=== PATIENT | male | born 1955 | race Caucasian/White ===

== ENCOUNTER 2016-09-20 23:51 | Observation (INO) | payer MEDICARE ==
[~2016-09-20] VITALS: Ht 172.7 cm; Wt 74.4 kg
[~2016-09-20 23:51] MED LIST: AMIODARONE HYD200 MG PO; CARVEDILOL3.125 M1 PO; CLOPIDOGREL75 M2 PO; DOXYCYCLINE HY100 MG PO; K-DUR 2020 MEQ PO; VALIUM 10MG TAB10 MG PO; VICODIN 5/500 T1 TAB PO
[2016-09-21 00:01] VITALS: BP 116/71
--- NOTE | 2016-09-21 00:10 | Emergency Room Report ---
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 N Clinical Suspician of Infection? N Mental Status: 2 - Mildly Altered Sepsis Risk:Low Sepsis Risk Have you (or family members/close friends) recently traveled outside the [place]? N If Yes, where/when: Have you had exposure to infectious disease within the past month? N TB? Other? Specify: Comment The patient is brought in by ambulance with complaints of chest pain and alcohol intoxication. He is intoxicated as advertised and therefore a poor historian. He indicates mid sternal chest pain beginning about 4 PM with shortness of breath, nausea, diaphoresis. He did not take anything for it. He says he is on aspirin and took one Thursday morning. When asked about his alcohol intake, he says he drank "too much". He will not specify an amount. He admits to smoking marijuana "whenever I can", but denies other street drug use. He indicates his chest pain is not present currently. It is unclear when it resolved. It is noted that the patient was seen here on September 09 for alcohol detox. He was discharged with a prescription for 6 Valium tablets to last 2 days and was advised to follow-up with his primary care provider, Aster Lopez, the next day. He says he did not follow-up, "she was unavailable". ALLERGIES Coded Allergies: codeine (Mild, 09/09/16) Uncoded Allergies: PCN (Mild, 10/18/15) Home Medications Active Scripts Acetaminophen/Hydrocodone Bi (Vicodin) 1 TAB PO TIDP PRN pain #10 TAB Prov: 03/30/16 Diazepam (Valium 10MG) 10 MG PO TID #6 TAB Prov: 09/09/16 Reported Medications AMIODARONE HCL (Amiodarone Hydrochloride) 200 MG PO DAILY #30 CLOPIDOGREL BISULFATE (Clopidogrel) 75 MG PO DAILY #30 Potassium Chloride (K-Dur) 20 MEQ PO DAILY #30 Carvedilol 3.125 MG PO BID #60 History Medical History General CAD? Yes Angina: Yes [place]: Yes Hypertension? Yes Hyperlipidemia? Yes CHF? Yes DVT? No PE? No COPD? Yes Asthma? Yes Anemia? No GERD? No Gastric ulcers? No GI Bleed? No Hernia? No Thyroid Problems? No Hypothyroidism? No CVA? No Seizures? No Diabetes? No Renal Insuffiency? No End Stage Renal Disease? No UTI? No Stones? No BPH? No GB Disease: No Nephritic Syndrome? No Asplenia? No Hepatitis? No Sickle Cell Disease? No Arthritis? Yes Migraines? No Cataracts? No Glaucoma? No MRSA? No HIV? No TB? No Anxiety? No Depression? Yes Cancer? No More? No Immunization Hx DT/Tetanus 1-4 Years Ago Flu Refused Pneumonia Never Had Surgical Hx Previous Surgery?Y 3 VESSEL CABG TONSILS BILATERAL SHOULDER BILATERAL WRIST CYST REMOVED FROM BACK Family History Family Hx Diabetes Yes CAD Yes Hypertension Yes Hyperlipidemia Yes Cancer Yes TB No Social History Smoking Hx Smoker: Current Every Day Smoker Tobacco: Yes Type Cigarettes Packs/day < 1 Pack Alcohol Alcohol: Yes Review of Systems All Other Systems Reviewed and Negative Constitutional diaphoresis Respiratory shortness of breath Cardiovascular chest pain Gastrointestinal denies abdominal pain, nausea, denies vomiting Physical Exam Vital Signs Vital Signs Date Time Temp Pulse Resp B/P Pulse O2 O2 Flow FiO2 Ox Delivery Rate 09/21 0238 78 09/21 0238 92 ROOM AIR 09/21 0221 96.9 78 18 107/67 09/21 0214 96.9 78 18 107/67 92 ROOM AIR 09/21 0200 97.3 82 20 108/74 96 09/21 0136 97.3 82 20 108/74 96 09/21 0103 82 20 131/83 96 09/21 0001 97.3 78 20 116/71 93 General Appearance intoxicated, smells strongly of alcohol, speech slurred Eye Exam - bilateral eye normal exam, bilateral eye PERRL, bilateral eye EOMI Ear, Nose, Throat hearing grossly normal, normal ENT inspection Neck normal inspection, non-tender, supple, full range of motion Respiratory Status Yes: trachea midline, chest symmetrical, non tender chest. No: respiratory distress. Lung Sounds bilateral: normal breath sounds, lungs clear. Cardiovascular normal exam, regular rate/rhythm, no peripheral edema, no gallop, no JVD, no murmur, no rub, normal peripheral pulses Peripheral Pulses Pulses normal Yes Gastrointestinal normal bowel sounds, normal exam, non tender, soft, no organomegaly Back normal inspection, no CVA tenderness, no vertebral tenderness Extremities non-tender, normal range of motion, normal inspection Neurologic hide cleaner II-XII nml as tested, normal exam, no motor/sensory deficits, oriented to person only Mental status normal mood/affect Skin intact, normal color, warm/dry Medical Decision Making LABS/Meds/Orders Pt receiving controlled substance in ED? No Results/Orders Laboratory Tests 09/21/16 0050: Opiates Screen NEGATIVE, Urine Methadone Screen NEGATIVE, Barbiturates NEGATIVE, Phencyclidine Screen NEGATIVE, Amphetamines Screen NEGATIVE, Benzodiazepines Screen NEGATIVE, Cocaine Screen NEGATIVE, Marijuana (THC) Screen NEGATIVE 09/21/16 0010: Phosphorus 3.1, Magnesium 2.1 09/21/16 0010: Folate Pending 09/21/16 0010: Sodium 143, Potassium 3.5, Chloride 104, Carbon Dioxide 24, BUN 7, Creatinine 1.1, Estimated Creat Clear 81, Estimated GFR (MDRD) 69, Glucose 98, Calcium 8.4 L, Total Bilirubin 0.3, AST 50 H, ALT 61, Alkaline Phosphatase 124 H, Creatine Kinase 179, CK-MB (CK-2) Rel Index 0.9, CK and CKMB Interp 1.6, Troponin I < 0.02, Total Protein 8.7 H, Albumin 4.1, Globulin 4.6 H, Albumin/Globulin Ratio 0.9 L, PT Pending, INR Pending, APTT Pending, WBC 7.9, RBC 4.94, Hgb 16.6, Hct 48.8, MCV 98.8 H, RDW 13.3, Plt Count 327, MPV 5.5 L, Gran % 41.5, Gran # 3.3, Total Counted 100, Lymphocytes % 50.1 H, Monocytes % 6.8, Eosinophils % 0.8, Basophils % 0.9, Neutrophils 46, Band Neutrophils 3, Lymphocytes (Manual) 47, Lymphocytes # 4.0, Monocytes (Manual) 2, Monocytes # 0.5, Eosinophils # 0.1, Eosinophils # (Manual) 2, Basophils # 0.1, Platelet Estimate NORMAL, Macrocytosis 1+, PUBS MCHC 34.0, MCH 33.5 H, Alcohols 395 *H Current Medication Orders Sig/Trisha Start time Last Medication Dose Route Stop Time Status Admin Amiodarone HCl 200 MG DAILY 09/21 899 UNV PO Carvedilol 3.125 MG BID 09/21 899 UNV PO Clopidogrel Bisulfate 75 MG DAILY 09/21 899 UNV PO Folic Acid 1 MG DAILY 09/21 899 UNV PO 09/23 900 Multivitamins 1 EACH DAILY 09/21 899 UNV PO Potassium Chloride 20 MEQ DAILY 09/21 899 UNV PO Thiamine HCl 100 MG DAILY 09/21 899 UNV PO 09/23 09 Oxazepam 30 MG Q6 09/21 0500 UNV PO 09/22 230 Nicotine 21 MG DAILYP PRN 09/21 0200 UNV TD Sodium Chloride 10 ML PRN PRN 09/21 0200 UNV IV Nicotine 21 MG ONCE ONE 09/21 0130 DC 09/21 TD 09/21 0131 0133 Nicotine 0 .STK-MED ONE 09/21 0128 DC 09/21 TD 0148 Aspirin 0 .STK-MED ONE 09/21 0124 DC .ROUTE Aspirin 324 MG ONCE ONE 09/21 0115 DC 09/21 PO 09/21 0116 0133 Sodium Chloride 10 ML PRN PRN 09/21 0015 AC IV 09/22 0008 Orders Procedure Date/time Status [id number]-[id number] FAT/LO CHO/JAGUAR 09/21 B Active ELECTROCARDIOGRAM REQUEST 09/21 0600 Active CARDIAC ENZYMES 09/21 0600 Active ADM ASSESS SMOKER RESPONSE 09/21 0255 Active ADMITTED PT IS ACTUALLY IN BED 09/21 0240 Active Decision to admit 09/21 0120 Active DRUG ABUSE SCREEN (TRIAGE) 09/21 0013 Complete ALCOHOL 09/21 0013 Complete ELECTROCARDIOGRAM REQUEST 09/21 0010 Active CHEST-PORTABLE 09/21 0010 Active IV SALINE LOCK 09/21 0010 Active DIFFERENTIAL-WBC 09/21 0010 Complete COMPLETE METABOLIC PANEL 09/21 0010 Complete CBC WITH AUTO DIFF 09/21 0010 Complete CARDIAC ENZYMES 09/21 0010 Complete ADMIT PATIENT 09/21 UNK Active 12 LEAD EKG-BESSON (INITIAL) 09/21 UNK Active PULSE OXIMETRY REQUEST 09/21 UNK Active OXYGEN REQUEST 09/21 UNK Active VITAL SIGNS 09/21 UNK Active [employer] CONSULTANT 09/21 UNK Active POM NURSE ELIZABETH HOSE ORDER 09/21 UNK Active IV SALINE LOCK 09/21 UNK Active CODE STATUS 09/21 UNK Active PATIENT ACTIVITY ORDER 09/21 UNK Active PROTIME/PARTIAL PROTIME 09/21 UNK Active PHOSPHORUS 09/21 UNK Complete MAGNESIUM 09/21 UNK Complete FOLIC ACID (FOLATE, SERUM) 09/21 UNK Active CM/EKG CM/EKG Comments EKG interpreted by Parish Suggs MD: Rhythm: sinus Rate: 81 Kirkman: normal Ectopy: none Conduction: RIGHT bundle branch block, chronic ST Segment Changes: none T Wave Changes: none Q Waves: none No evidence of acute ischemia or injury XRAY/CT/US XRAY/CT/US XRAY chest Comment X-ray interpreted by Parish Suggs M.D.: poor inspiration. Prior sternotomy. Old RIGHT rib fractures. Progress - 1:15 AM: I have discussed the case with Dr. Amaya for Dr. Méndez who agrees to admit the patient to the hospital. We discussed the patient's clinical information, including history, exam, laboratory and radiology results and ED course. Per hospital procedure, I will write temporary bridge inpatient orders on the patient. Specific orders requested by the admitting physician: Cardiac enzymes in the morning, Serax withdrawal protocol Departure Departure Disposition Still a Patient Clinical Impression Primary Impression: Chest pain, precordial Secondary Impressions: Alcohol intoxication Qualifiers: Complication of substance-induced condition: uncomplicated Qualified Code: F10.120 - Alcohol abuse with intoxication, uncomplicated Condition STABLE Referrals Honey AGUILAR,Marcus Robertson (Family) ED Critical Care Critical Care No at [id number]
[2016-09-21 00:14] LABS: HEMOGLOBIN 16.6 g/dL (14.1-18.0); LYMPH % 50.1 % (10-50)
[2016-09-21 00:32] LABS: NEUTROPHILS 46 % (42-76)
[2016-09-21 00:39] LABS: BUN 7 mg/dL (7-18)
[2016-09-21 00:40] LABS: GFR (ESTIMATED) 69 ML/MIN (>60)
[2016-09-21 01:07] LABS: AMPHETAMINES/METAMPHETAMINES NEGATIVE ng/mL (<1000)
[2016-09-21 02:14] VITALS: BP 107/67
[2016-09-21 02:21] VITALS: BP 107/67
[2016-09-21 03:29] VITALS: BP 123/51
[2016-09-21 07:50] VITALS: BP 108/68
[2016-09-21 08:00] VITALS: BP 108/68
--- NOTE | 2016-09-21 08:57 | PHARMACY CLINIC NOTE ---
Patient Demographics Patient Demographics Admission date: 09/21/16 Date: 09/21/16 Time: 0857 Allergies Coded Allergies: codeine (Mild, 09/09/16) Uncoded Allergies: PCN (Mild, 10/18/15) HEIGHT- FT: 5 IN: 8.00 K.418 VTE General Information Labs: Laboratory Tests 09/21 0010 Coagulation PT (9.4 - 11.8 SECONDS) 10.0 INR (0.9 - 1.1) 0.93 APTT (23.6 - 34.0 SECONDS) 26.1 Hematology Hgb (14.1 - 18.0 g/dL) 16.6 Hct (42.0 - 52.0 %) 48.8 Plt Count (142 - 424 K/mm3) 327 Disclaimer The following section includes nursing documentation that has been pulled in for pharmacy review. Patient's VTE score: 5 Patient's VTE Risk: LOW RISK Clinical trial participant? No VTE prophylaxis [id number] VTE prophylaxis ordered? Yes Type of prophylaxis/treatment: ELIZABETH at 0857
--- NOTE | 2016-09-21 09:46 | Discharge Summary Standard ---
Demographics: Admit date: 09/20/16 Chief complaint: intoxicated PRIMARY DIAGNOSIS: chest pain Allergies: Coded Allergies: codeine (Mild, 09/09/16) Uncoded Allergies: PCN (Mild, 10/18/15) History of present illness: History of present illness: this wm presented to ed with etoh intox ication and chest pain - he was admitted for serial enz and to monitor hr and rhythm - pt has known ht disease but has not been compliant with meds Past medical history: Family HX Family Hx Insignificant Yes Immunization HX DT/Tetanus Unknown Flu Refused Pneumonia Unknown TB Test in last year No General CAD? Yes Angina: Yes [place]: Yes Hypertension? Yes Hyperlipidemia? Yes CHF? Yes DVT? No PE? No COPD? Yes Asthma? Yes Anemia? No GERD? No Gastric ulcers? No GI Bleed? No Hernia? No Thyroid Problems? No Hypothyroidism? No CVA? No Seizures? No Diabetes? No Renal Insuffiency? No UTI? No Stones? No BPH? No GB Disease: No Nephritic Syndrome? No Asplenia? No Hepatitis? No Sickle Cell Disease? No Arthritis? Yes Migraines? No Cataracts? No Glaucoma? No MRSA? No HIV? No TB? No Anxiety? No Depression? Yes Cancer? No More? No Past Surgical HX Previous Surgery?Y 3 VESSEL CABG TONSILS BILATERAL SHOULDER BILATERAL WRIST CYST REMOVED FROM BACK Current home meds: Active Scripts Acetaminophen/Hydrocodone Bi (Vicodin) 1 TAB PO TIDP PRN pain #10 TAB Prov: 03/30/16 Diazepam (Valium 10MG) 10 MG PO TID #6 TAB Prov: 09/09/16 Reported Medications AMIODARONE HCL (Amiodarone Hydrochloride) 200 MG PO DAILY #30 CLOPIDOGREL BISULFATE (Clopidogrel) 75 MG PO DAILY #30 Potassium Chloride (K-Dur) 20 MEQ PO DAILY #30 Carvedilol 3.125 MG PO BID #60 Social Hx: Smoking HX Tobacco Yes Type Cigarettes Packs/day < 1 PACK Are you/the child exposed to second-hand smoke: Yes Alcohol Alcohol: Yes How much do you drink 6-10 Drinks Per Day For how long Longer Than 5 Years When was your last drink Less Than 12 Hours Ago Hx of Drug Use Drug Use? No Patien't marital status is single Patient's support system is fair Review of systems: Constitutional No: fever. Eyes No: drainage. Ears, Nose, Mouth, Throat No ear pain, No epistaxis, No throat pain Respiratory No: cough, shortness of breath, wheezing. Cardiovascular chest pain, No palpitations, No syncope Gastrointestinal/Abdominal see HPI, No diarrhea, nausea, poor appetite, poor fluid intake, No vomiting Genitourinary No: dysuria, frequency, hesitancy, hematuria. Musculoskeletal No: back pain, joint pain, joint swelling, neck pain. Skin No: rash. Neurological No: headache, seizure disorder. Psychiatric Yes: other. Exam: Lab data for last 24 hours: Laboratory Tests 09/21/16 0555: Creatine Kinase 191, CK-MB (CK-2) Rel Index 0.9, CK and CKMB Interp 1.8, Troponin I 0.02 09/21/16 0050: Opiates Screen NEGATIVE, Urine Methadone Screen NEGATIVE, Barbiturates NEGATIVE, Phencyclidine Screen NEGATIVE, Amphetamines Screen NEGATIVE, Benzodiazepines Screen NEGATIVE, Cocaine Screen NEGATIVE, Marijuana (THC) Screen NEGATIVE 09/21/16 0010: Phosphorus 3.1, Magnesium 2.1 09/21/16 0010: Sodium 143, Potassium 3.5, Chloride 104, Carbon Dioxide 24, BUN 7, Creatinine 1.1, Estimated Creat Clear 81, Estimated GFR (MDRD) 69, Glucose 98, Calcium 8.4 L, Total Bilirubin 0.3, AST 50 H, ALT 61, Alkaline Phosphatase 124 H, Creatine Kinase 179, CK-MB (CK-2) Rel Index 0.9, CK and CKMB Interp 1.6, Troponin I < 0.02, Total Protein 8.7 H, Albumin 4.1, Globulin 4.6 H, Albumin/Globulin Ratio 0.9 L, PT 10.0, INR 0.93, APTT 26.1, WBC 7.9, RBC 4.94, Hgb 16.6, Hct 48.8, MCV 98.8 H, RDW 13.3, Plt Count 327, MPV 5.5 L, Gran % 41.5, Gran # 3.3, Total Counted 100, Lymphocytes % 50.1 H, Monocytes % 6.8, Eosinophils % 0.8, Basophils % 0.9, Neutrophils 46, Band Neutrophils 3, Lymphocytes (Manual) 47, Lymphocytes # 4.0, Monocytes (Manual) 2, Monocytes # 0.5, Eosinophils # 0.1, Eosinophils # (Manual) 2, Basophils # 0.1, Platelet Estimate NORMAL, Macrocytosis 1+, PUBS MCHC 34.0, MCH 33.5 H, Alcohols 395 *H Admission vital signs: 1ST Vital Signs Result Date Time Pulse Ox 93 09/21 0001 B/P 116/71 09/21 0001 Temp 97.3 09/21 0001 Pulse 78 09/21 0001 Resp 20 09/21 0001 O2 Delivery ROOM AIR 09/21 0214 Exam General appearance: awake Eyes: PERRLA ENT: dry mucous membranes Neck: no JVD Cardiovascular: regular rate & rhythm Respiratory: no respiratory distress ABD: soft Genitourinary: no dysuria Extremities: moves all Musculoskeletal: equal muscle strength Skin: dry Neuro: alert, 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 Comment: will arrange card follow up as op and discuss etoh use and follow up Follow up Follow up in office in: 1 DAY with: Aster Lopez at 0945
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
--- OUTSIDE RECORDS SUMMARY | 2016-09-22 02:51 | External Medical Summary Rpt ---
Author Author , Organization [employer] Address Unknown Phone Unavailable Care Team Providers Care Project Associate Name Role Phone AHMAD MUH, AHMAD MUH Unavailable Unavailable ALAM MARIA M, ALAM MARIA M Unavailable Unavailable ATTUM ABD, ATTUM ABD Unavailable Unavailable REEVES CHELSEY, REEVES CHELSEY Unavailable Unavailable BATDORF, BATDORF Unavailable Unavailable BEINEKE HUONG, BEINEKE Unavailable Unavailable HUONG BESSON TAM, BESSON Unavailable Unavailable TAM TIMUR JEIMY, TIMUR Unavailable Unavailable JEIMY ROACH ALL, ROACH ALL Unavailable Unavailable SHERWIN MALHAB NIS, SHERWIN Unavailable Unavailable MALHAB NIS [facility], Unavailable Unavailable [facility] Unavailable Unavailable SERVICE, [facility] Unavailable Unavailable SERVICE, [facility] KAY JR PHILIP, KAY JR Unavailable Unavailable PHILIP [facility] Unavailable Unavailable [facility] Unavailable Unavailable COOK SUNIL, COOK SUNIL Unavailable Unavailable GHARAD CORRINA, GHARAD Unavailable Unavailable CORRINA MERCY DEN, MERCY Unavailable Unavailable DEN NICHOLAS APR, NICHOLAS APR Unavailable Unavailable [facility] Unavailable Unavailable INC, [facility] Unavailable Unavailable HOSPITAL P, [facility] P [facility], Unavailable Unavailable [facility] ISAI REEVES APRN FAMILY Unavailable Unavailable CLINIC, [facility] REEV[facility] GUNNER VINNIE, GUNNER Unavailable Unavailable VINNIE [facility] Un[facility] Unavailable [facility], [facility] Un[facility], [facility] BARBARA JR DWI, BARBARA Unavailable Unavailable JR DWI THOMAS AHM, THOMAS AHM Unavailable Unavailable THOMAS AHM, THOMAS AHM Unavailable Unavailable MATHAROO CORINNA, Unavailable Unavailable MATHAROO CORINNA [facility], Unavailable Unavailable [facility], Unavailable Unavailable [facility] Unavailable Unavailable CORPORATION, [facility] Unavailable Unavailable CORPORATION, [facility] Unavailable Unavailable [facility], [facility] Un[facility] Unavailable [facility], [facility] TEODORO ALEX, Unavailable Unavailable TEODORO ALEX [facility] Unavailable Unavailable DEPT\EMS, [facility]\EMS [facility], Unavailable Unavailable [facility], [facility] PETTEY JAM, PETTEY Unavailable Unavailable JAM [facility] Unavailable Unavailable CENTER, [facility] Unavailable Unavailable EQUIP, [facility] Unavailable Unavailable [facility], [facility] YATES GAR, YATES Unavailable Unavailable GAR AYESHA MAT, Unavailable Unavailable AYESHA MAT SINCELL MAR, SINCELL Unavailable Unavailable MAR SOTINGEANU HUONG, Unavailable Unavailable SOTINGEANU HUONG KATHY PHI, KATHY PHI Unavailable Unavailable WALKER FOR, WALKER Unavailable Unavailable FOR WELLS BRA, WELLS BRA Unavailable Unavailable [facility] MARTIN ERU, MARTIN ERU Unavailable Unavailable Purpose Continuity of Care Document - 09-18-2012 through 2016 Problems Code Diagnosis DOS Provider Status 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 04-10-2016 [facility] REGION [id number] OTHER 04-10-2016 [facility] DISC [facility] DEGENERATIO N AT C5-C6 LEVEL Z720 TOBACCO USE 04-10-2016 [facility] [id number] OTHER 04-09-2016 [facility] EXTRAARTICU PHYSICIANS LAR FX LOW GROUP RT RADIUS INIT CLOS [id number] DSPL FX 04-09-2016 [facility] RT WRST IMAGING ASS SUB ENC FX ROUTINE I10 ESSENTIAL 03-30-[address] [address] 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 UNS M53120 PRIMARY 03-30-2016 [facility] TIS RIGHT IMAGING ASS HAND [id number] PAIN IN 03-30-2016 [facility] RIGHT MEDICAL SHOULDER IMAGING ASS L74284 PAIN IN 03-30-2016 [facility] RIGHT WRIST MEDICAL IMAGING ASS G22169 PAIN IN 03-30-2016 [facility] UNSPECIFIED MEDICAL HIP IMAGING ASS H37661 PAIN IN 03-30-2016 [place] RIGHT MEDICAL FOREARM IMAGING ASS L10845 PAIN IN 03-30-2016 [facility] RIGHT HAND MEDICAL IM[facility] A3576GL UNS INJURY 03-30-2016 [facility] RT SHOULDER MEDICAL UPPER ARM IMAGING ASS INITIAL ENCNTR [id number] FX UNS 03-30-2016 [facility] CARPAL BONE PHYSICIANS, RT WRIST PLLC INITIAL ENC CLOS FX [id number] DSPL FX 03-30-2016 [facility] RT WRIST IMAGING ASS INIT ENC CLOS FX M542 CERVICALGIA 03-19-2016 [facility] M545 LOW BACK 02-18-2016 [facility] PAIN [facility] M5022 OT CERV 02-08-2016 [place] DISC MEDICAL DISPLACEMEN IMAGING ASS T MID-CERVICA L REGION M5032 OT CERV 02-08-2016 [facility] DISC MEDICAL DEGENERATIO IMAGING ASS N MID-CERVICA L REGION M5124 OT 02-08-2016 [place] INTERVERTEB MEDICAL RAL DISC IMAGING ASS DISPLACEMEN T THOR REGION M5134 OTH 02-08-2016 [place] INTER[facility]TE[facility] MEDICAL RAL DISC IMAGING ASS DEGEN THORACIC REGION M546 PAIN IN 02-08-2016 [facility] THORACIC [facility] SPINE IMAGING ASS M549 DORSALGIA 02-08-2016 [facility] UNSPECIFIED [facility] INC I209 ANGINA 01-15-2016 [facility]IS PHYSICIANS UNSPECIFIED GROUP W00688 ASHD TANGIRNAQ 01-15-2016 [facility] W/UNS INC ANGINA PECTORIS R9439 ABNORMAL 01-15-2016 [facility] RESULT [facility] PHYSICIANS CARDIOVASCU GROUP LR FUNCTION STUDY 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 ASHD TANGIRNAQ 01-04-2016 [place] [facility] CORONARY [facility] ARTERY W/O HOSPITAL P ANGINA PECTORIS E039 HYPOTHYROID 12-28-2015 [place] [facility] IS [facility] UNSPECIFIED INC R079 CHEST PAIN 12-28-2015 [facility] UNSPECIFIED [facility]ICAL IMAGING ASS R0602 SHORTNESS 10-29-2015 [facility] R5383 OTHER 10-29-2015 [facility] R32542 PAIN IN 10-22-2015 [facility] LEFT PHYSICIANS, SHOULDER PLLC R0789 OTHER CHEST 10-22-2015 [facility] PAIN MEDICAL IMAGING ASS [id number] PAIN D/T 10-22-2015 [facility] P IMPL & GRAFTS INITIAL G8918 OTHER ACUTE 10-18-2015 [facility] POSTPROCEDU [facility] P RAL PAIN G8928 OTHER 10-18-2015 [facility] CHRONIC PHYSICIANS, POSTPROCEDU PLLC RAL PAIN J80 ACUTE 10-18-2015 [facility] RESPIRATORY AMBULANCE DISTRESS SERVICE SYNDROME J90 PLEURAL 10-18-2015 [place] [facility] NOT IMAGING ASS ELSEWHERE CLASSIFIED J9811 ATELECTASIS 10-18-2015 [facility] J9690 RESP FAIL 10-15-2015 [facility] UNS UNS [facility] WHETHER HOSP W/HYPOXIA/H YPERCAPNIA R410 DISORIENTAT 10-15-2015 [facility] ION [facility] UNSPECIFIED HOSP R5381 OTHER 10-15-2015 [facility] MALAISE [facility] G86008 ELEVATED 10-13-2015 [facility] WHITE BLOOD [facility] CELL COUNT HOSP UNSPECIFIED I509 HEART 10-13-2015 [facility] FAILURE [facility] UNSPECIFIED HOSP J9600 ACUTE 10-13-2015 [facility] RESPIRATORY [facility] FAIL UNS HOSP HYPOXIA/HYP ERCAPNIA I214 NON-ST 10-12-2015 [facility] ELEVATION [facility] MYOCARDIAL HOSP INFARCTION R4182 ALTERED 10-12-2015 [facility] MENTAL [facility] STATUS HOS[facility] UNSPECIFIED D649 ANEMIA 10-11-2015 [facility] UNSPECIFIED [facility] HOSP E876 HYPOKALEMIA 10-11-2015 [facility] 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 J9601 ACUTE 10-10-2015 [facility] RESPIRATORY [facility] FAILURE HOSP WITH HYPOXIA R9431 ABNORMAL 10-10-2015 [facility] ELECTROCARD [facility] IOGRAM HOSP E870 HYPEROSMOLA 10-09-2015 [facility] LITY AND [place] HYPERNATREM [place]OSP [place] H74102 ACUTE 10-09-2015 [facility] POSTPROCEDU [facility] RAL HOSP RESPIRATORY FAILURE I999 UNSPECIFIED 10-08-2015 [facility] DISORDER [facility] OF HOSP CIRCULATORY SYSTEM E785 HYPERLIPIDE 10-03-2015 [facility] KAREN [facility] UNSPECIFIED HOSP I213 ST 10-02-2015 [facility] E[facility]ATION [facility] MYOCARDIAL HOSP INFARCTION UNS SITE F61307 ENCOUNTER 10-02-2015 [facility] FOR [facility] PREPROCEDUR HOSP AL CARIOVASCUL AR EXAM I222 SUBSEQUENT 10-01-2015 [facility] NON-ST CORPORATION ELEVATION MYOCARDIAL INFARCT J309 ALLERGIC 09-25-2015 ISAI REEVES RHINITIS [facility] UNSPECIFIED [facility]INIC N401 BENIGN 09-25-2015 ISAI REEVES PROSTATIC [facility] HYPERPLASIA CLINIC LW URINARY TRACT SX 2724 OTHER AND 06-19-2014 [facility] UNSPECIFIED HYPERLIPIDE KAREN 4019 UNSPECIFIED 06-19-2014 [facility] ESSENTIAL HYPERTENSIO N 6079 UNSPECIFIED 06-19-2014 [facility] DISORDER OF PENIS 7242 LUMBAGO 06-19-2014 [facility] 93309 PAIN IN 06-06-2014 [facility] HOME JOINT, MEDICAL MULTIPLE SITES 7231 CERVICALGIA 05-30-2014 [facility] A R H 4619 ACUTE 02-23-2014 [facility] SINUSITIS, UNSPECIFIED 481 PNEUMOCOCCA 09-26-2013 [place] L PNEUMONIA A R H 2875 UNSPECIFIED 09-20-2013 [place] [employer] HEALTH THROMBOCYTO [facility] PENIA 54417 OTHER 09-20-2013 [place] CHRONIC COMP HEALTH PAIN [facility] 78485 OBSTRUCTIVE 09-16-2013 [place] CHRONIC COMP BRONCHITIS SPECIALTY WITH SERV [place]ACERBATIO N 39834 DIARRHEA 09-14-2013 [facility] F10.10 ALCOHOL ABUSE, UNCOMPLICAT ED Allergies, Adverse Reactions, Alerts Clinical Alert Notifications Alert Member has >/= 3 hosp admit & >/= 1 ED visit in 365 days Results Labs Lab Lab Date Result Refere Interp Status Commen Order Detail nces retati t Range on ALCOHOL,SERUM (02-25-2014 04:45) Alcohol 101 0-10 complet 014 mg/dL ed 04:45 COMPREHENSIVE METABOLIC PANEL (02-24-2014 23:53) GLOMERU >60.0 complet LAR 014 mL/min/ ed FILTRAT 23:53 1.73 m2 ION RATE Comment: eGFR Interpretation: Disease State Reference Ranges for eGFR Comment: (calculated) Comment: Stage eGFR Description Comment: I/II >60 Normal/Mildly reduced kidney function Comment: III 30-59 Moderately reduced kidney function Comment: IV 15-29 Severely reduced kidney function Comment: V <15 End-stage kidney failure Comment: Calculated using MDRD formula based on gender,race (* GFR AA is for the Comment: population), and age. GFR estimates are unreliable in Comment: patients with rapidly changing kidney function,recent dialysis, extremes Comment: in body size, severe malnutrition or obesity, loss of limbs, abnormal Comment: muscle mass, or during . In these patients, alternative Comment: determinations of GFR should be obtained. GLOMERU >60.0 complet LAR 014 mL/min/ ed FILTRAT 23:53 1.73 m2 ION RATE Anne Marie n Creatin 0.9 0.6-1.3 complet ine 014 mg/dL ed 23:53 Sodium 02-24- 140 136-145 complet 014 mEq/L ed 23:53 Potassi 02-24-2 3.7 3.5-5.1 complet um 014 mEq/L ed 23:53 Chlorid 02-24- 109 98-107 complet e 014 mEq/L ed 23:53 CO2 02-24- 26 22-29 complet 014 mmol/L ed 23:53 Calcium 02-24- 8.3 8.5-10. complet 014 mg/dL 1 ed 23:53 Total 2 7.2 6.4-8.2 complet Protein 014 gm/dL ed 23:53 Glucose 93 70-99 complet 014 mg/dL ed 23:53 BUN 02-24- 10 7-18 complet 014 mg/dL ed 23:53 Albumin 3.6 3.4-5.0 complet 014 gm/dL ed 23:53 ALT 19 U/L 3-50 complet 014 ed 23:53 AST 12 U/L 15-37 complet 014 ed 23:53 Bilirub 0.18 0.0-1.0 complet in, 014 mg/dL ed Total 23:53 Alk 62 U/L 50-136 complet Phos 014 ed 23:53 CBC W/DIFF (02-24-2014 23:53) Neutrop 4.3 X 1.5-7.1 complet hil 014 10\S\3 ed Count 23:53 Monocyt 02-24-2 0.2 X 0.2-1.2 complet e Count 014 10\S\3 ed 23:53 Eosinop 02-24- 0.2 X 0.0-0.8 complet hil 014 10\S\3 ed Count 23:53 Lymphoc 02-24-2 4.2 X 0.7-4.3 complet yte 014 10\S\3 ed Count 23:53 Atypica 02-24-2 7 complet l 014 ed Lymphoc 23:53 yte Neutrop 02-24- 44.0 % 42.0-75 complet hils % 014 .0 ed 23:53 Eosinop 02-24-2 2.0 % 0.0-6.0 complet hils % 014 ed 23:53 WBC 10-03-2 9.6 X 3.5-9.6 complet 014 10\S\3 ed 23:53 Bands 10-03-2 1 complet 014 ed 23:53 Lymphoc 10-03-2 44.0 % 20.0-51 complet ytes % 014 .0 ed 23:53 Monocyt 10-03-2 2.0 % 0.0-13. complet es % 014 0 ed 23:53 RBC 10-03-2 4.51 X 4.70-6. complet 014 10\S\6 10 ed 23:53 Hemoglo 03-2 14.3 14.0-18 complet bin 014 gm/dL .0 ed 23:53 MCHC 03-2 33.6 32.0-37 complet 014 gm/dL .0 ed 23:53 MCV -03-2 94.2 fl 80.0-94 complet 014 .0 ed 23:53 RDW 02-24-2 13.4 % 12.0-15 complet 014 .0 ed 23:53 MPV 03-2 6.4 fl 6.2-10. complet 014 6 ed 23:53 Manual 03-2 YES complet Diff? 014 ed 23:53 Hematoc 03-2 42.5 % 42.0-52 complet rit 014 .0 ed 23:53 Platele 02-24-2 246 X 130-400 complet t 014 10\S\3 ed 23:53 MCH -03-2 31.7 pg 27.0-32 complet 014 .0 ed 23:53 ALCOHOL,SERUM (02-24-2014 23:53) Alcohol 202 0-10 complet 014 mg/dL ed 23:53 BASIC METABOLIC PANEL (09-26-2013 16:20) Glucose 05- 99 70-99 Normal complet 014 mg/dL ed 16:20 BUN -05-2 12 7-18 Normal complet 014 mg/dL ed 16:20 Creatin 05-05-2 0.9 0.6-1.3 Normal complet ine 014 mg/dL ed 16:20 Sodium 05-2 135 136-145 Below complet 014 mEq/L low ed 16:20 normal Potassi 05-2 4.2 3.5-5.1 Normal complet um 014 mEq/L ed 16:20 Chlorid 102 98-107 Normal complet e 014 mEq/L ed 16:20 CO2 09-26- 28 22-29 Normal complet 014 mmol/L ed 16:20 Calcium 2 9.1 8.5-10. Normal complet 014 mg/dL 1 ed 16:20 BUN/Cre 13 complet at 014 ed Ratio 16:20 GLOMERU >60.0 complet LAR 014 mL/min/ ed FILTRAT 16:20 1.73 m2 ION RATE Comment: eGFR Interpretation: Disease State Reference Ranges for eGFR Comment: (calculated) Comment: Stage eGFR Description Comment: I/II >60 Normal/Mildly reduced kidney function Comment: III 30-59 Moderately reduced kidney function Comment: IV 15-29 Severely reduced kidney function Comment: V <15 End-stage kidney failure Comment: Calculated using MDRD formula based on gender,race (* GFR AA is for the Comment: population), and age. GFR estimates are unreliable in Comment: patients with rapidly changing kidney function,recent dialysis, extremes Comment: in body size, severe malnutrition or obesity, loss of limbs, abnormal Comment: muscle mass, or during . In these patients, alternative Comment: determinations of GFR should be obtained. GLOMERU >60.0 complet LAR 014 mL/min/ ed FILTRAT 16:20 1.73 m2 ION RATE Anne Marie n BASIC METABOLIC PANEL (09-20-2013 05:45) Glucose 09-20- 104 70-99 Above complet 014 mg/dL high ed 05:45 normal BUN 2 19 7-18 Above complet 014 mg/dL high ed 05:45 normal Creatin 2 1.2 0.6-1.3 Normal complet ine 014 mg/dL ed 05:45 Sodium 137 136-145 Normal complet 014 mEq/L ed 05:45 Potassi 2 4.6 3.5-5.1 Normal complet um 014 mEq/L ed 05:45 Chlorid 09-20-2 99 98-107 Normal complet e 014 mEq/L ed 05:45 CO2 09-20-2 29 22-29 Normal complet 014 mmol/L ed 05:45 Calcium 2 9.1 8.5-10. Normal complet 014 mg/dL 1 ed 05:45 BUN/Cre 16 complet at 014 ed Ratio 05:45 GLOMERU 2 >60.0 complet LAR 014 mL/min/ ed FILTRAT 05:45 1.73 m2 ION RATE Comment: eGFR Interpretation: Disease State Reference Ranges for eGFR Comment: (calculated) Comment: Stage eGFR Description Comment: I/II >60 Normal/Mildly reduced kidney function Comment: III 30-59 Moderately reduced kidney function Comment: IV 15-29 Severely reduced kidney function Comment: V <15 End-stage kidney failure Comment: Calculated using MDRD formula based on gender,race (* GFR AA is for the Comment: population), and age. GFR estimates are unreliable in Comment: patients with rapidly changing kidney function,recent dialysis, extremes Comment: in body size, severe malnutrition or obesity, loss of limbs, abnormal Comment: muscle mass, or during . In these patients, alternative Comment: determinations of GFR should be obtained. GLOMERU >60.0 complet LAR 014 mL/min/ ed FILTRAT 05:45 1.73 m2 ION RATE Anne Marie n CBC W/DIFF (09-20-2013 05:45) WBC 9.5 X 3.5-9.6 Normal complet 014 10\S\3 ed 05:45 RBC 4.76 X 4.70-6. Normal complet 014 10\S\6 10 ed 05:45 Hemoglo 15.1 14.0-18 Normal complet bin 014 gm/dL .0 ed 05:45 Hematoc 43.9 % 42.0-52 Normal complet rit 014 .0 ed 05:45 Platele 426 X 130-400 Above complet t 014 10\S\3 high ed 05:45 normal MCH 31.7 pg 27.0-32 Normal complet 014 .0 ed 05:45 MCHC 34.4 32.0-37 Normal complet 014 gm/dL .0 ed 05:45 MCV 92.3 fl 80.0-94 Normal complet 014 .0 ed 05:45 RDW 13.8 % 12.0-15 Normal complet 014 .0 ed 05:45 MPV 04-29-2 6.6 fl 6.2-10. Normal complet 014 6 ed 05:45 Neutrop -29-2 56.1 % 42.0-75 Normal complet hils % 014 .0 ed 05:45 Lymphoc -29-2 30.7 % 20.0-51 Normal complet ytes % 014 .0 ed 05:45 Monocyt -29-2 10.2 % 0.0-13. Normal complet es % 014 0 ed 05:45 Eosinop --2 2.1 % 0.0-6.0 Normal complet hils % 014 ed 05:45 Basophi 09-20-2 0.9 % 0.0-2.0 Normal complet ls % 014 ed 05:45 Neutrop 09-20-2 5.4 X 1.5-7.1 Normal complet hil 014 10\S\3 ed Count 05:45 Monocyt 09-20-2 1.0 X 0.2-1.2 Normal complet e Count 014 10\S\3 ed 05:45 Eosinop 09-20-2 0.2 X 0.0-0.8 Normal complet hil 014 10\S\3 ed Count 05:45 Basophi 09-20-2 0.1 X 0.0-0.1 Normal complet l Count 014 10\S\3 ed 05:45 Lymphoc 09-20-2 2.9 X 0.7-4.3 Normal complet yte 014 10\S\3 ed Count 05:45 Comment: SLIDE REVIEWED, SC WBC STOOL (09-19-2013 19:00) Fecal NONE NONE Normal complet Leukocy 014 SEEN SEEN ed andressa 19:00 CULTURE, STOOL (09-19-2013 19:00) Clinica Specime complet l 014 n: ed Report 19:00 STOOL Clinica Collect complet l 014 ed: ed Report 19:00 014 19:00 Clinica Status: complet l 014 Final ed Report 19:00 Last Updated : 014 23:13 Clinica CUL RES complet l 014 ed Report 19:00 (Final) Clinica Heavy complet l 014 Normal ed Report 19:00 Fecal Cassi Noted Clinica Negativ complet l 014 e for ed Report 19:00 presenc e of Shiga toxin 1 Clinica Negativ complet l 014 e for ed Report 19:00 the presenc e of Shiga toxin 2 Clinica Negativ complet l 014 e For ed Report 19:00 Salmone lla, Shigell a, Campylo bacter \E\T\E\ Yersini a CLOSTRIDIUM DIFFICILE TOXIN A AND B (09-19-2013 19:00) C. NEGATIV NEGATIV Normal complet Diffici 014 E E ed le 19:00 Toxin BASIC METABOLIC PANEL (09-19-2013 05:56) Glucose 107 70-99 Above complet 014 mg/dL high ed 05:56 normal BUN 15 7-18 Normal complet 014 mg/dL ed 05:56 Creatin 1.0 0.6-1.3 Normal complet ine 014 mg/dL ed 05:56 Sodium 136 136-145 Normal complet 014 mEq/L ed 05:56 Potassi 4.5 3.5-5.1 Normal complet um 014 mEq/L ed 05:56 Chlorid 99 98-107 Normal complet e 014 mEq/L ed 05:56 CO2 28 22-29 Normal complet 014 mmol/L ed 05:56 Calcium 9.3 8.5-10. Normal complet 014 mg/dL 1 ed 05:56 BUN/Cre 15 complet at 014 ed Ratio 05:56 GLOMERU >60.0 complet LAR 014 mL/min/ ed FILTRAT 05:56 1.73 m2 ION RATE Comment: eGFR Interpretation: Disease State Reference Ranges for eGFR Comment: (calculated) Comment: Stage eGFR Description Comment: I/II >60 Normal/Mildly reduced kidney function Comment: III 30-59 Moderately reduced kidney function Comment: IV 15-29 Severely reduced kidney function Comment: V <15 End-stage kidney failure Comment: Calculated using MDRD formula based on gender,race (* GFR AA is for the Comment: population), and age. GFR estimates are unreliable in Comment: patients with rapidly changing kidney function,recent dialysis, extremes Comment: in body size, severe malnutrition or obesity, loss of limbs, abnormal Comment: muscle mass, or during . In these patients, alternative Comment: determinations of GFR should be obtained. GLOMERU >60.0 complet LAR 014 mL/min/ ed FILTRAT 05:56 1.73 m2 ION RATE Anne Marie n CBC W/DIFF (09-19-2013 05:56) WBC 10.5 X 3.5-9.6 Above complet 014 10\S\3 high ed 05:56 normal RBC 4.70 X 4.70-6. Normal complet 014 10\S\6 10 ed 05:56 Hemoglo 14.8 14.0-18 Normal complet bin 014 gm/dL .0 ed 05:56 Hematoc 44.3 % 42.0-52 Normal complet rit 014 .0 ed 05:56 Platele 384 X 130-400 Normal complet t 014 10\S\3 ed 05:56 MCH 31.5 pg 27.0-32 Normal complet 014 .0 ed 05:56 MCHC 33.4 32.0-37 Normal complet 014 gm/dL .0 ed 05:56 RDW 14.0 % 12.0-15 Normal complet 014 .0 ed 05:56 MPV 6.9 fl 6.2-10. Normal complet 014 6 ed 05:56 Neutrop 54.5 % 42.0-75 Normal complet hils % 014 .0 ed 05:56 Lymphoc 34.3 % 20.0-51 Normal complet ytes % 014 .0 ed 05:56 Monocyt 8.8 % 0.0-13. Normal complet es % 014 0 ed 05:56 Eosinop 1.7 % 0.0-6.0 Normal complet hils % 014 ed 05:56 Basophi 0.7 % 0.0-2.0 Normal complet ls % 014 ed 05:56 Neutrop 5.7 X 1.5-7.1 Normal complet hil 014 10\S\3 ed Count 05:56 Monocyt 0.9 X 0.2-1.2 Normal complet e Count 014 10\S\3 ed 05:56 Eosinop 2 0.2 X 0.0-0.8 Normal complet hil 014 10\S\3 ed Count 05:56 Basophi 2 0.1 X 0.0-0.1 Normal complet l Count 014 10\S\3 ed 05:56 Lymphoc 3.6 X 0.7-4.3 Normal complet yte 014 10\S\3 ed Count 05:56 Comment: SLIDE REVIEWED, MC MCV 94.3 fl 80.0-94 Above complet 014 .0 high ed 05:56 normal BASIC METABOLIC PANEL (09-18-2013 05:45) Glucose 96 70-99 Normal complet 014 mg/dL ed 05:45 BUN 13 7-18 Normal complet 014 mg/dL ed 05:45 Creatin 1.0 0.6-1.3 Normal complet ine 014 mg/dL ed 05:45 Sodium 136 136-145 Normal complet 014 mEq/L ed 05:45 Potassi 4.2 3.5-5.1 Normal complet um 014 mEq/L ed 05:45 Chlorid 102 98-107 Normal complet e 014 mEq/L ed 05:45 CO2 27 22-29 Normal complet 014 mmol/L ed 05:45 Calcium 8.7 8.5-10. Normal complet 014 mg/dL 1 ed 05:45 GLOMERU >60.0 complet LAR 014 mL/min/ ed FILTRAT 05:45 1.73 m2 ION RATE Comment: eGFR Interpretation: Disease State Reference Ranges for eGFR Comment: (calculated) Comment: Stage eGFR Description Comment: I/II >60 Normal/Mildly reduced kidney function Comment: III 30-59 Moderately reduced kidney function Comment: IV 15-29 Severely reduced kidney function Comment: V <15 End-stage kidney failure Comment: Calculated using MDRD formula based on gender,race (* GFR AA is for the Comment: population), and age. GFR estimates are unreliable in Comment: patients with rapidly changing kidney function,recent dialysis, extremes Comment: in body size, severe malnutrition or obesity, loss of limbs, abnormal Comment: muscle mass, or during . In these patients, alternative Comment: determinations of GFR should be obtained. GLOMERU >60.0 complet LAR 014 mL/min/ ed FILTRAT 05:45 1.73 m2 ION RATE Anne Marie n BASIC METABOLIC PANEL (09-17-2013 05:40) Chlorid 103 98-107 Normal complet e 014 mEq/L ed 05:40 CO2 28 22-29 Normal complet 014 mmol/L ed 05:40 Calcium 8.6 8.5-10. Normal complet 014 mg/dL 1 ed 05:40 BUN/Cre 14 complet at 014 ed Ratio 05:40 GLOMERU >60.0 complet LAR 014 mL/min/ ed FILTRAT 05:40 1.73 m2 ION RATE Comment: eGFR Interpretation: Disease State Reference Ranges for eGFR Comment: (calculated) Comment: Stage eGFR Description Comment: I/II >60 Normal/Mildly reduced kidney function Comment: III 30-59 Moderately reduced kidney function Comment: IV 15-29 Severely reduced kidney function Comment: V <15 End-stage kidney failure Comment: Calculated using MDRD formula based on gender,race (* GFR AA is for the Comment: population), and age. GFR estimates are unreliable in Comment: patients with rapidly changing kidney function,recent dialysis, extremes Comment: in body size, severe malnutrition or obesity, loss of limbs, abnormal Comment: muscle mass, or during . In these patients, alternative Comment: determinations of GFR should be obtained. GLOMERU >60.0 complet LAR 014 mL/min/ ed FILTRAT 05:40 1.73 m2 ION RATE Anne Marie n Glucose 105 70-99 Above complet 014 mg/dL high ed 05:40 normal BUN 13 7-18 Normal complet 014 mg/dL ed 05:40 Creatin 0.9 0.6-1.3 Normal complet ine 014 mg/dL ed 05:40 Sodium 136 136-145 Normal complet 014 mEq/L ed 05:40 Potassi 4.1 3.5-5.1 Normal complet um 014 mEq/L ed 05:40 CBC W/DIFF (09-17-2013 05:40) Lymphoc 04-26-2 27.5 % 20.0-51 Normal complet ytes % 014 .0 ed 05:40 Monocyt 04-26-2 11.7 % 0.0-13. Normal complet es % 014 0 ed 05:40 Eosinop 04-26-2 1.4 % 0.0-6.0 Normal complet hils % 014 ed 05:40 Basophi 04-26-2 0.7 % 0.0-2.0 Normal complet ls % 014 ed 05:40 Neutrop 04-26-2 5.0 X 1.5-7.1 Normal complet hil 014 10\S\3 ed Count 05:40 Monocyt 04-26-2 1.0 X 0.2-1.2 Normal complet e Count 014 10\S\3 ed 05:40 Eosinop 04-26-2 0.1 X 0.0-0.8 Normal complet hil 014 10\S\3 ed Count 05:40 Basophi 04-26-2 0.1 X 0.0-0.1 Normal complet l Count 014 10\S\3 ed 05:40 Lymphoc 04-26-2 2.3 X 0.7-4.3 Normal complet yte 014 10\S\3 ed Count 05:40 WBC 04-26-2 8.5 X 3.5-9.6 Normal complet 014 10\S\3 ed 05:40 RBC 04-26-2 4.31 X 4.70-6. Below complet 014 10\S\6 10 low ed 05:40 normal Hemoglo 04-26-2 13.5 14.0-18 Below complet bin 014 gm/dL .0 low ed 05:40 normal Hematoc 04-26-2 40.4 % 42.0-52 Below complet rit 014 .0 low ed 05:40 normal Platele 04-26-2 307 X 130-400 Normal complet t 014 10\S\3 ed 05:40 MCH 04-26-2 31.3 pg 27.0-32 Normal complet 014 .0 ed 05:40 MCHC 04-26-2 33.4 32.0-37 Normal complet 014 gm/dL .0 ed 05:40 MCV 04-26-2 93.6 fl 80.0-94 Normal complet 014 .0 ed 05:40 RDW 04-26-2 13.8 % 12.0-15 Normal complet 014 .0 ed 05:40 MPV 7.3 fl 6.2-10. Normal complet 014 6 ed 05:40 Neutrop 58.7 % 42.0-75 Normal complet hils % 014 .0 ed 05:40 ROTAVIRUS (09-16-2013 16:00) Rotavir NEGATIV complet us 014 E ed 16:00 OCCULT BLOOD, SINGLE SPECIMEN (09-16-2013 16:00) Occult NEGATIV NEGATIV Normal complet Blood 014 E E ed 16:00 NORWALK-LIKE VIRUS,EIA (09-16-2013 16:00) Gardner SEE complet -like 014 COMMENT ed Ag 16:00 S 014 09:45 AM Comment: Test Result Flag Unit RefValue Comment: ------- Comment: Norovirus Comment: Norovirus Antigen NOT DETECTED Comment: A negative result does not exclude norovirus Comment: infection. Comment: Comment: Test Performed by: Comment: [employer] Comment: [id number] Comment: ANASTASIYA Vang [id number] VANCOMYCIN TROUGH (09-16-2013 11:50) Vancomy 5.5 10.0-20 Below complet priscilla 014 mcg/mL .0 low ed Trough 11:50 normal CBC W/DIFF (09-16-2013 05:30) Lymphoc 1.9 X 0.7-4.3 Normal complet yte 014 10\S\3 ed Count 05:30 Basophi 0.0 X 0.0-0.1 Normal complet l Count 014 10\S\3 ed 05:30 Eosinop 0.1 X 0.0-0.8 Normal complet hil 014 10\S\3 ed Count 05:30 Monocyt 0.9 X 0.2-1.2 Normal complet e Count 014 10\S\3 ed 05:30 Neutrop 09-16-2 4.2 X 1.5-7.1 Normal complet hil 014 10\S\3 ed Count 05:30 Basophi 09-16-2 0.5 % 0.0-2.0 Normal complet ls % 014 ed 05:30 Eosinop -25-2 0.8 % 0.0-6.0 Normal complet hils % 014 ed 05:30 Monocyt 25-2 12.2 % 0.0-13. Normal complet es % 014 0 ed 05:30 Lymphoc 09-16-2 27.0 % 20.0-51 Normal complet ytes % 014 .0 ed 05:30 Neutrop 09-16-2 59.5 % 42.0-75 Normal complet hils % 014 .0 ed 05:30 MPV 09-16-2 7.2 fl 6.2-10. Normal complet 014 6 ed 05:30 RDW 09-16-2 13.9 % 12.0-15 Normal complet 014 .0 ed 05:30 MCV 09-16-2 93.6 fl 80.0-94 Normal complet 014 .0 ed 05:30 MCHC 09-16-2 33.2 32.0-37 Normal complet 014 gm/dL .0 ed 05:30 MCH 09-16-2 31.1 pg 27.0-32 Normal complet 014 .0 ed 05:30 Platele 09-16-2 263 X 130-400 Normal complet t 014 10\S\3 ed 05:30 Hematoc 09-16-2 41.2 % 42.0-52 Below complet rit 014 .0 low ed 05:30 normal Hemoglo 09-16-2 13.7 14.0-18 Below complet bin 014 gm/dL .0 low ed 05:30 normal RBC 09-16-2 4.40 X 4.70-6. Below complet 014 10\S\6 10 low ed 05:30 normal WBC 25-2 7.0 X 3.5-9.6 Normal complet 014 10\S\3 ed 05:30 BASIC METABOLIC PANEL (09-16-2013 05:30) GLOMERU 09-16-2 >60.0 complet LAR 014 mL/min/ ed FILTRAT 05:30 1.73 m2 ION RATE Comment: eGFR Interpretation: Disease State Reference Ranges for eGFR Comment: (calculated) Comment: Stage eGFR Description Comment: I/II >60 Normal/Mildly reduced kidney function Comment: III 30-59 Moderately reduced kidney function Comment: IV 15-29 Severely reduced kidney function Comment: V <15 End-stage kidney failure Comment: Calculated using MDRD formula based on gender,race (* GFR AA is for the Comment: population), and age. GFR estimates are unreliable in Comment: patients with rapidly changing kidney function,recent dialysis, extremes Comment: in body size, severe malnutrition or obesity, loss of limbs, abnormal Comment: muscle mass, or during . In these patients, alternative Comment: determinations of GFR should be obtained. BUN/Cre 10 complet at 014 ed Ratio 05:30 Calcium 8.3 8.5-10. Below complet 014 mg/dL 1 low ed 05:30 normal CO2 27 22-29 Normal complet 014 mmol/L ed 05:30 Chlorid 102 98-107 Normal complet e 014 mEq/L ed 05:30 Potassi 3.7 3.5-5.1 Normal complet um 014 mEq/L ed 05:30 Sodium 137 136-145 Normal complet 014 mEq/L ed 05:30 Creatin 1.0 0.6-1.3 Normal complet ine 014 mg/dL ed 05:30 BUN 10 7-18 Normal complet 014 mg/dL ed 05:30 Glucose 116 70-99 Above complet 014 mg/dL high ed 05:30 normal GLOMERU >60.0 complet LAR 014 mL/min/ ed FILTRAT 05:30 1.73 m2 ION RATE Anne Marie n HEPARIN-PF4 AB (HIT) (09-15-2013 12:41) Heparin SEE complet -PF4 Ab 014 COMMENT ed (HIT) 12:41 S 014 08:26 PM Comment: Test Result Flag Unit RefValue Comment: ------- Comment: Heparin-PF4 Ab (HIT), S Comment: Reactivity 5 % <20 Comment: Interpretation Negative Negative Comment: Comment Comment: Negative test results have about 90% predictive power for Comment: excluding immune-mediated heparin induced thrombocytopenia Comment: (HIT type II), but do not completely exclude clinical HIT Comment: diagnosis, especially when clinical probability is high. Comment: Comment: Test Performed by: Comment: [facility] Comment: [address] , [place] [address] Comment: Cafeteria Clerk: Alberto Cook III, M.D. CBC W/DIFF (09-15-2013 05:30) Lymphoc 09-15-2 1.8 X 0.7-4.3 Normal complet yte 014 10\S\3 ed Count 05:30 Monocyt 09-15-2 0.6 X 0.2-1.2 Normal complet e Count 014 10\S\3 ed 05:30 MCHC 09-15-2 32.7 32.0-37 Normal complet 014 gm/dL .0 ed 05:30 MCH 09-15-2 31.8 pg 27.0-32 Normal complet 014 .0 ed 05:30 Platele 09-15-2 63 X 130-400 Below complet t 014 10\S\3 low ed 05:30 normal Hematoc 09-15-2 44.8 % 42.0-52 Normal complet rit 014 .0 ed 05:30 Hemoglo 09-15-2 14.6 14.0-18 Normal complet bin 014 gm/dL .0 ed 05:30 RBC 09-15-2 4.61 X 4.70-6. Below complet 014 10\S\6 10 low ed 05:30 normal WBC -24-2 11.4 X 3.5-9.6 Above complet 014 10\S\3 high ed 05:30 normal Neutrop 24-2 9.0 X 1.5-7.1 Above complet hil 014 10\S\3 high ed Count 05:30 normal Monocyt -24-2 5.0 % 0.0-13. Normal complet es % 014 0 ed 05:30 Lymphoc -24-2 16.0 % 20.0-51 Below complet ytes % 014 .0 low ed 05:30 normal Bands 24-2 10 complet 014 ed 05:30 Neutrop 24-2 69.0 % 42.0-75 Normal complet hils % 014 .0 ed 05:30 Manual 24-2 YES complet Diff? 014 ed 05:30 RDW 24-2 17.9 % 12.0-15 Above complet 014 .0 high ed 05:30 normal MCV 24-2 97.2 fl 80.0-94 Above complet 014 .0 high ed 05:30 normal MPV 24-2 7.7 fl 6.2-10. Normal complet 014 6 ed 05:30 BASIC METABOLIC PANEL (09-15-2013 05:30) Calcium -24-2 8.3 8.5-10. Below complet 014 mg/dL 1 low ed 05:30 normal CO2 24-2 20 22-29 Below complet 014 mmol/L low ed 05:30 normal Chlorid 24-2 100 98-107 Normal complet e 014 mEq/L ed 05:30 Potassi 24-2 4.8 3.5-5.1 Normal complet um 014 mEq/L ed 05:30 Sodium 24-2 133 136-145 Below complet 014 mEq/L low ed 05:30 normal Creatin -24-2 0.6 0.6-1.3 Normal complet ine 014 mg/dL ed 05:30 BUN 24-2 10 7-18 Normal complet 014 mg/dL ed 05:30 Glucose 24-2 118 70-99 Above complet 014 mg/dL high ed 05:30 normal GLOMERU -24-2 >60.0 complet LAR 014 mL/min/ ed FILTRAT 05:30 1.73 m2 ION RATE Anne Marie n GLOMERU 24-2 >60.0 complet LAR 014 mL/min/ ed FILTRAT 05:30 1.73 m2 ION RATE Comment: eGFR Interpretation: Disease State Reference Ranges for eGFR Comment: (calculated) Comment: Stage eGFR Description Comment: I/II >60 Normal/Mildly reduced kidney function Comment: III 30-59 Moderately reduced kidney function Comment: IV 15-29 Severely reduced kidney function Comment: V <15 End-stage kidney failure Comment: Calculated using MDRD formula based on gender,race (* GFR AA is for the Comment: population), and age. GFR estimates are unreliable in Comment: patients with rapidly changing kidney function,recent dialysis, extremes Comment: in body size, severe malnutrition or obesity, loss of limbs, abnormal Comment: muscle mass, or during . In these patients, alternative Comment: determinations of GFR should be obtained. BUN/Cre 17 complet at 014 ed Ratio 05:30 STAIN, GRAM (09-14-2013 21:04) [facility] Collect complet l 014 ed: ed Report 21:04 014 21:04 [facility] Specime complet l 014 n/Sourc ed Report 21:04 e: OTHER-S PECIFY/ sputum [facility] Bacilli complet l 014 Seen ed Report 21:04 [facility] >10 complet l 014 WBC/LPF ed Report 21:04 <25 EPI/LPF Gram Positiv e Cocci Seen Few Gram Positiv e [facility] GRAM complet l 014 (Final) ed Report 21:04 Clin[facility] Status: complet l 014 Final ed Report 21:04 Last Updated : 014 00:07 CULTURE, SPUTUM (09-14-2013 21:04) [facility] CUL RES complet l 014 ed Report 21:04 (Final) [facility] Rare complet l 014 Normal ed Report 21:04 Upper Respira tory Cassi Noted [facility] Specime complet l 014 n: ed Report 21:04 SPUTUM [facility] Collect complet l 014 ed: ed Report 21:04 014 21:04 [facility] Status: complet l 014 Final ed Report 21:04 Last Updated : 014 02:33 [facility] (09-14-2013 12:39) Legione --2 Negativ Negativ Normal complet lla 014 e e ed Urinary 12:39 Antigen STREPTOCOCCUS PNEUMONIAE AG,URINE (09-14-2013 12:39) Strepto -23-2 Positiv Negativ Abnorma complet coccus 014 e e l ed Pneumon 12:39 iae Urinary Antigen ALPHA 1 ANTITRYPSIN TOT (09-14-2013 10:30) Alpha-1 09-14- SEE complet -Antitr 014 COMMENT ed ypsin 10:30 S 014 12:52 PM Comment: Test Result Flag Unit RefValue Comment: ------- Comment: [id number], S 297 h mg/dL 100 - 190 Comment: Comment: Test Performed by: Comment: [facility] Comment: [address] [place] [address] Comment: Cafeteria Clerk: Alberto Cook III, M.D. CULTURE, ROUTINE (09-14-2013 06:00) [facility] Specime complet l 014 n/Sourc ed Report 06:00 e: OTHER-S PECIFY/ nasal [facility] Collect complet l 014 ed: ed Report 06:00 014 06:00 [facility] Status: complet l 014 Final ed Report 06:00 Last Updated : 014 07:25 [facility] CUL RES complet l 014 ed Report 06:00 (Final) [facility] No complet l 014 Growth ed Report 06:00 After 24 Hours [facility] Rare complet l 014 Normal ed Report 06:00 Skin cassi noted CBC W/DIFF (09-14-2013 05:30) MCHC 33.0 32.0-37 Normal complet 014 gm/dL .0 ed 05:30 MCH 31.0 pg 27.0-32 Normal complet 014 .0 ed 05:30 Platele 198 X 130-400 Normal complet t 014 10\S\3 ed 05:30 Hematoc 44.5 % 42.0-52 Normal complet rit 014 .0 ed 05:30 Hemoglo 14.7 14.0-18 Normal complet bin 014 gm/dL .0 ed 05:30 RBC 4.74 X 4.70-6. Normal complet 014 10\S\6 10 ed 05:30 WBC 16.7 X 3.5-9.6 Above complet 014 10\S\3 high ed 05:30 normal Monocyt -23-2 8.4 % 0.0-13. Normal complet es % 014 0 ed 05:30 Lymphoc 23-2 11.9 % 20.0-51 Below complet ytes % 014 .0 low ed 05:30 normal Neutrop 09-14-2 79.2 % 42.0-75 Above complet hils % 014 .0 high ed 05:30 normal MPV 09-14-2 7.5 fl 6.2-10. Normal complet 014 6 ed 05:30 RDW 09-14-2 14.0 % 12.0-15 Normal complet 014 .0 ed 05:30 MCV 09-14-2 93.9 fl 80.0-94 Normal complet 014 .0 ed 05:30 Neutrop 09-14-2 13.2 X 1.5-7.1 Above complet hil 014 10\S\3 high ed Count 05:30 normal Basophi 09-14-2 0.4 % 0.0-2.0 Normal complet ls % 014 ed 05:30 Eosinop 23-2 0.1 % 0.0-6.0 Normal complet hils % 014 ed 05:30 Lymphoc 09-14-2 2.0 X 0.7-4.3 Normal complet yte 014 10\S\3 ed Count 05:30 Basophi 09-14-2 0.1 X 0.0-0.1 Normal complet l Count 014 10\S\3 ed 05:30 Eosinop 23-2 0.0 X 0.0-0.8 Normal complet hil 014 10\S\3 ed Count 05:30 Monocyt 23-2 1.4 X 0.2-1.2 Above complet e Count 014 10\S\3 high ed 05:30 normal CULTURE, BLOOD (09-13-2013 18:23) [facility] No complet l 014 Growth ed Report 18:23 After 4 Days [facility] Collect complet l 014 ed: ed Report 18:23 014 18:23 Clin[facility] Status: complet l 014 Final ed Report 18:23 Last Updated : 014 20:24 [facility] CUL RES complet l 014 ed Report 18:23 (Final) Clin[facility] Culture complet l 014 In ed Report 18:23 Progres s [facility] No complet l 014 Growth ed Report 18:23 After 24 Hours Clin[facility] No complet l 014 Growth ed Report 18:23 After 48 Hours Clinica No complet l 014 Growth ed Report 18:23 After 3 Days Clin[facility] Specime complet l 014 n: ed Report 18:23 BLOOD [facility] No complet l 014 Growth ed Report 18:23 After 5 Days CULTURE, BLOOD (09-13-2013 18:03) [facility] No complet l 014 Growth ed Report 18:03 After 5 Days [facility] Specime complet l 014 n: ed Report 18:03 BLOOD [facility] Collect complet l 014 ed: ed Report 18:03 014 18:03 [facility] Status: complet l 014 Final ed Report 18:03 Last Updated : 014 20:24 [facility] CUL RES complet l 014 ed Report 18:03 (Final) [facility] Culture complet l 014 In ed Report 18:03 Progres s [facility] No complet l 014 Growth ed Report 18:03 After 24 Hours [facility] No complet l 014 Growth ed Report 18:03 After 48 Hours Clin[facility] No complet l 014 Growth ed Report 18:03 After 3 Days Clin[facility] No complet l 014 Growth ed Report 18:03 After 4 Days CBC W/DIFF (09-13-2013 16:17) Bands 34 complet 014 ed 16:17 Neutrop 53.0 % 42.0-75 Normal complet hils % 014 .0 ed 16:17 Manual YES complet Diff? 014 ed 16:17 MPV 7.0 fl 6.2-10. Normal complet 014 6 ed 16:17 RDW 13.7 % 12.0-15 Normal complet 014 .0 ed 16:17 MCV 93.7 fl 80.0-94 Normal complet 014 .0 ed 16:17 MCHC 32.6 32.0-37 Normal complet 014 gm/dL .0 ed 16:17 MCH 30.6 pg 27.0-32 Normal complet 014 .0 ed 16:17 Platele 214 X 130-400 Normal complet t 014 10\S\3 ed 16:17 Hematoc 47.0 % 42.0-52 Normal complet rit 014 .0 ed 16:17 Hemoglo 15.3 14.0-18 Normal complet bin 014 gm/dL .0 ed 16:17 RBC 5.02 X 4.70-6. Normal complet 014 10\S\6 10 ed 16:17 WBC 16.6 X 3.5-9.6 Above complet 014 10\S\3 high ed 16:17 normal Lymphoc 1.5 X 0.7-4.3 Normal complet yte 014 10\S\3 ed Count 16:17 Monocyt 0.7 X 0.2-1.2 Normal complet e Count 014 10\S\3 ed 16:17 Neutrop 14.4 X 1.5-7.1 Above complet hil 014 10\S\3 high ed Count 16:17 normal Monocyt 4.0 % 0.0-13. Normal complet es % 014 0 ed 16:17 Lymphoc 9.0 % 20.0-51 Below complet ytes % 014 .0 low ed 16:17 normal ALCOHOL,SERUM (12-02-2012 13:25) Alcohol 47 0-10 Above complet 013 mg/dL high ed 13:25 normal ALCOHOL,SERUM (12-02-2012 05:04) Comment: CALLED ALCOHOL TO MUNIR IN ER @ 0559, RBV Comment: DS Alcohol 239 0-10 Above complet 013 mg/dL high ed 05:04 normal CBC W/DIFF (12-02-2012 05:04) Lymphoc 3.3 X 0.7-4.3 Normal complet yte 013 10 ed Count 05:04 Basophi 0.1 X 0.0-0.1 Normal complet l Count 013 10 ed 05:04 Eosinop 07-11-2 0.3 X 0.0-0.8 Normal complet hil 013 10 ed Count 05:04 Monocyt 07-11-2 0.8 X 0.2-1.2 Normal complet e Count 013 10 ed 05:04 Neutrop -11-2 5.8 X 1.5-7.1 Normal complet hil 013 10 ed Count 05:04 Basophi -11-2 0.6 % 0.0-2.0 Normal complet ls % 013 ed 05:04 Eosinop -11-2 2.5 % 0.0-6.0 Normal complet hils % 013 ed 05:04 Monocyt 07-11-2 7.3 % 0.0-13. Normal complet es % 013 0 ed 05:04 Lymphoc -11-2 32.5 % 20.0-51 Normal complet ytes % 013 .0 ed 05:04 Neutrop 11-2 57.1 % 42.0-75 Normal complet hils % 013 .0 ed 05:04 MPV 11-2 6.9 fl 6.2-10. Normal complet 013 6 ed 05:04 RDW 11-2 14.4 % 12.0-15 Normal complet 013 .0 ed 05:04 MCV 11-2 95.6 fl 80.0-94 Above complet 013 .0 high ed 05:04 normal MCHC 11-2 35.1 32.0-37 Normal complet 013 gm/dL .0 ed 05:04 MCH 11-2 33.5 pg 27.0-32 Above complet 013 .0 high ed 05:04 normal Platele 11-2 177 X 130-400 Normal complet t 013 10 ed 05:04 Hematoc -11-2 50.1 % 42.0-52 Normal complet rit 013 .0 ed 05:04 RBC -11-2 5.24 X 4.70-6. Normal complet 013 10 10 ed 05:04 Hemoglo -11-2 17.6 14.0-18 Normal complet bin 013 gm/dL .0 ed 05:04 WBC 11-2 10.2 X 3.5-9.6 Above complet 013 10 high ed 05:04 normal BASIC METABOLIC PANEL (09-20-2012 05:14) GLOMERU 04-29-2 >60.0 complet LAR 013 mL/min/ ed FILTRAT 05:14 1.73 m2 ION RATE Anne Marie n GLOMERU 2 >60.0 complet LAR 013 mL/min/ ed FILTRAT 05:14 1.73 m2 ION RATE Comment: eGFR Interpretation: Disease State Reference Ranges for eGFR Comment: (calculated) Comment: Stage eGFR Description Comment: I/II >60 Normal/Mildly reduced kidney function Comment: III 30-59 Moderately reduced kidney function Comment: IV 15-29 Severely reduced kidney function Comment: V <15 End-stage kidney failure Comment: Calculated using MDRD formula based on gender,race (* GFR AA is for the Comment: population), and age. GFR estimates are unreliable in Comment: patients with rapidly changing kidney function,recent dialysis, extremes Comment: in body size, severe malnutrition or obesity, loss of limbs, abnormal Comment: muscle mass, or during . In these patients, alternative Comment: determinations of GFR should be obtained. BUN/Cre 11 complet at 013 ed Ratio 05:14 Calcium 7.9 8.5-10. Below complet 013 mg/dL 1 low ed 05:14 normal CO2 30 22-29 Above complet 013 mmol/L high ed 05:14 normal Chlorid 105 98-107 Normal complet e 013 mEq/L ed 05:14 Potassi 4.1 3.5-5.1 Normal complet um 013 mEq/L ed 05:14 Sodium 138 136-145 Normal complet 013 mEq/L ed 05:14 Creatin 1.0 0.6-1.3 Normal complet ine 013 mg/dL ed 05:14 BUN 2 11 7-18 Normal complet 013 mg/dL ed 05:14 Glucose 140 70-99 Above complet 013 mg/dL high ed 05:14 normal CBC W/DIFF (09-20-2012 05:14) Eosinop 6.5 % 0.0-6.0 Above complet hils % 013 high ed 05:14 normal Lymphoc 1.6 X 0.7-4.3 Normal complet yte 013 10 ed Count 05:14 Basophi 0.1 X 0.0-0.1 Normal complet l Count 013 10 ed 05:14 Eosinop --2 0.5 X 0.0-0.8 Normal complet hil 013 10 ed Count 05:14 Monocyt 09-20-2 1.0 X 0.2-1.2 Normal complet e Count 013 10 ed 05:14 Neutrop 09-20-2 4.0 X 1.5-7.1 Normal complet hil 013 10 ed Count 05:14 Basophi 09-20-2 0.8 % 0.0-2.0 Normal complet ls % 013 ed 05:14 Monocyt 09-20-2 14.5 % 0.0-13. Above complet es % 013 0 high ed 05:14 normal Lymphoc 09-20-2 22.2 % 20.0-51 Normal complet ytes % 013 .0 ed 05:14 Neutrop 09-20-2 56.0 % 42.0-75 Normal complet hils % 013 .0 ed 05:14 MPV 09-20-2 7.1 fl 6.2-10. Normal complet 013 6 ed 05:14 RDW 09-20-2 13.5 % 12.0-15 Normal complet 013 .0 ed 05:14 MCV 09-20-2 97.7 fl 80.0-94 Above complet 013 .0 high ed 05:14 normal MCHC 09-20-2 32.9 32.0-37 Normal complet 013 gm/dL .0 ed 05:14 MCH 09-20-2 32.1 pg 27.0-32 Above complet 013 .0 high ed 05:14 normal Platele 09-20-2 252 X 130-400 Normal complet t 013 10 ed 05:14 Hematoc 09-20-2 37.8 % 42.0-52 Below complet rit 013 .0 low ed 05:14 normal Hemoglo 09-20-2 12.4 14.0-18 Below complet bin 013 gm/dL .0 low ed 05:14 normal RBC 09-20-2 3.87 X 4.70-6. Below complet 013 10 10 low ed 05:14 normal WBC 09-20-2 7.1 X 3.5-9.6 Normal complet 013 10 ed 05:14 VANCOMYCIN TROUGH (09-20-2012 05:14) Vancomy -29-2 7.3 10.0-20 Below complet priscilla 013 mcg/mL .0 low ed Trough 05:14 normal BASIC METABOLIC PANEL (09-19-2012 05:41) Glucose 132 70-99 Above complet 013 mg/dL high ed 05:41 normal GLOMERU >60.0 complet LAR 013 mL/min/ ed FILTRAT 05:41 1.73 m2 ION RATE Anne Marie n GLOMERU >60.0 complet LAR 013 mL/min/ ed FILTRAT 05:41 1.73 m2 ION RATE Comment: eGFR Interpretation: Disease State Reference Ranges for eGFR Comment: (calculated) Comment: Stage eGFR Description Comment: I/II >60 Normal/Mildly reduced kidney function Comment: III 30-59 Moderately reduced kidney function Comment: IV 15-29 Severely reduced kidney function Comment: V <15 End-stage kidney failure Comment: Calculated using MDRD formula based on gender,race (* GFR AA is for the Comment: population), and age. GFR estimates are unreliable in Comment: patients with rapidly changing kidney function,recent dialysis, extremes Comment: in body size, severe malnutrition or obesity, loss of limbs, abnormal Comment: muscle mass, or during . In these patients, alternative Comment: determinations of GFR should be obtained. BUN/Cre 14 complet at 013 ed Ratio 05:41 Calcium 7.8 8.5-10. Below complet 013 mg/dL 1 low ed 05:41 normal CO2 24 22-29 Normal complet 013 mmol/L ed 05:41 Chlorid 96 98-107 Below complet e 013 mEq/L low ed 05:41 normal Potassi 3.6 3.5-5.1 Normal complet um 013 mEq/L ed 05:41 Sodium 129 136-145 Below complet 013 mEq/L low ed 05:41 normal Creatin 2 1.0 0.6-1.3 Normal complet ine 013 mg/dL ed 05:41 BUN 14 7-18 Normal complet 013 mg/dL ed 05:41 CBC W/DIFF (09-19-2012 05:41) Lymphoc 1.8 X 0.7-4.3 Normal complet yte 013 10 ed Count 05:41 Basophi 04-28-2 0.1 X 0.0-0.1 Normal complet l Count 013 10 ed 05:41 Eosinop -28-2 0.1 X 0.0-0.8 Normal complet hil 013 10 ed Count 05:41 Monocyt -28-2 1.3 X 0.2-1.2 Above complet e Count 013 10 high ed 05:41 normal Neutrop 28-2 11.0 X 1.5-7.1 Above complet hil 013 10 high ed Count 05:41 normal Basophi 09-19-2 0.5 % 0.0-2.0 Normal complet ls % 013 ed 05:41 Eosinop -28-2 0.9 % 0.0-6.0 Normal complet hils % 013 ed 05:41 Monocyt 28-2 9.2 % 0.0-13. Normal complet es % 013 0 ed 05:41 Lymphoc 28-2 12.8 % 20.0-51 Below complet ytes % 013 .0 low ed 05:41 normal Neutrop 09-19-2 76.6 % 42.0-75 Above complet hils % 013 .0 high ed 05:41 normal MPV 09-19-2 7.5 fl 6.2-10. Normal complet 013 6 ed 05:41 RDW 09-19-2 13.3 % 12.0-15 Normal complet 013 .0 ed 05:41 MCV 09-19-2 97.0 fl 80.0-94 Above complet 013 .0 high ed 05:41 normal MCHC 09-19-2 33.1 32.0-37 Normal complet 013 gm/dL .0 ed 05:41 MCH 28-2 32.1 pg 27.0-32 Above complet 013 .0 high ed 05:41 normal Platele 09-19-2 268 X 130-400 Normal complet t 013 10 ed 05:41 Hematoc -28-2 40.2 % 42.0-52 Below complet rit 013 .0 low ed 05:41 normal Hemoglo 28-2 13.3 14.0-18 Below complet bin 013 gm/dL .0 low ed 05:41 normal RBC 28-2 4.14 X 4.70-6. Below complet 013 10 10 low ed 05:41 normal WBC 28-2 14.4 X 3.5-9.6 Above complet 013 10 high ed 05:41 normal CULTURE, ANAEROBIC (09-18-2012 20:58) [facility] Specime complet l 013 n/Sourc ed Report 20:58 e: OTHER-S PECIFY/ back [facility] No complet l 013 Anaerob ed Report 20:58 ic Bacteri a Isolate d in 4 days Clin[facility] No complet l 013 Anaerob ed Report 20:58 ic Bacteri a Isolate d in 3 Days Clin[facility] No complet l 013 Anaerob ed Report 20:58 ic Bacteri a Isolate d in 48 hrs Clin[facility] No complet l 013 Anaerob ed Report 20:58 ic Bacteri a Isolate d in 24 hrs [facility] CUL RES complet l 013 ed Report 20:58 (Final) [facility] Status: complet l 013 Final ed Report 20:58 Last Updated : 013 15:51 [facility] Collect complet l 013 ed: ed Report 20:58 013 20:58 STAIN, GRAM (09-18-2012 20:58) [facility] TRACE. complet l 013 ed Report 20:58 [facility] ,WBC- complet l 013 ed Report 20:58 [facility] Gram complet l 013 Positiv ed Report 20:58 e Cocci Seen Moderat e Gram Positiv e Diploco cci Seen Few [facility] GRAM complet l 013 (Final) ed Report 20:58 [facility] Status: complet l 013 Final ed Report 20:58 Last Updated : 013 19:35 [facility] Collect complet l 013 ed: ed Report 20:58 013 20:58 [facility] Specime complet l 013 n/Sourc ed Report 20:58 e: OTHER-S PECIFY/ back CULTURE, BLOOD (09-18-2012 16:50) [facility] No complet l 013 Growth ed Report 16:50 After 3 Days [facility] No complet l 013 Growth ed Report 16:50 After 48 Hours [facility] No complet l 013 Growth ed Report 16:50 After 24 Hours [facility] Culture complet l 013 In ed Report 16:50 Progres s [facility] CUL RES complet l 013 ed Report 16:50 (Final) [facility] Status: complet l 013 Final ed Report 16:50 Last Updated : 013 15:18 [facility] Collect complet l 013 ed: ed Report 16:50 013 16:50 [facility] Specime complet l 013 n: ed Report 16:50 BLOOD [facility] No complet l 013 Growth ed Report 16:50 After 5 Days [facility] No complet l 013 Growth ed Report 16:50 After 4 Days CULTURE, BLOOD (09-18-2012 16:50) [facility] Specime complet l 013 n: ed Report 16:50 BLOOD CBC W/DIFF (09-18-2012 16:50) Eosinop 0.0 % 0.0-6.0 Normal complet hils % 013 ed 16:50 Monocyt 13.0 % 0.0-13. Normal complet es % 013 0 ed 16:50 Lymphoc 9.0 % 20.0-51 Below complet ytes % 013 .0 low ed 16:50 normal Bands 7 complet 013 ed 16:50 Neutrop 71.0 % 42.0-75 Normal complet hils % 013 .0 ed 16:50 Manual YES complet Diff? 013 ed 16:50 MPV 6.9 fl 6.2-10. Normal complet 013 6 ed 16:50 RDW 13.5 % 12.0-15 Normal complet 013 .0 ed 16:50 MCV 96.0 fl 80.0-94 Above complet 013 .0 high ed 16:50 normal MCHC 33.6 32.0-37 Normal complet 013 gm/dL .0 ed 16:50 MCH 32.2 pg 27.0-32 Above complet 013 .0 high ed 16:50 normal Platele 303 X 130-400 Normal complet t 013 10 ed 16:50 Hematoc 48.3 % 42.0-52 Normal complet rit 013 .0 ed 16:50 Hemoglo -27-2 16.2 14.0-18 Normal complet bin 013 gm/dL .0 ed 16:50 RBC -27-2 5.03 X 4.70-6. Normal complet 013 10 10 ed 16:50 WBC -27-2 18.2 X 3.5-9.6 Above complet 013 10 high ed 16:50 normal Monocyt -27-2 2.4 X 0.2-1.2 Above complet e Count 013 10 high ed 16:50 normal Neutrop -27-2 14.2 X 1.5-7.1 Above complet hil 013 10 high ed Count 16:50 normal Basophi -27-2 0.0 % 0.0-2.0 Normal complet ls % 013 ed 16:50 Lymphoc --2 1.6 X 0.7-4.3 Normal complet yte 013 10 ed Count 16:50 Basophi -27-2 0.0 X 0.0-0.1 Normal complet l Count 013 10 ed 16:50 Eosinop 09-18-2 0.0 X 0.0-0.8 Normal complet hil 013 10 ed Count 16:50 COMPREHENSIVE METABOLIC PANEL (09-18-2012 16:50) GLOMERU -27-2 >60.0 complet LAR 013 mL/min/ ed FILTRAT 16:50 1.73 m2 ION RATE Anne Marie n GLOMERU 27-2 >60.0 complet LAR 013 mL/min/ ed FILTRAT 16:50 1.73 m2 ION RATE Comment: eGFR Interpretation: Disease State Reference Ranges for eGFR Comment: (calculated) Comment: Stage eGFR Description Comment: I/II >60 Normal/Mildly reduced kidney function Comment: III 30-59 Moderately reduced kidney function Comment: IV 15-29 Severely reduced kidney function Comment: V <15 End-stage kidney failure Comment: Calculated using MDRD formula based on gender,race (* GFR AA is for the Comment: population), and age. GFR estimates are unreliable in Comment: patients with rapidly changing kidney function,recent dialysis, extremes Comment: in body size, severe malnutrition or obesity, loss of limbs, abnormal Comment: muscle mass, or during . In these patients, alternative Comment: determinations of GFR should be obtained. A/G 09-18-2 0.5 complet Ratio 013 ed 16:50 BUN/Cre 09-18-2 10 complet at 013 ed Ratio 16:50 Bilirub 09-18-2 1.31 0.0-1.0 Above complet in, 013 mg/dL high ed Total 16:50 normal AST 09-18-2 11 U/L 15-37 Below complet 013 low ed 16:50 normal ALT 09-18-2 26 U/L 30-65 Below complet 013 low ed 16:50 normal Alk 09-18-2 87 U/L 50-136 Normal complet Phos 013 ed 16:50 Albumin 09-18-2 2.8 3.4-5.0 Below complet 013 gm/dL low ed 16:50 normal Total 09-18-2 8.2 6.4-8.2 Normal complet Protein 013 gm/dL ed 16:50 Calcium 09-18-2 9.1 8.5-10. Normal complet 013 mg/dL 1 ed 16:50 CO2 09-18-2 24 22-29 Normal complet 013 mmol/L ed 16:50 Chlorid 09-18-2 92 98-107 Below complet e 013 mEq/L low ed 16:50 normal Potassi 09-18-2 4.1 3.5-5.1 Normal complet um 013 mEq/L ed 16:50 Sodium 09-18-2 125 136-145 Below complet 013 mEq/L low ed 16:50 normal Glucose 09-18-2 123 70-99 Above complet 013 mg/dL high ed 16:50 normal Creatin 09-18-2 1.3 0.6-1.3 Normal complet ine 013 mg/dL ed 16:50 BUN 09-18-2 13 7-18 Normal complet 013 mg/dL ed 16:50 Procedures Procedure DOS Code Location Performer Comment RADEX 77500 NUSRAT SILVERIO WRIST [address] [facility] [facility] COMPLETE INC INC MINIMUM 3 VIEWS CAST Q4010 [facility] SUPPLIES 6 PHYSICIAN SARMAD SHORT ARM S GROUP CAST ADULT FIBERGLAS S APPLICATI 52171 [facility] ON CAST 6 PHYSICIAN JAM ELBOW S GROUP FINGER SHORT ARM APPLICATI 42582 NUSRAT SILVERIO ON SHORT 6 [facility] ARM INC INC SPLINT FOREARM-H AND STATIC RADEX 51548 [place] ROACH ALL WRIST 6 MEDICAL COMPLETE IMAGING MINIMUM 3 ASS VIEWS RADEX 29708 EDDIE ROACH ALL FOREARM 2 6 MEDICAL VIEWS IMAGING ASS RADEX 95681 [facility] HAND 6 MEDICAL MINIMUM 3 IMAGING VIEWS ASS RADEX 98385 EDDIE ROACH ALL SHOULDER 6 MEDICAL COMPLETE IMAGING MINIMUM 2 ASS VIEWS RADEX HIP 17588 EDDIE ROACH ALL 6 MEDICAL UNILATERA IMAGING L WITH ASS PELVIS 2-3 VIEWS DRUG TST G0477 NUSRAT SILVERIO PRESUMP;C 6 [facility] PBL BEING INC INC READ DC OPT OBV ONLY PHYSICAL 61614 NUSRAT SILVERIO THERAPY 6 [facility] EVALUATIO INC INC N APPLICATI 54738 NUSRAT SILVERIO ON 6 [facility] MODALITY INC INC 1/> AREAS HOT/COLD PACKS APPL 26588 NUSRAT SILVERIO MODALITY 6 [facility] 1/> AREAS INC INC ULTRASOUN D EA 15 MIN E-STIM G0283 NUSRAT SILVERIO 1/> AREAS 6 [facility] OTH THAN INC INC WND CARE PART TX PLAN MRI 64479 NUSRAT SILVERIO SPINAL 6 [facility] CANAL INC INC THORACIC W/O CONTRAST MATRL 3D 18311 NUSRAT SILVERIO RENDERING 6 [facility] W/INTERP INC INC & POSTPROCE SS SUPERVISI ON MRI 68329 NUSRAT SILVERIO SPINAL 6 [facility] CANAL INC INC CERVICAL W/O CONTRAST MATRL DRUG TST G0477 NUSRAT SILVERIO PRESUMP;C 6 [facility] PBL BEING INC INC READ DC OPT OBV ONLY CATH PLKY 97568 NUSRAT SILVERIO L 6 [facility] HRT/ARTS/ INC INC GRFTS WNJX & ANGIO IMG S&I INJECTION J1644 NUSRAT SILVERIO HEPARIN 6 [facility] SODIUM INC INC PER 1000 UNITS LOC Q9967 NUSRAT SILVERIO 300-399 6 [facility] MG/ML INC INC IODINE CONCENTRA TION PER ML CATH PLKY 26053 [facility] AYESHA L HRT & 6 PHYSICIAN MAT ARTS S GROUP W/NJX & ANGIO IMG S&I CATHETER C1725 NUSRAT SILVERIO TRANSLUMI [address] [facility] NAL INC INC ANGIOPLAS TY NON-LASER GUIDE C1769 NUSRAT SILVERIO WIRE [address] [facility] INC INC GAS 62351 NUSRAT JIMENEZ JR DILUT/WAS 6 [facility] VOL W/[place] P DISTRIB VENT&[place] [address] NUSRAT JIMENEZ JR DIFFUSING 6 [facility] P BRNCDILAT 41035 NUSRAT JIMENEZ JR RSPSE 6 [facility] PRE&POST- P BRNCDILAT ADMN PRESSURIZ 43213 NUSRAT SILVERIO ED/NONPRE 6 [facility] SSURIZED INC INC INHALATIO N TREATMENT MYOCARDIA 06032 NUSRAT SILVERIO L SPECT [address] [facility] MULTIPLE INC INC STUDIES ECHO 97510 NUSRAT SILVERIO TTHRC R-T 6 [facility] 2D INC INC W/WOM-MOD E COMPL SPEC&COLR D HEPATIC 64039 NUSRAT SILVERIO FUNCTION [address] [facility] PANEL INC INC RADIOLOGI 75749 NUSRAT SILVERIO C EXAM 6 [facility] CHEST 2 INC INC VIEWS FRONTAL&L ATERAL INJECTION J2785 NUSRAT SILVERIO [address] [facility] REGADENOS INC INC ON 0.1 MG CV STRS 48022 [facility] SOPHIE BARBER TST 6 PHYSICIAN XERS&/OR S GROUP RX CONT ECG W/O I&R CV STRS 43301 NUSRAT SILVERIO TST [address] [facility] XERS&/OR INC INC RX CONT ECG TRCG ONLY TECHNETIU A9500 NUSRAT Nowak TC-99M 6 [facility] SESTAMIBI INC [place] [address] NUSRAT SILVERIO FREE [address] [facility] [place] [address] NUSRAT SILVERIO THYROID 6 [facility] STIMULATI INC INC NG HORMONE TSH BLOOD 70751 NUSRAT SILVERIO COUNT 6 [facility] COMPLETE INC INC AUTO&AUTO DIFRNTL WBC BASIC 57484 NUSRAT SILVERIO METABOLIC 6 [facility] PANEL INC INC CALCIUM TOTAL ECG 49828 NUSRAT SILVERIO ROUTINE [address] [facility] [facility] ECG INC INC W/LEAST 12 LDS TRCG ONLY W/O I&R COMPREHEN 62536 SANDI JUNIOR SIVE 6 [facility] METABOLIC [facility] PANEL COLLECTIO 69636 SANDI JUNIOR N VENOUS 6 [facility] BLOOD [facility] VENIPUNCT URE RADIOLOGI 96679 SANDI SOODMARY C EXAM 6 [facility] CHEST 2 RADIOLOGY VIEWS PLLC FRONTAL&L ATERAL BLOOD 82167 SANDI JUNIOR COUNT 6 [facility] COMPLETE [facility] G0463 SANDI JUNIOR OUTPATIEN 6 [facility] VISIT ASSESS [place] [address] NUSRAT SILVERIO TROPONIN [address] [facility] QUANTITAT INC INC DEBBIE BLOOD 18748 NUSRAT SILVERIO COUNT 6 [facility] COMPLETE INC INC AUTO&AUTO DIFRNTL WBC RADIOLOGI 47733 [facility] EXAM 6 MEDICAL HUONG CHEST 2 IMAGING VIEWS ASS FRONTAL&L ATERAL COLLECTIO 31267 NUSRAT SILVERIO N VENOUS [address] [facility] [facility] BLOOD INC INC VENIPUNCT URE ECG 64809 NUSRAT JIMENEZ JR ROUTINE 6 [facility] W/LEAST P 12 LDS I&R ONLY THERAPEUT 20969 NUSRAT SILVERIO IC [address] [facility] INJECTION INC INC IV PUSH EACH NEW DRUG COMPREHEN 10065 NUSRAT SILVERIO SIVE 6 [facility] METABOLIC INC INC PANEL CREATINE 61277 NUSRAT SILVERIO KINASE MB 6 [facility] FRACTION INC INC ONLY INJECTION J2405 NUSRAT SILVERIO [address] [facility] ONDANSETR INC INC ON HCL PER 1 MG ECG 41374 NUSRAT SILVERIO ROUTINE [address] [facility] [facility] ECG INC INC W/LEAST 12 LDS TRCG ONLY W/O I&R CREATINE 97510 NUSRAT SILVERIO KINASE 6 [facility] TOTAL INC INC THER 55084 NUSRAT SILVERIO PROPH/DX 6 [facility] NJX IV INC INC PUSH SINGLE/1S T SBST/DRUG ECG 32815 NUSRAT SILVERIO ROUTINE 6 [facility] ECG INC INC W/LEAST 12 LDS TRCG ONLY W/O I&R COLLECTIO 72429 NUSRAT SILVERIO N VENOUS 6 [facility] BLOOD INC INC VENIPUNCT URE COMPREHEN 33807 NUSRAT NUSRAT SIVE 6 [facility] METABOLIC INC INC PANEL LOCM Q9967 NUSRAT NUSRAT 300-399 6 [facility] MG/ML INC INC IODINE CONCENTRA TION PER ML ECG 79447 NUSRAT OCHOA ROUTINE 6 [facility] W/LEAST P 12 LDS I&[place] [address] NUSRAT SILVERIO TROPONIN 6 [facility] QUANTITAT INC INC DEBBIE BLOOD 91563 NUSRAT SILVERIO COUNT 6 [facility] COMPLETE INC INC AUTO&AUTO DIFRNTL WBC CT THORAX 60636 NUSRAT SILVERIO 6 [facility] W/CONTRAS INC INC T MATERIAL GROUND A0425 [facility] MILEAGE 6 AMBULANCE AMBULANCE PER SERVICE SERVICE STATUTE MILE [facility] A0427 [facility] SERVICE 6 AMBULANCE AMBULANCE ALS SERVICE SERVICE EMERGENCY TRANSPORT LEVEL 1 [facility] [address]6623 [facility] 6 CARE/DAY M[facility]IAN 25 HOSP MINUTES WALKER E0135 SANDI JUNIOR FOLDING 6 MEDICAL MEDICAL ADJUSTABL EQUIP EQUIP E OR FIXED HEIGHT COMMODE E0163 SANDI JUNIOR CHAIR 6 MEDICAL MEDICAL MOBILE OR EQUIP EQUIP STATIONAR Y W/FIXED [facility] 00223 SANDI ATTUM ABD DISCHARGE 6 DAY [facility] T 30 MIN/< [facility] [address] [place] [address] CARE/DAY 25 MINUTES RADIOLOGI 52345 SANDI Young 6 GAR EXAMINATI RADIOLOGY ON CHEST PLLC [place] FRONTAL SBSQ 02275 [facility] 6 CARE/DAY 25 MINUTES SBSQ 84867 [facility] 6 MALHAB CARE/DAY MORAVIAN NIS 35 HOSP MINUTES SBSQ 88995 [facility] 6 CARE/DAY MORAVIAN 25 HOSP MINUTES CRITICAL 80962 [facility] 6 MALHAB ILL/INJUR [facility]IAN NIS ED HOSP PATIENT INIT 30-74 MIN CRITICAL 27842 [facility] 6 MALHAB ILL/INJUR [facility] NIS ED HOSP PATIENT INIT 30-74 MIN SBSQ 41191 [facility] 6 CARE/DAY MORAVIAN 25 HOSP MINUTES SBSQ 13645 [place] [address] MEDICAL ISAI CARE/DAY CENTER 25 INC MINUTES CRITICAL 21661 [facility] 6 MALHAB ILL/INJUR [facility]IAN NIS ED HOSP PATIENT INIT 30-74 MIN ECG 51743 SANDI DING ROUTINE 6 JEIMY ECG M[facility]IAN W/LEAST HOSP 12 LDS I&R ONLY RADIOLOGI 62653 SANDI Young 6 GAR EXAMINATI RADIOLOGY ON CHEST PLLC [place] RADIOLOGI 90305 SANDI Young 6 GAR EXAMINATI RADIOLOGY ON CHEST PLLC [place] CRITICAL 56842 [facility] CARE 6 MALHAB ILL/INJUR [facility]IAN NIS ED HOSP PATIENT INIT 30-74 MIN SBSQ 78607 [facility] 6 CARE/DAY MORAVIAN 25 HOSP MINUTES SBSQ 22766 [place] [address] MEDICAL ISAI CARE/DAY CENTER 25 INC MINUTES CRITICAL 00706 [facility] 6 MALHAB ILL/INJUR [facility]IAN NIS ED HOSP PATIENT INIT 30-74 MIN RADIOLOGI 85295 SANDI YATES C 6 GAR EXAMINATI RADIOLOGY ON CHEST PLLC [place] CRITICAL 77538 YUNGJAYLENE SALAZAR ERU CARE 6 ILL/INJUR [facility]IAN ED HOSP PATIENT INIT 30-74 MIN SBSQ 05-15-201 50468 [facility] 6 CARE/DAY 25 MINUTES RADIOLOGI 34126 SANDI oYung 6 DEN EXAMINATI RADIOLOGY ON CHEST PLLC [place]ONTAL RADIOLOGI 14920 SANDI STACY C 6 EXAMINATI RADIOLOGY ON CHEST PLLC [place]ONTAL SBSQ 35026 [facility] 6 CARE/DAY 35 MINUTES CRITICAL 86747 LAISHASHEMAR MARTIN [facility] CARE 6 ILL/INJUR [facility]IAN ED HOSP PATIENT INIT 30-74 MIN SBSQ [address] [facility] 6 MEDICAL MAR CARE/DAY CENTER 25 INC MINUTES SBSQ 21708 [facility] 6 CARE/DAY MORAVIAN 25 HOSP MINUTES RADIOLOGI 24548 SANDI Young 6 VINNIE EXAMINATI RADIOLOGY ON CHEST PLLC [place] RADIOLOGI 27150 SANDI Young 6 VINNIE EXAMINATI RADIOLOGY ON CHEST PLLC [place]AL SBSQ 86470 [facility] 6 CARE/DAY MORAVIAN 25 HOSP MINUTES SBSQ 65595 [facility] 6 CARE/DAY MORAVIAN 25 HOSP MINUTES RADIOLOGI 35633 SANDI Young 6 VINNIE EXAMINATI RADIOLOGY ON CHEST PLLC [place]ONTAL ECG 00941 SANDI TIMUR ROUTINE 6 JEIMY ECG MOR[facility]IAN W/LEAST HOSP 12 LDS I&R ONLY ECG 49785 SANDI TIMUR ROUTINE 6 JEIMY ECG [facility]IAN W/LEAST HOSP 12 LDS I&R ONLY ECHO 88075 [facility] TTHRC R-T 6 2D M[facility]IAN W/WOM-MOD HOSP E COMPL SPEC&COLR D CORONARY 73750 SANDI ATTUM ABD ARTERY 6 BYP [facility]IAN W/VEIN & HOSP ARTERY GRAFT 1 VEIN CABG 02482 SANDI ATTUM ABD W/ARTERIA 6 L GRAFT [facility]IAN SINGLE HOSP ARTERIAL GRAFT ANES 52398 SANDI SAMUEL DIRECT 6 CABG [facility]IAN W/PUMP HOSP OXYGENATO R RADIOLOGI 21133 SANDI GUNNER C 6 VINNIE EXAMINATI RADIOLOGY ON CHEST PLLC [place] INSJ 42934 SANDI ATTUM ABD INTRA-AOR 6 T BALO [facility] ASSIST HOSP DEV VIA FEM ART OPEN SBSQ 40619 [facility] 6 CARE/DAY [facility] 25 HOSP MINUTES AMB A0427 NEON NEON SERVICE 6 VOLUNTEER VOLUNTEER ALS FIRE FIRE EMERGENCY DEPT\EMS DEPT\EMS TRANSPORT LEVEL 1 CATH PLMT 88187 [facility] L HRT & 6 ARTS M[facility]IAN W/NJX & HOSP ANGIO IMG S&I RADIOLOGI 87265 RAHUL AKY JR C 6 PHILIP PHILIP EXAMINATI ON CHEST [place] FRONTAL GROUND A0425 NEON NEON MILEAGE 6 VOLUNTEER VOLUNTEER PER FIRE FIRE STATUTE DEPT\EMS DEPT\EMS MILE ROTARY A0436 MED-TRANS MED-TRANS WING AIR 6 MILEAGE CORPORATI CORPORATI PER ON ON STATUTE MILE INSERTION 34158 [facility] 6 INTRA-AOR M[facility] TIC HOSP [place] ASSIST DEV PERQ ECG 48756 [facility] INC GHARAD ROUTINE 6 MEDICAL CORRINA ECG ASSOCIATE W/LEAST S 12 LDS I&R ONLY AMB A0431 MED-TRANS MED-TRANS SERVICE 6 CONVNTION CORPORATI CORPORATI AIR SRVC ON ON TRANSPORT [address] KNEE L1810 [facility]OS[facility] 5 MEDICAL MEDICAL ELASTIC JOINTS PREFAB CUSTOM FIT RADEX 45647 [place] SPINE 5 G A R H G A R H CERVICAL 4 OR 5 VIEWS INJECTION J0696 [facility] ALLEN 4 CEFTRIAXO NE SODIUM PER 250 MG THERAPEUT 25528 [facility] ALLEN IC 4 PROPHYLAC TIC/DX INJECTION SUBQ/IM RADIOLOGI 40081 [place] [facility] C EXAM 4 G A R H G A R H CHEST 2 VIEWS FRONTAL&L ATERAL BASIC 22463 [place] METABOLIC 4 G A R H G A R H PANEL CALCIUM TOTAL BLOOD 91410 [place] COUNT 4 G A R H G A R H COMPLETE AUTO&AUTO DIFRNTL [facility] 53754 [facility] DISCHARGE 4 COMP DAY HEALTH MANAGEMEN SANDY T 30 MIN/< SBSQ 51101 [facility] 4 COMP CARE/DAY HEALTH 25 SANDY MINUTES SBSQ [address]2752 [place] [address] COMP MAT CARE/DAY HEALTH 25 SANDY MINUTES SBSQ 42291 [place] [address] COMP MAT CARE/DAY HEALTH 25 SANDY MINUTES SBSQ 69758 [place] [address] COMP CARE/DAY SPECIALTY 25 SERV MINUTES SBSQ [address]2370 [place] [address] COMP CARE/DAY HEALTH [address] SAND[address] IN[address] 19206 [facility] 4 COMP CARE/DAY HEALTH 70 SANDY MINUTES INITIAL 20859 [place] [address] COMP CARE/DAY SPECIALTY 50 SERV MINUTES Encounters Encounter Start End Date Code Location Performer Type Date OFFICE 69884 [place] KATHY PHI OUTPATIEN 6 6 MEDICAL T NEW 30 SERV [facility] [address] [facility] 39389 [facility] OUTPATIEN 6 6 PHYSICIAN JAM T NEW 20 S GROUP MINUTES HOSPITAL NUSRAT - 6 6 MEM H[facility] OUTPATIEN [facility] EMERGENCY 08032 NUSRAT 6 6 [facility] VISIT HIGH/URGE NT SEVERITY HOSPITAL NUSRAT - OTHER [address] [facility] NUSR[facility] - [address] [facility] OUTPATIEN [facility] NUSRAT - [address] [facility] OUTPATIEN [facility] NUSRAT [facility] OTHER [address] [facility] NUS[facility] - [address] [facility] OUTPATIEN [facility] NUSRAT - [address] [facility]PATIEN [facility] T HOSPITAL NUSRAT - 6 6 [facility] OUTPATIEN [facility] T HOSPITAL NUSRAT [facility] 6 6 [facility] OUTPATIEN INC T [facility] [place] - 6 6 [facility] T OFFICE 55185 ISAI BARBOSA OUTPATIEN 6 6 [facility] T VISIT FAMILY 15 CLINIC MINUTES EMERGENCY 80274 RUBY WOOTEN DEPT 6 6 PHYSICIAN U HUONG VISIT S, [facility] HIGH SEVERITY& THREAT [facility] HOSPITAL NUSRAT - [address] [facility] OUTPATIEN [facility] T EMERGENCY 32260 [facility]AT 6 [facility] T VISIT HIGH/URGE NT SEVERITY HOSPITAL NUSRAT - 6 6 [facility] OUTPATIEN [facility] T EMERGENCY 87441 NUSRAT 6 6 [facility] T VISIT MODERATE SEVERITY EMERGENCY 43113 RUBY LUNDBERG DEPT 6 6 PHYSICIAN FOR VISIT S, PLLC HIGH SEVERITY& THREAT [facility] 17400 ISAI [facility] OUTPATIEN 6 6 [facility] T VISIT FAMILY 15 CLINIC MINUTES OFFICE 27212 [facility] 5 5 T VISIT 15 MINUTES [facility] - 5 5 G A R H OUTPATIEN T OFFICE 89206 [facility] 4 4 T VISIT 15 MINUTES OFFICE 77828 [facility] 4 4 T VISIT 15 MINUTES OFFICE 59286 [facility] 4 4 T VISIT 15 MINUTES [facility] - 4 4 G A R H OUTPATIEN T
--- OUTSIDE RECORDS SUMMARY | 2016-09-22 02:51 | External Medical Summary Rpt ---
Author Author , Organization [employer] Address Unknown Phone Unavailable Care Team Providers Care Cloth Printing Inspector Name Role Phone AHMAD MUH, AHMAD MUH [...] [facility] Unavailable Unavailable SERVICE, [facility] Unavailable Unavailable SERVICE, [facility] KAY JR PHILIP, KAY JR Unavailable Unavailable PH[facility]IP [facility] Unavailable Unavailable [facility] Unavailable Unavailable COOK SUNIL, COOK SUNIL Unavailable Unavailable GHARAD CORRINA, GHARAD Unavailable Unavailable CORRINA MERCY DEN, MERCY Unavailable Unavailable DEN NICHOLAS APR, NICHOLAS APR Unavailable Unavailable [facility] Unavailable Unavailable INC, [facility] Unavailable [facility]available [facility]OSPITAL P, [facility], Unavailable Unavailable [facility] ISAI REEVES APRN FAMILY Unavailable Unavailable CLINIC, 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 [facility] GUNNER VINNIE, GUNNER Unavailable Unavailable VINNIE [facility] Un[facility], [facility] BARBARA JR DWI, BARBARA Unavailable Unavailable JR DWI THOMAS AHM, THOMAS AHM Unavailable Unavailable THOMAS AHM, THOMAS AHM Unavailable Unavailable MATHAROO CORINNA, Unavailable Unavailable MATHAROO CORINNA [facility], Unavailable Unavailable [facility], Unavailable Unavailable [facility] Unavailable Unavailable CORPORATION, [facility] [...] PLLC PETTEY JAM, PETTEY Unavailable Unavailable JAM [facility] Unavailable Unavailable CENTER, [facility] Unavailable Unavailable EQUIP, [facility] Unavailable Unavailable H[facility]P, [facility] YATES GAR, YATES Unavailable Unavailable GAR [...] Diagnosis DOS Provider Status 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 04-10-2016 [facility] REGION [id number] OTHER 04-10-2016 [facility] DEGENERATIO N AT C5-C6 LEVEL Z720 TOBACCO USE 04-10-2016 [facility] [id number] OTHER 04-09-2016 [place] [facility] FX LOW GROUP RT RADIUS INIT CLOS [id number] DSPL FX 04-09-2016 [facility] RT WRST IMAGING ASS SUB ENC FX ROUTINE I10 ESSENTIAL 03-30-2016 [facility] HYPERTENSIO INC N J449 CHRONIC 03-30-2016 [facility] PULMONARY INC DISEASE UNS 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 PRIMARY 03-30-2016 [facility] OSTEOAR[facility]RI [facility] TIS RIGHT IMAGING ASS HAND J38692 PAIN IN 03-30-2016 [facility] RIGHT MEDICAL SHOULDER IMAGING ASS S05248 PAIN IN 03-30-2016 [facility] RIGHT WRIST MEDICAL IMAGING ASS A42081 PAIN IN 03-30-2016 [facility] UNSPECIFIED MEDICAL HIP IMAGING ASS Y92584 PAIN IN 03-30-2016 [facility] RIGHT MEDICAL FOREARM IMAGING ASS F25434 PAIN IN 03-30-2016 [facility] HAND [facility] W0862MZ UNS INJURY 03-30-2016 [facility] RT SHOULDER MEDICAL UPPER ARM IMAGING ASS INITIAL ENCNTR N44013C FX UNS 03-30-2016 [facility], RT WRIST PLLC INITIAL ENC CLOS FX M58405T DSPL FX 03-30-2016 [facility] RT WRIST IMAGING ASS INIT ENC CLOS FX M542 CERVICALGIA 03-19-2016 [facility] INC M545 LOW BACK 02-18-2016 [facility] PAIN [facility] INC M5022 OT CERV 02-08-2016 [facility] DISC [facility]ICAL DISPLACEMEN IMAGING ASS T MID-CERVICA L REGION M5032 OT CERV 02-08-2016 [facility] DISC MEDICAL DEGENERATIO IMAGING ASS N MID-CERVICA L REGION M5124 OT 02-08-2016 [facility] INTER[facility] RAL DISC IMAGING ASS DISPLACEMEN T THOR REGION M5134 OTH 02-08-2016 [facility] INTER[facility]TE[facility]ICAL RAL DISC IMAGING ASS DEGEN THORACIC REGION M546 PAIN IN 02-08-2016 [facility] THORACIC [facility] SPINE IMAGING ASS M549 DORSALGIA 02-08-2016 [facility] UNSPECIFIED [facility] INC I209 ANGINA 01-15-2016 [place] [facility] UNSPECIFIED GROUP D82416 [facility] [place] 01-15-2016 [facility] COR [facility] W/UNS INC ANGINA PECTORIS R9439 ABNORMAL 01-15-2016 [place] RESULT [facility] CARDIOVASCU GROUP LR FUNCTION STUDY 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 [facility] [place] 01-04-2016 [facility]ON[facility] ARTERY W/O HOSPITAL P ANGINA PECTORIS E039 HYPOTHYROID 12-28-2015 [facility] IS [facility] UNSPECIFIED INC R079 CHEST PAIN 12-28-2015 [facility] UNSPECIFIED [facility] IMAGING ASS R0602 SHORTNESS 10-29-2015 [facility] R5383 OTHER 10-29-2015 [facility] P91961 PAIN IN 10-22-2015 [facility] LEFT PHYSICIANS, SHOULDER PLLC R0789 OTHER CHEST 10-22-2015 [facility] PAIN [facility]ICAL [facility] ASS S55622W PAIN D/T 10-22-2015 [facility] P IMPL & GRAFTS INITIAL G8918 OTHER ACUTE 10-18-2015 [facility] POSTPROCEDU [facility] P RAL PAIN G8928 OTHER 10-18-2015 [facility] CHRONIC PHYSICIANS, POSTPROCEDU PLLC RAL PAIN J80 ACUTE 10-18-2015 [facility] RESPIRATORY AMBULANCE DISTRESS SERVICE SYNDROME J90 PLEURAL 10-18-2015 [place] [facility] NOT IMAGING ASS ELSEWHERE CLASSIFIED J9811 ATELECTASIS 10-18-2015 [facility] J9690 RESP FAIL 10-15-2015 [facility] UNS UNS [facility] WHETHER [facility]OSP W/HYPOXIA/H YPERCAPNIA R410 DISORIENTAT 10-15-2015 [facility] ION [facility] UNSPECIFIED HOSP R5381 OTHER 10-15-2015 [facility] MALAISE [facility] G90479 ELEVATED 10-13-2015 [facility] WHITE BLOOD [facility] CELL COUNT HOSP UNSPECIFIED I509 HEART 10-13-2015 [facility] FAILURE [facility] UNSPECIFIED HOSP J9600 ACUTE 10-13-2015 [facility] RESPIRATORY [facility] FAIL UNS HOSP HYPOXIA/HYP ERCAPNIA I214 NON-ST 10-12-2015 [facility] ELEVATION [facility] MYOCARDIAL HOSP INFARCTION R4182 ALTERED 10-12-2015 [facility] MENTAL [facility] STATUS [facility]OS[facility] UNSPECIFIED D649 ANEMIA 10-11-2015 [facility] UNSPECIFIED [facility] E876 HYPOKALEMIA 10-11-2015 [facility] U61572 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 THOMAS 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 J9601 ACUTE 10-10-2015 [facility] RESPIRATORY [facility] FAILURE HOSP WITH HYPOXIA R9431 ABNORMAL 10-10-2015 [facility] ELECTROCARD [facility] IOGRAM HOSP E870 HYPEROSMOLA 10-09-2015 [facility] LITY AND [facility] HYPERNATREM HOSP [place] R50471 ACUTE 10-09-2015 [facility] POSTPROCEDU [facility] RAL HOSP RESPIRATORY FAILURE I999 UNSPECIFIED 10-08-2015 [facility] DISORDER [facility] OF HOSP CIRCULATORY SYSTEM E785 HYPERLIPIDE 10-03-2015 [facility] KAREN [facility] UNSPECIFIED HOSP I213 ST 10-02-2015 [facility] ELEVATION [facility] MYOCARDIAL HOSP INFARCTION UNS SITE B99919 ENCOUNTER 10-02-2015 [facility] FOR [facility] PREPROCEDUR HOSP AL CARIOVASCUL AR EXAM I222 SUBSEQUENT 10-01-2015 [facility] NON-ST CORPORATION ELEVATION MYOCARDIAL INFARCT J309 ALLERGIC 09-25-2015 ISAI REEVES RHINITIS SENIOR SALES ENGINEER FAMILY UNSPECIFIED CLINIC N401 BENIGN 09-25-2015 ISAI REEVES PROSTATIC SENIOR SALES ENGINEER FAMILY HYPERPLASIA CLINIC LW URINARY TRACT SX 2724 OTHER AND 06-19-2014 [facility] UNSPECIFIED HYPERLIPIDE KAREN 4019 UNSPECIFIED 06-19-2014 [facility] ESSENTIAL HYPERTENSIO N 6079 UNSPECIFIED 06-19-2014 [facility] ALLEN DISORDER OF PENIS 7242 LUMBAGO 06-19-2014 [facility] ALLEN 23875 PAIN IN 06-06-2014 [facility] JOINT, MEDICAL MULTIPLE SITES 7231 CERVICALGIA 05-30-2014 [facility]IS[facility] A R H 4619 ACUTE 02-23-2014 [facility] ALLEN SINUSITIS, UNSPECIFIED 481 PNEUMOCOCCA 09-26-2013 [facility] L PNEUMONIA A R H 2875 UNSPECIFIED 09-20-2013 [place] [employer] HEALTH THROMBOCYTO SANDY PENIA 82640 OTHER 09-20-2013 [place] CHRONIC COMP HEALTH PAIN SANDY 49752 OBSTRUCTIVE 09-16-2013 [place] CHRONIC COMP BRONCHITIS SPECIALTY WITH SERV EXACERBATIO N 53192 DIARRHEA 09-14-2013 [employer] [employer] HEALTH SANDY F10.10 ALCOHOL ABUSE, UNCOMPLICAT ED [...] E ed 16:00 NORWALK-LIKE VIRUS,EIA (09-16-2013 16:00) [place] SEE complet -like 014 COMMENT ed Ag 16:00 S 014 09:45 AM Comment: Test Result Flag Unit RefValue Comment: ------- Comment: Norovirus Comment: Norovirus Antigen NOT DETECTED Comment: A negative result does not exclude norovirus Comment: infection. Comment: Comment: Test Performed by: Comment: [employer] Comment: [address] Comment: ANASTASIYA Vang [id number] VANCOMYCIN TROUGH (09-16-2013 11:50) Vancomy 5.5 10.0-20 [...] high. Comment: Comment: Test Performed by: Comment: [facility] Comment: [address] , [place] [address] Comment: Frame Cleaner: Alberto Cook III, M.D. CBC W/DIFF (09-15-2013 [...] Result Flag Unit RefValue Comment: ------- Comment: Vbmiw-2-Ydzlpowmmtm, S 297 h mg/dL 100 - 190 Comment: Comment: Test Performed by: Comment: [facility] Comment: [address] [place] [address] Comment: Frame Cleaner: Alberto Cook III, M.D. CULTURE, ROUTINE (09-14-2013 [...] l 014 n: ed Report 18:03 BLOOD [facility] Collect complet l 014 ed: ed Report 18:03 014 18:03 [facility] Status: complet l 014 Final ed Report 18:03 Last Updated : 014 20:24 [facility] CUL RES complet l 014 ed Report 18:03 (Final) [facility] Culture complet l 014 In ed Report 18:03 Progres s [facility] No complet l 014 Growth ed [...] ed 05:41 normal CULTURE, ANAEROBIC (09-18-2012 20:58) [facility] Specime complet l 013 n/Sourc ed [...] complet l 013 ed Report 20:58 (Final) [facility] Status: complet l 013 Final ed Report 20:58 Last Updated : 013 15:51 [facility] Collect complet l 013 ed: ed Report 20:58 013 20:58 STAIN, GRAM (09-18-2012 20:58) [facility] TRACE. complet l 013 ed Report 20:58 [facility] ,WBC- complet l 013 ed Report 20:58 [facility] Gram complet l 013 Positiv ed Report 20:58 e Cocci Seen Moderat e Gram Positiv e Diploco cci Seen Few [facility] GRAM complet l 013 (Final) ed Report 20:58 [facility] Status: complet l 013 Final ed Report 20:58 Last Updated : 013 19:35 [facility] Collect complet l 013 ed: ed Report 20:58 013 20:58 [facility] Specime complet l 013 n/Sourc ed Report 20:58 e: OTHER-S PECIFY/ back CULTURE, BLOOD (09-18-2012 16:50) [facility] No complet l 013 Growth ed Report 16:50 After 3 Days Clinica No complet l 013 Growth ed Report 16:50 After 48 Hours [facility]ica No complet l 013 Growth ed Report 16:50 After 24 Hours [facility] Culture complet l 013 In ed [...] Procedure DOS Code Location Performer Comment RADEX 26702 [facility] SILVERIO WRIST 6 [facility] COMPLETE INC INC MINIMUM 3 VIEWS CAST Q4010 [place] [facility] SUPPLIES 6 PHYSICIAN SARMAD SHORT ARM S GROUP CAST ADULT FIBERGLAS S APPLICATI 81937 [place] [facility] ON CAST 6 PHYSICIAN JAM ELBOW S GROUP FINGER SHORT ARM APPLICATI 00998 NUSRAT SILVERIO ON SHORT 6 [facility] ARM INC INC SPLINT FOREARM-H AND STATIC RADEX 88694 [place] ROACH ALL WRIST 6 MEDICAL COMPLETE IMAGING MINIMUM 3 ASS VIEWS RADEX 02832 EDDIE ROACH ALL FOREARM 2 6 MEDICAL VIEWS IMAGING ASS RADEX 80251 [facility] RO[facility] ALL HAND 6 MEDICAL MINIMUM 3 IMAGING VIEWS ASS RADEX 88838 EDDIE ROACH ALL SHOULDER 6 MEDICAL COMPLETE IMAGING MINIMUM 2 ASS VIEWS RADEX HIP 38807 EDDIE ROACH ALL 6 MEDICAL [place]A IMAGING L WITH ASS PELVIS 2-3 VIEWS DRUG TST G0477 N[facility]AT SILVERIO PRESUMP;C 6 [facility] PBL BEING INC INC READ DC OPT OBV ONLY PHYSICAL 36545 N[facility]AT SILVERIO THERAPY 6 [facility] EVALUATIO INC INC N APPLICATI 59847 N[facility]RAT SILVERIO ON 6 [facility] MODALITY INC INC 1/> AREAS HOT/COLD PACKS APPL 41553 N[facility]RAT SILVERIO MODALITY 6 [facility] 1/> AREAS INC INC ULTRASOUN D EA 15 MIN E-STIM G0283 NUSRAT SILVERIO 1/> AREAS 6 [facility] OTH THAN INC INC WND CARE PART TX PLAN MRI 56365 N[facility]RAT SILVERIO SPINAL 6 [facility] CANAL INC INC THORACIC W/O CONTRAST MATRL 3D 60220 NUSRAT SILVERIO RENDERING 6 [facility] W/INTERP INC INC & POSTPROCE SS SUPERVISI ON MRI 25480 NUSRAT SILVERIO SPINAL 6 [facility] CANAL INC INC CERVICAL W/O CONTRAST MATRL DRUG TST G0477 NUSRAT SILVERIO PRESUMP;C 6 [facility] PBL BEING INC INC READ DC OPT OBV ONLY CATH PLWA 84320 N[facility]AT SILVERIO L 6 [facility] HRT/ARTS/ INC INC GRFTS WNJX & ANGIO IMG S&I INJECTION J1644 N[facility]AT SILVERIO HEPARIN 6 [facility] SODIUM INC INC PER 1000 UNITS LOC Q9967 NUSRAT SILVERIO 300-399 6 [facility] MG/ML INC INC IODINE CONCENTRA TION PER ML CATH PLWA 64709 [place] AYESHA L HRT & 6 PHYSICIAN MAT ARTS S GROUP W/NJX & ANGIO IMG S&I CATHETER C1725 NUSRAT SILVERIO TRANSLUMI 6 [facility] NAL INC INC ANGIOPLAS TY NON-LASER GUIDE C1769 NUSRAT SILVERIO WIRE 6 [facility] INC INC GAS 54044 NUSRAT JIMENEZ JR DILUT/WAS 6 [facility] ER VOL W/WO P DISTRIB VENT&[place] [address] NUSRAT JIMENEZ JR DIFFUSING 6 [facility] P BRNCDILAT 85396 NUSRAT JIMENEZ JR RSPSE 6 [facility] PRE&POST- P BRNCDILAT ADMN PRESSURIZ 70134 NUSRAT SILVERIO ED/NONPRE 6 [facility] SSURIZED INC INC INHALATIO N TREATMENT MYOCARDIA 77985 NUSRAT SILVERIO L SPECT 6 [facility] MULTIPLE INC INC STUDIES ECHO 14058 NUSRAT SILVERIO TTHRC R-T 6 [facility] 2D INC INC W/WOM-MOD E COMPL SPEC&COLR D HEPATIC 92518 NUSRAT SILVERIO FUNCTION 6 [facility] PANEL INC INC RADIOLOGI 65149 NUSRAT SILVERIO C EXAM 6 [facility] CHEST 2 INC INC VIEWS FRONTAL&L ATERAL INJECTION J2785 NUSRAT SILVERIO 6 [facility] REGADENOS INC INC ON 0.1 MG CV STRS 24251 [place] SOPH[facility] BARBER TST 6 PHYSICIAN XERS&/OR S GROUP RX CONT ECG W/O I&R CV STRS 09508 NUSRAT SILVERIO TST 6 [facility] XERS&/OR INC INC RX CONT ECG TRCG ONLY TECHNETIU A9500 UNSRAT Nowak TC-99M 6 [facility] SESTAMIBI INC [place] [address] NUSRAT SILVERIO FREE 6 [facility] [place] [address] NUSRAT SILVERIO THYROID 6 [facility] STIMULATI INC INC NG HORMONE TSH BLOOD 26987 NUSRAT SILVERIO COUNT 6 [facility] COMPLETE INC INC AUTO&AUTO DIFRNTL WBC BASIC 99817 NUSRAT SILVERIO METABOLIC 6 [facility] PANEL INC INC CALCIUM TOTAL ECG 06731 NUSRAT SILVERIO ROUTINE 6 [facility] ECG INC INC W/LEAST 12 LDS TRCG ONLY W/O I&R COMPREHEN 56933 S[facility]I JUNIOR SIVE 6 [facility] PANEL [facility]LECTIO 12753 S[facility] JUNIOR N VENOUS 6 [facility] B[facility] VENIPUNCT URE RADIOLOGI 38641 SANDI SOODMARY C EXAM 6 [facility] CHEST 2 RADIOLOGY VIEWS PLLC FRONTAL&L ATERAL BLOOD 76852 S[facility] JUNIOR COUNT 6 [facility] G0463 S[facility]I JUNIOR OUTPATIEN [address] [facility] VISIT ASSESS & [place] [address] NUSRAT SILVERIO TROPONIN 6 [facility] QUANTITAT INC INC DEBBIE BLOOD 12858 NUSRAT SILVERIO COUNT 6 [facility] COMPLETE INC INC AUTO&AUTO DIFRNTL WBC RADIOLOGI 97871 [facility] C EXAM 6 MEDICAL HUONG CHEST 2 IMAGING VIEWS ASS FRONTAL&L ATERAL COLLECTIO 93433 NUSRAT SILVERIO N VENOUS 6 [facility] BLOOD INC INC VENIPUNCT URE ECG 35968 NUSRAT JIMENEZ JR ROUTINE 6 [facility] W/LEAST P 12 LDS I&R ONLY THERAPEUT 83524 NUSRAT SILVERIO IC 6 [facility] INJECTION INC INC IV PUSH EACH NEW DRUG COMPREHEN 66266 NUSRAT SILVERIO SIVE 6 [facility] METABOLIC INC INC PANEL CREATINE 74858 NUSRAT SILVERIO KINASE MB 6 [facility] FRACTION INC INC ONLY INJECTION J2405 NUSRAT SILVERIO 6 [facility] ONDANSETR INC INC ON HCL PER 1 MG ECG 00976 NUSRAT SILVERIO ROUTINE 6 [facility] ECG INC INC W/LEAST 12 LDS TRCG ONLY W/O I&R CREATINE 03237 NUSRAT SILVERIO KINASE 6 [facility] TOTAL INC INC THER 88090 NUSRAT SILVERIO PROPH/DX 6 [facility] NJX IV INC INC PUSH SINGLE/1S T SBST/DRUG ECG 72663 NUSRAT SILVERIO ROUTINE 6 [facility] ECG INC INC W/LEAST 12 LDS TRCG ONLY W/O I&R COLLECTIO 32955 NUSRAT SILVERIO N VENOUS 6 [facility] BLOOD INC INC VENIPUNCT URE COMPREHEN 04739 NUSRAT NUSRAT SIVE 6 [facility] METABOLIC INC INC PANEL LOCM Q9967 NUSRAT NUSRAT 300-399 6 [facility] MG/ML INC INC IODINE CONCENTRA TION PER ML ECG 18365 NUSRAT OCHOA ROUTINE 6 [facility] W/LEAST P 12 LDS I&[place] [address] NUSRAT SILVERIO TROPONIN 6 [facility] QUANTITAT INC INC DEBBIE BLOOD 55046 NUSRAT SILVERIO COUNT 6 [facility] COMPLETE INC INC AUTO&AUTO DIFRNTL WBC CT THORAX 32700 NUSRAT SILVERIO 6 [facility] W/CONTRAS INC INC T MATERIAL GROUND A0425 [facility] MILEAGE 6 AMBULANCE AMBULANCE PER SERVICE SERVICE STATUTE MILE [facility] A0427 [facility] SERVICE 6 AMBULANCE AMBULANCE ALS SERVICE SERVICE EMERGENCY TRANSPORT LEVEL 1 [facility] 07275 [facility] 6 CARE/DAY [facility] 25 HOSP MINUTES WALKER E0135 SANDI JUNIOR FOLDING 6 MEDICAL MEDICAL ADJUSTABL EQUIP EQUIP E OR FIXED HEIGHT COMMODE E0163 SANDI JUNIOR CHAIR 6 MEDICAL MEDICAL MOBILE OR EQUIP EQUIP STATIONAR Y W/FIXED [facility] 13643 SANDI ATTUM ABD DISCHARGE 6 DAY [facility] T 30 MIN/< [facility] [address] [place] [address] CARE/DAY 25 MINUTES RADIOLOGI 43469 SANDI Young 6 GAR EXAMINATI RADIOLOGY ON CHEST PLLC [place] FRONTAL SBSQ 86075 [facility] 6 CARE/DAY 25 MINUTES SBSQ 58455 [facility] 6 MALHAB CARE/DAY [facility] NIS 35 HOSP MINUTES SBSQ 87623 [facility] 6 CARE/DAY [facility] 25 HOSP MINUTES CRITICAL 28404 [facility] 6 [facility]AB ILL/INJUR [facility] NIS ED HOSP PATIENT INIT 30-74 MIN CRITICAL 19990 [facility] 6 MALHAB ILL/INJUR [facility] NIS ED HOSP PATIENT INIT 30-74 MIN SBSQ 96699 [facility] 6 CARE/DAY [facility] 25 HOSP MINUTES SBSQ 24349 [place] [address] MEDICAL ISAI CARE/DAY CENTER 25 INC MINUTES CRITICAL 63096 [facility] 6 MALHAB ILL/INJUR [facility] NIS ED HOSP PATIENT INIT 30-74 MIN ECG 93569 SANDI DING ROUTINE 6 JEIMY ECG [facility] W/LEAST HOSP 12 LDS I&R ONLY RADIOLOGI 36096 SANDI Young 6 GAR EXAMINATI RADIOLOGY ON CHEST PLLC SING[place]IEW FRONTAL RADIOLOGI 41710 SANDI Young 6 GAR EXAMINATI RADIOLOGY ON CHEST PLLC [place] FRONTAL CRITICAL 58700 [facility] 6 MALHAB ILL/INJUR [facility] NIS ED HOSP PATIENT INIT 30-74 MIN SBSQ 14191 [facility] 6 CARE/DAY [facility] 25 HOSP MINUTES SBSQ 38590 [place] [address] MEDICAL ISAI CARE/DAY CENTER 25 INC MINUTES CRITICAL 74319 [facility] C[facility] 6 MALHAB ILL/INJUR [facility] NIS ED HOSP PATIENT INIT 30-74 MIN RADIOLOGI 39311 SANDI YATES C 6 GAR EXAMINATI RADIOLOGY ON CHEST PLLC [place] FRONTAL CRITICAL 06738 YUNGJAYLENE SALAZAR ERU CARE 6 ILL/INJUR [facility] ED HOSP PATIENT INIT 30-74 MIN SBSQ 05-15-201 17183 [facility] 6 CARE/DAY 25 MINUTES RADIOLOGI 11535 SANDI Young 6 DEN EXAMINATI RADIOLOGY ON CHEST PLLC SING[place] FRONTAL RADIOLOGI 48612 SANDI STACY C 6 EXAMINATI RADIOLOGY ON CHEST PLLC SING[place] FRONTAL SBSQ 58142 [facility] 6 CARE/DAY 35 MINUTES CRITICAL 91312 LAISHASHEMAR MARTIN [facility] CARE 6 ILL/INJUR [facility] ED HOSP PATIENT INIT 30-74 MIN SBSQ 96851 [facility] 6 MEDICAL MAR CARE/DAY CENTER 25 INC MINUTES SBSQ 48508 [facility] 6 CARE/DAY [facility] 25 HOSP MINUTES RADIOLOGI 02557 SANDI Young 6 VINNIE EXAMINATI RADIOLOGY ON CHEST PLLC [place] FRONTAL RADIOLOGI 98169 SANDI Young 6 VINNIE EXAMINATI RADIOLOGY ON CHEST PLLC [place] FRONTAL SBSQ 76608 [facility] 6 CARE/DAY [facility] 25 HOSP MINUTES SBSQ 48192 [facility] 6 CARE/DAY [facility] 25 HOSP MINUTES RADIOLOGI 82668 SANDI Young 6 VINNIE EXAMINATI RADIOLOGY ON CHEST PLLC [place] FRONTAL ECG 16097 SANDI TIMUR ROUTINE 6 JEIMY ECG [facility] W/LEAST HOSP 12 LDS I&R ONLY ECG 34948 SANDI TIMUR ROUTINE 6 JEIMY ECG [facility] W/LEAST HOSP 12 LDS I&R ONLY ECHO 28498 [facility] TTHRC R-T 6 2D [facility] W/WOM-MOD HOSP E COMPL SPEC&COLR D CORONARY 55193 SANDI ATTUM ABD ARTERY 6 BYP [facility] W/VEIN & HOSP ARTERY GRAFT 1 VEIN CABG 03967 SANDI ATTUM ABD W/ARTERIA 6 L GRAFT [facility] SINGLE HOSP ARTERIAL GRAFT ANES 01612 SANDI SAMUEL DIRECT 6 CABG [facility] W/PUMP HOSP OXYGENATO R RADIOLOGI 80925 SANDI GUNNER C 6 VINNIE EXAMINATI RADIOLOGY ON CHEST PLLC SINGLE VIEW FRONTAL INSJ 09922 SANDI ATTUM ABD INTRA-AOR 6 T BALO [facility] DEV VIA FEM ART OPEN SBSQ 44527 YUNGSHEMAR [facility] 6 CARE/DAY [facility] 25 HOSP MINUTES AMB A0427 NEON NEON SERVICE 6 VOLUNTEER VOLUNTEER ALS FIRE FIRE EMERGENCY DEPT\EMS DEPT\EMS TRANSPORT LEVEL 1 CATH PLMT 84544 SANDI [facility] L HRT & 6 ARTS [facility] W/NJX & HOSP ANGIO IMG S&I RADIOLOGI 92331 RAHUL KAY JR C 6 PHILIP PHILIP EXAMINATI ON CHEST SINGLE VIEW FRONTAL GROUND A0425 NEON NEON MILEAGE 6 VOLUNTEER VOLUNTEER PER FIRE FIRE STATUTE DEPT\EMS DEPT\EMS MILE ROTARY A0436 MED-TRANS MED-TRANS WING AIR 6 MILEAGE CORPORATI CORPORATI PER ON ON STATUTE MILE INSERTION 40093 [facility] 6 INTRA-AOR [facility] ASSIST DEV PERQ ECG 22990 [facility] GHARAD ROUTINE 6 MEDICAL CORRINA ECG ASSOCIATE W/LEAST S 12 LDS I&R ONLY AMB A0431 MED-TRANS MED-TRANS SERVICE 6 CONVNTION CORPORATI CORPORATI AIR SRVC ON ON TRANSPORT [address] KNEE L1810 [facility]OSIS 5 MEDICAL MEDICAL ELASTIC JOINTS PREFAB CUSTOM FIT RADEX 54850 [facility] SPINE 5 G A R H G A R H CERVICAL 4 OR 5 VIEWS INJECTION J0696 [facility] 4 CEFTRIAXO NE SODIUM PER 250 MG THERAPEUT 49787 [facility] IC 4 PROPHYLAC TIC/DX INJECTION SUBQ/IM RADIOLOGI 59374 [facility] C EXAM 4 G A R H G A R H CHEST 2 VIEWS FRONTAL&L ATERAL BASIC 01758 [facility] METABOLIC 4 G A R H G A R H PANEL CALCIUM TOTAL BLOOD 27394 [facility] COUNT 4 G A R H G A R H COMPLETE AUTO&AUTO [facility]L [facility] 66975 [facility] DISCHARGE 4 COMP DAY HEALTH MANAGEMEN SANDY T 30 MIN/< SBSQ 98049 [facility] 4 COMP CARE/DAY HEALTH 25 SANDY MINUTES SBSQ 17386 [place] [address] COMP MAT CARE/DAY HEALTH 25 SANDY MINUTES SBSQ 31974 [place] [address] COMP MAT CARE/DAY HEALTH 25 SANDY MINUTES SBSQ 47269 [place] [address] COMP CARE/DAY SPECIALTY 25 SERV MINUTES SBSQ [address]9086 [place] [address] COMP CARE/DAY HEALTH 25 SANDY MINUTES INITIAL 90110 [facility] 4 COMP CARE/DAY HEALTH 70 SANDY MINUTES INITIAL 46300 [place] [address] COMP CARE/DAY SPECIALTY 50 SERV MINUTES Encounters Encounter Start End Date Code Location Performer Type Date OFFICE [address]158 [place] [facility] OUTPATIEN 6 6 MEDICAL T [facility] [address]60 [place] [facility] 6 6 PHYSICIAN JAM T NEW 20 S GROUP MINUTES [facility]OSP[facility] 6 6 [facility] 60522 N[facility] 6 6 [facility] HIGH/URGE NT [facility]VERITY [facility] NUSRAT - OTHER 6 6 [facility] [facility] NUSRAT - 6 6 [facility] NSURAT - OTHER 6 6 [facility] NUS[facility] 6 6 [facility] NUS[facility] 6 6 [facility]OSP[facility] NUSRAT - 6 6 [facility] OUTPATIEN [facility] T HOSPITAL NUSRAT [facility] 6 6 [facility] OUTPATIEN INC [facility] [place] - 6 6 [facility] T OFFICE [id number] ISAI BARBOSA OUTPATIEN 6 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 FAMILY 15 CLINIC MINUTES EMERGENCY [id number] RUBY WOOTEN DEPT 6 6 PHYSICIAN U HUONG VISIT S, [facility] HIGH [facility]VERITY& THREAT [facility], [facility] NUSRAT - 6 6 [facility] T EMERGENCY [id number] N[facility]AT 6 [facility] T [facility]IT [facility]IGH/URGE NT SEVERITY [facility]OSPITAL NUSRAT - 6 6 [facility] OUTPATIEN [facility] T EMERGENCY [id number] [facility]AT 6 [facility] T VISIT MODERATE SEVERITY EMERGENCY 44535 RUBY LUNDBERG DEPT 6 6 PHYSICIAN FOR VISIT S, [facility] HIGH SEVERITY& [facility] [id number] ISAI BARBOSA OUTPATIEN 6 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
--- OUTSIDE RECORDS SUMMARY | 2016-09-22 02:54 | External Medical Summary Rpt ---
Author Author , Organization [employer] Address Unknown Phone Unavailable Care Team Providers Care Dairy Products Maker Name Role Phone AHMAD MUH, AHMAD MUH Unavailable Unavailable ALAM MARIA M, ALAM MARIA M Unavailable Unavailable NANI MYRNA, Unavailable Unavailable NANI MYRNA ATTUM ABD, ATTUM ABD Unavailable Unavailable REEVES CHELSEY, REEVES CHELSEY Unavailable Unavailable BATDORF, BATDORF Unavailable Unavailable BEINEKE HUONG, BEINEKE Unavailable Unavailable HUONG BESSON TAM, BESSON Unavailable Unavailable TAM TIMUR JEIMY, TIMUR Unavailable Unavailable JEIMY ROACH ALL, ROACH ALL Unavailable Unavailable SHERWIN MALHAB NIS, SHERWIN Unavailable Unavailable MALHAB NIS [facility], Unavailable Unavailable [facility] Unavailable Unavailable SERVICE, [facility] Unavailable [facility]available SERVICE, [facility] KAY JR PHILIP, RAHUL JR Unavailable Unavailable PH[facility]IP [facility] Unavailable Unavailable [facility] Unavailable Unavailable COOK SUNIL, COOK SUNIL Unavailable Unavailable KIMBERLEE VLADIMIR, KIMBERLEE Unavailable Unavailable VLADIMIR GHARAD CORRINA, GHARAD Unavailable Unavailable CORRINA MERCY DEN, MERCY Unavailable Unavailable DEN NICHOLAS APR, NICHOLAS APR Unavailable Unavailable SMITH DEN, SMITH Unavailable Unavailable DEN [facility], [facility] Unavailable Unavailable HOSPITAL P, [facility], [facility]available Unavailable [facility] ISAI REEVES APRN FAMILY Unavailable Unavailable CLINIC, ISAI REEVES APRN [facility] GUNNER VINNIE, GUNNER Unavailable Unavailable VINNIE [facility] Unavailable Unavailable [facility], [facility] KHATER FAR, KHATER Unavailable Unavailable [facility] Un[facility] BARBARA JR DWI, BARBARA Unavailable Unavailable JR DWI THOMAS AHM, THOMAS AHM Unavailable Unavailable THOMAS AHM, THOMAS AHM Unavailable Unavailable [facility], Unavailable Unavailable [facility], Unavailable Unavailable [facility] Unavailable Unavailable CORPORATION, [facility] Unavailable Unavailable CORPORATION, [facility] Unavailable Unavailable [facility], [facility], [facility] Unavailable Unavailable DEPT\EMS, [facility]\EMS [facility], Unavailable Unavailable [facility], [facility] PETTEY JAM, PETTEY Unavailable Unavailable JAM [facility] Unavailable Unavailable CENTER, [facility] Unavailable Unavailable EQUIP, [facility], [facility] YATES GAR, YATES Unavailable Unavailable GAR [...] Unavailable Purpose Continuity of Care Document - 09-14-2013 through 2016 Problems Code Diagnosis DOS Provider Status 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 04-10-2016 [facility] C[facility] REGION [id number] OTHER 04-10-2016 [facility] DISC [facility] DEGENERATIO N AT C5-C6 LEVEL Z720 TOBACCO USE 04-10-2016 [facility] [id number] OTHER 04-09-2016 [facility] EXTRA[facility] PHYSICIANS LAR FX LOW GROUP RT RADIUS INIT CLOS [id number] DSPL FX 04-09-2016 [facility] RT WRST IMAGING ASS SUB ENC FX ROUTINE I10 ESSENTIAL 03-30-2016 [facility] PRIMARY [facility] HYPERTENSIO INC N J449 CHRONIC 03-30-2016 [facility] OBSTRUCTIVE [facility] PULMONARY INC DISEASE UNS [id number] PRIMARY 03-30-2016 [facility] OSTEOAR[facility] TIS RIGHT IMAGING ASS HAND C43721 PAIN IN 03-30-2016 [facility] RIGHT MEDICAL SHOULDER IMAGING ASS X48363 PAIN IN 03-30-2016 [facility] RIGHT WRIST MEDICAL IMAGING ASS B70185 PAIN IN 03-30-2016 [facility] UNSPECIFIED MEDICAL HIP IMAGING ASS U31709 PAIN IN 03-30-2016 [facility] RIGHT MEDICAL FOREARM IMAGING ASS G70433 PAIN IN 03-30-2016 [facility] RIGHT HAND [facility]ICAL [facility] L0167IA UNS INJURY 03-30-2016 [facility] RT SHOULDER MEDICAL UPPER ARM IMAGING ASS INITIAL ENCNTR H65104V FX UNS 03-30-2016 [facility], RT WRIST PLLC INITIAL ENC CLOS FX [id number] DSPL FX 03-30-2016 [facility] RT WRIST IMAGING ASS INIT ENC CLOS FX M542 CERVICALGIA 03-19-2016 [facility] M545 LOW BACK 02-18-2016 [facility] PAIN [facility] M5022 OT CERV 02-08-2016 [facility] DISC MEDICAL DISPLACEMEN IMAGING ASS T MID-CERVICA L REGION M5032 OT CERV 02-08-2016 [facility] DISC MEDICAL DEGENERATIO IMAGING ASS N MID-CERVICA L REGION M5124 OT 02-08-2016 [facility] INTERVERTEB MEDICAL RAL DISC IMAGING ASS DISPLACEMEN T THOR REGION M5134 OTH 02-08-2016 [facility] INTERVERTEB MEDICAL RAL DISC IMAGING ASS DEGEN THORACIC REGION M546 PAIN IN 02-08-2016 [facility] THORACIC MEDICAL SPINE IMAGING ASS M549 DORSALGIA 02-08-2016 [facility] UNSPECIFIED [facility] INC I209 ANGINA 01-15-2016 [facility] PECT[facility]IS PHYSICIANS UNSPECIFIED GROUP H12616 [place]SHD [place] 01-15-2016 [facility] COR [facility] W/UNS INC ANGINA PECT[place]IS R9439 ABNORMAL 01-15-2016 [facility] RESULT [facility] CARDIOVASCU GROUP LR FUNCTION STUDY 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 ASHD [place] 01-04-2016 [facility] CORONARY [facility] ARTERY [facility]PITAL P ANGINA PECTORIS E039 HYPOTHYROID 12-28-2015 [facility] IS [facility] UNSPECIFIED INC R079 CHEST PAIN 12-28-2015 [facility] UNSPECIFIED [facility]ICAL IMAGING ASS R0602 SHORTNESS 10-29-2015 [facility] R5383 OTHER 10-29-2015 [facility] E54281 PAIN IN 10-22-2015 [facility] LEFT [facility]YSICI[facility], SHOULDER PLLC R0789 OTHER CHEST 10-22-2015 [facility] PAIN MEDICAL IMAGING ASS R79067T PAIN D/T 10-22-2015 [facility] P IMPL & GRAFTS INITIAL G8918 OTHER ACUTE 10-18-2015 [facility] POSTPROCEDU [facility] P RAL PAIN G8928 OTHER 10-18-2015 [facility] CHRONIC PHYSICIANS, POSTPROCEDU PLLC RAL PAIN J80 ACUTE 10-18-2015 [facility] RESPIRATORY AMBULANCE DISTRESS SERVICE SYNDROME J90 PLEURAL 10-18-2015 [facility] EFFUSION MEDICAL NOT IMAGING ASS ELSEWHERE CLASSIFIED J9811 ATELECTASIS 10-18-2015 [facility] J9690 RESP FAIL 10-15-2015 [facility] UNS UNS [facility] WHETHER HOSP W/HYPOXIA/H YPERCAPNIA R410 DISORIENTAT 10-15-2015 [facility] ION [facility] UNSPECIFIED [facility]P R5381 OTHER 10-15-2015 [facility] MALAISE [facility] N57251 ELEVATED 10-13-2015 [facility] WHITE BLOOD [facility] CELL COUNT HOSP UNSPECIFIED 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 [facility] UNSPECIFIED HOSP J9600 ACUTE 10-13-2015 [facility] RESPIRATORY [facility] FAIL UNS HOSP HYPOXIA/HYP ERCAPNIA I214 NON-ST 10-12-2015 [facility] ELEVATION [facility] MYOCARDIAL HOSP INFARCTION R4182 ALTERED 10-12-2015 [facility] MENTAL [facility] STATUS HOS[facility] UNSPECIFIED D649 ANEMIA 10-11-2015 [facility] UNSPECIFIED [facility] E876 HYPOKALEMIA 10-11-2015 [facility] 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 THOMAS 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 J9601 ACUTE 10-10-2015 [facility] RESPIRATORY [facility] FAILURE HOSP WITH HYPOXIA R9431 ABNORMAL 10-10-2015 [facility] ELECTROCARD [facility] IOGRAM HOSP 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 X43373 ACUTE 10-09-2015 [facility] POSTPROCEDU [facility] RAL HOSP RESPIRATORY FAILURE I999 UNSPECIFIED 10-08-2015 [facility] DISORDER [facility] OF HOSP CIRCULATORY SYSTEM E785 HYPERLIPIDE 10-03-2015 [facility] KAREN [facility] UNSPECIFIED HOSP I213 ST 10-02-2015 YUNGEVSHEMAR ELEVATION [facility] MYOCARDIAL HOSP INFARCTION UNS SITE N42440 ENCOUNTER 10-02-2015 [facility] FOR [facility] PREPROCEDUR HOSP AL CARIOVASCUL AR EXAM I222 SUBSEQUENT 10-01-2015 [facility] NON-ST CORPORATION ELEVATION MYOCARDIAL INFARCT J309 ALLERGIC 09-25-2015 ISAI REEVES RHINITIS TRACK HOE OPERATOR FAMILY UNSPECIFIED CLINIC N401 BENIGN 09-25-2015 ISAI REEVES PROSTATIC TRACK HOE OPERATOR FAMILY HYPERPLASIA CLINIC LW URINARY TRACT SX 2724 OTHER AND 06-19-2014 [facility] UNSPECIFIED HYPERLIPIDE KAREN 4019 UNSPECIFIED 06-19-2014 SOPHIE ALLEN ESSENTIAL HYPERTENSIO N 6079 UNSPECIFIED 06-19-2014 [facility]OP[facility] ALLEN DISORDER OF PENIS 7242 LUMBAGO 06-19-2014 [facility] ALLEN 53254 PAIN IN 06-06-2014 [facility] JOINT, MEDICAL MULTIPLE SITES 7231 CERVICALGIA 05-30-2014 [place] A R H 4619 ACUTE 02-23-2014 SOPHIE ALLEN SINUSITIS, UNSPECIFIED 481 PNEUMOCOCCA 09-26-2013 CRISPIN Stephenson PNEUMONIA A R H 2875 UNSPECIFIED 09-20-2013 W[facility] ([employer]) HEALTH THROMBOCYTO SANDY PENIA 75395 OTHER 09-20-2013 [facility] CHRONIC COMP HEALTH PAIN SANDY 27535 OBSTRUCTIVE 09-16-2013 [facility] CHRONIC COMP BRONCHITIS SPECIALTY WITH SERV EXACERBATIO N 24524 DIARRHEA 09-14-2013 [employer] HEALTH SANDY Procedures Procedure DOS Code Location Performer Comment CAST Q4010 [facility] PETTEY SUPPLIES 6 PHYSICIAN SARMAD SHORT ARM S GROUP CAST ADULT FIBERGLAS S RADEX 07371 [facility] WRIST 6 MEDICAL COMPLETE IMAGING MINIMUM 3 ASS VIEWS APPLICATI 17998 [facility] PETTE ON CAST 6 PHYSICIAN SARMAD ELBOW S GROUP FINGER SHORT ARM RADEX 85387 [facility] FOREARM 2 6 MEDICAL VIEWS IMAGING ASS RADEX 56136 [facility] WRIST 6 MEDICAL COMPLETE IMAGING MINIMUM 3 ASS VIEWS RADEX 67949 [facility] HAND 6 MEDICAL MINIMUM 3 IMAGING VIEWS ASS APPLICATI 08972 N[facility]AT SILVERIO ON SHORT 6 [facility]OS[facility] ARM INC INC SPLINT FOREARM-H AND STATIC RADEX 38948 [facility] SHOULDER 6 MEDICAL COMPLETE IMAGING MINIMUM 2 ASS VIEWS RADEX HIP 64651 [facility] 6 MEDICAL UNILATERA IMAGING L WITH ASS PELVIS 2-3 VIEWS DRUG TST G0477 [facility]AT SILVERIO PRESUMP;C 6 [facility]OS[facility] PBL BEING INC INC READ DC OPT OBV ONLY PHYSICAL 37720 N[facility]AT SILVERIO THERAPY 6 [facility] EVALUATIO INC INC N E-STIM G0283 NUSRAT SILVERIO 1/> AREAS 6 MEM [facility] MEM HOS[facility] OTH THAN INC INC WND CARE PART TX PLAN APPLICATI 61930 NUSRAT SILVERIO ON 6 [facility] MODALITY INC INC 1/> AREAS HOT/COLD PACKS APPL 82474 NUSRAT SILVERIO MODALITY 6 [facility] 1/> AREAS INC INC ULTRASOUN D EA 15 MIN MRI 52133 [facility] RO[facility] ALL SPINAL 6 MEDICAL CANAL IMAGING THORACIC ASS W/O CONTRAST MATRL MRI 60102 [facility] SPINAL 6 MEDICAL CANAL IMAGING CERVICAL ASS W/O CONTRAST MATRL 3D 20040 [facility] RENDERING 6 MEDICAL W/INTERP IMAGING & ASS POSTPROCE SS SUPERVISI ON DRUG TST G0477 N[facility]AT SILVERIO PRESUMP;C 6 [facility] PBL BEING INC INC READ DC OPT OBV ONLY INJECTION J1644 NUSRAT SILVERIO HEPARIN 6 [facility] SODIUM INC INC PER 1000 UNITS CATH PLMA 45562 [facility] AYESHA L HRT & 6 PHYSICIAN MAT ARTS S GROUP W/NJX & ANGIO IMG S&I LOCM Q9967 N[facility]RAT SILVERIO 300-399 6 [facility] MG/ML INC INC IODINE CONCENTRA TION PER ML CATH PLMT 50811 NUSRAT SILVERIO L 6 [facility] HRT/ARTS/ INC INC GRFTS WNJX & ANGIO IMG S&I CATHETER C1725 NUSRAT SILVERIO TRANSLUMI 6 [facility] NAL INC INC ANGIOPLAS TY NON-LASER GUIDE C1769 NUSRAT SILVERIO WIRE 6 [facility] INC INC PRESSURIZ 16118 NUSRAT SILVERIO ED/NONPRE 6 [facility] SSURIZED INC INC INHALATIO N TREATMENT BRNCDILAT 12885 NUSRAT JIMENEZ JR RSPSE 6 [facility] PRE&POST- P BRNCDILAT ADMN GAS 04153 NUSRAT JIMENEZ JR DILUT/WAS 6 [facility] VOL W/WO P DISTRIB VENT&[place] [address] NUSRAT JIMENEZ JR DIFFUSING 6 [facility] P TECHNETIU A9500 NUSRAT Nowak TC-99M 6 [facility] SESTAMIBI INC [place] [address] NUSRAT SILVERIO FREE 6 [facility] [place] [address] NUSRAT SILVERIO THYROID 6 [facility] STIMULATI INC INC NG HORMONE TSH INJECTION J2785 NUSRAT SILVERIO 6 [facility] REGADENOS INC INC ON 0.1 MG ECHO 51063 NUSRAT NUSRAT TTHRC R-T 6 [facility] 2D INC INC W/WOM-MOD E COMPL SPEC&COLR D RADIOLOGI 74807 NUSRAT SILVERIO C EXAM 6 [facility] CHEST 2 INC INC VIEWS FRONTAL&L ATERAL MYOCARDIA 86567 NUSRAT SILVERIO L SPECT 6 [facility] MULTIPLE INC INC STUDIES CV STRS 62774 [facility] TST 6 PHYSICIAN XERS&/OR S GROUP RX CONT ECG W/O I&R CV STRS 97420 NUSRAT SILVERIO TST 6 [facility] XERS&/OR INC INC RX CONT ECG TRCG ONLY BLOOD 27080 NUSRAT SILVERIO COUNT 6 [facility] COMPLETE INC INC AUTO&AUTO DIFRNTL WBC HEPATIC 60739 NUSRAT SILVERIO FUNCTION 6 [facility] PANEL INC INC BASIC 78903 NUSRAT SILVERIO METABOLIC 6 [facility] PANEL INC INC CALCIUM TOTAL ECG 41416 NUSRAT SILVERIO ROUTINE 6 [facility] ECG INC INC W/LEAST 12 LDS TRCG ONLY W/O I&R COLLECTIO 21772 S[facility]I JUNIOR N VENOUS 6 [facility] CENTER VENIPUNCT [facility] G0463 SANDI JUNIOR OUTPATIEN 6 [facility] T CLIN CENTER CENTER VISIT ASSESS & MGMT PT BLOOD 03926 SANDI JUNIOR COUNT 6 [facility] COM[facility] CENTER AUTOMATED RADIOLOGI 92349 SANDI JUNIOR C EXAM 6 MEDICAL MEDICAL CHEST 2 CENTER CENTER VIEWS FRONTAL&L ATERAL COMPREHEN 38564 SANDI JUNIOR SIVE 6 [facility] CENTER PANEL CREATINE 19489 NUSRAT SILVERIO KINASE MB 6 [facility] FRACTION INC INC ONLY INJECTION J2405 NUSRAT SILVERIO 6 [facility] ONDANSETR INC INC ON HCL PER 1 MG THERAPEUT 43520 NUSRAT SILVERIO IC 6 [facility] INJECTION INC INC IV PUSH EACH NEW DRUG BLOOD 18706 NUSRAT SILVERIO COUNT 6 [facility] COMPLETE INC INC AUTO&[place] [address] NUSRAT SILVERIO TROPONIN 6 [facility] QUANTITAT INC INC DEBBIE ECG 28758 NUSRAT SILVERIO ROUTINE 6 [facility] ECG INC INC W/LEAST 12 LDS TRCG ONLY W/O I&R ECG 75447 NUSRAT JIMENEZ JR ROUTINE [address] [facility] W/LEAST P 12 LDS I&R ONLY RADIOLOGI 18227 [facility] C EXAM 6 MEDICAL HUONG CHEST 2 IMAGING VIEWS ASS FRONTAL&L ATERAL COMPREHEN 03134 NUSRAT SILVERIO SIVE 6 [facility] METABOLIC INC INC PANEL COLLECTIO 42924 NUSRAT SILVERIO N VENOUS 6 [facility] BLOOD INC INC VENIPUNCT URE THER 47820 NUSRAT SILVERIO PROPH/DX 6 [facility] NJX IV INC INC PUSH SINGLE/1S T SBST/DRUG CREATINE 56466 NUSRAT SILVERIO KINASE 6 [facility] TOTAL INC INC COLLECTIO 22130 NUSRAT SILVEROI N VENOUS 6 [facility] BLOOD INC INC VENIPUNCT URE LOCM Q9967 NUSRAT SILVERIO 300-399 6 [facility] MG/ML INC INC IODINE CONCENTRA TION PER ML ECG 52312 NUSRAT OCHOA ROUTINE 6 [facility] W/LEAST P 12 LDS I&R ONLY ECG 64296 NUSRAT SILVERIO ROUTINE 6 [facility] ECG INC INC W/LEAST 12 LDS TRCG ONLY W/O I&[place] [address] NUSRAT SILVERIO TROPONIN 6 [facility] QUANTITAT INC INC DEBBIE BLOOD 02690 NUSRAT SILVERIO COUNT 6 [facility] COMPLETE INC INC AUTO&AUTO DIFRNTL WBC COMPREHEN 58767 NUSRAT SILVERIO SIVE 6 [facility] HOS[facility] METABOLIC INC INC PANEL GROUND A0425 [facility] MILEAGE 6 AMBULANCE AMBULANCE PER SERVICE SERVICE STATUTE MILE AMB A0427 [facility] SERVICE 6 AMBULANCE AMBULANCE ALS SERVICE SERVICE EMERGENCY TRANSPORT LEVEL [address] CT THORAX 33433 [facility] 6 MEDICAL W/CONTRAS IMAGING T ASS MATERIAL SBSQ 50557 [facility] 6 CARE/DAY [facility] 25 HOSP MINUTES WALKER E0135 SANDI JUNIOR FOLDING 6 MEDICAL MEDICAL ADJUSTABL EQUIP EQUIP E OR FIXED HEIGHT COMMODE E0163 SANDI JUNIOR CHAIR 6 MEDICAL MEDICAL MOBILE OR EQUIP EQUIP STATIONAR Y W/FIXED [facility] 93431 SANDI ATTUM ABD DISCHARGE 6 DAY [facility] T 30 MIN/< SBSQ 93595 [facility] 6 MYRNA CARE/DAY [facility] 25 HOSP MINUTES SBSQ 67674 [place] [address] CARE/DAY 25 MINUTES RADIOLOGI 67881 SANDI Morelos GAR EXAMINATI RADIOLOGY ON CHEST [facility]ONTAL SBSQ 73434 [facility] 6 MALHAB CARE/DAY [facility] NIS 35 HOSP MINUTES SBSQ 17008 [facility] 6 CARE/DAY [facility] 25 HOSP MINUTES CRITICAL 38230 [facility] 6 MALHAB ILL/INJUR [facility] NIS ED HOSP PATIENT INIT 30-74 MIN CRITICAL 64272 [facility] ILL/INJUR [facility] NIS ED HOSP PATIENT INIT 30-74 MIN SBSQ 77064 [facility] 6 CARE/DAY [facility] 25 HOSP MINUTES CRITICAL 85271 [facility] ILL/INJUR [facility] NIS ED HOSP PATIENT INIT 30-74 MIN SBSQ 63099 [facility] 6 CARE/DAY 25 MINUTES RADIOLOGI 00967 SANDI Young 6 GAR EXAMINATI RADIOLOGY ON CHEST PLLC [facility] [facility] ECG 58245 SANDI DING ROUTINE 6 JEIMY ECG [facility] W/LEAST HOSP 12 LDS I&R ONLY RADIOLOGI 75374 SANDI Young 6 GAR EXAMINATI RADIOLOGY ON CHEST PLLC [place] SBSQ 15393 [facility] 6 CARE/DAY [facility] 25 HOSP MINUTES CRITICAL 60977 [facility] 6 MALHAB ILL/INJUR [facility] NIS ED HOSP PATIENT INIT 30-74 MIN SBSQ 37079 [facility] 6 CARE/DAY [facility]AL 25 HOSP MINUTES RADIOLOGI 76738 SANDI YATES C 6 GAR EXAMINATI RADIOLOGY ON CHEST PLLC [place] CRITICAL 84517 [facility] 6 MALHAB ILL/INJUR [facility] NIS ED HOSP PATIENT INIT 30-74 MIN [facility]ITICAL 18475 [facility] ILL/INJUR [facility] ED HOSP PATIENT INIT 30-74 MIN RADIOLOGI 26961 SANDI Young 6 DEN EXAMINATI RADIOLOGY ON CHEST PLLC [place] SBSQ 60965 [facility] 6 CARE/DAY 25 MINUTES SBSQ 60749 [place] [address] MEDICAL MAR CARE/DAY CENTER 25 INC MINUTES RADIOLOGI 30889 SANDI Young 6 EXAMINATI RADIOLOGY ON CHEST PLLC [place] CRITICAL 43279 SANDI AVALOSHID ERU CARE 6 ILL/INJUR [facility] ED HOSP PATIENT INIT 30-74 MIN SBSQ 33726 [facility] 6 CARE/DAY 35 MINUTES RADIOLOGI 00242 SANDI Young 6 VINNIE EXAMINATI RADIOLOGY ON CHEST PLLC [place] SBSQ 86735 [facility] 6 CARE/DAY [facility] 25 HOSP MINUTES SBSQ 07785 [facility] 6 CARE/DAY [facility] 25 HOSP MINUTES RADIOLOGI 77981 SANDI GUNNER Young 6 VINNIE EXAMINATI RADIOLOGY ON CHEST PLLC [place] RADIOLOGI 32024 SANDI GUNNER Young 6 VINNIE EXAMINATI RADIOLOGY ON CHEST PLLC [place]ONTAL SBSQ 27442 [facility] 6 CARE/DAY [facility] 25 HOSP MINUTES ECG 48867 SANDI SMITH ROUTINE 6 DEN ECG [facility] W/LEAST HOSP 12 LDS I&R ONLY ECHO 98796 [facility] TTHRC R-T 6 2D [facility] W/WOM-MOD HOSP E COMPL SPEC&COLR D ECG 88224 SANDI TIMUR ROUTINE 6 JEIMY ECG [facility] W/LEAST HOSP 12 LDS I&R ONLY CORONARY 47038 SANDI ATTUM ABD ARTERY 6 BYP [facility] W/VEIN & HOSP ARTERY GRAFT 1 VEIN CABG 04949 SANDI ATTUM ABD W/ARTERIA 6 L GRAFT [facility] SINGLE HOSP ARTERIAL GRAFT ANES 94010 SANDI JIMMIE DIRECT 6 CABG PENTECOSTAL W/PUMP HOSP OXYGENATO R SBSQ 70179 [facility] 6 CARE/DAY PENTECOSTAL 25 HOSP MINUTES RADIOLOGI 52317 YUNGJAYLENE Young 6 GAR EXAMINATI RADIOLOGY ON CHEST PLLC SINGLE [place]IEW FRONTAL INSJ 46216 SANDI LANEUM ABD INTRA-AOR 6 T BALO PENTECOSTAL ASSIST HOSP DEV VIA FEM ART OPEN INSERTION 14879 [facility] 6 INTRA-AOR PENTECOSTAL TIC HOSP [place] ASSIST DEV PERQ ROTARY A0436 MED-TRANS MED-TRANS WING AIR 6 MILEAGE CORPORATI CORPORATI PER ON ON STATUTE MILE AMB A0427 NEON NEON SERVICE 6 VOLUNTEER VOLUNTEER ALS FIRE FIRE EMERGENCY DEPT\EMS DEPT\EMS TRANSPORT LEVEL 1 GROUND A0425 NEON NEON MILEAGE 6 VOLUNTEER VOLUNTEER PER FIRE FIRE STATUTE DEPT\EMS DEPT\EMS MILE AMB A0431 MED-TRANS MED-TRANS SERVICE 6 CONVNTION CORPORATI CORPORATI AIR SRVC ON ON TRANSPORT [address] [place] [place]MT 61603 SANDI COELHO MUH L HRT & 6 ARTS PENTECOSTAL W/NJX & HOSP ANGIO IMG S&I RADIOLOGI 60471 RAHUL KAY JR C 6 PHILIP PHILIP EXAMINATI ON CHEST SINGLE VIEW FRONTAL ECG 24055 [facility] INC GHARAD ROUTINE 6 MEDICAL CORRINA ECG ASSOCIATE W/LEAST S 12 LDS I&R ONLY KNEE L1810 [facility] HOME [facility] HOME ORTHOSIS 5 MEDICAL MEDICAL ELASTIC JOINTS PREFAB CUSTOM FIT RADEX 17288 RAHUL KAY JR SPINE 5 PHILIP PHILIP CERVICAL 4 OR 5 VIEWS THERAPEUT 44577 [facility] IC 4 PROPHYLAC TIC/DX INJECTION SUBQ/IM INJECTION J0696 [facility] HEA 4 CEFTRIAXO NE SODIUM PER 250 MG BASIC 12723 [facility] WH[facility] METABOLIC 4 G A R H G A R H PANEL CALCIUM TOTAL RADIOLOGI 54473 DIANA CHENBUR C EXAM 4 G A R H G A R H CHEST 2 VIEWS FRONTAL&L ATERAL BLOOD 10140 WH[facility]AM [facility] COUNT 4 G A R H G A R H COMPLETE AUTO&AUTO DIFRNTL [facility] [address] [place] [facility] DISCHARGE 4 COMP DAY HEALTH MANAGEMEN SANDY T 30 MIN/< SBSQ 39783 [facility] 4 COMP CARE/DAY HEALTH 25 SANDY MINUTES SBSQ 37136 [place] [address] COMP MAT CARE/DAY HEALTH 25 SANDY MINUTES SBSQ 92558 [place] [address] COMP MAT CARE/DAY HEALTH 25 SANDY MINUTES SBSQ 68769 [place] [address] COMP CARE/DAY SPECIALTY 25 SERV MINUTES SBSQ 71168 [place] [address] COMP CARE/DAY HEALTH 25 SANDY MINUTES INITIAL 69018 [place] [address] COMP CARE/DAY SPECIALTY 50 SERV MINUTES INITIAL 26427 [facility] 4 COMP [facility]/DAY HEALTH 70 SANDY MINUTES Encounters Encounter Start End Date Code Location Performer Type Date OFFICE 92868 [place] [facility] OUTPATIEN 6 6 MEDICAL [place] 30 SERV MINUTES FOUNDATIO N OFFICE 54272 [facility] PETTEJelani OUTPATIEN 6 6 PHYSICIAN SARMAD T NEW 20 S GROUP MINUTES HOSPITAL NUSRAT - 6 6 [facility]IEN [facility] - 6 6 [facility] EM[facility] 78033 RUBY MOHAN 6 6 PHYSICIAN YVETTE KIM T VISIT HIGH/URGE NT SEVERITY HOSPITAL NUSRAT - OTHER 6 6 [facility] NUSRAT - 6 6 [facility] OTHER 6 6 [facility] NUS[facility] - 6 6 [facility] [facility] 6 [facility]IEN [place] T OFFICE [id number] ISAI REEVES CHELSEY OUTPATIEN 6 6 TRACK HOE OPERATOR T VISIT FAMILY 15 CLINIC MINUTES EMERGENCY 93917 NUSRAT 6 6 [facility] VISIT HIGH/URGE NT SEVERITY HOSPITAL NUSRAT - 6 6 [facility] EMERGENCY 75925 RUBY WOOTEN DEPT 6 6 PHYSICIAN Jimmie BORJA VISIT S, PLLC HIGH SEVERITY& THREAT FUNCJ EMERGENCY 76013 NUSRAT 6 6 [facility] DEPARTMEN INC T VISIT MODERATE SEVERITY HOSPITAL NUSRAT - 6 6 [facility] OUTPATIEN INC T EMERGENCY 91669 RUBY LUNDBERG DEPT 6 6 PHYSICIAN FOR VISIT S, [facility] HIGH SEVERITY& THREAT FUNCJ OFFICE 43297 ISAI BARBOSA OUTPATIEN 6 6 TRACK HOE OPERATOR T VISIT FAMILY 15 CLINIC MINUTES OFFICE 28498 [facility] 5 5 T [facility]IT [facility]ES [facility] [place] [facility] 5 5 G A R H OUTPATIEN T OFFICE 40281 [facility] OUT[facility] 4 4 T VISIT 15 MINUTES OFFICE 85569 [facility] 4 4 T VISIT 15 MINUTES OFFICE 18488 [facility] 4 4 T VISIT 15 MINUTES [facility] - 4 4 G A R H OUTPATIEN T
--- OUTSIDE RECORDS SUMMARY | 2016-09-22 02:54 | External Medical Summary Rpt ---
Author Author , Organization [employer] Address Unknown Phone Unavailable Care Team Providers Care Street Engineer Name Role Phone AHMAD MUH, AHMAD MUH [...] BREEDING [facility]available Unavailable SERVICE, [facility] Unavailable Unavailable SERVICE, [facility] KAY JR PHILIP, RAHUL JR [...] Unavailable Unavailable INC, [facility] Unavailable Unavailable HOSPITAL P, [facility], Unavailable Unavailable [facility] ISAI REEVES APRN FAMILY Unavailable Unavailable CLINIC, ISAI REEVES APRN [facility] GUNNER VINNIE, GUNNER Unavailable Unavailable [facility] Un[facility], [facility] KHATER FAR, KHATER Unavailable Unavailable [facility] BARBARA JR DWI, BARBARA Unavailable Unavailable JR DWI THOMAS AHM, THOMAS AHM Unavailable Unavailable THOMAS AHM, THOMAS AHM Unavailable Unavailable [facility], Unavailable Unavailable [facility], Unavailable Unavailable [...] PLLC PETTEY JAM, PETTEY Unavailable Unavailable [facility] Unavailable Unavailable CENTER, [facility] Unavailable Unavailable EQUIP, [facility] Unavailable Unavailable [facility], [facility] YATES GAR, YATES Unavailable Unavailable GAR [...] Diagnosis DOS Provider Status 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 04-10-2016 [facility] REGION [id number] OTHER 04-10-2016 [facility] DISC [facility] DEGENERATIO N AT C5-C6 LEVEL Z720 TOBACCO USE 04-10-2016 [facility] [id number] OTHER 04-09-2016 [facility] EXTRAARTICU PHYSICIANS LAR FX LOW GROUP RT RADIUS INIT CLOS [id number] DSPL FX 04-09-2016 [facility] RT WRST IMAGING ASS SUB ENC FX ROUTINE I10 ESSENTIAL 03-30-2016 [facility] PRIMARY [facility] HYPERTENSIO INC N J449 CHRONIC 03-30-2016 [place] OBSTRUCTIVE [facility] PULMONARY INC DISEASE UNS [id number] PRIMARY 03-30-2016 [facility] O[facility] TIS RIGHT IMAGING ASS HAND R60649 PAIN IN 03-30-2016 [place] RIGHT MEDICAL SHOULDER IMAGING ASS V29227 PAIN IN 03-30-2016 [place] RIGHT WRIST MEDICAL IMAGING ASS U51896 PAIN IN 03-30-2016 [place] UNSPECIFIED MEDICAL HIP IMAGING ASS J24302 PAIN IN 03-30-2016 [place] RIGHT MEDICAL FOREARM IMAGING ASS H87895 PAIN IN 03-30-2016 [place] RIGHT HAND MEDICAL IMAGING ASS [id number] UNS INJURY 03-30-2016 [place] RT SHOULDER MEDICAL UPPER ARM IMAGING ASS INITIAL ENCNTR [id number] FX UNS 03-30-2016 [facility] CARPAL BONE PHYSICIANS, RT WRIST PLLC INITIAL ENC CLOS FX [id number] DSPL FX 03-30-2016 [facility] RT WRIST IMAGING ASS INIT ENC CLOS FX M542 CERVICALGIA 03-19-2016 [facility] M545 LOW BACK 02-18-2016 [facility] PAIN [facility] INC M5022 OT CERV 02-08-2016 [place] DISC MEDICAL DISPLACEMEN IMAGING ASS T MID-CERVICA L REGION M5032 OT CERV 02-08-2016 [place] DISC MEDICAL DEGENERATIO IMAGING ASS N MID-CERVICA L REGION M5124 OT 02-08-2016 [place] INTERVERTEB MEDICAL RAL DISC IMAGING ASS DISPLACEMEN T THOR REGION M5134 OTH 02-08-2016 [place] INTERVERTEB MEDICAL RAL DISC IMAGING ASS DEGEN THORACIC REGION M546 PAIN IN 02-08-2016 [place] THORACIC MEDICAL SPINE IMAGING ASS M549 DORSALGIA 02-08-2016 [facility] UNSPECIFIED [facility] INC I209 ANGINA 01-15-2016 [facility] PECTORIS PHYSICIANS UNSPECIFIED GROUP C93324 ASHD NIKOLSKI 01-15-2016 [facility] COR [facility] W/UNS INC ANGINA PECTORIS R9439 ABNORMAL 01-15-2016 [facility] RESULT [facility] PHYSICIANS CARDIOVASCU GROUP LR FUNCTION STUDY 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 ASHD NIKOLSKI 01-04-2016 [place] [facility] ARTERY W/O HOSPITAL P ANGINA PECTORIS E039 HYPOTHYROID 12-28-2015 [place] IS [facility] UNSPECIFIED INC R079 CHEST PAIN 12-28-2015 [place] UNSPECIFIED [facility]ICAL IMAGING ASS R0602 SHORTNESS 10-29-2015 [facility] R5383 OTHER 10-29-2015 [facility] R04244 PAIN IN 10-22-2015 [facility] LEFT PHYSICIANS, SHOULDER PLLC R0789 OTHER CHEST 10-22-2015 [place] PAIN MEDICAL IMAGING ASS S15950Q PAIN D/T 10-22-2015 [facility] P IMPL & GRAFTS INITIAL G8918 OTHER ACUTE 10-18-2015 [facility] POSTPROCEDU [facility] P RAL PAIN G8928 OTHER 10-18-2015 [facility] CHRONIC PHYSICIANS, POSTPROCEDU PLLC RAL PAIN J80 ACUTE 10-18-2015 [facility] RESPIRATORY AMBULANCE DISTRESS SERVICE SYNDROME J90 PLEURAL 10-18-2015 [place] EFFUSION MEDICAL NOT IMAGING ASS ELSEWHERE CLASSIFIED J9811 ATELECTASIS 10-18-2015 [facility] J9690 RESP FAIL 10-15-2015 [facility] UNS UNS [facility] WHETHER HOSP W/HYPOXIA/H YPERCAPNIA R410 DISORIENTAT 10-15-2015 [facility] ION [facility] UNSPECIFIED HOSP R5381 OTHER 10-15-2015 [facility] MALAISE [facility] H[facility] F79582 ELEVATED 10-13-2015 [facility] WHITE BLOOD [facility] CELL COUNT HOSP UNSPECIFIED 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 [facility] UNSPECIFIED HOSP J9600 ACUTE 10-13-2015 [facility] RESPIRATORY [facility] FAIL UNS HOSP HYPOXIA/HYP ERCAPNIA I214 NON-ST 10-12-2015 [facility] ELEVATION [facility] MYOCARDIAL HOSP INFARCTION R4182 ALTERED 10-12-2015 [facility] MENTAL [facility] STATUS HOSP UNSPECIFIED D649 ANEMIA 10-11-2015 [facility] UNSPECIFIED [facility]ISM HOSP E876 HYPOKALEMIA 10-11-2015 [facility] [facility] H[facility] 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 J9601 ACUTE 10-10-2015 [facility] RESPIRATORY [facility] FAILURE HOSP WITH HYPOXIA R9431 ABNORMAL 10-10-2015 [facility] ELECTROCARD [facility] IOGRAM HOSP E870 HYPEROSMOLA 10-09-2015 S[facility]I LITY AND [facility]ISM HYPERNATREM HOSP [place] L88909 ACUTE 10-09-2015 [facility] POSTPROCEDU [facility] RAL HOSP RESPIRATORY FAILURE I999 UNSPECIFIED 10-08-2015 [facility] DISORDER [facility] OF HOSP CIRCULATORY SYSTEM E785 HYPERLIPIDE 10-03-2015 [facility] KAREN [facility] UNSPECIFIED HOSP I213 ST 10-02-2015 YUNGEVSHEMAR ELEVATION [facility] MYOCARDIAL HOSP INFARCTION UNS SITE N47958 ENCOUNTER 10-02-2015 [facility] FOR [facility] PREPROCEDUR HOSP AL CARIOVASCUL AR EXAM I222 SUBSEQUENT 10-01-2015 [facility] NON-ST [facility] ELEVATION MYOCARDIAL INFARCT J309 ALLERGIC 09-25-2015 ISAI REEVES [facility] INTERN FAMILY UNSPECIFIED CLINIC N401 BENIGN 09-25-2015 ISAI REEVES PROSTATIC HEALTHCARE ADMINISTRATION INTERN FAMILY HYPERPLASIA CLINIC LW URINARY TRACT SX 2724 OTHER AND 06-19-2014 [facility] UNSPECIFIED HYPERLIPIDE KAREN 4019 UNSPECIFIED 06-19-2014 SOPHIE ALLEN ESSENTIAL HYPERTENSIO N 6079 UNSPECIFIED 06-19-2014 SOPHIE ALLEN DISORDER OF PENIS 7242 LUMBAGO 06-19-2014 SOP[facility]IE ALLEN 04687 PAIN IN 06-06-2014 [facility] JOINT, MEDICAL MULTIPLE SITES 7231 CERVICALGIA 05-30-2014 [facility]G A R H 4619 ACUTE 02-23-2014 SOPHIE ALLEN SINUSITIS, UNSPECIFIED 481 PNEUMOCOCCA 09-26-2013 CRISPIN Stephenson PNEUMONIA A R H 2875 UNSPECIFIED 09-20-2013 [facility] THROMBOCYTO SANDY PENIA 44481 OTHER 09-20-2013 [facility] CHRONIC COMP HEALTH PAIN SANDY 14758 OBSTRUCTIVE 09-16-2013 D[facility] CHRONIC COMP BRONCHITIS SPECIALTY WITH SERV EXACERBATIO N 38756 DIARRHEA 09-14-2013 [facility] SANDY Procedures Procedure DOS Code Location Performer Comment CAST Q4010 [facility] PETTEY SUPPLIES 6 PHYSICIAN SARMAD SHORT ARM S GROUP CAST ADULT FIBERGLAS S RADEX 63365 [place] [facility] WRIST 6 MEDICAL COMPLETE IMAGING MINIMUM 3 ASS VIEWS APPLICATI 26319 [facility] PETTE ON CAST 6 PHYSICIAN SARMAD ELBOW S GROUP FINGER SHORT ARM RADEX 31982 [place] [facility] FOREARM 2 6 MEDICAL VIEWS IMAGING ASS RADEX 37370 [place] [facility] WRIST 6 MEDICAL COMPLETE IMAGING MINIMUM 3 ASS VIEWS RADEX 76436 [place] [facility] HAND 6 MEDICAL MINIMUM 3 IMAGING VIEWS ASS APPLICATI 94206 N[facility]AT SILVERIO ON SHORT 6 [facility]OS[facility] ARM INC INC SPLINT FOREARM-H AND STATIC RADEX 40038 [place] [facility] SHOULDER 6 MEDICAL COMPLETE IMAGING MINIMUM 2 ASS VIEWS RADEX HIP 36469 [place] [facility] ALL 6 MEDICAL UNILATERA IMAGING L WITH ASS PELVIS 2-3 VIEWS DRUG TST G0477 NUS[facility]AT SILVERIO PRESUMP;C 6 MEM [facility]OS[facility] PBL BEING INC INC READ DC OPT OBV ONLY PHYSICAL 88116 NUSRAT SILVERIO THERAPY 6 [facility]OS[facility] EVALUATIO INC INC N E-STIM G0283 NUSRAT SILVERIO 1/> AREAS 6 [facility] MEM HOS[facility] OTH THAN INC INC WND CARE PART TX PLAN APPLICATI 59561 NUSRAT SILVERIO ON 6 [facility] MODALITY INC INC 1/> AREAS HOT/COLD PACKS APPL 06764 NUSRAT SILVERIO MODALITY 6 [facility] 1/> AREAS INC INC ULTRASOUN D EA 15 MIN MRI 42416 EDDIE ROACH ALL SPINAL 6 MEDICAL CANAL IMAGING THORACIC ASS W/O CONTRAST MATRL MRI 09653 EDDIE ROACH ALL SPINAL 6 MEDICAL CANAL IMAGING CERVICAL ASS W/O CONTRAST MATRL 3D 36420 EDDIE ROACH ALL RENDERING 6 MEDICAL W/INTERP IMAGING & ASS POSTPROCE SS SUPERVISI ON DRUG TST G0477 NUS[facility]AT SILVERIO PRESUMP;C 6 [facility] PBL BEING INC INC READ DC OPT OBV ONLY INJECTION J1644 NUSRAT SILVERIO HEPARIN 6 [facility] SODIUM INC INC PER 1000 UNITS CATH PLNH 93165 [facility] AYESHA L HRT & 6 PHYSICIAN MAT ARTS S GROUP W/NJX & ANGIO IMG S&I LOCM Q9967 NUSRAT SILVERIO 300-399 6 [facility] MG/ML INC INC IODINE CONCENTRA TION PER ML CATH PLMT 88988 NUSRAT SILVERIO L 6 [facility] HRT/ARTS/ INC INC GRFTS WNJX & ANGIO IMG S&I CATHETER C1725 NUSRAT SILVERIO TRANSLUMI 6 [facility] NAL INC INC ANGIOPLAS TY NON-LASER GUIDE C1769 NUSRAT SILVERIO WIRE 6 [facility] INC INC PRESSURIZ 63098 NUSRAT SILVERIO ED/NONPRE 6 [facility] SSURIZED INC INC INHALATIO N TREATMENT BRNCDILAT 14595 NUSRAT JIMENEZ JR RSPSE 6 [facility] PRE&POST- P BRNCDILAT ADMN GAS 28424 NUSRAT JIMENEZ JR DILUT/WAS 6 [facility] VOL W/WO P DISTRI[place] [address] NUSRAT JIMENEZ JR DIFFUSING 6 [facility] P TECHNETIU A9500 NUSRAT [place] TC-99M 6 [facility] SESTAMIBI [place] [address] NUSRAT SILVERIO FREE 6 [facility] [place] [address] NUSRAT SILVERIO THYROID 6 [facility] STIMULATI INC INC NG HORMONE TSH INJECTION J2785 NUSRAT SILVERIO 6 [facility] REGADENOS INC INC ON 0.1 MG ECHO 44874 NUSRAT NUSRAT TTHRC R-T 6 [facility] 2D INC INC W/WOM-MOD E COMPL SPEC&COLR D RADIOLOGI 43263 NUSRAT SILVERIO C EXAM 6 [facility] CHEST 2 INC INC VIEWS FRONTAL&L ATERAL MYOCARDIA 92852 NUSRAT SILVERIO L SPECT 6 [facility] MULTIPLE INC INC STUDIES CV STRS 49051 [facility] TST 6 PHYSICIAN XERS&/OR S GROUP RX CONT ECG W/O I&R CV STRS 70197 NUSRAT SILVERIO TST 6 [facility] XERS&/OR INC INC RX CONT ECG TRCG ONLY BLOOD 17784 NUSRAT SILVERIO COUNT 6 [facility] COMPLETE INC INC AUTO&AUTO DIFRNTL WBC HEPATIC 45780 NUSRAT SILVERIO FUNCTION 6 [facility] PANEL INC INC BASIC 28617 NUSRAT SILVERIO METABOLIC 6 [facility] PANEL INC INC CALCIUM TOTAL ECG 61329 NUSRAT SILVERIO ROUTINE 6 [facility] ECG INC INC W/LEAST 12 LDS TRCG ONLY W/O I&R COLLECTIO 91468 SANDI JUNIOR N VENOUS 6 [facility] BLOOD [facility]ENTER CENTER VENIPUNCT [facility] G0463 SANDI JUNIOR OUTPATIEN 6 MEDICAL MEDICAL T CLIN CENTER CENTER VISIT ASSESS & MGMT PT BLOOD 27484 SANDI JUNIOR COUNT 6 [facility]ICAL [facility] COMPLETE CENTER CENTER AUTOMATED RADIOLOGI 63018 SANDI JUNIOR C EXAM 6 MEDICAL MEDICAL CHEST 2 CENTER CENTER VIEWS FRONTAL&L ATERAL COMPREHEN 01926 SANDI JUNIOR SIVE 6 [facility] METABOLIC CENTER CENTER PANEL CREATINE 52382 NUSRAT SILVERIO KINASE MB 6 [facility] FRACTION INC INC ONLY INJECTION J2405 NUSRAT SILVERIO 6 [facility] ONDANSETR INC INC ON HCL PER 1 MG THERAPEUT 34077 NUSRAT SILVERIO IC 6 [facility] INJECTION INC INC IV PUSH EACH NEW DRUG BLOOD 81836 NUSRAT SILVERIO COUNT 6 [facility] COMPLETE INC INC AUTO&[place] [address] NUSRAT SILVERIO TROPONIN 6 [facility] QUANTITAT INC INC DEBBIE ECG 37846 NUSRAT SILVERIO ROUTINE 6 [facility] ECG INC INC W/LEAST 12 LDS TRCG ONLY W/O I&R ECG 66248 NUSRAT JIMENEZ JR ROUTINE 6 [facility] W/LEAST P 12 LDS I&R ONLY RADIOLOGI 38320 [facility] C EXAM 6 MEDICAL HUONG CHEST 2 IMAGING VIEWS ASS FRONTAL&L ATERAL COMPREHEN 88928 NUSRAT SILVERIO SIVE 6 [facility] METABOLIC INC INC PANEL COLLECTIO 47136 NUSRAT SILVERIO N VENOUS 6 [facility] BLOOD INC INC VENIPUNCT URE THER 70577 NUSRAT SILVERIO PROPH/DX 6 [facility] NJX IV INC INC PUSH SINGLE/1S T SBST/DRUG CREATINE 95838 NUSRAT SILVERIO KINASE 6 [facility] TOTAL INC INC COLLECTIO 11894 NUSRAT SILVERIO N VENOUS 6 [facility] BLOOD INC INC VENIPUNCT URE LOCM Q9967 NUSRAT SILVERIO 300-399 6 [facility] MG/ML INC INC IODINE CONCENTRA TION PER ML ECG 63957 NUSRAT OCHOA ROUTINE 6 [facility] W/LEAST P 12 LDS I&R ONLY ECG 38294 NUSRAT SILVERIO ROUTINE 6 [facility] ECG INC INC W/LEAST 12 LDS TRCG ONLY W/O I&[place] [address] NUSRAT SILVERIO TROPONIN 6 [facility] QUANTITAT INC INC DEBBIE BLOOD 89793 NUSRAT SILVERIO COUNT 6 [facility] COMPLETE INC INC AUTO&AUTO DIFRNTL WBC COMPREHEN 03839 NUSRAT SILVERIO SIVE 6 [facility]OS[facility] METABOLIC INC INC PANEL GROUND A0425 [facility] CHILDRESS MILEAGE 6 AMBULANCE AMBULANCE PER SERVICE SERVICE STATUTE MILE AMB A0427 [facility] SERVICE 6 AMBULANCE AMBULANCE ALS SERVICE SERVICE EMERGENCY TRANSPORT LEVEL 1 CT THORAX 27183 [place] [facility] 6 MEDICAL W/CONTRAS IMAGING T ASS MATERIAL SBSQ 99847 [facility] 6 CARE/DAY MANDAEISM 25 HOSP MINUTES WALKER E0135 SANDI JUNIOR FOLDING 6 MEDICAL MEDICAL ADJUSTABL EQUIP EQUIP E OR FIXED HEIGHT COMMODE E0163 SANDI JUNIOR CHAIR 6 MEDICAL MEDICAL MOBILE OR EQUIP EQUIP STATIONAR Y W/FIXED [facility] 71573 SANDI ATTUM ABD DISCHARGE 6 DAY [facility] MANAGEMEN HOSP T 30 MIN/< SBSQ 28387 [facility] 6 MYRNA CARE/DAY MANDAEISM 25 HOSP MINUTES SBSQ 70145 [place] [address] CARE/DAY 25 MINUTES RADIOLOGI 14491 SANDI Morelos GAR EXAMINATI RADIOLOGY ON CHEST [facility] SINGLE VIEW FRONTAL SBSQ 87674 [facility] 6 MALHAB CARE/DAY MANDAEISM NIS 35 HOSP MINUTES SBSQ 65479 [facility] 6 CARE/DAY MANDAEISM 25 HOSP MINUTES CRITICAL 89217 [facility] CARE 6 MALHAB ILL/INJUR MANDAEISM NIS ED HOSP PATIENT INIT 30-74 MIN CRITICAL 86926 [facility] 6 MALHAB ILL/INJUR MANDAEISM NIS ED HOSP PATIENT INIT 30-74 MIN SBSQ 02473 [facility] 6 CARE/DAY MANDAEISM 25 HOSP MINUTES CRITICAL 96129 [facility] 6 MALHAB ILL/INJUR MANDAEISM NIS ED HOSP PATIENT INIT 30-74 MIN SBSQ 54439 [facility] 6 CARE/DAY 25 MINUTES RADIOLOGI 16693 SANDI Young 6 GAR EXAMINATI RADIOLOGY ON CHEST PLLC [place]ONTAL ECG 50905 SANDI DING ROUTINE 6 JEIMY ECG MANDAEISM W/LEAST HOSP 12 LDS I&R ONLY RADIOLOGI 80415 SANDI Young 6 GAR EXAMINATI RADIOLOGY ON CHEST PLLC [place] FRONTAL SBSQ 09534 [facility] 6 CARE/DAY MANDAEISM 25 HOSP MINUTES CRITICAL 70667 [facility] 6 MALHAB ILL/INJUR MANDAEISM NIS ED HOSP PATIENT INIT 30-74 MIN SBSQ 16348 [facility] 6 CARE/DAY MANDAEISM 25 HOSP MINUTES RADIOLOGI 70405 SANDI YATES C 6 GAR EXAMINATI RADIOLOGY ON CHEST PLLC [place] FRONTAL CRITICAL 17303 [facility]AY[facility] CARE 6 MALHAB ILL/INJUR MANDAEISM NIS ED HOSP PATIENT INIT 30-74 MIN CRITICAL 53190 [facility] 6 ILL/INJUR MANDAEISM ED HOSP PATIENT INIT 30-74 MIN RADIOLOGI 19383 SANDI Young 6 DEN EXAMINATI RADIOLOGY ON CHEST PLLC [place] FRONTAL SBSQ 74047 [facility] 6 CARE/DAY 25 MINUTES SBSQ 25493 [place] [address] MEDICAL MAR CARE/DAY CENTER 25 INC MINUTES RADIOLOGI 05587 SANDI Young 6 EXAMINATI RADIOLOGY ON CHEST PLLC [place] FRONTAL CRITICAL 54790 SANDI AVALOSHID ERU CARE 6 ILL/INJUR MANDAEISM ED HOSP PATIENT INIT 30-74 MIN SBSQ 79346 [facility] 6 CARE/DAY 35 MINUTES RADIOLOGI 65279 SANDI Young 6 VINNIE EXAMINATI RADIOLOGY ON CHEST PLLC [place] FRONTAL SBSQ 16542 [facility] 6 CARE/DAY MANDAEISM 25 HOSP MINUTES SBSQ 35957 [facility] 6 CARE/DAY MANDAEISM 25 HOSP MINUTES RADIOLOGI 08536 SANDI GUNNER Young 6 VINNIE EXAMINATI RADIOLOGY ON CHEST PLLC [place] FRONTAL RADIOLOGI 84200 SANDI GUNNER Young 6 VINNIE EXAMINATI RADIOLOGY ON CHEST PLLC [place] FRONTAL SBSQ 30394 [facility] 6 CARE/DAY MANDAEISM 25 HOSP MINUTES ECG 98205 SANDI SMITH ROUTINE 6 DEN ECG MANDAEISM W/LEAST HOSP 12 LDS I&R ONLY ECHO 77979 [facility] TTHRC R-T 6 2D MANDAEISM W/WOM-MOD HOSP E COMPL SPEC&COLR D ECG 86575 SANDI TIMUR ROUTINE 6 JEIMY ECG MANDAEISM W/LEAST HOSP 12 LDS I&R ONLY CORONARY 55955 SANDI ATTUM ABD ARTERY 6 BYP [facility]ISM W/VEIN & HOSP ARTERY GRAFT 1 VEIN CABG 81338 SANDI ATTUM ABD W/ARTERIA 6 L GRAFT [facility]ISM SINGLE HOSP ARTERIAL GRAFT ANES 69007 SANDI JIMMIE DIRECT 6 CABG MANDAEISM W/PUMP HOSP OXYGENATO R SBSQ 81356 [facility] 6 CARE/DAY MANDAEISM 25 HOSP MINUTES RADIOLOGI 18851 YUNGJAYLENE Young 6 GAR EXAMINATI RADIOLOGY ON CHEST PLLC [place]ONTAL INSJ 74460 SANDI LANEUM ABD INTRA-AOR 6 T BALO [facility] ASSIST HOSP DEV VIA FEM ART OPEN INSERTION 33491 [facility] 6 INTRA-AOR MANDAEISM TIC HOSP BALLOON ASSIST DEV PERQ ROTARY [...] ON ON TRANSPORT [address] CATH PLMT 71341 SANDI COELHO MUH L HRT & 6 ARTS MANDAEISM W/NJX & HOSP ANGIO IMG S&I RADIOLOGI 65120 RAHUL KAY JR C 6 PHILIP PHILIP EXAMINATI ON CHEST SINGLE VIEW FRONTAL ECG 94838 [facility] INC GHARAD ROUTINE 6 MEDICAL CORRINA ECG ASSOCIATE W/LEAST S 12 LDS I&R ONLY KNEE [id number] [facility] HOME [facility] HOME ORTHOSIS 5 MEDICAL MEDICAL ELASTIC JOINTS PREFAB CUSTOM FIT RADEX 87315 RAHUL KAY JR SPINE 5 PHILIP PHILIP CERVICAL 4 OR 5 VIEWS THERAPEUT 60423 [facility] IC 4 PROPHYLAC TIC/DX INJECTION SUBQ/IM INJECTION J0696 [facility] 4 CEFTRIAXO NE SODIUM PER 250 MG BASIC 18018 [facility] METABOLIC 4 G A R H G A R H PANEL CALCIUM TOTAL RADIOLOGI 97791 DIANA [facility] C EXAM 4 G A R H G A R H CHEST 2 VIEWS FRONTAL&L ATERAL BLOOD 94719 [facility] [place] COUNT 4 G A R H G A R H COMPLETE AUTO&AUTO DIFRNTL [facility] 48647 [facility] DISCHARGE 4 COMP DAY HEALTH MANAGEMEN SANDY T 30 MIN/< SBSQ 17368 [facility] 4 COMP CARE/DAY HEALTH 25 SANDY MINUTES SBSQ 03912 [place] [address] COMP MAT CARE/DAY HEALTH 25 SANDY MINUTES SBSQ 06390 [place] [address] COMP MAT CARE/DAY HEALTH 25 SANDY MINUTES SBSQ 74580 [place] [address] COMP CARE/DAY SPECIALTY 25 SERV MINUTES SBSQ 24970 [place] [address] COMP CARE/DAY HEALTH 25 SANDY MINUTES INITIAL [address]1113 [place] [address] COMP CARE/DAY SPECIALTY 50 SERV [address] IN[address] [facility] 4 COMP [facility]/DAY HEALTH 70 SANDY MINUTES Encounters Encounter Start End Date Code Location Performer Type Date OFFICE 19036 [place] KATHY PHI OUTPATIEN 6 6 MEDICAL NEW 30 SERV MINUTES FOUNDATIO N OFFICE 47168 [facility] PETTEJelani OUTPATIEN 6 6 PHYSICIAN SARMAD T NEW 20 S GROUP MINUTES HOSPITAL NUSRAT - 6 6 [facility] OUTPATIEN [facility] NUSRAT - 6 6 [facility] 37947 RUBY MOHAN 6 6 PHYSICIAN YVETTE KIM T VISIT HIGH/URGE NT SEVERITY HOSPITAL NUSRAT - OTHER 6 6 [facility] NUSRAT - 6 6 [facility] - 6 6 [facility] 6 6 [facility] NUSRAT - 6 6 [facility] 6 [facility] - 6 6 [facility] - 6 6 [facility] [place] - 6 6 MEDICAL OUTPATIEN [place] T OFFICE 20412 ISAI REEVES CHELSEY OUTPATIEN 6 6 HEALTHCARE ADMINISTRATION INTERN T VISIT FAMILY 15 CLINIC MINUTES EMERGENCY 03676 NUSRAT [address] [facility] VISIT HIGH/URGE NT SEVERITY HOSPITAL NUSRAT - 6 6 [facility] 96834 RUBY WOOTEN DEPT 6 6 PHYSICIAN Jimmie BORJA VISIT S, PLLC HIGH SEVERITY& THREAT FUNCJ EMERGENCY 85326 NUSRAT 6 6 [facility] DEPART[facility] T VISIT MODERATE SEVERITY HOSPITAL NUSRAT - 6 6 [facility] OUTPATIEN INC T EMERGENCY 15630 RUBY LUNDBERG DEPT 6 6 PHYSICIAN FOR VISIT S, [facility] HIGH SEVERITY& THREAT FUNCJ OFFICE 22410 ISAI BARBOSA OUTPATIEN 6 6 HEALTHCARE ADMINISTRATION INTERN T VISIT FAMILY 15 CLINIC MINUTES OFFICE 65109 [facility] OUT[facility] 5 5 T VISIT 15 MINUTES [facility] [place] - 5 5 G A R H OUTPATIEN T OFFICE 53728 [facility] OUTPATI[facility] 4 4 T VISIT 15 MINUTES OFFICE 21627 [facility] OUTPATIEN 4 4 T VISIT 15 MINUTES OFFICE 18169 [facility] OUTPATIEN 4 4 T VISIT 15 MINUTES [facility] [place] - 4 4 G A R H OUTPATIEN T
--- OUTSIDE RECORDS SUMMARY | 2016-09-22 02:55 | External Medical Summary Rpt ---
Demographics Preferred Language [place] Marital Status Unknown Quaker Affiliation Unknown Race Unknown Ethnic Group Unknown Author Author , Organization [facility] Address Unknown Phone Unavailable Purpose Continuity of Care Document - through 2016 Immunization No patient found.
--- OUTSIDE RECORDS SUMMARY | 2016-09-22 02:55 | External Medical Summary Rpt ---
Demographics Preferred Language [place] Marital Status Unknown Mu-Ism Affiliation Unknown Race Unknown Ethnic Group Unknown Author Author , Organization [facility] Address Unknown Phone Unavailable Purpose Continuity of Care Document - through 2016 Immunization No patient found.
--- OUTSIDE RECORDS SUMMARY | 2016-09-22 03:04 | External Medical Summary Rpt ---
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 FUNCTION PANEL A (LIVER PROFILE) Observa Value Referen Units Interpr Notes Date tion ce etation Range Protein 7.7 6.4 - G/DL No No October 11 8.4 informa informa 2015 [Mass/v tion in tion in 8:43 AM olume] source source in data data Serum or Plasma Albumin 3.7 3.4 - G/DL No No October 11 5.0 informa informa 2015 [Mass/v tion in tion in 8:43 AM olume] source source in data data Serum or Plasma Alkalin 64 45 - U/L No No October 11 e 117 informa informa 2016 phospha tion in tion in 8:43 AM tase source source [Enzyma data data tic activit y/volum e] in Serum or Plasma Asparta 24 15 - 37 U/L No No October 11 te informa informa 2016 aminotr tion in tion in 8:43 AM ansfera source source se data data [Enzyma tic activit y/volum e] in Serum or Plasma Alanine 35 12 - 78 U/L No No October 11 informa informa 2016 aminotr tion in tion in 8:43 AM ansfera source source se data data [Enzyma tic activit y/volum e] in Serum or Plasma Bilirub 1.20 0.00 - MG/DL High No October 11 in.tota 1.00 inform2015 l tion in 8:43 AM [Mass/v source olume] data in Serum or Plasma Bilirub 0.30 0.00 - MG/DL High No October 11 in.dire 0.20 inform2015 ct tion in 8:43 AM [Mass/v source olume] data in Serum or Plasma CBC\\T\\AUTO DIFF Observa Value Referen Units Interpr Notes Date tion ce etation Range Leukocy 17.3 3.5 - K/UL High No October 11 andressa 13.0 informa 2015 [#/volu tion in 8:33 AM me] in source Blood data by Automat ed count Erythro 4.820 3.500 - M/ul No No October 11 cytes 6.100 informa informa 2015 [#/volu tion in tion in 8:33 AM me] in source source Blood data data by Automat ed count Hemoglo 14.8 11.0 - gm/dl No No October 11 bin 17.8 informa informa 2016 [Mass/v tion in tion in 8:33 AM olume] source source in data data Blood Hematoc 44.4 32.0 - % No October 11 rit 51.6 informa informa 2016 [Volume tion in tion in 8:33 AM source source Fractio data data n] of Blood by Automat ed count Erythro 92.1 80.8 - fl No No October 11 cyte 101.2 informa informa 2016 mean tion in tion in 8:33 AM corpusc source source ular data data volume [Entiti c volume] by Automat ed count Erythro 30.7 27.6 - pg No No October 11 cyte 32.7 informa informa 2016 mean tion in tion in 8:33 AM corpusc source source ular data data hemoglo bin [Entiti c mass] by Automat ed count Erythro 33.3 32.6 - g/dl No October 11 cyte 35.4 informa informa 2016 mean tion in tion in 8:33 AM corpusc source source ular data data hemoglo bin concent ration [Mass/v olume] by Automat ed count Erythro 15.6 10.1 - % No No October 11 cyte 16.5 informa informa 2016 distrib tion in tion in 8:33 AM ution source source width data data [Ratio] by Automat ed count Platele 417 134 - K/UL High No October 11 ts 412 informa 2016 [#/volu tion in 8:33 AM me] in source Blood data by Automat ed count Platele 7.0 6.1 - fl No No October 11 t mean 10.1 informa informa 2016 volume tion in tion in 8:33 AM [Entiti source source c data data volume] in Blood by Automat ed count Neutrop 72.9 43.0 - % No No October 11 hils/10 83.0 informa informa 2016 0 tion in tion in 8:33 AM leukocy source source andressa in data data Blood by Automat ed count Lymphoc 18.0 10.0 - % No No October 11 ytes/10 42.0 informa informa 2016 0 tion in tion in 8:33 AM leukocy source source andressa in data data Blood by Automat ed count Monocyt 8.4 1.0 - % No No October 11 es/100 14.0 informa informa 2016 leukocy tion in tion in 8:33 AM andressa in source source Blood data data by Automat ed count Eosinop 0.4 0.0 - % No No October 11 hils/10 9.0 informa informa 2016 0 tion in tion in 8:33 AM leukocy source source andressa in data data Blood by Automat ed count Basophi 0.3 0.0 - % No No October 11 ls/100 2.0 informa informa 2016 leukocy tion in tion in 8:33 AM andressa in source source Blood data data by Automat ed count Neutrop 12.6 2.7 - K/ul High No October 11 hils 6.9 informa 2015 [#/volu tion in 8:33 AM me] in source Blood data by Automat ed count Lymphoc 3.1 0.4 - K/ul No No October 11 ytes 3.9 informa informa 2016 [#/volu tion in tion in 8:33 AM me] in source source Blood data data by Automat ed count Monocyt 1.5 0.2 - K/ul High No October 11 es 0.6 informa 2016 [#/volu tion in 8:33 AM me] in source Blood data by Automat ed count Eosinop 0.1 0.0 - K/ul No No October 11 hils 0.9 informa informa 2016 [#/volu tion in tion in 8:33 AM me] in source source Blood data data by Automat ed count Basophi 0.1 0.0 - K/ul No No October 11 ls 0.2 informa informa 2016 [#/volu tion in tion in 8:33 AM me] in source source Blood data data by Automat ed count GLUCOSE(REAGENT STRIP) Observa Value Referen Units Interpr Notes Date tion ce etation Range Glucose 103 70 - MG/DL No No October 11 110 informa Action 2016 [Mass/v tion in 6:12 AM olume] source in data Blood FOLATES Observa Value Referen Units Interpr Notes Date tion ce etation Range Folate >20.0 3.1 - NG/ML High No October 11 [Mass/v 17.5 informa 2015 olume] tion in 3:30 AM in source Serum data or Plasma VITAMIN B 12 Observa Value Referen Units Interpr Notes Date tion ce etation Range Cobalam 885 254 - PG/ML No No October 11 in 1320 informa informa 2015 (Vitami tion in tion in 3:30 AM n B12) source source [Mass/v data data olume] in Serum GLOMELULAR LIANNE. RATE,CALC. Observa Value Referen Units Interpr Notes Date tion ce etation Range Glomeru 68.6 60.0 - ml/min No THE October 11 lar 200.0 informa eGFR IS 2015 filtrat tion in AN 3:30 AM ion source ESTIMAT rate/1. data ED 73 sq M GLOMELU LAR predict FILTRAT ed ION among RATEBAS non-ivanna ED ON cks by AN Creatin AVERAGE ine-bas BODY ed SURFACE formula AREA (MDRD) OF 1.73M2. THIS CALCULA TION IS NOT ACCURAT E FOR PEDIATR IC PATIENT S,PATIE NTS >70 YEARS OF AGE,OR PATIENT S WITH EXTREME BODY SIZE.>6 0 ML/MIN/ 1.73M2 = NORMAL< 60 ML/MIN/ 1.73M2 = CHRONIC KIDNEY DISEASE <15 ML/MIN/ 1.73M2 = KIDNEY FAILURE AVERAGE EGFR FOLLOWS :AGE(YE ARS) AVERAGE EGFR20- 39 116 ML/MIN3 0-39 107 ML/MIN4 0-49 99 ML/MIN5 0-59 93 ML/MIN6 0-69 85 ML/MIN BASIC METABOLIC PANEL (CHEM 7) Observa Value Referen Units Interpr Notes Date tion ce etation Range Glucose 103 70 - MG/DL No No October 11 110 informa informa 2015 [Mass/v tion in tion in 3:30 AM olume] source source in data data Serum or Plasma Urea 31 7 - 18 MG/DL High No October 11 nitroge informa 2016 n tion in 3:30 AM [Mass/v source olume] data in Serum or Plasma Sodium 140 133 - mmol/L No No October 11 [Moles/ 144 informa informa 2016 volume] tion in tion in 3:30 AM in source source Serum data data or Plasma Potassi 4.0 3.6 - mmol/l No No October 11 um 5.2 informa informa 2015 [Moles/ tion in tion in 3:30 AM volume] source source in data data Serum or Plasma Chlorid 102 98 - mmol/l No No October 11 e 107 informa informa 2016 [Moles/ tion in tion in 3:30 AM volume] source source in data data Blood Carbon 27 21 - 32 mmol/L No No October 11 dioxide informa informa 2016 , total tion in tion in 3:30 AM source source [Moles/ data data volume] in Serum or Plasma Creatin 1.10 0.60 - MG/DL No No October 11 ine 1.30 informa informa 2015 [Mass/v tion in tion in 3:30 AM olume] source source in data data Serum or Plasma Calcium 9.2 8.5 - MG/DL No No October 11 10.1 informa informa 2015 [Mass/v tion in tion in 3:30 AM olume] source source in data data Serum or Plasma MAGNESIUM Observa Value Referen Units Interpr Notes Date ti ce etation Range Magnesi 2.6 1.7 - MG/DL High No October 11 um 2.4 informa 2015 [Mass/v tion in 3:30 AM olume] source in data Serum or Plasma PHOSPHOROUS Observa Value Referen Units Interpr Notes Date ti ce etation Range Phospha 3.8 2.5 - MG/DL No No October 11 te 4.9 informa informa 2015 [Mass/v tion in tion in 3:30 AM olume] source source in data data Serum or Plasma IONIZED CALCIUM Observa Value Referen Units Interpr Notes Date ti ce etation Range Calcium 1.06 No MMOL/L No VENOUS October 11 .ionize informa informa BLOOD 2016 d tion in tion in 1.14 - 3:30 AM [Moles/ source source 1.29 volume] data data MMOL/LC in [facility] Serum Y or 1.18 - Plasma 1.29 MMOL/LS THERESE 1.19 - 1.29 MMOL/L GLUCOSE(REAGENT STRIP) Observa Value Referen Units Interpr Notes Date ti ce etation Range Glucose 111 70 - MG/DL High No October 11 110 Action 2016 [Mass/v 12:10 olume] AM in Blood POTASSIUM Observa Value Referen Units Interpr Notes Date tion ce etation Range Potassi 4.1 3.6 - mmol/l No No October 10 um 5.2 informa informa 2016 [Moles/ tion in tion in 8:55 PM volume] source source in data data Serum or Plasma GLUCOSE(REAGENT STRIP) Observa Value Referen Units Interpr Notes Date tion ce etation Range Glucose 158 70 - MG/DL High RN October 10 110 Notifie 2015 [Mass/v d 6:19 PM olume] in Blood GLUCOSE(REAGENT STRIP) Observa Value Referen Units Interpr Notes Date tion ce etation Range Glucose 169 70 - MG/DL High RN October 10 110 Notif2015 [Mass/v d 12:38 olume] PM in Blood POTASSIUM Observa Value Referen Units Interpr Notes Date tion ce etation Range Potassi 3.5 3.6 - mmol/l Low No October 10 um 5.2 informa 2015 [Moles/ tion in 7:40 AM volume] source in data Serum or Plasma GLUCOSE(REAGENT STRIP) Observa Value Referen Units Interpr Notes Date tion ce etation Range Glucose 83 70 - MG/DL No No October 10 110 informa Action 2015 [Mass/v tion in 6:21 AM olume] source in data Blood IONIZED CALCIUM Observa Value Referen Units Interpr Notes Date tion ce etation Range Calcium 1.10 No MMOL/L No VENOUS October 10 .ionize informa informa BLOOD 2016 d tion in tion in 1.14 - 3:25 AM [Moles/ source source 1.29 volume] data data MMOL/LC in [facility] Serum Y or 1.18 - Plasma 1.29 MMOL/LS THERESE 1.19 - 1.29 MMOL/L MAGNESIUM Observa Value Referen Units Interpr Notes Date tion ce etation Range Magnesi 2.4 1.7 - MG/DL No No October 10 um 2.4 informa informa 2015 [Mass/v tion in tion in 3:25 AM olume] source source in data data Serum or Plasma PHOSPHOROUS Observa Value Referen Units Interpr Notes Date tion ce etation Range Phospha 5.0 2.5 - MG/DL High No October 10 te 4.9 informa 2015 [Mass/v tion in 3:25 AM olume] source in data Serum or Plasma BASIC METABOLIC PANEL (CHEM 7) Observa Value Referen Units Interpr Notes Date tion ce etation Range Glucose 93 70 - MG/DL No No October 10 110 informa informa 2015 [Mass/v tion in tion in 3:25 AM olume] source source in data data Serum or Plasma Urea 27 7 - 18 MG/DL High No October 10 nitroge informa 2016 n tion in 3:25 AM [Mass/v source olume] data in Serum or Plasma Sodium 139 133 - mmol/L No No October 10 [Moles/ 144 informa informa 2016 volume] tion in tion in 3:25 AM in source source Serum data data or Plasma Potassi 3.5 3.6 - mmol/l Low No October 10 um 5.2 informa 2015 [Moles/ tion in 3:25 AM volume] source in data Serum or Plasma Chlorid 99 98 - mmol/l No October 10 e 107 informa informa 2015 [Moles/ tion in tion in 3:25 AM volume] source source in data data Blood Carbon 30 21 - 32 mmol/L No October 10 dioxide informa informa 2016 , total tion in tion in 3:25 AM source source [Moles/ data data volume] in Serum or Plasma Creatin 1.10 0.60 - MG/DL No October 10 ine 1.30 informa informa 2015 [Mass/v tion in tion in 3:25 AM olume] source source in data data Serum or Plasma Calcium 9.2 8.5 - MG/DL No October 10 10.1 informa informa 2015 [Mass/v tion in tion in 3:25 AM olume] source source in data data Serum or Plasma GLOMELULAR LIANNE. RATE,CALC. Observa Value Referen Units Interpr Notes Date tion ce etation Range Glomeru 68.6 60.0 - ml/min No THE October 10 lar 200.0 informa eGFR IS 2016 filtrat tion in AN 3:25 AM ion source ESTIMAT rate/1. data ED 73 sq M GLOMELU LAR predict FILTRAT ed ION among RATEBAS non-ivanna ED ON cks by AN Creatin AVERAGE ine-bas BODY ed SURFACE formula AREA (MDRD) OF 1.73M2. THIS CALCULA TION IS NOT ACCURAT E FOR PEDIATR IC PATIENT S,PATIE NTS >70 YEARS OF AGE,OR PATIENT S WITH EXTREME BODY SIZE.>6 0 ML/MIN/ 1.73M2 = NORMAL< 60 ML/MIN/ 1.73M2 = CHRONIC KIDNEY DISEASE <15 ML/MIN/ 1.73M2 = KIDNEY FAILURE AVERAGE EGFR FOLLOWS :AGE(YE ARS) AVERAGE EGFR20- 39 116 ML/MIN3 0-39 107 ML/MIN4 0-49 99 ML/MIN5 0-59 93 ML/MIN6 0-69 85 ML/MIN CBC/NO DIFF+ PLATELET Observa Value Referen Units Interpr Notes Date tion ce etation Range Leukocy 14.6 3.5 - K/UL High No October 10 andressa 13.0 informa 2015 [#/volu tion in 3:25 AM me] in source Blood data by Automat ed count Erythro 4.740 3.500 - M/ul No October 10 cytes 6.100 informa informa 2016 [#/volu tion in tion in 3:25 AM me] in source source Blood data data by Automat ed count Hemoglo 14.3 11.0 - gm/dl No October 10 bin 17.8 informa informa 2016 [Mass/v tion in tion in 3:25 AM olume] source source in data data Blood Hematoc 44.2 32.0 - % No October 10 rit 51.6 informa informa 2016 [Volume tion in tion in 3:25 AM source source Fractio data data n] of Blood by Automat ed count Erythro 93.3 80.8 - fl No October 10 cyte 101.2 informa informa 2016 mean tion in tion in 3:25 AM corpusc source source ular data data volume [Entiti c volume] by Automat ed count Erythro 30.2 27.6 - pg No October 10 cyte 32.7 informa informa 2016 mean tion in tion in 3:25 AM corpusc source source ular data data hemoglo bin [Entiti c mass] by Automat ed count Erythro 32.4 32.6 - g/dl Low No October 10 cyte 35.4 informa 2015 mean tion in 3:25 AM corpusc source ular data hemoglo bin concent ration [Mass/v olume] by Automat ed count Erythro 16.2 10.1 - % No No October 10 cyte 16.5 informa informa 2016 distrib tion in tion in 3:25 AM ution source source width data data [Ratio] by Automat ed count Platele 400 134 - K/UL No No October 10 ts 412 informa informa 2016 [#/volu tion in tion in 3:25 AM me] in source source Blood data data by Automat ed count Platele 6.9 6.1 - fl No No October 10 t mean 10.1 informa informa 2016 volume tion in tion in 3:25 AM [Entiti source source c data data volume] in Blood by Automat ed count GLUCOSE(REAGENT STRIP) Observa Value Referen Units Interpr Notes Date tion ce etation Range Glucose 109 70 - MG/DL No No October 10 110 informa Action 2016 [Mass/v tion in 12:36 olume] source AM in data Blood GLUCOSE(REAGENT STRIP) Observa Value Referen Units Interpr Notes Date tion ce etation Range Glucose 178 70 - MG/DL High RN October 09 110 Notifie 2016 [Mass/v d 5:52 PM olume] in Blood GLUCOSE(REAGENT STRIP) Observa Value Referen Units Interpr Notes Date tion ce etation Range Glucose 167 70 - MG/DL High RN October 09 110 Notifie 2016 [Mass/v d 2:45 PM olume] in Blood URINALYSIS COMPLETE Observa Value Referen Units Interpr Notes Date tion ce etation Range Color YELLOW No No No No October 09 of informa informa informa informa 2016 Urine tion in tion in tion in tion in 8:22 AM source source source source data data data data Clarity CLEAR No No No No October 09 of informa informa informa informa 2016 Urine tion in tion in tion in tion in 8:22 AM source source source source data data data data Glucose NEGATIV NEGATIV MG/DL No No October 09 E E informa informa 2016 [Presen tion in tion in 8:22 AM ce] in source source Urine data data by Automat ed test strip Bilirub NEGATIV NEGATIV No No No October 09 in E E informa informa informa 2016 [Presen tion in tion in tion in 8:22 AM ce] in source source source Urine data data data by Automat ed test strip Ketones NEGATIV NEGATIV MG/DL No No October 09 E E informa informa 2015 [Presen tion in tion in 8:22 AM ce] in source source Urine data data by Automat ed test strip Specifi 1.019 1.006 - No No No October 09 c 1.035 informa informa informa 2016 gravity tion in tion in tion in 8:22 AM of source source source Urine data data data by Automat ed test strip Erythro MODERAT NEGATIV No Abnorma No October 09 cytes E E informa l informa 2015 [Presen tion in tion in 8:22 AM ce] in source source Urine data data by Automat ed pH of 7.5 5.0 - No No No October 09 Urine 9.0 informa informa informa 2016 by tion in tion in tion in 8:22 AM Automat source source source ed test data data data strip Protein NEGATIV NEGATIV MG/DL No No October 09 E E informa informa 2015 [Presen tion in tion in 8:22 AM ce] in source source Urine data data by Automat ed test strip UROBILI 1.0 0.2 - E.U./DL No No October 09 NOGEN 1.0 informa informa 2016 tion in tion in 8:22 AM source source data data Nitrate NEGATIV NEGATIV No No No October 09 E E informa informa informa 2016 [Presen tion in tion in tion in 8:22 AM ce] in source source source Urine data data data Leukocy SMALL NEGATIV No Abnorma No October 09 andressa E informa l informa 2016 [Presen tion in tion in 8:22 AM ce] in source source Urine data data by Automat ed Erythro 65 0 - 4 /HPF High No October 09 cytes informa 2016 [#/area tion in 8:22 AM ] in source Urine data sedimen t by Microsc opy high power field WBC 6 0 - 5 /HPF High No October 09 COUNT informa 2016 tion in 8:22 AM source data Epithel 1 0 - 6 /HPF No No October 09 ial informa informa 2015 cells tion in tion in 8:22 AM [Presen source source ce] in data data Urine sedimen t by Light microsc opy Bacteri NEGATIV NEGATIV /HPF No BACTERI October 09 a E E informa A 2015 [#/area tion in INTERPR 8:22 AM ] in source ETATION Urine data :NEGATI sedimen VE t by <=599/u Microsc lTRACE opy high >=600, power <=1199/ field ul1+ >=1200, <=2399/ ul2+ >=2400, <=3599/ ul3+ >=3600, <=4799/ ul4+ >=4800/ ul Hyaline 3 0 - 4 /LPF No No October 09 casts informa informa 2015 [#/area tion in tion in 8:22 AM ] in source source Urine data data sedimen t by Microsc opy high power field XR Chest 1 View Observa Value Referen Units Interpr Notes Date tion ce etation Range \\.br\\PO No No No No October 09 RTABLE informa informa informa informa 2015 CHEST, tion in tion in tion in tion in 4:37 AM 10-10-19 source source source source 16\\.br\\ data data data data \\.br\\CO MPARISO N: 10-09-19 16\\.br\\ \\.br\\Th ere has been interva l removal of endotra cheal tube and nasogas tric tube. Median sternot hoa wires and right interna l jugular sheath are unchang ed. There has been interva l removal of mediast inal drainag e cathete r. Lung volumes show mild atelect atic change at the bases. There is no evidenc e of pneumot horax, definit e pleural effusio n or acute air space consoli dation. There is mild central pulmona ry vascula r congest ion. Cardiac size is within normal limits. Bony structu res are overall intact. \\.br\\\\. br\\ IMPRESS ION: Interva l extubat ion with mild central pulmona ry vascula r congest ion and mild bibasil ar atelect asis.\\. br\\\\.br \\ END OF REPORT* *\\.br\\\\ .br\\Akbar Argueta M.D.\\.b r\\\\.br\\ Dictate d: 10/10/19 7:10 AM\\.br\\ \\.br\\Tr anscrib ed: 10/10/19 7:18 AM\\.br\\ \\.br\\ * Final Report \\.br \\\\.br\\D ictated : Nadeem Argueta M.D. 7:10 am\\.br\\ \\.br\\Tr anscrib ed by: RN 7:20 am\\.br\\ \\.br\\Au thentic ated by: Nadeem Argueta M.D. 8:55 am\\.br\\ \\.br\\ GLOMELULAR LIANNE. RATE,CALC. Observa Value Referen Units Interpr Notes Date tion ce etation Range Glomeru 99.0 60.0 - ml/min No Previou October 09 lar 200.0 informa s value 2015 filtrat tion in was 3:49 AM ion source 99.1, rate/1. data verifie 73 sq M d by LMF at predict 05:09 ed on among non-ivanna 6.THE cks by eGFR IS Creatin AN ine-bas ESTIMAT ed ED formula GLOMELU (MDRD) LAR FILTRAT ION RATEBAS ED ON AN AVERAGE BODY SURFACE AREA OF 1.73M2. THIS CALCULA TION IS NOT ACCURAT E FOR PEDIATR IC PATIENT S,PATIE NTS >70 YEARS OF AGE,OR PATIENT S WITH EXTREME BODY SIZE.>6 0 ML/MIN/ 1.73M2 = NORMAL< 60 ML/MIN/ 1.73M2 = CHRONIC KIDNEY DISEASE <15 ML/MIN/ 1.73M2 = KIDNEY FAILURE AVERAGE EGFR FOLLOWS :AGE(YE ARS) AVERAGE EGFR20- 39 116 ML/MIN3 0-39 107 ML/MIN4 0-49 99 ML/MIN5 0-59 93 ML/MIN6 0-69 85 ML/MIN BASIC METABOLIC PANEL (CHEM 7) Observa Value Referen Units Interpr Notes Date tion ce etation Range Glucose 100 70 - MG/DL No No October 09 110 informa informa 2015 [Mass/v tion in tion in 3:49 AM olume] source source in data data Serum or Plasma Urea 22 7 - 18 MG/DL High No October 09 nitroge informa 2016 n tion in 3:49 AM [Mass/v source olume] data in Serum or Plasma Sodium 140 133 - mmol/L No No October 09 [Moles/ 144 informa informa 2016 volume] tion in tion in 3:49 AM in source source Serum data data or Plasma Potassi 3.5 3.6 - mmol/l Low No October 09 um 5.2 informa 2015 [Moles/ tion in 3:49 AM volume] source in data Serum or Plasma Chlorid 103 98 - mmol/l No No October 09 e 107 informa informa 2015 [Moles/ tion in tion in 3:49 AM volume] source source in data data Blood Carbon 30 21 - 32 mmol/L No No October 09 dioxide informa informa 2015 , total tion in tion in 3:49 AM source source [Moles/ data data volume] in Serum or Plasma Creatin 0.80 0.60 - MG/DL No October 09 ine 1.30 informa informa 2015 [Mass/v tion in tion in 3:49 AM olume] source source in data data Serum or Plasma Calcium 8.7 8.5 - MG/DL No October 09 10.1 informa informa 2015 [Mass/v tion in tion in 3:49 AM olume] source source in data data Serum or Plasma CBC\\T\\AUTO DIFF Observa Value Referen Units Interpr Notes Date tion ce etation Range Leukocy 17.2 3.5 - K/UL High No October 09 andressa 13.0 informa 2015 [#/volu tion in 3:49 AM me] in source Blood data by Automat ed count Erythro 3.980 3.500 - M/ul No October 09 cytes 6.100 informa informa 2015 [#/volu tion in tion in 3:49 AM me] in source source Blood data data by Automat ed count Hemoglo 12.1 11.0 - gm/dl No October 09 bin 17.8 informa informa 2015 [Mass/v tion in tion in 3:49 AM olume] source source in data data Blood Hematoc 36.8 32.0 - % No October 09 rit 51.6 informa informa 2016 [Volume tion in tion in 3:49 AM source source Fractio data data n] of Blood by Automat ed count Erythro 92.6 80.8 - fl No October 09 cyte 101.2 informa informa 2016 mean tion in tion in 3:49 AM corpusc source source ular data data volume [Entiti c volume] by Automat ed count Erythro 30.5 27.6 - pg No October 09 cyte 32.7 informa informa 2016 mean tion in tion in 3:49 AM corpusc source source ular data data hemoglo bin [Entiti c mass] by Automat ed count Erythro 32.9 32.6 - g/dl No October 09 cyte 35.4 informa informa 2016 mean tion in tion in 3:49 AM corpusc source source ular data data hemoglo bin concent ration [Mass/v olume] by Automat ed count Erythro 15.9 10.1 - % No October 09 cyte 16.5 informa informa 2016 distrib tion in tion in 3:49 AM ution source source width data data [Ratio] by Automat ed count Platele 316 134 - K/UL No October 09 ts 412 informa informa 2016 [#/volu tion in tion in 3:49 AM me] in source source Blood data data by Automat ed count Platele 7.2 6.1 - fl No October 09 t mean 10.1 informa informa 2016 volume tion in tion in 3:49 AM [Entiti source source c data data volume] in Blood by Automat ed count Neutrop 73.0 43.0 - % No October 09 hils/10 83.0 informa informa 2016 0 tion in tion in 3:49 AM leukocy source source andressa in data data Blood by Automat ed count Lymphoc 17.6 10.0 - % No October 09 ytes/10 42.0 informa informa 2016 0 tion in tion in 3:49 AM leukocy source source andressa in data data Blood by Automat ed count Monocyt 8.8 1.0 - % No October 09 es/100 14.0 informa informa 2016 leukocy tion in tion in 3:49 AM andressa in source source Blood data data by Automat ed count Eosinop 0.1 0.0 - % No No October 09 hils/10 9.0 informa informa 2016 0 tion in tion in 3:49 AM leukocy source source andressa in data data Blood by Automat ed count Basophi 0.5 0.0 - % No October 09 ls/100 2.0 informa informa 2016 leukocy tion in tion in 3:49 AM andressa in source source Blood data data by Automat ed count Neutrop 12.6 2.7 - K/ul High No October 09 hils 6.9 informa 2015 [#/volu tion in 3:49 AM me] in source Blood data by Automat ed count Lymphoc 3.0 0.4 - K/ul No No October 09 ytes 3.9 informa informa 2016 [#/volu tion in tion in 3:49 AM me] in source source Blood data data by Automat ed count Monocyt 1.5 0.2 - K/ul High No October 09 es 0.6 informa 2015 [#/volu tion in 3:49 AM me] in source Blood data by Automat ed count Eosinop 0.0 0.0 - K/ul No No October 09 hils 0.9 informa informa 2016 [#/volu tion in tion in 3:49 AM me] in source source Blood data data by Automat ed count Basophi 0.1 0.0 - K/ul No No October 09 ls 0.2 informa informa 2016 [#/volu tion in tion in 3:49 AM me] in source source Blood data data by Automat ed count ESR Observa Value Referen Units Interpr Notes Date tion ce etation Range Erythro 16 0 - 36 MM/HR No No October 09 cyte informa informa 2016 sedimen tion in tion in 3:49 AM tation source source rate by data data [place] [facility] method IONIZED CALCIUM Observa Value Referen Units Interpr Notes Date tion ce etation Range Calcium 1.16 No MMOL/L No VENOUS October 09 .ionize informa informa BLOOD 2016 d tion in tion in 1.14 - 3:49 AM [Moles/ source source 1.29 volume] data data MMOL/LC in API[facility] Serum Y or 1.18 - Plasma 1.29 MMOL/LS THERESE 1.19 - 1.29 MMOL/L PHOSPHOROUS Observa Value Referen Units Interpr Notes Date tion ce etation Range Phospha 4.1 2.5 - MG/DL No No October 09 te 4.9 informa informa 2015 [Mass/v tion in tion in 3:49 AM olume] source source in data data Serum or Plasma MAGNESIUM Observa Value Referen Units Interpr Notes Date ti ce etation Range Magnesi 2.1 1.7 - MG/DL No No October 09 um 2.4 informa informa 2015 [Mass/v tion in tion in 3:49 AM olume] source source in data data Serum or Plasma CRP QUANTITATIVE Observa Value Referen Units Interpr Notes Date tion ce etation Range C 0.8 0.0 - MG/DL High No October 09 reactiv 0.3 informa 2015 e tion in 3:49 AM protein source data [Mass/v olume] in Serum or Plasma GLUCOSE(REAGENT STRIP) Observa Value Referen Units Interpr Notes Date ti ce etation Range Glucose 111 70 - MG/DL High No October 09 110 Action 2016 [Mass/v 1:13 AM olume] in Blood GLUCOSE(REAGENT STRIP) Observa Value Referen Units Interpr Notes Date tion ce etation Range Glucose 201 70 - MG/DL High Gave October 08 110 Insulin 2016 [Mass/v 6:37 PM olume] in Blood BLOOD GAS Observa Value Referen Units Interpr Notes Date ti ce etation Range pt on vent spont 7/5 fio2 40%. JERMAIN DRAW pH of 7.434 7.350 - No No No October 08 Arteria 7.450 informa informa informa 2015 l blood tion in tion in tion in 4:00 PM source source source data data data Carbon 35.2 35.0 - mmHG No No October 08 dioxide 45.0 informa informa 2015 tion in tion in 4:00 PM [Partia source source l data data pressur e] in Arteria l blood Oxygen 93.7 85.0 - mmHG No No October 08 [Partia 100.0 informa informa 2015 l tion in tion in 4:00 PM pressur source source e] in data data Arteria l blood Oxygen 97.8 93.0 - % High No October 08 saturat 97.0 inform2015 ion in tion in 4:00 PM Arteria source l blood data Bicarbo 23.6 20.0 - mm/L No No October 08 caroline 26.0 informa informa 2015 [Moles/ tion in tion in 4:00 PM volume] source source in data data Arteria l blood Base -0.7 -2.0-2. mm/L No No October 08 excess 0 informa informa 2016 in tion in tion in 4:00 PM Arteria source source l blood data data GLUCOSE(REAGENT STRIP) Observa Value Referen Units Interpr Notes Date ti ce etation Range Glucose 163 70 - MG/DL High RN October 08 110 Notifie 2016 [Mass/v d 2:06 PM olume] in Blood XR Chest 1 View Observa Value Referen Units Interpr Notes Date ce etation Range \\.br\\PO No No No No October 08 RTABLE informa informa informa informa 2015 CHEST, tion in tion in tion in tion in 4:46 AM 10-09-19 source source source source 16\\.br\\ data data data data \\.br\\CO MPARISO N: 10-08-19 16\\.br\\ \\.br\\Th e exam is limited by multipl e overlyi ng devices . Within these limits, life support tubes and lines appear stable in positio n. There are bibasil ar regions of atelect asis and/or infiltr ate. There is no evidenc e of pneumot horax. There are probabl e small bilater al pleural effusio ns. Cardiac size is upper limits of normal. Bony structu res are unchang ed.\\.br \\\\.br\\ IMPRESS ION: Limited examina tion, as above, with stable positio n of life support tubes and lines. Bibasil ar regions of atelect atic change and/or infiltr ate with probabl e small bilater al pleural effusio ns is not signifi cantly changed over the interva l.\\.br\\ \\.br\\ END OF REPORT* *\\.br\\\\ .br\\Akbar Argueta M.D.\\.b r\\\\.br\\ Dictate d: 10/09/19 16 7:25 AM\\.br\\ \\.br\\Tr anscrib ed: 10/09/19 16 7:51 AM\\.br\\ \\.br\\ * Final Report \\.br \\\\.br\\D ictated : Nadeem Argueta M.D. 7:25 am\\.br\\ \\.br\\Tr anscrib ed by: RN 7:53 am\\.br\\ \\.br\\Au thentic ated by: Nadeem Argueta M.D. 10:09 am\\.br\\ \\.br\\ BLOOD GAS Observa Value Referen Units Interpr Notes Date ti ce etation Range AC, 450, 20, peep 5, 40% pH of 7.462 7.350 - No High No October 08 Arteria 7.450 informa informa 2015 l blood tion in tion in 4:10 AM source source data data Carbon 33.3 35.0 - mmHG Low No October 08 dioxide 45.0 informa 2015on in 4:10 AM [Partia source l data pressur e] in Arteria l blood Oxygen 73.5 85.0 - mmHG Low No October 08 [Partia 100.0 informa 2015 l tion in 4:10 AM pressur source e] in data Arteria l blood Oxygen 95.1 93.0 - % No October 08 saturat 97.0 informa informa 2015 ion in tion in tion in 4:10 AM Arteria source source l blood data data Bicarbo 23.5 20.0 - mm/L No No October 08 caroline 26.0 informa informa 2015 [Moles/ tion in tion in 4:10 AM volume] source source in data data Arteria l blood Base 0.1 -2.0-2. mm/L No No October 08 excess 0 informa informa 2015 in tion in tion in 4:10 AM Arteria source source l blood data data GLOMELULAR LIANNE. RATE,CALC. Observa Value Referen Units Interpr Notes Date ti ce etation Range Glomeru 99.0 60.0 - ml/min No Previou October 08 lar 200.0 informa s value 2015 filtrat tion in was 3:45 AM ion source 99.1, rate/1. data verifie 73 sq M d by LMF at [facility] on ed .THE among eGFR IS non-ivanna AN cks by ESTIMAT Creatin ED ine-bas GLOMELU ed LAR formula FILTRAT (MDRD) ION RATEBAS ED ON AN AVERAGE BODY SURFACE AREA OF 1.73M2. THIS CALCULA TION IS NOT ACCURAT E FOR PEDIATR IC PATIENT S,PATIE NTS >70 YEARS OF AGE,OR PATIENT S WITH EXTREME BODY SIZE.>6 0 ML/MIN/ 1.73M2 = NORMAL< 60 ML/MIN/ 1.73M2 = CHRONIC KIDNEY DISEASE <15 ML/MIN/ 1.73M2 = KIDNEY FAILURE AVERAGE EGFR FOLLOWS :AGE(YE ARS) AVERAGE EGFR20- 39 116 ML/MIN3 0-39 107 ML/MIN4 0-49 99 ML/MIN5 0-59 93 ML/MIN6 0-69 85 ML/MIN BASIC METABOLIC PANEL (CHEM 7) Observa Value Referen Units Interpr Notes Date tion ce etation Range Glucose 127 70 - MG/DL High No October 08 110 informa 2015 [Mass/v tion in 3:45 AM olume] source in data Serum or Plasma Urea 20 7 - 18 MG/DL High No October 08 nitroge informa 2016 n tion in 3:45 AM [Mass/v source olume] data in Serum or Plasma Sodium 145 133 - mmol/L High No October 08 [Moles/ 144 informa 2016 volume] tion in 3:45 AM in source Serum data or Plasma Potassi 4.7 3.6 - mmol/l No No October 08 um 5.2 informa informa 2015 [Moles/ tion in tion in 3:45 AM volume] source source in data data Serum or Plasma Chlorid 113 98 - mmol/l High No October 08 e 107 informa 2015 [Moles/ tion in 3:45 AM volume] source in data Blood Carbon 26 21 - 32 mmol/L No No October 08 dioxide informa informa 2016 , total tion in tion in 3:45 AM source source [Moles/ data data volume] in Serum or Plasma Creatin 0.80 0.60 - MG/DL No No October 08 ine 1.30 informa informa 2016 [Mass/v tion in tion in 3:45 AM olume] source source in data data Serum or Plasma Calcium 8.2 8.5 - MG/DL Low No October 08 10.1 informa 2015 [Mass/v tion in 3:45 AM olume] source in data Serum or Plasma MAGNESIUM Observa Value Referen Units Interpr Notes Date tion ce etation Range Magnesi 2.4 1.7 - MG/DL No No October 08 um 2.4 informa informa 2016 [Mass/v tion in tion in 3:45 AM olume] source source in data data Serum or Plasma PHOSPHOROUS Observa Value Referen Units Interpr Notes Date tion ce etation Range Phospha 3.0 2.5 - MG/DL No No October 08 te 4.9 informa informa 2015 [Mass/v tion in tion in 3:45 AM olume] source source in data data Serum or Plasma IONIZED CALCIUM Observa Value Referen Units Interpr Notes Date tion ce etation Range Calcium 1.19 No MMOL/L No VENOUS October 08 .ionize informa informa BLOOD 2016 d tion in tion in 1.14 - 3:45 AM [Moles/ source source 1.29 volume] data data MMOL/LC in APILLAR Serum Y or 1.18 - Plasma 1.29 MMOL/LS THERESE 1.19 - 1.29 MMOL/L CBC/NO DIFF+ PLATELET Observa Value Referen Units Interpr Notes Date tion ce etation Range Leukocy 12.2 3.5 - K/UL No No October 08 andressa 13.0 informa informa 2016 [#/volu tion in tion in 3:45 AM me] in source source Blood data data by Automat ed count Erythro 3.840 3.500 - M/ul No No October 08 cytes 6.100 informa informa 2016 [#/volu tion in tion in 3:45 AM me] in source source Blood data data by Automat ed count Hemoglo 11.8 11.0 - gm/dl No No October 08 bin 17.8 informa informa 2016 [Mass/v tion in tion in 3:45 AM olume] source source in data data Blood Hematoc 35.3 32.0 - % No October 08 rit 51.6 informa informa 2016 [Volume tion in tion in 3:45 AM source source Fractio data data n] of Blood by Automat ed count Erythro 92.1 80.8 - fl No No October 08 cyte 101.2 informa informa 2016 mean tion in tion in 3:45 AM corpusc source source ular data data volume [Entiti c volume] by Automat ed count Erythro 30.7 27.6 - pg No No October 08 cyte 32.7 informa informa 2016 mean tion in tion in 3:45 AM corpusc source source ular data data hemoglo bin [Entiti c mass] by Automat ed count Erythro 33.3 32.6 - g/dl No October 08 cyte 35.4 informa informa 2016 mean tion in tion in 3:45 AM corpusc source source ular data data hemoglo bin concent ration [Mass/v olume] by Automat ed count Erythro 16.2 10.1 - % No October 08 cyte 16.5 informa informa 2016 distrib tion in tion in 3:45 AM ution source source width data data [Ratio] by Automat ed count Platele 270 134 - K/UL No October 08 ts 412 informa informa 2016 [#/volu tion in tion in 3:45 AM me] in source source Blood data data by Automat ed count Platele 7.0 6.1 - fl No October 08 t mean 10.1 informa informa 2016 volume tion in tion in 3:45 AM [Entiti source source c data data volume] in Blood by Automat ed count GLUCOSE(REAGENT STRIP) Observa Value Referen Units Interpr Notes Date tion ce etation Range Glucose 155 70 - MG/DL High No October 07 110 informa 2016 [Mass/v tion in 11:29 olume] source PM in data Blood GLOMELULAR LIANNE. RATE,CALC. Observa Value Referen Units Interpr Notes Date tion ce etation Range nurse said she polo labs and sent them down. Glomeru 99.0 60.0 - ml/min No Previou October 07 lar 200.0 informa s value 2016 filtrat tion in was 9:24 PM ion source 99.1, rate/1. data verifie 73 sq M d by [facility] at predict 21:54 ed on among non-ivanna 6.THE cks by eGFR IS Creatin AN ine-bas ESTIMAT ed ED formula GLOMELU (MDRD) LAR FILTRAT ION RATEBAS ED ON AN AVERAGE BODY SURFACE AREA OF 1.73M2. THIS CALCULA TION IS NOT ACCURAT E FOR PEDIATR IC PATIENT S,PATIE NTS >70 YEARS OF AGE,OR PATIENT S WITH EXTREME BODY SIZE.>6 0 ML/MIN/ 1.73M2 = NORMAL< 60 ML/MIN/ 1.73M2 = CHRONIC KIDNEY DISEASE <15 ML/MIN/ 1.73M2 = KIDNEY FAILURE AVERAGE EGFR FOLLOWS :AGE(YE ARS) AVERAGE EGFR20- 39 116 ML/MIN3 0-39 107 ML/MIN4 0-49 99 ML/MIN5 0-59 93 ML/MIN6 0-69 85 ML/MIN BASIC METABOLIC PANEL (CHEM 7) Observa Value Referen Units Interpr Notes Date tion ce etation Range nurse said she polo labs and sent them down. Glucose 213 70 - MG/DL High No October 07 110 informa 2015 [Mass/v tion in 9:24 PM olume] source in data Serum or Plasma Urea 16 7 - 18 MG/DL No No October 07 nitroge informa informa 2016 n tion in tion in 9:24 PM [Mass/v source source olume] data data in Serum or Plasma Sodium 142 133 - mmol/L No No October 07 [Moles/ 144 informa informa 2016 volume] tion in tion in 9:24 PM in source source Serum data data or Plasma Potassi 4.2 3.6 - mmol/l No No October 07 um 5.2 informa informa 2015 [Moles/ tion in tion in 9:24 PM volume] source source in data data Serum or Plasma Chlorid 111 98 - mmol/l High No October 07 e 107 informa 2015 [Moles/ tion in 9:24 PM volume] source in data Blood Carbon 25 21 - 32 mmol/L No No October 07 dioxide informa informa 2016 , total tion in tion in 9:24 PM source source [Moles/ data data volume] in Serum or Plasma Creatin 0.80 0.60 - MG/DL No No October 07 ine 1.30 informa informa 2016 [Mass/v tion in tion in 9:24 PM olume] source source in data data Serum or Plasma Calcium 8.3 8.5 - MG/DL Low No October 07 10.1 informa 2015 [Mass/v tion in 9:24 PM olume] source in data Serum or Plasma CBC/NO DIFF+ PLATELET Observa Value Referen Units Interpr Notes Date tion ce etation Range nurse said she polo labs and sent them down. Leukocy 9.6 3.5 - K/UL No October 07 andressa 13.0 informa informa 2015 [#/volu tion in tion in 9:24 PM me] in source source Blood data data by Automat ed count Erythro 3.830 3.500 - M/ul No October 07 cytes 6.100 informa informa 2015 [#/volu tion in tion in 9:24 PM me] in source source Blood data data by Automat ed count Hemoglo 11.7 11.0 - gm/dl No October 07 bin 17.8 informa informa 2016 [Mass/v tion in tion in 9:24 PM olume] source source in data data Blood Hematoc 35.1 32.0 - % No October 07 rit 51.6 informa informa 2016 [Volume tion in tion in 9:24 PM source source Fractio data data n] of Blood by Automat ed count Erythro 91.6 80.8 - fl No October 07 cyte 101.2 informa informa 2016 mean tion in tion in 9:24 PM corpusc source source ular data data volume [Entiti c volume] by Automat ed count Erythro 30.6 27.6 - pg No October 07 cyte 32.7 informa informa 2016 mean tion in tion in 9:24 PM corpusc source source ular data data hemoglo bin [Entiti c mass] by Automat ed count Erythro 33.4 32.6 - g/dl No October 07 cyte 35.4 informa informa 2016 mean tion in tion in 9:24 PM corpusc source source ular data data hemoglo bin concent ration [Mass/v olume] by Automat ed count Erythro 15.7 10.1 - % No October 07 cyte 16.5 informa informa 2016 distrib tion in tion in 9:24 PM ution source source width data data [Ratio] by Automat ed count Platele 276 134 - K/UL No October 07 ts 412 informa informa 2015 [#/volu tion in tion in 9:24 PM me] in source source Blood data data by Automat ed count Platele 6.6 6.1 - fl No No October 07 t mean 10.1 informa informa 2016 volume tion in tion in 9:24 PM [Entiti source source c data data volume] in Blood by Automat ed count GLUCOSE(REAGENT STRIP) Observa Value Referen Units Interpr Notes Date tion ce etation Range Glucose 192 70 - MG/DL High RN October 07 110 Notifie 2015 [Mass/v d 6:26 PM olume] in Blood GLUCOSE(REAGENT STRIP) Observa Value Referen Units Interpr Notes Date ti ce etation Range Glucose 138 70 - MG/DL High RN October 07 110 Notifie 2015 [Mass/v d 1:00 PM olume] in Blood LEUKOREDUCE RED BLOOD CELLS Observa Value Referen Units Interpr Notes Date ti ce etation Range LEUKORE TEXT~Na No No No No October 07 DUCE me: informa informa informa informa 2016 RED BEAUPAR tion in tion in tion in tion in 12:20 BLOOD LANT, source source source source PM CELLS ELI~ data data data data Acct: [id number] RBC LEUKORE D [id number] p.Trans fus 6 15:12 TYPE AND SCREEN Observa Value Referen Units Interpr Notes Date ti ce etation Range TYPE TEXT~Na No No No No October 07 AND me: informa informa informa informa 2016 SCREEN BEAUPAR tion in tion in tion in tion in 12:20 LANT, source source source source PM ELI~ data data data data Acct: [id number] A 6 13:21 cmc~RH( D) TYPING POS 6 13:21 cmc~ANT IBODY SCREEN NEG 6 13:31 ksr~AUT OCONTRO L 6 12:30 CMC~NO LONGER PART OF TYPE AND SCREEN XR Chest 1 View Observa Value Referen Units Interpr Notes Date ti ce etation Range \\.br\\PO No No No No October 07 RTABLE informa informa informa informa 2016 CHEST - tion in tion in tion in tion in 5:24 AM source source source source 10/08/19 data data data data 16\\.br\\ \\.br\\CO MPARISO N: 10/07/19 16.\\.br \\\\.br\\L linwood support tubes and lines are stable in positio n. There are small bilater al pleural effusio ns with bibasil ar regions of atelect asis and/or infiltr ate. There is no evidenc e of pneumot horax. There is mild central pulmona ry vascula r congest ion. Cardiac size is mildly enlarge d. Bony structu res are unchang ed.\\.br \\\\.br\\ IMPRESS ION: Stable positio n of life support tubes and lines with small bilater al pleural effusio ns and bibasil ar regions of atelect asis and/or infiltr ate.\\.b r\\\\.br\\ END OF REPORT* *\\.br\\\\ .br\\Gar eder Argueta M.D.\\.b r\\\\.br\\ Dictate d: 10/08/19 16 6:13 AM\\.br\\ \\.br\\Tr anscrib ed: 10/08/19 16 6:34 AM\\.br\\ \\.br\\ * Final Report \\.br \\\\.br\\D ictated : Nadeem Argueta M.D. 6:14 am\\.br\\ \\.br\\Tr anscrib ed by: 6:35 am\\.br\\ \\.br\\Au thentic ated by: Nadeem Argueta M.D. 8:20 am\\.br\\ \\.br\\ BLOOD GAS Observa Value Referen Units Interpr Notes Date tion ce etation Range VENT: A/C, VT 20, PEEP 5, 40% ARTLINE pH of 7.434 7.350 - No No No October 07 Arteria 7.450 informa informa informa 2016 l blood tion in tion in tion in 5:15 AM source source source data data data Carbon 33.9 35.0 - mmHG Low No October 07 dioxide 45.0 informa 2015 tion in 5:15 AM [Partia source l data pressur e] in Arteria l blood Oxygen 92.9 85.0 - mmHG No No October 07 [Partia 100.0 informa informa 2016 l tion in tion in 5:15 AM pressur source source e] in data data Arteria l blood Oxygen 97.6 93.0 - % High No October 07 saturat 97.0 informa 2016 ion in tion in 5:15 AM Arteria source l blood data Bicarbo 22.3 20.0 - mm/L No No October 07 caroline 26.0 informa informa 2015 [Moles/ tion in tion in 5:15 AM volume] source source in data data Arteria l blood Base -1.3 -2.0-2. mm/L No No October 07 excess 0 informa informa 2016 in tion in tion in 5:15 AM Arteria source source l blood data data GLOMELULAR LIANNE. RATE,CALC. Observa Value Referen Units Interpr Notes Date tion ce etation Range Glomeru 115.5 60.0 - ml/min No Previou October 07 lar 200.0 informa s value 2016 filtrat tion in was 5:00 AM ion source 115.6, rate/1. data verifie 73 sq M d by AUTO at predict 05:57 ed on among non-ivanna 6.THE cks by eGFR IS Creatin AN ine-bas ESTIMAT ed ED formula GLOMELU (MDRD) LAR FILTRAT ION RATEBAS ED ON AN AVERAGE BODY SURFACE AREA OF 1.73M2. THIS CALCULA TION IS NOT ACCURAT E FOR PEDIATR IC PATIENT S,PATIE NTS >70 YEARS OF AGE,OR PATIENT S WITH EXTREME BODY SIZE.>6 0 ML/MIN/ 1.73M2 = NORMAL< 60 ML/MIN/ 1.73M2 = CHRONIC KIDNEY DISEASE <15 ML/MIN/ 1.73M2 = KIDNEY FAILURE AVERAGE EGFR FOLLOWS :AGE(YE ARS) AVERAGE EGFR20- 39 116 ML/MIN3 0-39 107 ML/MIN4 0-49 99 ML/MIN5 0-59 93 ML/MIN6 0-69 85 ML/MIN IONIZED CALCIUM Observa Value Referen Units Interpr Notes Date tion ce etation Range Calcium 1.14 No MMOL/L No VENOUS October 07 .ionize informa informa BLOOD 2016 d tion in tion in 1.14 - 5:00 AM [Moles/ source source 1.29 volume] data data MMOL/LC in API[facility] Serum Y or 1.18 - Plasma 1.29 MMOL/LS THERESE 1.19 - 1.29 MMOL/L PHOSPHOROUS Observa Value Referen Units Interpr Notes Date tion ce etation Range Phospha 2.8 2.5 - MG/DL No No October 07 te 4.9 informa informa 2016 [Mass/v tion in tion in 5:00 AM olume] source source in data data Serum or Plasma BASIC METABOLIC PANEL (CHEM 7) Observa Value Referen Units Interpr Notes Date tion ce etation Range Glucose 142 70 - MG/DL High No October 07 110 informa 2015 [Mass/v tion in 5:00 AM olume] source in data Serum or Plasma Urea 18 7 - 18 MG/DL No No October 07 nitroge informa informa 2016 n tion in tion in 5:00 AM [Mass/v source source olume] data data in Serum or Plasma Sodium 145 133 - mmol/L High No October 07 [Moles/ 144 informa 2015 volume] tion in 5:00 AM in source Serum data or Plasma Potassi 3.1 3.6 - mmol/l Low No October 07 um 5.2 informa 2015 [Moles/ tion in 5:00 AM volume] source in data Serum or Plasma Chlorid 115 98 - mmol/l High No October 07 e 107 informa 2015 [Moles/ tion in 5:00 AM volume] source in data Blood Carbon 23 21 - 32 mmol/L No October 07 dioxide informa informa 2016 , total tion in tion in 5:00 AM source source [Moles/ data data volume] in Serum or Plasma Creatin 0.70 0.60 - MG/DL No No October 07 ine 1.30 informa informa 2016 [Mass/v tion in tion in 5:00 AM olume] source source in data data Serum or Plasma Calcium 7.5 8.5 - MG/DL Low No October 07 10.1 informa 2015 [Mass/v tion in 5:00 AM olume] source in data Serum or Plasma MAGNESIUM Observa Value Referen Units Interpr Notes Date tion ce etation Range Magnesi 2.2 1.7 - MG/DL No No October 07 um 2.4 informa informa 2015 [Mass/v tion in tion in 5:00 AM olume] source source in data data Serum or Plasma CBC/NO DIFF+ PLATELET Observa Value Referen Units Interpr Notes Date tion ce etation Range Leukocy 11.2 3.5 - K/UL No October 07 andressa 13.0 informa informa 2015 [#/volu tion in tion in 5:00 AM me] in source source Blood data data by Automat ed count Erythro 3.110 3.500 - M/ul Low No October 07 cytes 6.100 informa 2015 [#/volu tion in 5:00 AM me] in source Blood data by Automat ed count Hemoglo 9.8 11.0 - gm/dl Low No October 07 bin 17.8 informa 2015 [Mass/v tion in 5:00 AM olume] source in data Blood Hematoc 28.8 32.0 - % Low No October 07 rit 51.6 informa 2016 [Volume tion in 5:00 AM source Fractio data n] of Blood by Automat ed count Erythro 92.6 80.8 - fl No October 07 cyte 101.2 informa informa 2016 mean tion in tion in 5:00 AM corpusc source source ular data data volume [Entiti c volume] by Automat ed count Erythro 31.4 27.6 - pg No October 07 cyte 32.7 informa informa 2016 mean tion in tion in 5:00 AM corpusc source source ular data data hemoglo bin [Entiti c mass] by Automat ed count Erythro 33.9 32.6 - g/dl No October 07 cyte 35.4 informa informa 2016 mean tion in tion in 5:00 AM corpusc source source ular data data hemoglo bin concent ration [Mass/v olume] by Automat ed count Erythro 15.8 10.1 - % No October 07 cyte 16.5 informa informa 2016 distrib tion in tion in 5:00 AM ution source source width data data [Ratio] by Automat ed count Platele 252 134 - K/UL No October 07 ts 412 informa informa 2016 [#/volu tion in tion in 5:00 AM me] in source source Blood data data by Automat ed count Platele 6.9 6.1 - fl No No October 07 t mean 10.1 informa informa 2016 volume tion in tion in 5:00 AM [Entiti source source c data data volume] in Blood by Automat ed count GLUCOSE(REAGENT STRIP) Observa Value Referen Units Interpr Notes Date ti ce etation Range Glucose 135 70 - MG/DL High No October 07 110 Action 2016 [Mass/v 12:23 olume] AM in Blood GLUCOSE(REAGENT STRIP) Observa Value Referen Units Interpr Notes Date ti ce etation Range Glucose 203 70 - MG/DL High Gave October 06 110 Insulin 2016 [Mass/v 5:48 PM olume] in Blood GLUCOSE(REAGENT STRIP) Observa Value Referen Units Interpr Notes Date ti ce etation Range Glucose 197 70 - MG/DL High No October 06 110 Action 2016 [Mass/v 12:15 olume] PM in Blood XR Chest 1 View Observa Value Referen Units Interpr Notes Date ti ce etation Range \\.br\\CH No No No No October 06 EST informa informa informa informa 2016 PORTABL tion in tion in tion in tion in 11:17 E AP source source source source AM UPRIGHT data data data data FILM\\.b r\\\\.br\\ The patient is recentl y post open heart. There are bilater al effusio ns with right greater than left. The effusio ns appear to be increas ing as compare d to the prevkendrau s study from earlier today. There are mediast inal left drains present . There is an endotra cheal tube present with the tip near the level of the aortic knob. Gastric tube is coursin g into the stomach . There is a right jugular line with the tip near the superio r vena cava.\\. br\\\\.br \\ IMPRESS ION: Bilater al effusio ns which appear to be increas ing.\\.b r\\\\.br\\ END OF REPORT* *\\.br\\\\ .br\\Den rodríguez Madrid M.D.\\.b r\\\\.br\\ Dictate d: 10/07/19 16 11:29 AM\\.br\\ \\.br\\Tr anscrib ed: 10/07/19 11:37 AM\\.br\\ \\.br\\ * Final Report \\.br \\\\.br\\D ictated : EVIN MADRID M.D. 11:29 am\\.br\\ \\.br\\Tr anscrib ed by: 11:40 am\\.br\\ \\.br\\Au thentic ated by: EVIN MADRID M.D. 9:47 am\\.br\\ \\.br\\ XR Chest 1 View Observa Value Referen Units Interpr Notes Date tion ce etation Range \\.br\\CH No No No No October 06 EST AP informa informa informa informa 2016 UPRIGHT tion in tion in tion in tion in 5:30 AM source source source source PORTABL data data data data E FILM, , 5:30 A.M.\\.b r\\\\.br\\ The patient is recentl y post open heart. The heart size appears stable. There is increas ed density on the right consist ent with right effusio n. There appears to be mild atelect asis in the left base. Tubes and lines remain in place. When compare d to the previou s ' study, there has been little interva l change. \\.br\\\\. br\\ IMPRESS ION: Continu ed right effusio n and mild atelect asis left base.\\. br\\\\.br \\ END OF REPORT* *\\.br\\\\ .br\\Den rodríguez Madrid M.D.\\.b r\\\\.br\\ Dictate d: 10/07/19 7:26 AM\\.br\\ \\.br\\Tr anscrib ed: 10/07/19 9:14 AM\\.br\\ \\.br\\ * Final Report \\.br \\\\.br\\D ictated : EVIN MADRID M.D. 7:26 am\\.br\\ \\.br\\Tr anscrib ed by: 9:15 am\\.br\\ \\.br\\Au thentic ated by: EVIN MADRID M.D. 016 10:59 am\\.br\\ \\.br\\ GLOMELULAR LIANNE. RATE,CALC. Observa Value Referen Units Interpr Notes Date tion ce etation Range Glomeru 138.0 60.0 - ml/min No Previou October 06 lar 200.0 informa s value 2016 filtrat tion in was 5:00 AM ion source 138.1, rate/1. data verifie 73 sq M d by AUTO at predict 06:41 ed on among non-ivanna 6.THE cks by eGFR IS Creatin AN ine-bas ESTIMAT ed ED formula GLOMELU (MDRD) LAR FILTRAT ION RATEBAS ED ON AN AVERAGE BODY SURFACE AREA OF 1.73M2. THIS CALCULA TION IS NOT ACCURAT E FOR PEDIATR IC PATIENT S,PATIE NTS >70 YEARS OF AGE,OR PATIENT S WITH EXTREME BODY SIZE.>6 0 ML/MIN/ 1.73M2 = NORMAL< 60 ML/MIN/ 1.73M2 = CHRONIC KIDNEY DISEASE <15 ML/MIN/ 1.73M2 = KIDNEY FAILURE AVERAGE EGFR FOLLOWS :AGE(YE ARS) AVERAGE EGFR20- 39 116 ML/MIN3 0-39 107 ML/MIN4 0-49 99 ML/MIN5 0-59 93 ML/MIN6 0-69 85 ML/MIN BASIC METABOLIC PANEL (CHEM 7) Observa Value Referen Units Interpr Notes Date tion ce etation Range Glucose 113 70 - MG/DL High No October 06 110 informa 2015 [Mass/v tion in 5:00 AM olume] source in data Serum or Plasma Urea 15 7 - 18 MG/DL No No October 06 nitroge informa informa 2016 n tion in tion in 5:00 AM [Mass/v source source olume] data data in Serum or Plasma Sodium 145 133 - mmol/L High No October 06 [Moles/ 144 informa 2015 volume] tion in 5:00 AM in source Serum data or Plasma Potassi 3.5 3.6 - mmol/l Low No October 06 um 5.2 informa 2015 [Moles/ tion in 5:00 AM volume] source in data Serum or Plasma Chlorid 115 98 - mmol/l High No October 06 e 107 informa 2015 [Moles/ tion in 5:00 AM volume] source in data Blood Carbon 22 21 - 32 mmol/L No No October 06 dioxide informa informa 2016 , total tion in tion in 5:00 AM source source [Moles/ data data volume] in Serum or Plasma Creatin 0.60 0.60 - MG/DL No No October 06 ine 1.30 informa informa 2015 [Mass/v tion in tion in 5:00 AM olume] source source in data data Serum or Plasma Calcium 7.4 8.5 - MG/DL Low No October 06 10.1 informa 2015 [Mass/v tion in 5:00 AM olume] source in data Serum or Plasma IONIZED CALCIUM Observa Value Referen Units Interpr Notes Date tion ce etation Range Calcium 1.16 No MMOL/L No VENOUS October 06 .ionize informa informa BLOOD 2016 d tion in tion in 1.14 - 5:00 AM [Moles/ source source 1.29 volume] data data MMOL/LC in [facility] Serum Y or 1.18 - Plasma 1.29 MMOL/LS THERESE 1.19 - 1.29 MMOL/L PHOSPHOROUS Observa Value Referen Units Interpr Notes Date tion ce etation Range Phospha 2.4 2.5 - MG/DL Low No October 06 te 4.9 informa 2015 [Mass/v tion in 5:00 AM olume] source in data Serum or Plasma MAGNESIUM Observa Value Referen Units Interpr Notes Date tion ce etation Range Magnesi 2.3 1.7 - MG/DL No No October 06 um 2.4 informa informa 2015 [Mass/v tion in tion in 5:00 AM olume] source source in data data Serum or Plasma CBC/NO DIFF+ PLATELET Observa Value Referen Units Interpr Notes Date tion ce etation Range Leukocy 9.5 3.5 - K/UL No No October 06 andressa 13.0 informa informa 2015 [#/volu tion in tion in 5:00 AM me] in source source Blood data data by Automat ed count Erythro 3.240 3.500 - M/ul Low No October 06 cytes 6.100 inform2015 [#/volu tion in 5:00 AM me] in source Blood data by Automat ed count Hemoglo 9.9 11.0 - gm/dl Low No October 06 bin 17.8 informa 2015 [Mass/v tion in 5:00 AM olume] source in data Blood Hematoc 29.7 32.0 - % Low No October 06 rit 51.6 informa 2015 [Volume tion in 5:00 AM source Fractio data n] of Blood by Automat ed count Erythro 91.6 80.8 - fl No No October 06 cyte 101.2 informa informa 2016 mean tion in tion in 5:00 AM corpusc source source ular data data volume [Entiti c volume] by Automat ed count Erythro 30.7 27.6 - pg No No October 06 cyte 32.7 informa informa 2016 mean tion in tion in 5:00 AM corpusc source source ular data data hemoglo bin [Entiti c mass] by Automat ed count Erythro 33.5 32.6 - g/dl No No October 06 cyte 35.4 informa informa 2016 mean tion in tion in 5:00 AM corpusc source source ular data data hemoglo bin concent ration [Mass/v olume] by Automat ed count Erythro 15.5 10.1 - % No No October 06 cyte 16.5 informa informa 2016 distrib tion in tion in 5:00 AM ution source source width data data [Ratio] by Automat ed count Platele 240 134 - K/UL No No October 06 ts 412 informa informa 2015 [#/volu tion in tion in 5:00 AM me] in source source Blood data data by Automat ed count Platele 7.0 6.1 - fl No No October 06 t mean 10.1 informa informa 2016 volume tion in tion in 5:00 AM [Entiti source source c data data volume] in Blood by Automat ed count BLOOD GAS Observa Value Referen Units Interpr Notes Date tion ce etation Range vent: ac, vt450/ rr20/ 40%/ peep 5 pH of 7.460 7.350 - No High No October 06 Arteria 7.450 informa informa 2016 l blood tion in tion in 4:33 AM source source data data Carbon 30.6 35.0 - mmHG Low No October 06 dioxide 45.0 informa 2015 tion in 4:33 AM [Partia source l data pressur e] in Arteria l blood Oxygen 83.4 85.0 - mmHG Low No October 06 [[facility]ia 100.0 informa 2015 l tion in 4:33 AM pressur source e] in data Arteria l blood Oxygen 96.6 93.0 - % No No October 06 saturat 97.0 informa informa 2016 ion in tion in tion in 4:33 AM Arteria source source l blood data data Bicarbo 21.5 20.0 - mm/L No No October 06 caroline 26.0 informa informa 2015 [Moles/ tion in tion in 4:33 AM volume] source source in data data Arteria l blood Base -1.8 -2.0-2. mm/L No No October 06 excess 0 informa informa 2016 in tion in tion in 4:33 AM Arteria source source l blood data data GLUCOSE(REAGENT STRIP) Observa Value Referen Units Interpr Notes Date tion ce etation Range Glucose 118 70 - MG/DL High No October 06 110 Action 2015 [Mass/v 12:39 olume] AM in Blood GLOMELULAR LIANNE. RATE,CALC. Observa Value Referen Units Interpr Notes Date ti ce etation Range Glomeru 99.0 60.0 - ml/min No Previou October 05 lar 200.0 informa s value 2015 filtrat tion in was 4:00 PM ion source 99.1, rate/1. data verifie 73 sq M d by AUTO at predict 16:32 ed on among non-ivanna 6.THE cks by eGFR IS Creatin AN ine-bas ESTIMAT ed ED formula GLOMELU (MDRD) LAR FILTRAT ION RATEBAS ED ON AN AVERAGE BODY SURFACE AREA OF 1.73M2. THIS CALCULA TION IS NOT ACCURAT E FOR PEDIATR IC PATIENT S,PATIE NTS >70 YEARS OF AGE,OR PATIENT S WITH EXTREME BODY SIZE.>6 0 ML/MIN/ 1.73M2 = NORMAL< 60 ML/MIN/ 1.73M2 = CHRONIC KIDNEY DISEASE <15 ML/MIN/ 1.73M2 = KIDNEY FAILURE AVERAGE EGFR FOLLOWS :AGE(YE ARS) AVERAGE EGFR20- 39 116 ML/MIN3 0-39 107 ML/MIN4 0-49 99 ML/MIN5 0-59 93 ML/MIN6 0-69 85 ML/MIN BASIC METABOLIC PANEL (CHEM 7) Observa Value Referen Units Interpr Notes Date tion ce etation Range Glucose 142 70 - MG/DL High No October 05 110 informa 2015 [Mass/v tion in 4:00 PM olume] source in data Serum or Plasma Urea 18 7 - 18 MG/DL No No October 05 nitroge informa informa 2016 n tion in tion in 4:00 PM [Mass/v source source olume] data data in Serum or Plasma Sodium 144 133 - mmol/L No No October 05 [Moles/ 144 informa informa 2015 volume] tion in tion in 4:00 PM in source source Serum data data or Plasma Potassi 3.9 3.6 - mmol/l No No October 05 um 5.2 informa informa 2015 [Moles/ tion in tion in 4:00 PM volume] source source in data data Serum or Plasma Chlorid 116 98 - mmol/l High No October 05 e 107 informa 2015 [Moles/ tion in 4:00 PM volume] source in data Blood Carbon 22 21 - 32 mmol/L No No October 05 dioxide informa informa 2015 , total tion in tion in 4:00 PM source source [Moles/ data data volume] in Serum or Plasma Creatin 0.80 0.60 - MG/DL No No October 05 ine 1.30 informa informa 2015 [Mass/v tion in tion in 4:00 PM olume] source source in data data Serum or Plasma Calcium 7.4 8.5 - MG/DL Low No October 05 10.1 informa 2015 [Mass/v tion in 4:00 PM olume] source in data Serum or Plasma GLUCOSE(REAGENT STRIP) Observa Value Referen Units Interpr Notes Date ce etation Range Glucose 105 70 - MG/DL No No October 05 110 informa Action 2015 [Mass/v tion in 11:34 olume] source AM in data Blood GLOMELULAR LIANNE. RATE,CALC. Observa Value Referen Units Interpr Notes Date tion ce etation Range Glomeru 99.0 60.0 - ml/min No Previou October 05 lar 200.0 informa s value 2016 filtrat tion in was 5:30 AM ion source 99.1, rate/1. data verifie 73 sq M d by SIMI at predict 06:33 ed on among non-ivanna 6.THE cks by eGFR IS Creatin AN ine-bas ESTIMAT ed ED formula GLOMELU (MDRD) LAR FILTRAT ION RATEBAS ED ON AN AVERAGE BODY SURFACE AREA OF 1.73M2. THIS CALCULA TION IS NOT ACCURAT E FOR PEDIATR IC PATIENT S,PATIE NTS >70 YEARS OF AGE,OR PATIENT S WITH EXTREME BODY SIZE.>6 0 ML/MIN/ 1.73M2 = NORMAL< 60 ML/MIN/ 1.73M2 = CHRONIC KIDNEY DISEASE <15 ML/MIN/ 1.73M2 = KIDNEY FAILURE AVERAGE EGFR FOLLOWS :AGE(YE ARS) AVERAGE EGFR20- 39 116 ML/MIN3 0-39 107 ML/MIN4 0-49 99 ML/MIN5 0-59 93 ML/MIN6 0-69 85 ML/MIN BASIC METABOLIC PANEL (CHEM 7) Observa Value Referen Units Interpr Notes Date tion ce etation Range Glucose 116 70 - MG/DL High No October 05 110 informa 2015 [Mass/v tion in 5:30 AM olume] source in data Serum or Plasma Urea 18 7 - 18 MG/DL No No October 05 nitroge informa informa 2016 n tion in tion in 5:30 AM [Mass/v source source olume] data data in Serum or Plasma Sodium 145 133 - mmol/L High No October 05 [Moles/ 144 informa 2015 volume] tion in 5:30 AM in source Serum data or Plasma Potassi 3.7 3.6 - mmol/l No No October 05 um 5.2 informa informa 2015 [Moles/ tion in tion in 5:30 AM volume] source source in data data Serum or Plasma Chlorid 116 98 - mmol/l High No October 05 e 107 informa 2015 [Moles/ tion in 5:30 AM volume] source in data Blood Carbon 22 21 - 32 mmol/L No No October 05 dioxide informa informa 2015 , total tion in tion in 5:30 AM source source [Moles/ data data volume] in Serum or Plasma Creatin 0.80 0.60 - MG/DL No No October 05 ine 1.30 informa informa 2016 [Mass/v tion in tion in 5:30 AM olume] source source in data data Serum or Plasma Calcium 7.7 8.5 - MG/DL Low No October 05 10.1 inform2015 [Mass/v tion in 5:30 AM olume] source in data Serum or Plasma PHOSPHOROUS Observa Value Referen Units Interpr Notes Date tion ce etation Range Phospha 2.3 2.5 - MG/DL Low No October 05 te 4.9 informa 2015 [Mass/v tion in 5:30 AM olume] source in data Serum or Plasma MAGNESIUM Observa Value Referen Units Interpr Notes Date tion ce etation Range Magnesi 2.5 1.7 - MG/DL High No October 05 um 2.4 informa 2015 [Mass/v tion in 5:30 AM olume] source in data Serum or Plasma IONIZED CALCIUM Observa Value Referen Units Interpr Notes Date tion ce etation Range Calcium 1.16 No MMOL/L No VENOUS October 05 .ionize informa informa BLOOD 2016 d tion in tion in 1.14 - 5:30 AM [Moles/ source source 1.29 volume] data data MMOL/LC in [facility] Serum Y or 1.18 - Plasma 1.29 MMOL/LS THERESE 1.19 - 1.29 MMOL/L CBC/NO DIFF+ PLATELET Observa Value Referen Units Interpr Notes Date tion ce etation Range Leukocy 9.6 3.5 - K/UL No October 05 andressa 13.0 informa informa 2015 [#/volu tion in tion in 5:30 AM me] in source source Blood data data by Automat ed count Erythro 3.090 3.500 - M/ul Low No October 05 cytes 6.100 informa 2015 [#/volu tion in 5:30 AM me] in source Blood data by Automat ed count Hemoglo 9.7 11.0 - gm/dl Low No October 05 bin 17.8 informa 2015 [Mass/v tion in 5:30 AM olume] source in data Blood Hematoc 28.5 32.0 - % Low No October 05 rit 51.6 informa 2015 [Volume tion in 5:30 AM source Fractio data n] of Blood by Automat ed count Erythro 92.4 80.8 - fl No October 05 cyte 101.2 informa informa 2016 mean tion in tion in 5:30 AM corpusc source source ular data data volume [Entiti c volume] by Automat ed count Erythro 31.3 27.6 - pg No No October 05 cyte 32.7 informa informa 2015 mean tion in tion in 5:30 AM corpusc source source ular data data hemoglo bin [Entiti c mass] by Automat ed count Erythro 33.9 32.6 - g/dl No No October 05 cyte 35.4 informa informa 2015 mean tion in tion in 5:30 AM corpusc source source ular data data hemoglo bin concent ration [Mass/v olume] by Automat ed count Erythro 16.0 10.1 - % No October 05 cyte 16.5 informa informa 2016 distrib tion in tion in 5:30 AM ution source source width data data [Ratio] by Automat ed count Platele 207 134 - K/UL No No October 05 ts 412 informa informa 2015 [#/volu tion in tion in 5:30 AM me] in source source Blood data data by Automat ed count Platele 7.0 6.1 - fl No No October 05 t mean 10.1 informa informa 2016 volume tion in tion in 5:30 AM [Entiti source source c data data volume] in Blood by Automat ed count XR Chest 1 View Observa Value Referen Units Interpr Notes Date tion ce etation Range \\.br\\AP No No No No October 05 informa informa informa informa 2016 PORTABL tion in tion in tion in tion in 4:48 AM E source source source source CHEST\\. data data data data br\\\\.br \\COMPAR UTE: 016\\.br \\\\.br\\S upport hardwar e project s in appropr iate and unchang ed positio n.\\.br\\ \\.br\\No signifi cant pneumot horax. Small bilater al effusio ns and associa anh atelect asis noted. Status post median sternot hoa and CABG. No acute bone abnorma lities otherwi se.\\.br \\\\.br\\ IMPRESS ION: Unchang ed support hardwar e. Otherwi se, stable appeara nce of the chest with pulmona ry vascula r congest ion and bilater al pleural effusio ns.\\.br \\\\.br\\ END OF REPORT* *\\.br\\\\ .br\\Bra sania Handy M.D.\\.b r\\\\.br\\ Dictate d: 10/06/19 8:42 AM\\.br\\ \\.br\\Tr anscrib ed: 10/06/19 16 8:49 AM\\.br\\ \\.br\\ * Final Report \\.br \\\\.br\\D ictated : Av Handy 7:42 am\\.br\\ \\.br\\Tr anscrib ed by: 8:51 am\\.br\\ \\.br\\Au thentic ated by: Av Handy 11:02 am\\.br\\ \\.br\\ BLOOD GAS Observa Value Referen Units Interpr Notes Date tion ce etation Range vent;ac, vt450/ rr25/ 40%/ peep 5 pH of 7.458 7.350 - No High No October 05 Arteria 7.450 informa informa 2015 l blood tion in tion in 3:58 AM source source data data Carbon 30.8 35.0 - mmHG Low No October 05 dioxide 45.0 a 2015 tion in 3:58 AM [[facility] source l data pressur e] in Arteria l blood Oxygen 79.9 85.0 - mmHG Low No October 05 [[facility]ia 100.0 informa 2015 l tion in 3:58 AM pressur source e] in data Arteria l blood Oxygen 96.5 93.0 - % No No October 05 saturat 97.0 informa informa 2015 ion in tion in tion in 3:58 AM Arteria source source l blood data data Bicarbo 21.5 20.0 - mm/L No No October 05 caroline 26.0 informa informa 2015 [Moles/ tion in tion in 3:58 AM volume] source source in data data Arteria l blood Base -1.8 -2.0-2. mm/L No No October 05 excess 0 informa informa 2015 in tion in tion in 3:58 AM Arteria source source l blood data data GLUCOSE(REAGENT STRIP) Observa Value Referen Units Interpr Notes Date tion ce etation Range Glucose 127 70 - MG/DL High No October 05 110 Action 2015 [Mass/v 12:47 olume] AM in Blood VANCOMYCIN, TROUGH Observa Value Referen Units Interpr Notes Date tion ce etation Range tubes dropped off. Vancomy 11.7 No ug/ML No THER October 04 priscilla informa informa 10-01 [Mass/v tion in tion in 10:40 olume] source source ug/MLTO PM in data data XIC >10 Serum or ug/ML Plasma --troug h GLUCOSE(REAGENT STRIP) Observa Value Referen Units Interpr Notes Date tion ce etation Range Glucose 100 70 - MG/DL No No October 04 110 informa Action 2015 [Mass/v tion in 12:29 olume] source PM in data Blood MAGNESIUM Observa Value Referen Units Interpr Notes Date tion ce etation Range Magnesi 2.8 1.7 - MG/DL High No October 04 um 2.4 informa 2015 [Mass/v tion in 10:30 olume] source AM in data Serum or Plasma PHOSPHOROUS Observa Value Referen Units Interpr Notes Date tion ce etation Range Phospha 2.4 2.5 - MG/DL Low No October 04 te 4.9 informa 2015 [Mass/v tion in 10:30 olume] source AM in data Serum or Plasma IONIZED CALCIUM Observa Value Referen Units Interpr Notes Date tion ce etation Range Calcium 1.14 No MMOL/L No VENOUS October 04 .ionize informa informa BLOOD 2016 d tion in tion in 1.14 - 10:30 [Moles/ source source 1.29 AM volume] data data MMOL/LC in [facility] Serum Y or 1.18 - Plasma 1.29 MMOL/LS THERESE 1.19 - 1.29 MMOL/L XR Chest 1 View Observa Value Referen Units Interpr Notes Date tion ce etation Range \\.br\\SI No No No No October 04 NGLE informa informa informa informa 2015 VIEW tion in tion in tion in tion in 4:50 AM CHEST\\. source source source source br\\\\.br data data data data \\There is mild bibasil ar atelect asis. The chest is otherwi se stable. The tubes and support jewell cathete rs appear in good positio n.\\.br\\ \\.br\\ IMPRESS ION: Mild bibasil ar atelect asis.\\. br\\\\.br \\ END OF REPORT* *\\.br\\\\ .br\\Tirso obed Martino M.D.\\.b r\\\\.br\\ Dictate d: 10/05/19 6:59 AM\\.br\\ \\.br\\Tr anscrib ed: 10/05/19 16 6:59 AM\\.br\\ \\.br\\ * Final Report \\.br \\\\.br\\D ictated : KAL MARTINO M.D. 6:59 am\\.br\\ \\.br\\Tr anscrib ed by: RN 7:00 am\\.br\\ \\.br\\Au thentic ated by: KAL MARTINO M.D. 8:51 am\\.br\\ \\.br\\ BLOOD GAS Observa Value Referen Units Interpr Notes Date tion ce etation Range VENT AC VT-450 R-20 40% PEEP-5 LINE pH of 7.409 7.350 - No No No October 04 Arteria 7.450 informa informa informa 2015 l blood tion in tion in tion in 4:38 AM source source source data data data Carbon 31.7 35.0 - mmHG Low No October 04 dioxide 45.0 a 2015 tion in 4:38 AM [[facility]ia source l data pressur e] in Arteria l blood Oxygen 82.5 85.0 - mmHG Low No October 04 [[facility]ia 100.0 informa 2015 l tion in 4:38 AM pressur source e] in data Arteria l blood Oxygen 96.4 93.0 - % No No October 04 saturat 97.0 informa informa 2015 ion in tion in tion in 4:38 AM Arteria source source l blood data data Bicarbo 19.7 20.0 - mm/L Low No October 04 caroline 26.0 informa 2015 [Moles/ tion in 4:38 AM volume] source in data Arteria l blood Base -4.2 -2.0-2. mm/L Low No October 04 excess 0 informa 2015 in tion in 4:38 AM Arteria source l blood data GLOMELULAR LIANNE. RATE,CALC. Observa Value Referen Units Interpr Notes Date tion ce etation Range Glomeru 138.0 60.0 - ml/min No Previou October 04 lar 200.0 informa s value 2015 filtrat tion in was 4:27 AM ion source 138.1, rate/1. data verifie 73 sq M d by AUTO at predict 04:57 ed on among non-ivanna 6.THE cks by eGFR IS Creatin AN ine-bas ESTIMAT ed ED formula GLOMELU (MDRD) LAR FILTRAT ION RATEBAS ED ON AN AVERAGE BODY SURFACE AREA OF 1.73M2. THIS CALCULA TION IS NOT ACCURAT E FOR PEDIATR IC PATIENT S,PATIE NTS >70 YEARS OF AGE,OR PATIENT S WITH EXTREME BODY SIZE.>6 0 ML/MIN/ 1.73M2 = NORMAL< 60 ML/MIN/ 1.73M2 = CHRONIC KIDNEY DISEASE <15 ML/MIN/ 1.73M2 = KIDNEY FAILURE AVERAGE EGFR FOLLOWS :AGE(YE ARS) AVERAGE EGFR20- 39 116 ML/MIN3 0-39 107 ML/MIN4 0-49 99 ML/MIN5 0-59 93 ML/MIN6 0-69 85 ML/MIN BASIC METABOLIC PANEL (CHEM 7) Observa Value Referen Units Interpr Notes Date ti ce etation Range Glucose 171 70 - MG/DL High No October 04 110 informa 2015 [Mass/v tion in 4:27 AM olume] source in data Serum or Plasma Urea 13 7 - 18 MG/DL No No October 04 nitroge informa informa 2016 n tion in tion in 4:27 AM [Mass/v source source olume] data data in Serum or Plasma Sodium 143 133 - mmol/L No No October 04 [Moles/ 144 informa informa 2016 volume] tion in tion in 4:27 AM in source source Serum data data or Plasma Potassi 3.6 3.6 - mmol/l No No October 04 um 5.2 informa informa 2016 [Moles/ tion in tion in 4:27 AM volume] source source in data data Serum or Plasma Chlorid 114 98 - mmol/l High No October 04 e 107 informa 2015 [Moles/ tion in 4:27 AM volume] source in data Blood Carbon 22 21 - 32 mmol/L No No October 04 dioxide informa informa 2015 , total tion in tion in 4:27 AM source source [Moles/ data data volume] in Serum or Plasma Creatin 0.60 0.60 - MG/DL No October 04 ine 1.30 informa informa 2015 [Mass/v tion in tion in 4:27 AM olume] source source in data data Serum or Plasma Calcium 7.6 8.5 - MG/DL Low No October 04 10.1 informa 2015 [Mass/v tion in 4:27 AM olume] source in data Serum or Plasma CBC\\T\\AUTO DIFF Observa Value Referen Units Interpr Notes Date tion ce etation Range Leukocy 10.1 3.5 - K/UL No October 04 andressa 13.0 informa informa 2015 [#/volu tion in tion in 4:27 AM me] in source source Blood data data by Automat ed count Erythro 3.200 3.500 - M/ul Low No October 04 cytes 6.100 2015 [#/volu tion in 4:27 AM me] in source Blood data by Automat ed count Hemoglo 10.2 11.0 - gm/dl Low October 04 bin 17.8 2015 [Mass/v tion in 4:27 AM olume] source in data Blood Hematoc 29.4 32.0 - % Low October 04 rit 51.6 a 2015 [Volume tion in 4:27 AM source Fractio data n] of Blood by Automat ed count Erythro 91.9 80.8 - fl No October 04 cyte 101.2 informa informa 2015 mean tion in tion in 4:27 AM corpusc source source ular data data volume [Entiti c volume] by Automat ed count Erythro 31.8 27.6 - pg No October 04 cyte 32.7 informa informa 2016 mean tion in tion in 4:27 AM corpusc source source ular data data hemoglo bin [Entiti c mass] by Automat ed count Erythro 34.6 32.6 - g/dl No October 04 cyte 35.4 informa informa 2016 mean tion in tion in 4:27 AM corpusc source source ular data data hemoglo bin concent ration [Mass/v olume] by Automat ed count Erythro 15.2 10.1 - % No October 04 cyte 16.5 informa informa 2016 distrib tion in tion in 4:27 AM ution source source width data data [Ratio] by Automat ed count Platele 170 134 - K/UL No October 04 ts 412 informa informa 2016 [#/volu tion in tion in 4:27 AM me] in source source Blood data data by Automat ed count Platele 7.4 6.1 - fl No October 04 t mean 10.1 informa informa 2016 volume tion in tion in 4:27 AM [Entiti source source c data data volume] in Blood by Automat ed count Neutrop 86.5 43.0 - % High No October 04 hils/10 83.0 informa 2016 0 tion in 4:27 AM leukocy source andressa in data Blood by Automat ed count Lymphoc 8.3 10.0 - % Low October 04 ytes/10 42.0 informa 2016 0 tion in 4:27 AM leukocy source andressa in data Blood by Automat ed count Monocyt 4.9 1.0 - % No October 04 es/100 14.0 informa informa 2016 leukocy tion in tion in 4:27 AM andressa in source source Blood data data by Automat ed count Eosinop 0.0 0.0 - % No October 04 hils/10 9.0 informa informa 2016 0 tion in tion in 4:27 AM leukocy source source andressa in data data Blood by Automat ed count Basophi 0.3 0.0 - % No October 04 ls/100 2.0 informa informa 2016 leukocy tion in tion in 4:27 AM andressa in source source Blood data data by Automat ed count Neutrop 8.7 2.7 - K/ul High No October 04 hils 6.9 informa 2016 [#/volu tion in 4:27 AM me] in source Blood data by Automat ed count Lymphoc 0.8 0.4 - K/ul No October 04 ytes 3.9 informa informa 2016 [#/volu tion in tion in 4:27 AM me] in source source Blood data data by Automat ed count Monocyt 0.5 0.2 - K/ul No October 04 es 0.6 informa informa 2015 [#/volu tion in tion in 4:27 AM me] in source source Blood data data by Automat ed count Eosinop 0.0 0.0 - K/ul No No October 04 hils 0.9 informa informa 2015 [#/volu tion in tion in 4:27 AM me] in source source Blood data data by Automat ed count Basophi 0.0 0.0 - K/ul No No October 04 ls 0.2 informa informa 2015 [#/volu tion in tion in 4:27 AM me] in source source Blood data data by Automat ed count GLUCOSE(REAGENT STRIP) Observa Value Referen Units Interpr Notes Date ti ce etation Range Glucose 216 70 - MG/DL High Gave October 04 110 Insulin 2015 [Mass/v 12:10 olume] AM in Blood GLUCOSE(REAGENT STRIP) Observa Value Referen Units Interpr Notes etation Range Glucose 195 70 - MG/DL High No October 03 110 Action 2016 [Mass/v 5:26 PM olume] in Blood HGB\\T\\HCT Observa Value Referen Units Interpr Notes etation Range Hemoglo 9.5 11.0 - gm/dl Low No October 03 bin 17.8 informa 2015 [Mass/v tion in 3:19 PM olume] source in data Blood Hematoc 27.9 32.0 - % Low No October 03 rit 51.6 informa 2015 [Volume tion in 3:19 PM source Fractio data n] of Blood by Automat ed count GLUCOSE(REAGENT STRIP) Observa Value Referen Units Interpr Notes ce etation Range Glucose 164 70 - MG/DL High Insulin October 03 110 Drip 2016 [Mass/v Adj 12:09 olume] PM in Blood PROCALCITONIN Observa Value Referen Units Interpr Notes Date ti ce etation Range PROCALC <0.50 0.00 - ng/ml No <= 0.50 October 03 ITONIN 0.50 informa ng/ml 2015 tion in - 4:55 AM source SEPSIS data IS NOT LIKELY. LOCAL INFECTI ON ISPOSSI BLE.>0. 51 to <= 2.00 ng/ml - SEPSIS IS POSSIBL E, BUT OTHERCO NDITION S ARE KNOWN TO ELEVATE PCT WELL.>2 .00 ng/ml - SEPSIS IS LIKELY, UNLESS OTHER CAUSES ARE KNOWN.> = 10.00 ng/ml - IMPORTA NT SYSTEMI C RESPONS E, ALMOSTE XCLUSIV GIANNI DUE TO SEVERE BACTERI AL SEPSIS OR SEPTIC SHOCK<= 21.00 ng/ml - NORMAL FOR NEONATA L FIRST 2 DAYS OF LIFE* LOW PCT LEVELS MAY ALSO BE OBSERVE D DURING THE EARLY COURSEO F INFECTI ON, IN LOCALIZ ED INFECTI ONS, AND IN SUBACUT EENDOCA RDITIS. FOLLOW- UP AND RE-EVAL UATION OF PCT IN CASESOF SUSPICI ON OF INFECTI ON IS PIVOTAL . PCT VALUES MUST ALWAYSB E EVALUAT ED IN LIGHT OF EACH PATIENT 'S CLINICA L CONTEXT .* INCREAS ED PCT LEVELS MAY NOT ALWAYS BE RELATED TO SYSTEMI CINFECT ION (SEPSIS ). OTHER CONDITI ONS INCLUDE , BUT ARE NOTLIMI ANH TO: THE FIRST DAYS AFTER A MAJOR TRAUMA, MAJORSU RGICAL INTERVE NTION, HURST, TREATME NT WITH OKT3 ANTIBOD IESAND OTHER DRUGS STIMULA TING THE RELEASE OF PRO-INF LAMMATO RYCYTOK ADRY, SMALL CELL LUNG CANCER, MEDULLA RY C-CELL CARCINO MAOF THE THYROID , S (FIRST 2 DAYS OF LIFE) AND PATIENT SWITH PROLONG ED OR SEVERE CARDIOG ENIC SHOCK OR PROLONG ED SEVEREO RGAN PERFUSI ON ANOMALI ES. CBC\\T\\AUTO DIFF Observa Value Referen Units Interpr Notes Date tion ce etation Range CRITICAL VALUE RESULT CALLED TO AND READBACK BY :LULU TEST CALLED:HCT 10/04/2015 05:31 ZTS Leukocy 16.3 3.5 - K/UL High No October 03 andressa 13.0 informa 2015 [#/volu tion in 4:55 AM me] in source Blood data by Automat ed count Erythro 2.350 3.500 - M/ul Low No October 03 cytes 6.100 informa 2015 [#/volu tion in 4:55 AM me] in source Blood data by Automat ed count Hemoglo 7.7 11.0 - gm/dl Low No May 12 bin 17.8 informa 2016 [Mass/v tion in 4:55 AM olume] source in data Blood Hematoc 22.1 32.0 - % Low No October 03 rit 51.6 alert informa 2016 [Volume tion in 4:55 AM source Fractio data n] of Blood by Automat ed count Erythro 94.1 80.8 - fl No No October 03 cyte 101.2 informa informa 2016 mean tion in tion in 4:55 AM corpusc source source ular data data volume [Entiti c volume] by Automat ed count Erythro 32.6 27.6 - pg No No October 03 cyte 32.7 informa informa 2016 mean tion in tion in 4:55 AM corpusc source source ular data data hemoglo bin [Entiti c mass] by Automat ed count Erythro 34.7 32.6 - g/dl No No October 03 cyte 35.4 informa informa 2016 mean tion in tion in 4:55 AM corpusc source source ular data data hemoglo bin concent ration [Mass/v olume] by Automat ed count Erythro 14.6 10.1 - % No No October 03 cyte 16.5 informa informa 2016 distrib tion in tion in 4:55 AM ution source source width data data [Ratio] by Automat ed count Platele 198 134 - K/UL No No October 03 ts 412 informa informa 2016 [#/volu tion in tion in 4:55 AM me] in source source Blood data data by Automat ed count Platele 7.3 6.1 - fl No No October 03 t mean 10.1 informa informa 2016 volume tion in tion in 4:55 AM [Entiti source source c data data volume] in Blood by Automat ed count Neutrop 89.4 43.0 - % High No October 03 hils/10 83.0 informa 2016 0 tion in 4:55 AM leukocy source andressa in data Blood by Automat ed count Lymphoc 4.5 10.0 - % Low No October 03 ytes/10 42.0 informa 2016 0 tion in 4:55 AM leukocy source andressa in data Blood by Automat ed count Monocyt 6.1 1.0 - % No October 03 es/100 14.0 informa informa 2016 leukocy tion in tion in 4:55 AM andressa in source source Blood data data by Automat ed count Eosinop 0.0 0.0 - % No No October 03 hils/10 9.0 informa informa 2016 0 tion in tion in 4:55 AM leukocy source source anrdessa in data data Blood by Automat ed count Basophi 0.0 0.0 - % No No October 03 ls/100 2.0 informa informa 2016 leukocy tion in tion in 4:55 AM andressa in source source Blood data data by Automat ed count Neutrop 14.6 2.7 - K/ul High No October 03 hils 6.9 informa 2016 [#/volu tion in 4:55 AM me] in source Blood data by Automat ed count Lymphoc 0.7 0.4 - K/ul No No October 03 ytes 3.9 informa informa 2016 [#/volu tion in tion in 4:55 AM me] in source source Blood data data by Automat ed count Monocyt 1.0 0.2 - K/ul High No October 03 es 0.6 informa 2015 [#/volu tion in 4:55 AM me] in source Blood data by Automat ed count Eosinop 0.0 0.0 - K/ul No No October 03 hils 0.9 informa informa 2015 [#/volu tion in tion in 4:55 AM me] in source source Blood data data by Automat ed count Basophi 0.0 0.0 - K/ul No No October 03 ls 0.2 informa informa 2015 [#/volu tion in tion in 4:55 AM me] in source source Blood data data by Automat ed count GLOMELULAR LIANNE. RATE,CALC. Observa Value Referen Units Interpr Notes Date tion ce etation Range Glomeru 86.5 60.0 - ml/min No THE October 03 lar 200.0 informa eGFR IS 2016 filtrat tion in AN 4:55 AM ion source ESTIMAT rate/1. data ED 73 sq M GLOMELU LAR predict FILTRAT ed ION among RATEBAS non-ivanna ED ON cks by AN Creatin AVERAGE ine-bas BODY ed SURFACE formula AREA (MDRD) OF 1.73M2. THIS CALCULA TION IS NOT ACCURAT E FOR PEDIATR IC PATIENT S,PATIE NTS >70 YEARS OF AGE,OR PATIENT S WITH EXTREME BODY SIZE.>6 0 ML/MIN/ 1.73M2 = NORMAL< 60 ML/MIN/ 1.73M2 = CHRONIC KIDNEY DISEASE <15 ML/MIN/ 1.73M2 = KIDNEY FAILURE AVERAGE EGFR FOLLOWS :AGE(YE ARS) AVERAGE EGFR20- 39 116 ML/MIN3 0-39 107 ML/MIN4 0-49 99 ML/MIN5 0-59 93 ML/MIN6 0-69 85 ML/MIN BASIC METABOLIC PANEL (CHEM 7) Observa Value Referen Units Interpr Notes Date tion ce etation Range Glucose 173 70 - MG/DL High No October 03 110 informa 2015 [Mass/v tion in 4:55 AM olume] source in data Serum or Plasma Urea 13 7 - 18 MG/DL No No October 03 nitroge informa informa 2015 n tion in tion in 4:55 AM [Mass/v source source olume] data data in Serum or Plasma Sodium 143 133 - mmol/L No No October 03 [Moles/ 144 informa informa 2016 volume] tion in tion in 4:55 AM in source source Serum data data or Plasma Potassi 4.5 3.6 - mmol/l No No October 03 um 5.2 informa informa 2015 [Moles/ tion in tion in 4:55 AM volume] source source in data data Serum or Plasma Chlorid 113 98 - mmol/l High No October 03 e 107 informa 2015 [Moles/ tion in 4:55 AM volume] source in data Blood Carbon 22 21 - 32 mmol/L No No October 03 dioxide informa informa 2016 , total tion in tion in 4:55 AM source source [Moles/ data data volume] in Serum or Plasma Creatin 0.90 0.60 - MG/DL No No October 03 ine 1.30 informa informa 2016 [Mass/v tion in tion in 4:55 AM olume] source source in data data Serum or Plasma Calcium 7.6 8.5 - MG/DL Low No October 03 10.1 informa 2015 [Mass/v tion in 4:55 AM olume] source in data Serum or Plasma XR Chest 1 View Observa Value Referen Units Interpr Notes Date tion ce etation Range \\.br\\SI No No No No October 03 NGLE informa informa informa informa 2016 VIEW tion in tion in tion in tion in 4:44 AM CHEST\\. source source source source br\\\\.br data data data data \\The patient is status post coronar y artery bypass graftin g. The tubes and support jewell cathete rs appear in good positio n.\\.br\\ \\.br\\Th ere is mild bibasil ar atelect asis. The lungs are otherwi se clear. Cardiac silhoue tte appears stable. \\.br\\\\. br\\ IMPRESS ION: Mild bibasil ar atelect asis.\\. br\\\\.br \\ END OF REPORT* *\\.br\\\\ .br\\Tirso obed Martino M.D.\\.b r\\\\.br\\ Dictate d: 10/04/19 16 7:01 AM\\.br\\ \\.br\\Tr anscrib ed: 10/04/19 16 7:12 AM\\.br\\ \\.br\\ * Final Report \\.br \\\\.br\\D ictated : KAL MARTINO M.D. 016 7:01 am\\.br\\ \\.br\\Tr anscrib ed by: RN 016 7:13 am\\.br\\ \\.br\\Au thentic ated by: KAL MARTINO M.D. 016 9:13 am\\.br\\ \\.br\\ BLOOD GAS Observa Value Referen Units Interpr Notes Date tion ce etation Range vent: ac, vt 450, rr 20, 40%, peep 5 line pH of 7.383 7.350 - No No No October 03 Arteria 7.450 informa informa informa 2015 l blood tion in tion in tion in 4:10 AM source source source data data data Carbon 36.3 35.0 - mmHG No No October 03 dioxide 45.0 informa informa 2016 tion in tion in 4:10 AM [Partia source source l data data pressur e] in Arteria l blood Oxygen 80.2 85.0 - mmHG Low No October 03 [Partia 100.0 informa 2016 l tion in 4:10 AM pressur source e] in data Arteria l blood Oxygen 96.4 93.0 - % No No October 03 saturat 97.0 informa informa 2016 ion in tion in tion in 4:10 AM Arteria source source l blood data data Bicarbo 21.1 20.0 - mm/L No No October 03 caroline 26.0 informa informa 2016 [Moles/ tion in tion in 4:10 AM volume] source source in data data Arteria l blood Base -3.1 -2.0-2. mm/L Low No October 03 excess 0 informa 2016 in tion in 4:10 AM Arteria source l blood data GLUCOSE(REAGENT STRIP) Observa Value Referen Units Interpr Notes Date ce etation Range Glucose 169 70 - MG/DL High No October 03 110 Action 2016 [Mass/v 12:58 olume] AM in Blood GLUCOSE(REAGENT STRIP) Observa Value Referen Units Interpr Notes Date etation Range Glucose 155 70 - MG/DL High No October 02 110 Action 2015 [Mass/v 6:22 PM olume] in Blood GLUCOSE(REAGENT STRIP) Observa Value Referen Units Interpr Notes Date etation Range Glucose 131 70 - MG/DL High Insulin October 02 110 Drip 2015 [Mass/v Adj 2:10 PM olume] in Blood GLUCOSE(REAGENT STRIP) Observa Value Referen Units Interpr Notes Date ce etation Range Glucose 138 70 - MG/DL High No October 02 110 informa 2016 [Mass/v tion in 12:45 olume] source PM in data Blood GLUCOSE(REAGENT STRIP) Observa Value Referen Units Interpr Notes Date ce etation Range Glucose 115 70 - MG/DL High No October 02 110 Action 2016 [Mass/v 11:36 olume] AM in Blood GLUCOSE(REAGENT STRIP) Observa Value Referen Units Interpr Notes Date ce etation Range Glucose 115 70 - MG/DL High Insulin October 02 110 Drip 2016 [Mass/v Adj 10:28 olume] AM in Blood GLUCOSE(REAGENT STRIP) Observa Value Referen Units Interpr Notes Date ce etation Range Glucose 115 70 - MG/DL High Insulin October 02 110 Drip 2015 [Mass/v Adj 9:23 AM olume] in Blood GLUCOSE(REAGENT STRIP) Observa Value Referen Units Interpr Notes Date tion ce etation Range Glucose 120 70 - MG/DL High Insulin October 02 110 Drip 2015 [Mass/v Adj 8:13 AM olume] in Blood GLUCOSE(REAGENT STRIP) Observa Value Referen Units Interpr Notes Date tion ce etation Range Glucose 142 70 - MG/DL High No October 02 110 informa 2016 [Mass/v tion in 7:00 AM olume] source in data Blood GLUCOSE(REAGENT STRIP) Observa Value Referen Units Interpr Notes Date tion ce etation Range Glucose 131 70 - MG/DL High Insulin October 02 110 Drip 2016 [Mass/v Adj 6:18 AM olume] in Blood GLUCOSE(REAGENT STRIP) Observa Value Referen Units Interpr Notes Date tion ce etation Range Glucose 128 70 - MG/DL High Insulin October 02 110 Drip 2015 [Mass/v Adj 4:55 AM olume] in Blood BNP(B NATRIURETIC PEP) Observa Value Referen Units Interpr Notes Date tion ce etation Range Natriut 411.7 0.0 - pg/ml High No October 02 ietic 100.0 informa 2016 peptide tion in 4:53 AM B source [Mass/v data olume] in Serum or Plasma GLOMELULAR LIANNE. RATE,CALC. Observa Value Referen Units Interpr Notes Date tion ce etation Range Glomeru 99.0 60.0 - ml/min No Previou October 02 lar 200.0 informa s value 2015 filtrat tion in was 4:52 AM ion source 99.1, rate/1. data verifie 73 sq M d by SIMI at predict 05:25 ed on among non-ivanna 6.THE cks by eGFR IS Creatin AN ine-bas ESTIMAT ed ED formula GLOMELU (MDRD) LAR FILTRAT ION RATEBAS ED ON AN AVERAGE BODY SURFACE AREA OF 1.73M2. THIS CALCULA TION IS NOT ACCURAT E FOR PEDIATR IC PATIENT S,PATIE NTS >70 YEARS OF AGE,OR PATIENT S WITH EXTREME BODY SIZE.>6 0 ML/MIN/ 1.73M2 = NORMAL< 60 ML/MIN/ 1.73M2 = CHRONIC KIDNEY DISEASE <15 ML/MIN/ 1.73M2 = KIDNEY FAILURE AVERAGE EGFR FOLLOWS :AGE(YE ARS) AVERAGE EGFR20- 39 116 ML/MIN3 0-39 107 ML/MIN4 0-49 99 ML/MIN5 0-59 93 ML/MIN6 0-69 85 ML/MIN COMP. METABOLIC PANEL (CHEM 12) Observa Value Referen Units Interpr Notes Date tion ce etation Range Glucose 130 70 - MG/DL High No October 02 110 informa 2015 [Mass/v tion in 4:52 AM olume] source in data Serum or Plasma Urea 13 7 - 18 MG/DL No No October 02 nitroge informa informa 2016 n tion in tion in 4:52 AM [Mass/v source source olume] data data in Serum or Plasma Sodium 145 133 - mmol/L High No October 02 [Moles/ 144 informa 2016 volume] tion in 4:52 AM in source Serum data or Plasma Potassi 4.4 3.6 - mmol/l No No October 02 um 5.2 informa informa 2015 [Moles/ tion in tion in 4:52 AM volume] source source in data data Serum or Plasma Chlorid 115 98 - mmol/l High No October 02 e 107 informa 2015 [Moles/ tion in 4:52 AM volume] source in data Blood Carbon 25 21 - 32 mmol/L No No October 02 dioxide informa informa 2016 , total tion in tion in 4:52 AM source source [Moles/ data data volume] in Serum or Plasma Creatin 0.80 0.60 - MG/DL No No October 02 ine 1.30 informa informa 2015 [Mass/v tion in tion in 4:52 AM olume] source source in data data Serum or Plasma Protein 5.4 6.4 - G/DL Low No October 02 8.4 informa 2015 [Mass/v tion in 4:52 AM olume] source in data Serum or Plasma Albumin 2.7 3.4 - G/DL Low No October 02 5.0 informa 2015 [Mass/v tion in 4:52 AM olume] source in data Serum or Plasma Globuli 2.7 2.4 - G/DL No No October 02 n 4.8 informa informa 2016 [Mass/v tion in tion in 4:52 AM olume] source source in data data Plasma Albumin 1.0 0.6 - No No No October 02 /Globul 1.6 informa informa informa 2016 in tion in tion in tion in 4:52 AM [Mass source source source ratio] data data data in Serum or Plasma Calcium 7.4 8.5 - MG/DL Low No October 02 10.1 inform2015 [Mass/v tion in 4:52 AM olume] source in data Serum or Plasma Alkalin 44 45 - U/L Low No October 02 e 117 2015 phospha tion in 4:52 AM tase source [Enzyma data tic activit y/volum e] in Serum or Plasma Asparta 53 15 - 37 U/L High No October 02 te 2015 aminotr tion in 4:52 AM ansfera source se data [Enzyma tic activit y/volum e] in Serum or Plasma Alanine 59 12 - 78 U/L No No October 02 informa inform2015 aminotr tion in tion in 4:52 AM ansfera source source se data data [Enzyma tic activit y/volum e] in Serum or Plasma Bilirub 0.40 0.00 - MG/DL No No October 02 in.tota 1.00 informa inform2015 l tion in tion in 4:52 AM [Mass/v source source olume] data data in Serum or Plasma MAGNESIUM Observa Value Referen Units Interpr Notes Date tion ce etation Range Magnesi 2.4 1.7 - MG/DL No No October 02 um 2.4 informa 2015 [Mass/v tion in tion in 4:52 AM olume] source source in data data Serum or Plasma CBC\\T\\AUTO DIFF Observa Value Referen Units Interpr Notes Date tion ce etation Range Leukocy 15.1 3.5 - K/UL High No October 02 andressa 13.0 2015 [#/volu tion in 4:52 AM me] in source Blood data by Automat ed count Erythro 2.870 3.500 - M/ul Low No October 02 cytes 6.100 2015 [#/volu tion in 4:52 AM me] in source Blood data by Automat ed count Hemoglo 9.3 11.0 - gm/dl Low No October 02 bin 17.8 2015 [Mass/v tion in 4:52 AM olume] source in data Blood Hematoc 27.3 32.0 - % Low No October 02 rit 51.6 informa 2016 [Volume tion in 4:52 AM source Fractio data n] of Blood by Automat ed count Erythro 95.1 80.8 - fl No No October 02 cyte 101.2 informa informa 2016 mean tion in tion in 4:52 AM corpusc source source ular data data volume [Entiti c volume] by Automat ed count Erythro 32.3 27.6 - pg No No October 02 cyte 32.7 informa informa 2016 mean tion in tion in 4:52 AM corpusc source source ular data data hemoglo bin [Entiti c mass] by Automat ed count Erythro 34.0 32.6 - g/dl No No October 02 cyte 35.4 informa informa 2016 mean tion in tion in 4:52 AM corpusc source source ular data data hemoglo bin concent ration [Mass/v olume] by Automat ed count Erythro 14.5 10.1 - % No No October 02 cyte 16.5 informa informa 2016 distrib tion in tion in 4:52 AM ution source source width data data [Ratio] by Automat ed count Platele 273 134 - K/UL No No October 02 ts 412 informa informa 2016 [#/volu tion in tion in 4:52 AM me] in source source Blood data data by Automat ed count Platele 7.3 6.1 - fl No No October 02 t mean 10.1 informa informa 2016 volume tion in tion in 4:52 AM [Entiti source source c data data volume] in Blood by Automat ed count Neutrop 92.2 43.0 - % High No October 02 hils/10 83.0 informa 2016 0 tion in 4:52 AM leukocy source andressa in data Blood by Automat ed count Lymphoc 3.6 10.0 - % Low No October 02 ytes/10 42.0 informa 2016 0 tion in 4:52 AM leukocy source andressa in data Blood by Automat ed count Monocyt 4.2 1.0 - % No No October 02 es/100 14.0 informa informa 2016 leukocy tion in tion in 4:52 AM andressa in source source Blood data data by Automat ed count Eosinop 0.0 0.0 - % No No October 02 hils/10 9.0 informa informa 2016 0 tion in tion in 4:52 AM leukocy source source andressa in data data Blood by Automat ed count Basophi 0.0 0.0 - % No No October 02 ls/100 2.0 informa informa 2015 leukocy tion in tion in 4:52 AM andressa in source source Blood data data by Automat ed count Neutrop 13.9 2.7 - K/ul High No October 02 hils 6.9 informa 2015 [#/volu tion in 4:52 AM me] in source Blood data by Automat ed count Lymphoc 0.5 0.4 - K/ul No No October 02 ytes 3.9 informa informa 2015 [#/volu tion in tion in 4:52 AM me] in source source Blood data data by Automat ed count Monocyt 0.6 0.2 - K/ul No No October 02 es 0.6 informa informa 2015 [#/volu tion in tion in 4:52 AM me] in source source Blood data data by Automat ed count Eosinop 0.0 0.0 - K/ul No No October 02 hils 0.9 informa informa 2015 [#/volu tion in tion in 4:52 AM me] in source source Blood data data by Automat ed count Basophi 0.0 0.0 - K/ul No No October 02 ls 0.2 informa informa 2015 [#/volu tion in tion in 4:52 AM me] in source source Blood data data by Automat ed count XR Chest 1 View Observa Value Referen Units Interpr Notes Date tion ce etation Range \\.br\\SI No No No No October 02 NGLE informa informa informa informa 2015 VIEW tion in tion in tion in tion in 4:33 AM CHEST\\. source source source source br\\\\.br data data data data \\The patient is status post coronar y artery bypass graftin g. The tubes and support jewell cathete rs appear in good positio n. There is mild bibasil ar atelect asis. Lungs are otherwi se clear. The cardiac silhoue tte appears within normal limits. \\.br\\\\. br\\ IMPRESS ION: Mild bibasil ar atelect asis.\\. br\\\\.br \\ END OF REPORT* *\\.br\\\\ .br\\Tirso obed Martino M.D.\\.b r\\\\.br\\ Dictate d: 10/03/19 6:58 AM\\.br\\ \\.br\\Tr anscrib ed: 10/03/19 7:09 AM\\.br\\ \\.br\\ * Final Report \\.br \\\\.br\\D ictated : KAL MARTINO M.D. 6:58 am\\.br\\ \\.br\\Tr anscrib ed by: 7:10 am\\.br\\ \\.br\\Au thentic ated by: KAL MARTINO M.D. 9:22 am\\.br\\ \\.br\\ GLUCOSE(REAGENT STRIP) Observa Value Referen Units Interpr Notes Date tion ce etation Range Glucose 125 70 - MG/DL High Insulin October 02 110 Drip 2015 [Mass/v Adj 4:16 AM olume] in Blood BLOOD GAS Observa Value Referen Units Interpr Notes Date ti ce etation Range AC,450,20,60%,PEEP 10 pH of 7.393 7.350 - No No No October 02 Arteria 7.450 informa informa informa 2015 l blood tion in tion in tion in 3:47 AM source source source data data data Carbon 36.9 35.0 - mmHG No No October 02 dioxide 45.0 informa informa 2015 tion in tion in 3:47 AM [Partia source source l data data pressur e] in Arteria l blood Oxygen 124.0 85.0 - mmHG High No October 02 [Partia 100.0 informa 2015 l tion in 3:47 AM pressur source e] in data Arteria l blood Oxygen 98.9 93.0 - % High No October 02 saturat 97.0 informa 2015 ion in tion in 3:47 AM Arteria source l blood data Bicarbo 22.0 20.0 - mm/L No No October 02 caroline 26.0 informa informa 2015 [Moles/ tion in tion in 3:47 AM volume] source source in data data Arteria l blood Base -2.2 -2.0-2. mm/L Low No October 02 excess 0 informa 2016 in tion in 3:47 AM Arteria source l blood data GLUCOSE(REAGENT STRIP) Observa Value Referen Units Interpr Notes Date tion ce etation Range Glucose 125 70 - MG/DL High Insulin October 02 110 Drip 2015 [Mass/v Adj 3:24 AM olume] in Blood GLUCOSE(REAGENT STRIP) Observa Value Referen Units Interpr Notes Date tion ce etation Range Glucose 122 70 - MG/DL High Insulin October 02 110 Drip 2015 [Mass/v Adj 2:15 AM olume] in Blood POTASSIUM Observa Value Referen Units Interpr Notes Date tion ce etation Range Potassi 4.5 3.6 - mmol/l No No October 02 um 5.2 informa informa 2015 [Moles/ tion in tion in 2:10 AM volume] source source in data data Serum or Plasma CBC/NO DIFF+ PLATELET Observa Value Referen Units Interpr Notes Date tion ce etation Range Leukocy 12.9 3.5 - K/UL No No October 02 andressa 13.0 informa informa 2015 [#/volu tion in tion in 2:10 AM me] in source source Blood data data by Automat ed count Erythro 2.970 3.500 - M/ul Low No October 02 cytes 6.100 informa 2015 [#/volu tion in 2:10 AM me] in source Blood data by Automat ed count Hemoglo 9.5 11.0 - gm/dl Low No October 02 bin 17.8 informa 2015 [Mass/v tion in 2:10 AM olume] source in data Blood Hematoc 28.4 32.0 - % Low No October 02 rit 51.6 informa 2016 [Volume tion in 2:10 AM source Fractio data n] of Blood by Automat ed count Erythro 95.5 80.8 - fl No No October 02 cyte 101.2 informa informa 2016 mean tion in tion in 2:10 AM corpusc source source ular data data volume [Entiti c volume] by Automat ed count Erythro 31.9 27.6 - pg No No October 02 cyte 32.7 informa informa 2016 mean tion in tion in 2:10 AM corpusc source source ular data data hemoglo bin [Entiti c mass] by Automat ed count Erythro 33.3 32.6 - g/dl No No October 02 cyte 35.4 informa informa 2016 mean tion in tion in 2:10 AM corpusc source source ular data data hemoglo bin concent ration [Mass/v olume] by Automat ed count Erythro 14.5 10.1 - % No No October 02 cyte 16.5 informa informa 2016 distrib tion in tion in 2:10 AM ution source source width data data [Ratio] by Automat ed count Platele 281 134 - K/UL No No October 02 ts 412 informa informa 2016 [#/volu tion in tion in 2:10 AM me] in source source Blood data data by Automat ed count Platele 7.5 6.1 - fl No No October 02 t mean 10.1 informa informa 2016 volume tion in tion in 2:10 AM [Entiti source source c data data volume] in Blood by Automat ed count GLUCOSE(REAGENT STRIP) Observa Value Referen Units Interpr Notes Date tion ce etation Range Glucose 126 70 - MG/DL High Insulin October 02 Drip 2015 [Mass/v Adj 1:14 AM olume] in Blood GLUCOSE(REAGENT STRIP) Observa Value Referen Units Interpr Notes Date tion ce etation Range Glucose 124 70 - MG/DL High Insulin October 02 110 Drip 2016 [Mass/v Adj 12:09 olume] AM in Blood GLUCOSE(REAGENT STRIP) Observa Value Referen Units Interpr Notes Date tion ce etation Range Glucose 121 70 - MG/DL High No October 01 110 informa 2015 [Mass/v tion in 11:08 olume] source PM in data Blood GLUCOSE(REAGENT STRIP) Observa Value Referen Units Interpr Notes Date tion ce etation Range Glucose 125 70 - MG/DL High No October 01 110 informa 2015 [Mass/v tion in 10:12 olume] source PM in data Blood GLUCOSE(REAGENT STRIP) Observa Value Referen Units Interpr Notes Date tion ce etation Range Glucose 124 70 - MG/DL High Insulin October 01 110 Drip 2016 [Mass/v Adj 9:17 PM olume] in Blood GLUCOSE(REAGENT STRIP) Observa Value Referen Units Interpr Notes Date tion ce etation Range Glucose 126 70 - MG/DL High No October 01 110 informa 2015 [Mass/v tion in 8:10 PM olume] source in data Blood POTASSIUM Observa Value Referen Units Interpr Notes Date tion ce etation Range Potassi 4.2 3.6 - mmol/l No October 01 um 5.2 informa informa 2015 [Moles/ tion in tion in 8:00 PM volume] source source in data data Serum or Plasma CBC/NO DIFF+ PLATELET Observa Value Referen Units Interpr Notes Date tion ce etation Range Leukocy 17.1 3.5 - K/UL High No October 01 andressa 13.0 informa 2015 [#/volu tion in 8:00 PM me] in source Blood data by Automat ed count Erythro 3.130 3.500 - M/ul Low No October 01 cytes 6.100 informa 2015 [#/volu tion in 8:00 PM me] in source Blood data by Automat ed count Hemoglo 10.0 11.0 - gm/dl Low No October 01 bin 17.8 informa 2016 [Mass/v tion in 8:00 PM olume] source in data Blood Hematoc 29.8 32.0 - % Low No October 01 rit 51.6 informa 2015 [Volume tion in 8:00 PM source Fractio data n] of Blood by Automat ed count Erythro 95.2 80.8 - fl No October 01 cyte 101.2 informa informa 2016 mean tion in tion in 8:00 PM corpusc source source ular data data volume [Entiti c volume] by Automat ed count Erythro 31.9 27.6 - pg No No October 01 cyte 32.7 informa informa 2016 mean tion in tion in 8:00 PM corpusc source source ular data data hemoglo bin [Entiti c mass] by Automat ed count Erythro 33.5 32.6 - g/dl No No October 01 cyte 35.4 informa informa 2016 mean tion in tion in 8:00 PM corpusc source source ular data data hemoglo bin concent ration [Mass/v olume] by Automat ed count Erythro 14.5 10.1 - % No No October 01 cyte 16.5 informa informa 2016 distrib tion in tion in 8:00 PM ution source source width data data [Ratio] by Automat ed count Platele 318 134 - K/UL No No October 01 ts 412 informa informa 2016 [#/volu tion in tion in 8:00 PM me] in source source Blood data data by Automat ed count Platele 7.6 6.1 - fl No No October 01 t mean 10.1 informa informa 2016 volume tion in tion in 8:00 PM [Entiti source source c data data volume] in Blood by Automat ed count GLUCOSE(REAGENT STRIP) Observa Value Referen Units Interpr Notes Date tion ce etation Range Glucose 119 70 - MG/DL High No October 01 110 inform2015 [Mass/v tion in 7:32 PM olume] source in data Blood GLUCOSE(REAGENT STRIP) Observa Value Referen Units Interpr Notes Date tion ce etation Range Glucose 120 70 - MG/DL High Insulin October 01 110 Drip 2015 [Mass/v Adj 6:29 PM olume] in Blood GLUCOSE(REAGENT STRIP) Observa Value Referen Units Interpr Notes Date tion ce etation Range Glucose 122 70 - MG/DL High Insulin October 01 110 Drip 2015 [Mass/v Adj 5:26 PM olume] in Blood BLOOD GAS Observa Value Referen Units Interpr Notes Date ti ce etation Range pt on vent ac vt450, r20, fio2 100%, p10. jermain draw pH of 7.369 7.350 - No No No October 01 Arteria 7.450 informa informa informa 2016 l blood tion in tion in tion in 5:25 PM source source source data data data Carbon 41.3 35.0 - mmHG No October 01 dioxide 45.0 informa informa 2016 tion in tion in 5:25 PM [Partia source source l data data pressur e] in Arteria l blood Oxygen 93.0 85.0 - mmHG No No October 01 [Partia 100.0 informa informa 2016 l tion in tion in 5:25 PM pressur source source e] in data data Arteria l blood Oxygen 97.0 93.0 - % No No October 01 saturat 97.0 informa informa 2016 ion in tion in tion in 5:25 PM Arteria source source l blood data data Bicarbo 23.2 20.0 - mm/L No No October 01 caroline 26.0 informa informa 2015 [Moles/ tion in tion in 5:25 PM volume] source source in data data Arteria l blood Base -1.3 -2.0-2. mm/L No No October 01 excess 0 informa informa 2016 in tion in tion in 5:25 PM Arteria source source l blood data data GLUCOSE(REAGENT STRIP) Observa Value Referen Units Interpr Notes Date ce etation Range Glucose 130 70 - MG/DL High Insulin October 01 110 Drip 2015 [Mass/v Adj 4:22 PM olume] in Blood GLUCOSE(REAGENT STRIP) Observa Value Referen Units Interpr Notes Date ce etation Range Glucose 119 70 - MG/DL High Insulin October 01 110 Drip 2015 [Mass/v Adj 3:34 PM olume] in Blood BLOOD GAS Observa Value Referen Units Interpr Notes Date ce etation Range pt on vent simv, vt600, r12, fio2 80%, ps10, p5. jermain draw pH of 7.344 7.350 - No Low No October 01 Arteria 7.450 informa informa 2015 l blood tion in tion in 3:08 PM source source data data Carbon 43.8 35.0 - mmHG No No October 01 dioxide 45.0 informa informa 2016 tion in tion in 3:08 PM [Partia source source l data data pressur e] in Arteria l blood Oxygen 70.2 85.0 - mmHG Low No October 01 [Partia 100.0 informa 2016 l tion in 3:08 PM pressur source e] in data Arteria l blood Oxygen 93.3 93.0 - % No No October 01 saturat 97.0 informa informa 2016 ion in tion in tion in 3:08 PM Arteria source source l blood data data Bicarbo 23.2 20.0 - mm/L No No October 01 caroline 26.0 informa informa 2016 [Moles/ tion in tion in 3:08 PM volume] source source in data data Arteria l blood Base -1.7 -2.0-2. mm/L No No October 01 excess 0 informa informa 2016 in tion in tion in 3:08 PM Arteria source source l blood data data GLUCOSE(REAGENT STRIP) Observa Value Referen Units Interpr Notes ti ce etation Range Glucose 81 70 - MG/DL No Insulin October 01 110 informa Drip 2016 [Mass/v tion in Adj 2:27 PM olume] source in data Blood GLOMELULAR LIANNE. RATE,CALC. Observa Value Referen Units Interpr Notes Date ti ce etation Range Glomeru 115.5 60.0 - ml/min No Previou October 01 lar 200.0 informa s value 2016 filtrat tion in was 2:26 PM ion source 115.6, rate/1. data verifie 73 sq M d by JPB at predict 15:06 ed on among non-ivanna 6.THE cks by eGFR IS Creatin AN ine-bas ESTIMAT ed ED formula GLOMELU (MDRD) LAR FILTRAT ION RATEBAS ED ON AN AVERAGE BODY SURFACE AREA OF 1.73M2. THIS CALCULA TION IS NOT ACCURAT E FOR PEDIATR IC PATIENT S,PATIE NTS >70 YEARS OF AGE,OR PATIENT S WITH EXTREME BODY SIZE.>6 0 ML/MIN/ 1.73M2 = NORMAL< 60 ML/MIN/ 1.73M2 = CHRONIC KIDNEY DISEASE <15 ML/MIN/ 1.73M2 = KIDNEY FAILURE AVERAGE EGFR FOLLOWS :AGE(YE ARS) AVERAGE EGFR20- 39 116 ML/MIN3 0-39 107 ML/MIN4 0-49 99 ML/MIN5 0-59 93 ML/MIN6 0-69 85 ML/MIN TROPONIN I, ULTRA Observa Value Referen Units Interpr Notes Date ti ce etation Range Troponi 6.410 0.000 - ng/mL High * October 01 n 0.045 Elevati 2016 I.cardi on of 2:26 PM ac Troponi [Mass/v n I can olume] be in caused Serum by a or multitu Plasma de by ofserio Detecti us on illness limit = es. 0.01 Myocard ng/mL ial Infarct ion is a diagnos is that require s meeting two out of three criteri a as defined by the World HealthO rganiza tion. MAGNESIUM Observa Value Referen Units Interpr Notes Date ti ce etation Range Magnesi 2.9 1.7 - MG/DL High No October 01 um 2.4 informa 2015 [Mass/v tion in 2:26 PM olume] source in data Serum or Plasma COMP. METABOLIC PANEL (CHEM 12) Observa Value Referen Units Interpr Notes Date tion ce etation Range Glucose 81 70 - MG/DL No No October 01 110 informa informa 2015 [Mass/v tion in tion in 2:26 PM olume] source source in data data Serum or Plasma Urea 17 7 - 18 MG/DL No No October 01 nitroge informa informa 2015 n tion in tion in 2:26 PM [Mass/v source source olume] data data in Serum or Plasma Sodium 148 133 - mmol/L High No October 01 [Moles/ 144 inform2015 volume] tion in 2:26 PM in source Serum data or Plasma Potassi 3.9 3.6 - mmol/l No No October 01 um 5.2 informa informa 2015 [Moles/ tion in tion in 2:26 PM volume] source source in data data Serum or Plasma Chlorid 115 98 - mmol/l High No October 01 e 107 informa 2015 [Moles/ tion in 2:26 PM volume] source in data Blood Carbon 27 21 - 32 mmol/L No No October 01 dioxide informa informa 2015 , total tion in tion in 2:26 PM source source [Moles/ data data volume] in Serum or Plasma Creatin 0.70 0.60 - MG/DL No No October 01 ine 1.30 informa informa 2015 [Mass/v tion in tion in 2:26 PM olume] source source in data data Serum or Plasma Protein 5.2 6.4 - G/DL Low No October 01 8.4 informa 2015 [Mass/v tion in 2:26 PM olume] source in data Serum or Plasma Albumin 2.8 3.4 - G/DL Low No October 01 5.0 informa 2015 [Mass/v tion in 2:26 PM olume] source in data Serum or Plasma Globuli 2.4 2.4 - G/DL No No October 01 n 4.8 informa informa 2015 [Mass/v tion in tion in 2:26 PM olume] source source in data data Plasma Albumin 1.2 0.6 - No No No October 01 /Globul 1.6 informa informa informa 2016 in tion in tion in tion in 2:26 PM [Mass source source source ratio] data data data in Serum or Plasma Calcium 7.7 8.5 - MG/DL Low No October 01 10.1 inform2015 [Mass/v tion in 2:26 PM olume] source in data Serum or Plasma Alkalin 54 45 - U/L No No October 01 e 117 informa inform2015 phospha tion in tion in 2:26 PM tase source source [Enzyma data data tic activit y/volum e] in Serum or Plasma Asparta 73 15 - 37 U/L High No October 01 te 2015 aminotr tion in 2:26 PM ansfera source se data [Enzyma tic activit y/volum e] in Serum or Plasma Alanine 69 12 - 78 U/L No No October 01 informa informa 2015 aminotr tion in tion in 2:26 PM ansfera source source se data data [Enzyma tic activit y/volum e] in Serum or Plasma Bilirub 0.80 0.00 - MG/DL No No October 01 in.tota 1.00 informa inform2015 l tion in tion in 2:26 PM [Mass/v source source olume] data data in Serum or Plasma PROTIME\\T\\INR Observa Value Referen Units Interpr Notes Date tion ce etation Range Prothro 10.9 9.3 - SEC No No October 01 mbin 11.9 informa inform2015 time tion in tion in 2:26 PM (PT) source source actual/ data data normal in Platele t poor plasma by Coagula tion assay INR in 1.03 0.88 - No No THE INR October 01 Platele 1.12 informa informa SHOULD 2016 t poor tion in tion in ONLY 2:26 PM plasma source source BE USED by data data IN Coagula STABLE tion ANTICOA assay GULATED PATIENT S:RECOM MENDED THERAPE UTIC RANGES: CONDITI ON: INRPREV ENTION OR TREATME NT OF DVT.... ....... ....... ..2.0-3 .0ACUTE MIPREVE NTION OF STROKE. ....... ....... ....... ......2 .0-3.0P REVENTI ON OF RECURRE NT [place]..... ....... ....... ...2.5- 3.5ATRI AL FIBRILL ATIONPR EVENTIO N OF SYSTEMI C EMBOLIS M...... ....... ....2.0 -3.0CAR DIAC VALVE REPLACE MENT (MECHAN ICAL VALVES) .....2. 5-3.5 APTT Observa Value Referen Units Interpr Notes Date tion ce etation Range Activat 25 23 - 32 SEC No * THE October 01 ed informa APTT 2016 partial tion in THERAPU 2:26 PM source TIC thrombp data RANGE lastin CORRESP time ONDS TO (aPTT) in HEPARIN Blood LEVELS by Coagula OFAPPRO tion XIMATEL assay Y 0.3 TO 0.7 u/ml.* HEPARIN THERAPU TIC RANGE = 49 - 65 seconds .* IF A PATIENT IS RECEIVI NG ARGATRO BAN THERAPY , DO NOT TITRATE ARGATRO BAN DRIP PER HEPARIN PROTOCO L. FIBRINOGEN Observa Value Referen Units Interpr Notes Date tion ce etation Range Fibrino 213 142 - MG/DL No No October 01 gen 514 informa informa 2015 [Mass/v tion in tion in 2:26 PM olume] source source in data data Platele t poor plasma by Coagula tion assay CBC/NO DIFF+ PLATELET Observa Value Referen Units Interpr Notes Date tion ce etation Range Leukocy 19.3 3.5 - K/UL High No October 01 andressa 13.0 informa 2015 [#/volu tion in 2:26 PM me] in source Blood data by Automat ed count Erythro 3.290 3.500 - M/ul Low No October 01 cytes 6.100 informa 2015 [#/volu tion in 2:26 PM me] in source Blood data by Automat ed count Hemoglo 10.5 11.0 - gm/dl Low No October 01 bin 17.8 informa 2015 [Mass/v tion in 2:26 PM olume] source in data Blood Hematoc 31.4 32.0 - % Low No October 01 rit 51.6 informa 2015 [Volume tion in 2:26 PM source Fractio data n] of Blood by Automat ed count Erythro 95.2 80.8 - fl No No October 01 cyte 101.2 informa informa 2015 mean tion in tion in 2:26 PM corpusc source source ular data data volume [Entiti c volume] by Automat ed count Erythro 32.0 27.6 - pg No No October 01 cyte 32.7 informa informa 2015 mean tion in tion in 2:26 PM corpusc source source ular data data hemoglo bin [Entiti c mass] by Automat ed count Erythro 33.6 32.6 - g/dl No No October 01 cyte 35.4 informa informa 2015 mean tion in tion in 2:26 PM corpusc source source ular data data hemoglo bin concent ration [Mass/v olume] by Automat ed count Erythro 14.2 10.1 - % No No October 01 cyte 16.5 informa informa 2016 distrib tion in tion in 2:26 PM ution source source width data data [Ratio] by Automat ed count Platele 357 134 - K/UL No No October 01 ts 412 inform informa 2015 [#/volu tion in tion in 2:26 PM me] in source source Blood data data by Automat ed count Platele 7.1 6.1 - fl No No October 01 t mean 10.1 informa informa 2016 volume tion in tion in 2:26 PM [Entiti source source c data data volume] in Blood by Automat ed count BLOOD GAS Observa Value Referen Units Interpr Notes Date tion ce etation Range pt on vent simv, vt600, r12, fio2 100%, p5, ps10. jermain draw pH of 7.346 7.350 - No Low No October 01 Arteria 7.450 informa informa 2016 l blood tion in tion in 2:26 PM source source data data Carbon 43.2 35.0 - mmHG No October 01 dioxide 45.0 informa informa 2016 tion in tion in 2:26 PM [Partia source source l data data pressur e] in Arteria l blood Oxygen 118.0 85.0 - mmHG High No October 01 [Partia 100.0 inform2015 l tion in 2:26 PM pressur source e] in data Arteria l blood Oxygen 98.1 93.0 - % High No October 01 saturat 97.0 2015 ion in tion in 2:26 PM Arteria source l blood data Bicarbo 23.0 20.0 - mm/L No No October 01 caroline 26.0 informa informa 2015 [Moles/ tion in tion in 2:26 PM volume] source source in data data Arteria l blood Base -1.8 -2.0-2. mm/L No No October 01 excess 0 informa informa 2015 in tion in tion in 2:26 PM Arteria source source l blood data data XR Chest 1 View Observa Value Referen Units Interpr Notes Date tion ce etation Range \\.br\\PO No No No No October 01 RTABLE informa informa informa informa 2015 CHEST, tion in tion in tion in tion in 2:22 PM 10-02-19 source source source source 16\\.br\\ data data data data \\.br\\CO MPARISO N: 10-02-19 16\\.br\\ \\.br\\Th ere is interva l postope rative change of median sternot hoa. There has been interva l placeme nt of endotra cheal tube, [place] n[place] cathete r, and mediast inal/ch est tube drains. There are atelect atic changes at the lung bases, left greater than right. There is probabl e small left pleural effusio n. There is a possibl e, tiny left apical pneumot horax. Cardiac size is within normal limits. Visuali zed bony structu res are intact. \\.br\\\\. br\\ IMPRESS ION:\\.b r\\\\.br\\ 1. Interva l median sternot hoa with small left pleural effusio n and bibasil ar regions of atelect atic change, left greater than right.\\ .br\\\\.b r\\2. Possibl e tiny left apical pneumot horax. Follow up advised .\\.br\\\\ .br\\ END OF REPORT* *\\.br\\\\ .br\\Gar eder Argueta M.D.\\.b r\\\\.br\\ Dictate d: 10/02/19 16 2:42 PM\\.br\\ \\.br\\Tr anscrib ed: 10/02/19 16 2:45 PM\\.br\\ \\.br\\ * Final Report \\.br \\\\.br\\D ictated : Nadeem Argueta M.D. 016 2:42 pm\\.br\\ \\.br\\Tr anscrib ed by: RN 016 2:47 pm\\.br\\ \\.br\\Au thentic ated by: Nadeem Argueta M.D. 016 2:59 pm\\.br\\ \\.br\\ CG8 (CHEMISTRY GROUP) Observa Value Referen Units Interpr Notes Date tion ce etation Range Sodium 143 138 - mmol/L No No October 01 [Moles/ 146 informa informa 2015 volume] tion in tion in 12:38 in source source PM Serum data data or Plasma Potassi 4.4 3.5 - mmol/L No No October 01 um 4.9 informa informa 2015 [Moles/ tion in tion in 12:38 volume] source source PM in data data Serum or Plasma Lactate 1.23 1.12 - mmol/L No No October 01 1.32 informa informa 2015 [Mass/v tion in tion in 12:38 olume] source source PM in data data Blood Glucose 133 70 - MG/DL High No October 01 105 informa 2015 [Mass/v tion in 12:38 olume] source PM in data Serum or Plasma pH of 7.23 7.35 - No Low No October 01 Arteria 7.45 informa informa 2015 l blood tion in tion in 12:38 source source PM data data Carbon 54 35 - 45 mmHg High No October 01 dioxide informa 2015 tion in 12:38 [Partia source PM l data pressur e] in Arteria l blood Oxygen 172 80 - mmHg High No October 01 [Partia 105 informa 2015 l tion in 12:38 pressur source PM e] in data Arteria l blood I-TCO2 24 23 - 27 mmol/L No No October 01 informa informa 2016 tion in tion in 12:38 source source PM data data Bicarbo 22 22 - 26 mmol/L No No October 01 caroline informa informa 2015 [Moles/ tion in tion in 12:38 volume] source source PM in data data Arteria l blood Base -5 -2-3 mmol/L Low No October 01 excess informa 2016 in tion in 12:38 Arteria source PM l blood data Oxygen 99 95 - 98 % High No October 01 saturat informa 2016 ion in tion in 12:38 Arteria source PM l blood data Hematoc 24 38 - 51 % Low No October 01 rit alert informa 2015 [Volume tion in 12:38 source PM Fractio data n] of Blood by Automat ed count Hemoglo 8.2 12.0 - gm/dl Low No October 01 bin 17.0 informa 2015 [Mass/v tion in 12:38 olume] source PM in data Blood ARTERIA ARTERIA No No No No October 01 L BLOOD L BLOOD informa informa informa informa 2016 tion in tion in tion in tion in 12:38 source source source source PM data data data data CG8 (CHEMISTRY GROUP) Observa Value Referen Units Interpr Notes Date tion ce etation Range Sodium 138 138 - mmol/L No No October 01 [Moles/ 146 informa informa 2016 volume] tion in tion in 11:53 in source source AM Serum data data or Plasma Potassi 5.1 3.5 - mmol/L High No October 01 um 4.9 informa 2015 [Moles/ tion in 11:53 volume] source AM in data Serum or Plasma Lactate 0.91 1.12 - mmol/L Low No October 01 1.32 informa 2015 [Mass/v tion in 11:53 olume] source AM in data Blood Glucose 192 70 - MG/DL High No October 01 105 informa 2015 [Mass/v tion in 11:53 olume] source AM in data Serum or Plasma pH of 7.33 7.35 - No Low No October 01 Arteria 7.45 informa informa 2016 l blood tion in tion in 11:53 source source AM data data Carbon 41 35 - 45 mmHg No No October 01 dioxide informa informa 2016 tion in tion in 11:53 [Partia source source AM l data data pressur e] in Arteria l blood Oxygen 194 80 - mmHg High No October 01 [Partia 105 informa 2015 l tion in 11:53 pressur source AM e] in data Arteria l blood I-TCO2 23 23 - 27 mmol/L No No October 01 informa informa 2016 tion in tion in 11:53 source source AM data data Bicarbo 22 22 - 26 mmol/L No No October 01 caroline informa informa 2015 [Moles/ tion in tion in 11:53 volume] source source AM in data data Arteria l blood Base -4 -2-3 mmol/L Low No October 01 excess informa 2016 in tion in 11:53 Arteria source AM l blood data Oxygen 100 95 - 98 % High No October 01 saturat inform 2016 ion in tion in 11:53 Arteria source AM l blood data Hematoc 26 38 - 51 % Low No October 01 rit informa 2015 [Volume tion in 11:53 source AM Fractio data n] of Blood by Automat ed count Hemoglo 8.8 12.0 - gm/dl Low No October 01 bin 17.0 informa 2015 [Mass/v tion in 11:53 olume] source AM in data Blood ARTERIA ARTERIA No No No No October 01 L BLOOD L BLOOD informa informa informa informa 2016 tion in tion in tion in tion in 11:53 source source source source AM data data data data CG8 (CHEMISTRY GROUP) Observa Value Referen Units Interpr Notes Date tion ce etation Range Sodium 137 138 - mmol/L Low No October 01 [Moles/ 146 informa 2015 volume] tion in 11:20 in source AM Serum data or Plasma Potassi 5.1 3.5 - mmol/L High No October 01 um 4.9 informa 2015 [Moles/ tion in 11:20 volume] source AM in data Serum or Plasma Lactate 0.96 1.12 - mmol/L Low No October 01 1.32 informa 2015 [Mass/v tion in 11:20 olume] source AM in data Blood Glucose 176 70 - MG/DL High No October 01 105 informa 2015 [Mass/v tion in 11:20 olume] source AM in data Serum or Plasma pH of 7.37 7.35 - No No No October 01 Arteria 7.45 informa informa informa 2016 l blood tion in tion in tion in 11:20 source source source AM data data data Carbon 42 35 - 45 mmHg No No October 01 dioxide informa informa 2016 tion in tion in 11:20 [Partia source source AM l data data pressur e] in Arteria l blood Oxygen 309 80 - mmHg High No October 01 [Partia 105 informa 2016 l tion in 11:20 pressur source AM e] in data Arteria l blood I-TCO2 25 23 - 27 mmol/L No No October 01 informa informa 2016 tion in tion in 11:20 source source AM data data Bicarbo 24 22 - 26 mmol/L No No October 01 caroline informa informa 2016 [Moles/ tion in tion in 11:20 volume] source source AM in data data Arteria l blood Base -1 -2-3 mmol/L No No October 01 excess informa informa 2016 in tion in tion in 11:20 Arteria source source AM l blood data data Oxygen 100 95 - 98 % High No October 01 saturat informa 2016 ion in tion in 11:20 Arteria source AM l blood data Hematoc 26 38 - 51 % Low No October 01 rit informa 2015 [Volume tion in 11:20 source AM Fractio data n] of Blood by Automat ed count Hemoglo 8.8 12.0 - gm/dl Low No October 01 bin 17.0 informa 2015 [Mass/v tion in 11:20 olume] source AM in data Blood ARTERIA ARTERIA No No No No October 01 L BLOOD L BLOOD informa informa informa informa 2016 tion in tion in tion in tion in 11:20 source source source source AM data data data data CG8 (CHEMISTRY GROUP) Observa Value Referen Units Interpr Notes Date tion ce etation Range Sodium 136 138 - mmol/L Low No October 01 [Moles/ 146 informa 2016 volume] tion in 10:48 in source AM Serum data or Plasma Potassi 5.1 3.5 - mmol/L High No October 01 um 4.9 informa 2015 [Moles/ tion in 10:48 volume] source AM in data Serum or Plasma Lactate 0.88 1.12 - mmol/L Low No October 01 1.32 informa 2016 [Mass/v tion in 10:48 olume] source AM in data Blood Glucose 125 70 - MG/DL High No October 01 105 informa 2016 [Mass/v tion in 10:48 olume] source AM in data Serum or Plasma pH of 7.40 7.35 - No No No October 01 Arteria 7.45 informa informa informa 2016 l blood tion in tion in tion in 10:48 source source source AM data data data Carbon 39 35 - 45 mmHg No No October 01 dioxide informa informa 2016 tion in tion in 10:48 [Partia source source AM l data data pressur e] in Arteria l blood Oxygen 340 80 - mmHg High No October 01 [Partia 105 informa 2016 l tion in 10:48 pressur source AM e] in data Arteria l blood I-TCO2 25 23 - 27 mmol/L No No October 01 informa informa 2016 tion in tion in 10:48 source source AM data data Bicarbo 24 22 - 26 mmol/L No No October 01 caroline informa informa 2016 [Moles/ tion in tion in 10:48 volume] source source AM in data data Arteria l blood Base -1 -2-3 mmol/L No No October 01 excess informa informa 2016 in tion in tion in 10:48 Arteria source source AM l blood data data Oxygen 100 95 - 98 % High No October 01 saturat informa 2016 ion in tion in 10:48 Arteria source AM l blood data Hematoc 23 38 - 51 % Low No October 01 rit alert informa 2016 [Volume tion in 10:48 source AM Fractio data n] of Blood by Automat ed count Hemoglo 7.8 12.0 - gm/dl Low No October 01 bin 17.0 informa 2016 [Mass/v tion in 10:48 olume] source AM in data Blood ARTERIA ARTERIA No No No No October 01 L BLOOD L BLOOD informa informa informa informa 2016 tion in tion in tion in tion in 10:48 source source source source AM data data data data CG8 (CHEMISTRY GROUP) Observa Value Referen Units Interpr Notes Date tion ce etation Range Sodium 139 138 - mmol/L No No October 01 [Moles/ 146 informa informa 2016 volume] tion in tion in 10:13 in source source AM Serum data data or Plasma Potassi 3.9 3.5 - mmol/L No No October 01 um 4.9 informa informa 2016 [Moles/ tion in tion in 10:13 volume] source source AM in data data Serum or Plasma Lactate 1.06 1.12 - mmol/L Low No October 01 1.32 informa 2016 [Mass/v tion in 10:13 olume] source AM in data Blood Glucose 125 70 - MG/DL High No October 01 105 informa 2016 [Mass/v tion in 10:13 olume] source AM in data Serum or Plasma pH of 7.29 7.35 - No Low No October 01 Arteria 7.45 informa informa 2016 l blood tion in tion in 10:13 source source AM data data Carbon 44 35 - 45 mmHg No No October 01 dioxide informa informa 2016 tion in tion in 10:13 [Partia source source AM l data data pressur e] in Arteria l blood Oxygen 193 80 - mmHg High No October 01 [Partia 105 informa 2016 l tion in 10:13 pressur source AM e] in data Arteria l blood I-TCO2 23 23 - 27 mmol/L No No October 01 informa informa 2016 tion in tion in 10:13 source source AM data data Bicarbo 21 22 - 26 mmol/L Low No October 01 caroline informa 2016 [Moles/ tion in 10:13 volume] source AM in data Arteria l blood Base -5 -2-3 mmol/L Low No October 01 excess informa 2016 in tion in 10:13 Arteria source AM l blood data Oxygen 100 95 - 98 % High No October 01 saturat informa 2016 ion in tion in 10:13 Arteria source AM l blood data Hematoc 31 38 - 51 % Low No October 01 rit informa 2016 [Volume tion in 10:13 source AM Fractio data n] of Blood by Automat ed count Hemoglo 10.5 12.0 - gm/dl Low No October 01 bin 17.0 informa 2016 [Mass/v tion in 10:13 olume] source AM in data Blood ARTERIA ARTERIA No No No No October 01 L BLOOD L BLOOD informa informa informa informa 2016 tion in tion in tion in tion in 10:13 source source source source AM data data data data PLATELET FUNCTION [id number] Observa Value Referen Units Interpr Notes Date tion ce etation Range Platele 60 194 - PRU Low No October 01 t 418 informa 2016 aggrega tion in 8:52 AM tion source ADP data induced [Units/ volume] in Blood CG8 (CHEMISTRY GROUP) Observa Value Referen Units Interpr Notes Date ti ce etation Range Sodium 141 138 - mmol/L No No October 01 [Moles/ 146 informa informa 2016 volume] tion in tion in 8:40 AM in source source Serum data data or Plasma Potassi 4.0 3.5 - mmol/L No No October 01 um 4.9 informa informa 2015 [Moles/ tion in tion in 8:40 AM volume] source source in data data Serum or Plasma Lactate 1.13 1.12 - mmol/L No No October 01 1.32 informa informa 2016 [Mass/v tion in tion in 8:40 AM olume] source source in data data Blood Glucose 112 70 - MG/DL High No October 01 105 informa 2016 [Mass/v tion in 8:40 AM olume] source in data Serum or Plasma pH of 7.31 7.35 - No Low No October 01 Arteria 7.45 informa informa 2016 l blood tion in tion in 8:40 AM source source data data Carbon 48 35 - 45 mmHg High No October 01 dioxide informa 2016 tion in 8:40 AM [Partia source l data pressur e] in Arteria l blood Oxygen 333 80 - mmHg High No October 01 [Partia 105 informa 2016 l tion in 8:40 AM pressur source e] in data Arteria l blood I-TCO2 25 23 - 27 mmol/L No No October 01 informa informa 2016 tion in tion in 8:40 AM source source data data Bicarbo 24 22 - 26 mmol/L No No October 01 caroline informa informa 2016 [Moles/ tion in tion in 8:40 AM volume] source source in data data Arteria l blood Base -2 -2-3 mmol/L No No October 01 excess informa informa 2016 in tion in tion in 8:40 AM Arteria source source l blood data data Oxygen 100 95 - 98 % High No October 01 saturat informa 2016 ion in tion in 8:40 AM Arteria source l blood data Hematoc 34 38 - 51 % Low No October 01 rit informa 2016 [Volume tion in 8:40 AM source Fractio data n] of Blood by Automat ed count Hemoglo 11.6 12.0 - gm/dl Low No October 01 bin 17.0 informa 2016 [Mass/v tion in 8:40 AM olume] source in data Blood ARTERIA ARTERIA No No No No October 01 L BLOOD L BLOOD informa informa informa informa 2016 tion in tion in tion in tion in 8:40 AM source source source source data data data data URINALYSIS COMPLETE Observa Value Referen Units Interpr Notes Date tion ce etation Range Color YELLOW No No No No October 01 of informa informa informa informa 2016 Urine tion in tion in tion in tion in 7:30 AM source source source source data data data data Clarity CLEAR No No No No October 01 of informa informa informa informa 2016 Urine tion in tion in tion in tion in 7:30 AM source source source source data data data data Glucose NEGATIV NEGATIV MG/DL No No October 01 E E informa informa 2015 [Presen tion in tion in 7:30 AM ce] in source source Urine data data by Automat ed test strip Bilirub NEGATIV NEGATIV No No No October 01 in E E informa informa informa 2015 [Presen tion in tion in tion in 7:30 AM ce] in source source source Urine data data data by Automat ed test strip Ketones NEGATIV NEGATIV MG/DL No No October 01 E E informa informa 2015 [Presen tion in tion in 7:30 AM ce] in source source Urine data data by Automat ed test strip Specifi 1.068 1.006 - No High No October 01 c 1.035 informa informa 2016 gravity tion in tion in 7:30 AM of source source Urine data data by Automat ed test strip Erythro SMALL NEGATIV No Abnorma No October 01 cytes E informa l informa 2016 [Presen tion in tion in 7:30 AM ce] in source source Urine data data by Automat ed pH of 5.5 5.0 - No No No October 01 Urine 9.0 informa informa informa 2016 by tion in tion in tion in 7:30 AM Automat source source source ed test data data data strip Protein NEGATIV NEGATIV MG/DL No No October 01 E E informa informa 2015 [Presen tion in tion in 7:30 AM ce] in source source Urine data data by Automat ed test strip UROBILI 0.2 0.2 - E.U./DL No No October 01 NOGEN 1.0 informa informa 2016 tion in tion in 7:30 AM source source data data Nitrate NEGATIV NEGATIV No No No October 01 E E informa informa informa 2016 [Presen tion in tion in tion in 7:30 AM ce] in source source source Urine data data data Leukocy NEGATIV NEGATIV No No No October 01 andressa E E informa informa informa 2016 [Presen tion in tion in tion in 7:30 AM ce] in source source source Urine data data data by Automat ed Erythro 10 0 - 4 /HPF High No October 01 cytes informa 2016 [#/area tion in 7:30 AM ] in source Urine data sedimen t by Microsc opy high power field WBC 2 0 - 5 /HPF No No October 01 COUNT informa informa 2016 tion in tion in 7:30 AM source source data data Epithel 1 0 - 6 /HPF No No October 01 ial informa informa 2016 cells tion in tion in 7:30 AM [Presen source source ce] in data data Urine sedimen t by Light microsc opy Bacteri NEGATIV NEGATIV /HPF No BACTERI October 01 a E E informa A 2016 [#/area tion in INTERPR 7:30 AM ] in source ETATION Urine data :NEGATI sedimen VE t by <=599/u Microsc lTRACE opy high >=600, power <=1199/ field ul1+ >=1200, <=2399/ ul2+ >=2400, <=3599/ ul3+ >=3600, <=4799/ ul4+ >=4800/ ul Hyaline 0 0 - 4 /LPF No No October 01 casts informa informa 2016 [#/area tion in tion in 7:30 AM ] in source source Urine data data candida t by Microsc opy high power field APTT Observa Value Referen Units Interpr Notes etation Range Activat 46 23 - 32 SEC High * THE October 01 ed APTT 2016 partial THERAPU 5:47 AM TIC thrombp RANGE lastin CORRESP time ONDS TO (aPTT) in HEPARIN Blood LEVELS by Coagula OFAPPRO tion XIMATEL assay Y 0.3 TO 0.7 u/ml.* HEPARIN THERAPU TIC RANGE = 49 - 65 seconds .* IF A PATIENT IS RECEIVI NG ARGATRO BAN THERAPY , DO NOT TITRATE ARGATRO BAN DRIP PER HEPARIN PROTOCO L. BLOOD GAS Observa Value Referen Units Interpr Notes ce etation Range 2lpm nc pH of 7.374 7.350 - No No No October 01 Arteria 7.450 informa informa informa 2016 l blood tion in tion in tion in 3:38 AM source source source data data data Carbon 38.3 35.0 - mmHG No No October 01 dioxide 45.0 informa informa 2016 tion in tion in 3:38 AM [Partia source source l data data pressur e] in Arteria l blood Oxygen 88.6 85.0 - mmHG No No October 01 [Partia 100.0 informa informa 2016 l tion in tion in 3:38 AM pressur source source e] in data data Arteria l blood Oxygen 96.5 93.0 - % No No October 01 saturat 97.0 informa informa 2016 ion in tion in tion in 3:38 AM Arteria source source l blood data data Bicarbo 21.8 20.0 - mm/L No No October 01 caroline 26.0 informa informa 2016 [Moles/ tion in tion in 3:38 AM volume] source source in data data Arteria l blood Base -2.6 -2.0-2. mm/L Low No October 01 excess 0 informa 2016 in tion in 3:38 AM Arteria source l blood data GLOMELULAR LIANNE. RATE,CALC. Observa Value Referen Units Interpr Notes Date ti ce etation Range CRITICAL VALUE RESULT CALLED TO AND READBACK BY : mahi rodriguez TEST CALLED:aptt 10/02/2015 03:03 zts Glomeru 115.5 60.0 - ml/min No Previou October 01 lar 200.0 informa s value 2016 filtrat tion in was 2:09 AM ion source 115.6, rate/1. data verifie 73 sq M d by AUTO at predict 02:58 ed on among non-ivanna 6.THE cks by eGFR IS Creatin AN ine-bas ESTIMAT ed ED formula GLOMELU (MDRD) LAR FILTRAT ION RATEBAS ED ON AN AVERAGE BODY SURFACE AREA OF 1.73M2. THIS CALCULA TION IS NOT ACCURAT E FOR PEDIATR IC PATIENT S,PATIE NTS >70 YEARS OF AGE,OR PATIENT S WITH EXTREME BODY SIZE.>6 0 ML/MIN/ 1.73M2 = NORMAL< 60 ML/MIN/ 1.73M2 = CHRONIC KIDNEY DISEASE <15 ML/MIN/ 1.73M2 = KIDNEY FAILURE AVERAGE EGFR FOLLOWS :AGE(YE ARS) AVERAGE EGFR20- 39 116 ML/MIN3 0-39 107 ML/MIN4 0-49 99 ML/MIN5 0-59 93 ML/MIN6 0-69 85 ML/MIN LEUKOREDUCE RED BLOOD CELLS Observa Value Referen Units Interpr Notes Date ti ce etation Range LEUKORE TEXT~Na No No No No October 01 DUCE me: informa informa informa informa 2016 RED BEAUPAR tion in tion in tion in tion in 2:09 AM BLOOD LANT, source source source source CELLS ELI~ data data data data Acct: [id number] KO-REDU C AS3 [id number] p.Trans fus 6 07:54 SINGLE DONOR PLATELETS Observa Value Referen Units Interpr Notes Date ti ce etation Range SINGLE TEXT~Na No No No No October 01 DONOR me: informa informa informa informa 2016 PLATELE BEAUPAR tion in tion in tion in tion in 2:09 AM TS LANT, source source source source ELI~ data data data data Acct: [id number]~PHE R LEUKORE D C [id number] release d 6 11:26 MCT~PHE R LEUKORE D A [id number] release d 11:26 MCT~SIN GLE DONOR PLT [id number] p.Trans fus 11:54~P HER LEUKORE D C [id number] p.Trans fus 11:54 MCT~PHE R LEUKORE D A [id number] p.Trans fus 12:48 TYPE AND SCREEN Observa Value Referen Units Interpr Notes Date ti ce etation Range TYPE TEXT~Na No No No No October 01 AND me: informa informa informa informa 2016 SCREEN BEAUPAR tion in tion in tion in tion in 2:09 AM LANT, source source source source ELI~ data data data data Acct: [id number]~ABO A 03:37 bns~RH( D) TYPING POS 03:37 bns~ANT IBODY SCREEN NEG 03:36 bns~AUT OCONTRO L 03:45 BNS1~no t indicat ed APTT Observa Value Referen Units Interpr Notes Date ti ce etation Range CRITICAL VALUE RESULT CALLED TO AND READBACK BY : mahi rodriguez TEST CALLED:aptt 10/02/2015 03:03 zts Activat 107 23 - 32 SEC High * THE October 01 ed alert APTT 2016 partial THERAPU 2:09 AM TIC thrombp RANGE lastin CORRESP time ONDS TO (aPTT) in HEPARIN Blood LEVELS by Coagula [facility] ti XIMATEL assay Y 0.3 TO 0.7 u/ml.* HEPARIN THERAPU TIC RANGE = 49 - 65 seconds .* IF A PATIENT IS RECEIVI NG ARGATRO BAN THERAPY , DO NOT TITRATE ARGATRO BAN DRIP PER HEPARIN PROTOCO L. FIBRINOGEN Observa Value Referen Units Interpr Notes Date ti ce etation Range CRITICAL VALUE RESULT CALLED TO AND READBACK BY : mahi rodriguez TEST CALLED:aptt 10/02/2015 03:03 zts Fibrino 216 142 - MG/DL No No October 01 gen 514 informa informa 2016 [Mass/v tion in tion in 2:09 AM olume] source source in data data Platele t poor plasma by Coagula tion assay PROTIME\\T\\INR Observa Value Referen Units Interpr Notes Date tion ce etation Range CRITICAL VALUE RESULT CALLED TO AND READBACK BY : mahi rodriguez TEST CALLED:aptt 10/02/2015 03:03 zts Prothro 10.8 9.3 - SEC No No October 01 mbin 11.9 informa informa 2015 time tion in tion in 2:09 AM (PT) source source actual/ data data normal in Platele t poor plasma by Coagula tion assay INR in 1.02 0.88 - No No THE INR October 01 Platele 1.12 informa informa SHOULD 2016 t poor tion in tion in ONLY 2:09 AM plasma source source BE USED by data data IN Coagula STABLE tion ANTICOA assay GULATED PATIENT S:RECOM MENDED THERAPE UTIC RANGES: CONDITI ON: INRPREV ENTION OR TREATME NT OF DVT.... ....... ....... ..2.0-3 .0ACUTE MIPREVE NTION OF STROKE. ....... ....... ....... ......2 .0-3.0P REVENTI ON OF RECURRE NT [place]..... ....... ....... ...2.5- 3.5ATRI AL FIBRILL ATIONPR EVENTIO N OF SYSTEMI C EMBOLIS M...... ....... ....2.0 -3.0CAR DIAC VALVE REPLACE MENT (MECHAN ICAL VALVES) .....2. 5-3.5 BNP(B NATRIURETIC PEP) Observa Value Referen Units Interpr Notes Date tion ce etation Range Natriut 266.7 0.0 - pg/ml High No October 01 ietic 100.0 informa 2015 peptide tion in 2:09 AM B source [Mass/v data olume] in Serum or Plasma LDL Observa Value Referen Units Interpr Notes Date tion ce etation Range Cholest 85.0 0.0 - No No OPTIMAL October 01 [place] in 100.0 informa informa - < 2016 LDL tion in tion in 100 2:09 AM [Mass/v source source MG/DLNE olume] data data AR in OPTIMAL Serum / or ABOVE Plasma OPTIMAL by - < calcula 130 tion MG/DLBO RDERLIN E HIGH - 130-159 MG/DLHI GH - 160-189 MG/DLVE RY HIGH - > 189 MG/DL TROPONIN I, ULTRA Observa Value Referen Units Interpr Notes Date tion ce etation Range Troponi 8.370 0.000 - ng/mL High * October 01 n 0.045 Elevati 2016 I.cardi on of 2:09 AM ac Troponi [Mass/v n I can olume] be in caused Serum by a or multitu Plasma de by ofserio Detecti us on illness limit = es. 0.01 Myocard ng/mL ial Infarct ion is a diagnos is that require s meeting two out of three criteri a as defined by the World HealthO rganiza tion. CKMB (MASS) Observa Value Referen Units Interpr Notes Date tion ce etation Range Creatin 20.0 0.0 - U/L High No October 01 e 3.6 informa 2016 kinase. tion in 2:09 AM MB source [Mass/v data olume] in Serum or Plasma LIPID PROFILE Observa Value Referen Units Interpr Notes Date tion ce etation Range Triglyc 80 30 - MG/DL No NORMAL October 01 eride 200 informa <150 2015 [Mass/v tion in MG/DLBO 2:09 AM olume] source RDER in data HIGH Serum 150 - or 199 Plasma MG/DLHI GH >200 MG/DL Cholest 150 <200 MG/DL No No October 01 [place] informa informa 2016 [Mass/v tion in tion in 2:09 AM olume] source source in data data Serum or Plasma Cholest 49 32 - 60 MG/DL No No October 01 [place] in informa informa 2016 HDL tion in tion in 2:09 AM [Mass/v source source olume] data data in Serum or Plasma TOT. 3.1 No No No RISK OF October 01 CHOL / informa informa informa CHD 2016 HDL tion in tion in tion in 2:09 AM RATIO source source source data data data MALE FEMALE- ------- ---- ------- ------- -1/2 AVERAGE RISK 3.4 3.3AVER AGE RISK 5.0 4.42 X AVERAGE RISK 9.6 7.13 X AVERAGE RISK 23.4 11.0 COMP. METABOLIC PANEL (CHEM 12) Observa Value Referen Units Interpr Notes Date tion ce etation Range Glucose 89 70 - MG/DL No No October 01 110 informa informa 2015 [Mass/v tion in tion in 2:09 AM olume] source source in data data Serum or Plasma Urea 8 7 - 18 MG/DL No No October 01 nitroge informa informa 2016 n tion in tion in 2:09 AM [Mass/v source source olume] data data in Serum or Plasma Sodium 144 133 - mmol/L No No October 01 [Moles/ 144 informa informa 2015 volume] tion in tion in 2:09 AM in source source Serum data data or Plasma Potassi 3.6 3.6 - mmol/l No No October 01 um 5.2 informa informa 2015 [Moles/ tion in tion in 2:09 AM volume] source source in data data Serum or Plasma Chlorid 114 98 - mmol/l High No October 01 e 107 informa 2015 [Moles/ tion in 2:09 AM volume] source in data Blood Carbon 23 21 - 32 mmol/L No No October 01 dioxide informa informa 2016 , total tion in tion in 2:09 AM source source [Moles/ data data volume] in Serum or Plasma Creatin 0.70 0.60 - MG/DL No No October 01 ine 1.30 informa informa 2015 [Mass/v tion in tion in 2:09 AM olume] source source in data data Serum or Plasma Protein 6.0 6.4 - G/DL Low No October 01 8.4 informa 2015 [Mass/v tion in 2:09 AM olume] source in data Serum or Plasma Albumin 3.1 3.4 - G/DL Low No October 01 5.0 informa 2015 [Mass/v tion in 2:09 AM olume] source in data Serum or Plasma Globuli 2.9 2.4 - G/DL No No October 01 n 4.8 informa informa 2015 [Mass/v tion in tion in 2:09 AM olume] source source in data data Plasma Albumin 1.1 0.6 - No No No October 01 /Globul 1.6 informa informa informa 2016 in tion in tion in tion in 2:09 AM [Mass source source source ratio] data data data in Serum or Plasma Calcium 7.7 8.5 - MG/DL Low No October 01 10.1 informa 2015 [Mass/v tion in 2:09 AM olume] source in data Serum or Plasma Alkalin 64 45 - U/L No No October 01 e 117 informa informa 2016 phospha tion in tion in 2:09 AM tase source source [Enzyma data data tic activit y/volum e] in Serum or Plasma Asparta 89 15 - 37 U/L High No October 01 te informa 2015 aminotr tion in 2:09 AM ansfera source se data [Enzyma tic activit y/volum e] in Serum or Plasma Alanine 106 12 - 78 U/L High No October 01 informa 2016 aminotr tion in 2:09 AM ansfera source se data [Enzyma tic activit y/volum e] in Serum or Plasma Bilirub 0.40 0.00 - MG/DL No No October 01 in.tota 1.00 informa informa 2016 l tion in tion in 2:09 AM [Mass/v source source olume] data data in Serum or Plasma HEMOGLOBIN A1C Observa Value Referen Units Interpr Notes Date tion ce etation Range Hemoglo 5.50 No % No NON October 01 bin informa informa DIABETI 2016 A1c/Hem tion in tion in C 2:09 AM oglobin source source .total data data in 3.0-6.0 Blood %CONTRO LLED DIABETI C 6.0-9.0 %POORLY CONTROL LED DIABETI C >9.0%Hg bA1c is a FDA approve d test for monitor ing senior care glucose control in individ uals with diabete s. It is not an approve dscreen ing test for diagnos ing type 1 and type 2 diabete s.Resul ts of HgbA1c are not reliabl e in patient s with chronic blood loss, consequ ent variabl e erythro cyte lifespa n,hemol ytic disease s, pregnan cy, and signifi cant blood loss. CBC/NO DIFF+ PLATELET Observa Value Referen Units Interpr Notes Date tion ce etation Range Leukocy 11.4 3.5 - K/UL No No October 01 andressa 13.0 informa informa 2015 [#/volu tion in tion in 2:09 AM me] in source source Blood data data by Automat ed count Erythro 4.250 3.500 - M/ul No October 01 cytes 6.100 informa informa 2016 [#/volu tion in tion in 2:09 AM me] in source source Blood data data by Automat ed count Hemoglo 13.5 11.0 - gm/dl No October 01 bin 17.8 informa informa 2016 [Mass/v tion in tion in 2:09 AM olume] source source in data data Blood Hematoc 40.7 32.0 - % No October 01 rit 51.6 informa informa 2016 [Volume tion in tion in 2:09 AM source source Fractio data data n] of Blood by Automat ed count Erythro 95.8 80.8 - fl No October 01 cyte 101.2 informa informa 2016 mean tion in tion in 2:09 AM corpusc source source ular data data volume [Entiti c volume] by Automat ed count Erythro 31.9 27.6 - pg No October 01 cyte 32.7 informa informa 2016 mean tion in tion in 2:09 AM corpusc source source ular data data hemoglo bin [Entiti c mass] by Automat ed count Erythro 33.2 32.6 - g/dl No October 01 cyte 35.4 informa informa 2016 mean tion in tion in 2:09 AM corpusc source source ular data data hemoglo bin concent ration [Mass/v olume] by Automat ed count Erythro 14.2 10.1 - % No October 01 cyte 16.5 informa informa 2016 distrib tion in tion in 2:09 AM ution source source width data data [Ratio] by Automat ed count Platele 254 134 - K/UL No October 01 ts 412 informa informa 2016 [#/volu tion in tion in 2:09 AM me] in source source Blood data data by Automat ed count Platele 7.0 6.1 - fl No October 01 t mean 10.1 informa informa 2016 volume tion in tion in 2:09 AM [Entiti source source c data data volume] in Blood by Automat ed count XR Chest 1 View Observa Value Referen Units Interpr Notes Date ti ce etation Range \\.br\\SI No No No No October 01 NGLE informa informa informa informa 2016 VIEW tion in tion in tion in tion in 2:06 AM CHEST\\. source source source source br\\\\.br data data data data \\There is mild bibasil ar atelect asis. Lungs are otherwi se clear. The cardiac silhoue tte appears within normal limits. \\.br\\\\. br\\ IMPRESS ION: Mild bibasil ar atelect asis.\\. br\\\\.br \\ END OF REPORT* *\\.br\\\\ .br\\Tirso obed Martino M.D.\\.b r\\\\.br\\ Dictate d: 10/02/19 16 6:57 AM\\.br\\ \\.br\\Tr anscrib ed: 10/02/19 16 7:03 AM\\.br\\ \\.br\\ * Final Report \\.br \\\\.br\\D ictated : KAL MARTINO M.D. 016 6:57 am\\.br\\ \\.br\\Tr anscrib ed by: 7:04 am\\.br\\ \\.br\\Au thentic ated by: KAL MARTINO M.D. 8:29 am\\.br\\ \\.br\\ XR CHEST 1 VIEW Observa Value Referen Units Interpr Notes Date ti ce etation Range Read By [id number] No No No No September 30 k\\.br\\P informa informa informa informa 2015 ortable tion in tion in tion in tion in 9:12 PM source source source source Chest\\. data data data data br\\An AP portabl e view of the chest demonst rates clear lungs and a\\.br\\b orderli ne heart size. The bony thorax is intact. The aorta is\\.br\\ atheros cleroti c.\\.br\\ IMPRESS ION-\\.b r\\No active disease in the chest.\\ .br\\Kechi ding Radiolo gist- WILLIAM RIOS RAHUL\\.b r\\Relea sing Radiolo gist- WILLIAM RIOS RAHUL\\.b r\\Relea sed Date Time- 6 1023\\.b r\\Trans criptio nis- WILLIAM RIOS RAHUL\\.b r\\----- ------- ------- ------- ------- ------- ------- ------- ------- ------- ------- ---\\.br \\[id number] ck\\.br\\ CKMB (w/ CK) Observa Value Referen Units Interpr Notes Date tion ce etation Range Creatin 201 39 - U/L Normal No September 30 e 308 inform2015 kinase tion in 10:02 [Enzyma source PM tic data activit y/volum e] in Serum or Plasma Creatin 15.4 0.0 - ng/mL High No September 30 e 4.9 informa 2016 kinase. tion in 10:02 MB source PM [Enzyma data tic activit y/volum e] in Serum or Plasma Creatin 7.7 0.0 - % High No September 30 e 4.0 informa 2015 kinase. tion in 10:02 MB/Crea source PM carolynn data kinase. total [Ratio] in Serum or Plasma AMYLASE,SERUM Observa Value Referen Units Interpr Notes ti ce etation Range Amylase 34 25 - U/L Normal No September 30 115 informa 2015 [Enzyma tion in 10:02 tic source PM activit data y/volum e] in Serum or Plasma TROPONIN I,FADY (IN HOUSE) Observa Value Referen Units Interpr Notes Date tion ce etation Range Troponi 3.159 0.000 - ng/mL High REPORTE September 30 n 0.056 alert D 2016 I.cardi CRITICA 10:02 ac L VALUE PM [Mass/v TO DR rivero] TIFFANIE in [facility] Serum AT or 2202 Plasma [id number] RVB AHN OTE - Referen ce Range Change* MAGNESIUM,SERUM Observa Value Referen Units Interpr Notes Date tion ce etation Range Magnesi 2.0 1.8 - mg/dL Normal No September 30 um 2.4 inform2015 [Mass/v tion in 10:02 olume] source PM in data Serum or Plasma COMPREHENSIVE METABOLIC PANEL Observa Value Referen Units Interpr Notes Date tion ce etation Range Glucose 108 70 - 99 mg/dL High No September 302015 [Mass/v tion in 9:59 PM olume] source in data Serum or Plasma Urea 8 7 - 18 mg/dL Normal No September 30 nitroge 2015 n tion in 9:59 PM [Mass/v source olume] data in Serum or Plasma Creatin 1.09 0.70 - mg/dL Normal NOT September 30 ine 130 E - 2015 [Mass/v Referen 9:59 PM olume] ce in Range Serum Change* or Plasma Sodium 142 136 - mEq/L Normal No September 30 [Moles/ 145 inform2015 volume] tion in 10:00 in source PM Serum data or Plasma Potassi 3.9 3.5 - mEq/L Normal No September 30 um 5.1 inform2015 [Moles/ tion in 10:00 volume] source PM in data Serum or Plasma Chlorid 106 98 - mEq/L Normal No September 30 e 107 inform2015 [Moles/ tion in 10:00 volume] source PM in data Serum or Plasma Carbon 19.8 21.0 - mmol/L Low No September 30 dioxide 32.0 inform2015 , total tion in 9:59 PM source [Moles/ data volume] in Serum or Plasma Calcium 9.2 8.5 - mg/dL Normal No September 30 10.1 inform2015 [Mass/v tion in 9:59 PM olume] source in data Serum or Plasma Protein 7.2 6.4 - gm/dL Normal No September 30 8.2 inform2015 [Mass/v tion in 10:00 olume] source PM in data Serum or Plasma Albumin 3.8 3.4 - gm/dL Normal No September 30 5.0 inform2015 [Mass/v tion in 9:59 PM olume] source in data Serum or Plasma by Bromcre maldonado purple (BCP) dye binding method Alkalin 81 46 - U/L Normal No September 30 e 116 inform2015 phospha tion in 9:59 PM tase source [Enzyma data tic activit y/volum e] in Serum or Plasma Alanine 146 16 - 63 U/L High No September 302015 aminotr tion in 9:59 PM ansfera source se data [Enzyma tic activit y/volum e] in Serum or Plasma by With P-5'-P Asparta 140 15 - 37 U/L High No September 30 te informa 2015 aminotr tion in 9:59 PM ansfera source se data [Enzyma tic activit y/volum e] in Serum or Plasma by With P-5'-P Bilirub 0.28 0.20 - mg/dL Normal No September 30 in.tota 1.00 informa 2016 l tion in 10:02 [Mass/v source PM olume] data in Serum or Plasma Creatin 7 No No No No September 30 ine/Ure informa informa informa informa 2016 a tion in tion in tion in tion in 10:00 nitroge source source source source PM n [Mass data data data data ratio] in Serum or Plasma Albumin 1.1 No No No No September 30 /Globul informa informa informa informa 2016 in tion in tion in tion in tion in 10:00 [Mass source source source source PM ratio] data data data data in Serum or Plasma Anion 20 No No No No September 30 gap in informa informa informa informa 2016 Serum tion in tion in tion in tion in 10:00 or source source source source PM Plasma data data data data Glomeru >60.0 No mL/min/ No eGFR September 30 lar informa 1.73_m2 informa Interpr 2016 filtrat tion in tion in etation 9:59 PM ion source source : rate/1. data data Disease 73 sq M State Referen predict ce ed Ranges among for non-ivanna eGFR(ca cks by lculate Creatin d)Stage ine-bas eGFR ed formula Descrip (MDRD) tionI/I I >60 Normal/ Mildly reduced kidney functio nIII 30-59 Moderat ginani reduced kidney functio nIV 15-29 Severel y reduced kidney functio nV <15 End-sta ge kidney failure Calcula anh using MDRD formula based on gender, race (* GFR AA is for theAfri can Anne Marie n populat ion), and age. GFR estimat es are unrelia ble inpatie nts with rapidly changin g kidney functio n,recen t dialysi s, extreme sin body size, severe malnutr ition or obesity , loss of limbs, abnorma lmuscle mass, or during pregnan cy. In these patient s, alterna tivedet erminat ions of GFR should be obtaine d. Glomeru >60.0 No mL/min/ No No September 30 lar informa 1.73_m2 informa inform2015 filtrat tion in tion in tion in 9:59 PM ion source source source rate/1. data data data 73 sq M predict ed among blacks by Creatin ine-bas ed formula (MDRD) ALCOHOL,SERUM Observa Value Referen Units Interpr Notes Date tion ce etation Range Ethanol 83 0 - 10 mg/dL High No September 302015 [Mass/v tion in 10:02 olume] source PM in data Serum or Plasma LIPASE Observa Value Referen Units Interpr Notes Date tion ce etation Range Lipase 86 73 - U/L Normal No September 30 [Enzyma 393 2015 tic tion in 10:02 activit source PM y/volum data e] in Serum or Plasma CBC W/DIFF Observa Value Referen Units Interpr Notes Date tion ce etation Range Leukocy 10.7 3.5 - X_10\\S\\ High No September 30 andressa 9.6 3 2015 [#/volu tion in 9:15 PM me] source correct data ed for nucleat ed erythro cytes in Blood by Automat ed count Erythro 4.99 4.70 - X_10\\S\\ Normal No September 30 cytes 6.10 6 2015 [#/volu tion in 9:15 PM me] in source Blood data by Automat ed count Hemoglo 16.4 14.0 - gm/dL Normal No September 30 bin 18.0 2015 [Mass/v tion in 9:15 PM olume] source in data Blood Hematoc 47.3 42.0 - % Normal No September 30 rit 52.0 inform2015 [Volume tion in 9:15 PM source Fractio data n] of Blood by Automat ed count Platele 285 130 - X_10\\S\\ Normal No September 30 ts 400 3 informa 2015 [#/volu tion in 9:15 PM me] in source Blood data by Automat ed count Erythro 32.8 27.0 - pg High No September 30 cyte 32.0 inform2015 mean tion in 9:15 PM corpusc source ular data hemoglo bin [Entiti c mass] by Automat ed count Erythro 34.6 32.0 - gm/dL Normal September 30 cyte 37.0 informa 2015 mean tion in 9:15 PM corpusc source ular data hemoglo bin concent ration [Mass/v olume] by Automat ed count Erythro 94.9 80.0 - fl High No September 30 cyte 94.0 informa 2015 mean tion in 9:15 PM corpusc source ular data volume [Entiti c volume] by Automat ed count Erythro 14.1 12.0 - % Normal September 30 cyte 15.0 informa 2015 distrib tion in 9:15 PM ution source width data [Ratio] by Automat ed count Platele 6.8 6.2 - fl Normal No September 30 t mean 10.6 inform2015 volume tion in 9:15 PM [Entiti source c data volume] in Blood by Automat ed count Neutrop 62.0 42.0 - % Normal No September 30 hils/10 75.0 informa 2015 0 tion in 9:15 PM leukocy source andressa in data Blood by Automat ed count Lymphoc 30.6 20.0 - % Normal No September 30 ytes/10 51.0 informa 2015 0 tion in 9:15 PM leukocy source andressa in data Blood by Automat ed count Monocyt 5.9 0.0 - % Normal No September 30 es/100 13.0 informa 2015 leukocy tion in 9:15 PM andressa in source Blood data by Automat ed count Eosinop 0.3 0.0 - % Normal No September 30 hils/10 6.0 informa 2016 0 tion in 9:15 PM leukocy source andressa in data Blood by Automat ed count Basophi 1.2 0.0 - % Normal No September 30 ls/100 2.0 informa 2016 leukocy tion in 9:15 PM andressa in source Blood data by Automat ed count Neutrop 6.6 1.5 - X_10\\S\\ Normal No September 30 hils 7.1 3 2015 [#/volu tion in 9:15 PM me] in source Blood data by Automat ed count Monocyt 0.6 0.2 - X_10\\S\\ Normal September 30 es 1.2 3 2015 [#/volu tion in 9:15 PM me] in source Blood data by Automat ed count Eosinop 0.0 0.0 - X_10\\S\\ Normal September 30 hils 0.8 3 2015 [#/volu tion in 9:15 PM me] in source Blood data by Automat ed count Basophi 0.1 0.0 - X_10\\S\\ Normal September 30 ls 0.1 3 2015 [#/volu tion in 9:15 PM me] in source Blood data by Automat ed count Lymphoc 3.3 0.7 - X_10\\S\\ Normal September 30 ytes 4.3 3 2015 [#/volu tion in 9:15 PM me] in source Blood data by Automat ed count PSA,TOTAL Observa Value Referen Units Interpr Notes Date tion ce etation Range PSA 0.78 0.0 - ng/mL Normal No Aug 19 4.0 2015 tion in 5:03 AM source data CORONARY RISK PROFILE Observa Value Referen Units Interpr Notes Date tion ce etation Range Cholest 149 0 - 199 mg/dL Normal No Aug 18 mar[place] 2015 [Mass/v tion in 10:10 olume] source AM in data Serum or Plasma Triglyc 154 0 - 149 mg/dL High No Aug 18 eride 2015 [Mass/v tion in 10:10 olume] source AM in data Serum or Plasma Cholest 39 40 - 60 mg/dL Low No Aug 18 [place] in 2015 HDL tion in 10:10 [Mass/v source AM olume] data in Serum or Plasma Cholest 4 No No No No Aug 18 [place] in informa informa informa inform 2016 tion in tion in tion in tion in 10:10 HDL/Cho source source source source AM lestero data data data data l.total [Mass ratio] in Serum or Plasma Cholest 31 0 - 30 No High No Apr 18 [place] in informa 2015 VLDL tion in tion in 10:10 [Mass/v source source AM olume] data data in Serum or Plasma by calcula tion Cholest 94 0 - 99 mg/dL Normal No Sep 09 [place] in 2015 LDL tion in 10:10 [Mass/v source AM olume] data in Serum or Plasma by Direct assay COMPREHENSIVE METABOLIC PANEL Observa Value Referen Units Interpr Notes Date tion ce etation Range Glucose 101 70 - 99 mg/dL High No Sep 092015 [Mass/v tion in 10:03 olume] source AM in data Serum or Plasma Urea 15 7 - 18 mg/dL Normal No Sep 09 nitroge 2015 n tion in 10:03 [Mass/v source AM olume] data in Serum or Plasma Creatin 1.13 0.70 - mg/dL Normal NOT Sep 09 ine 1.30 E - 2015 [Mass/v Referen 10:03 olume] ce AM in Range Serum Change* or Plasma Sodium 142 136 - mEq/L Normal No Sep 09 [Moles/ 145 2015 volume] tion in 10:03 in source AM Serum data or Plasma Potassi 4.1 3.5 - mEq/L Normal No Sep 09 um 5.1 2015 [Moles/ tion in 10:03 volume] source AM in data Serum or Plasma Chlorid 103 98 - mEq/L Normal No Sep 09 e 107 2015 [Moles/ tion in 10:03 volume] source AM in data Serum or Plasma Carbon 28.3 21.0 - mmol/L Normal No Sep 09 dioxide 32.0 2015 , total tion in 10:03 source AM [Moles/ data volume] in Serum or Plasma Calcium 8.8 8.5 - mg/dL Normal No Sep 09 10.1 2015 [Mass/v tion in 10:03 olume] source AM in data Serum or Plasma Protein 7.4 6.4 - gm/dL Normal No Sep 09 8.2 2015 [Mass/v tion in 10:03 olume] source AM in data Serum or Plasma Albumin 3.9 3.4 - gm/dL Normal No Sep 09 5.0 2015 [Mass/v tion in 10:02 olume] source AM in data Serum or Plasma by Bromcre maldonado purple (BCP) dye binding method Alkalin 48 46 - U/L Normal No Aug 18 e 116 informa 2015 phospha tion in 10:02 tase source AM [Enzyma data tic activit y/volum e] in Serum or Plasma Alanine 16 16 - 63 U/L Normal No Sep 09 inform2015 aminotr tion in 10:03 ansfera source AM se data [Enzyma tic activit y/volum e] in Serum or Plasma by With P-5'-P Asparta 11 15 - 37 U/L Low No Aug 18 te informa 2015 aminotr tion in 10:03 ansfera source AM se data [Enzyma tic activit y/volum e] in Serum or Plasma by With P-5'-P Bilirub 0.38 0.20 - mg/dL Normal No Aug 18 in.tota 1.00 informa 2015 l tion in 10:10 [Mass/v source AM olume] data in Serum or Plasma Creatin 13 No No No No Sep 09 ine/Ure informa informa informa informa 2016 a tion in tion in tion in tion in 10:03 nitroge source source source source AM n [Mass data data data data ratio] in Serum or Plasma Albumin 1.1 No No No No Sep 09 /Globul informa informa informa informa 2016 in tion in tion in tion in tion in 10:03 [Mass source source source source AM ratio] data data data data in Serum or Plasma Anion 15 No No No No Sep 09 gap in informa informa informa informa 2016 Serum tion in tion in tion in tion in 10:03 or source source source source AM Plasma data data data data Glomeru >60.0 No mL/min/ No eGFR Sep 09 lar informa 1.73_m2 informa Interpr 2016 filtrat tion in tion in etation 10:03 ion source source : AM rate/1. data data Disease 73 sq M State Referen predict ce ed Ranges among for non-ivanna eGFR(ca cks by lculate Creatin d)Stage ine-bas eGFR ed formula Descrip (MDRD) tionI/I I >60 Normal/ Mildly reduced kidney functio nIII 30-59 Moderat gianni reduced kidney functio nIV 15-29 Severel y reduced kidney functio nV <15 End-sta ge kidney failure Calcula anh using MDRD formula based on gender, race (* GFR AA is for theAfri can Anne Marie n populat ion), and age. GFR estimat es are unrelia ble inpatie nts with rapidly changin g kidney functio n,recen t dialysi s, extreme sin body size, severe malnutr ition or obesity , loss of limbs, abnorma lmuscle mass, or during pregnan cy. In these patient s, alterna tivedet erminat ions of GFR should be obtaine d. Glomeru >60.0 No mL/min/ No No Aug 18 lar informa 1.73_m2 informa informa 2015 filtrat tion in tion in tion in 10:03 ion source source source AM rate/1. data data data 73 sq M predict ed among blacks by Creatin ine-bas ed formula (MDRD) CBC W/DIFF Observa Value Referen Units Interpr Notes Date tion ce etation Range Leukocy 7.3 3.5 - X_10\\S\\ Normal No Sep 09 andressa 9.6 3 inform2015 [#/volu tion in 9:52 AM me] source correct data ed for nucleat ed erythro cytes in Blood by Automat ed count Erythro 4.92 4.70 - X_10\\S\\ Normal No Sep 09 cytes 6.10 6 inform2015 [#/volu tion in 9:52 AM me] in source Blood data by Automat ed count Hemoglo 15.9 14.0 - gm/dL Normal No Sep 09 bin 18.0 inform2015 [Mass/v tion in 9:52 AM olume] source in data Blood Hematoc 47.6 42.0 - % Normal No Sep 09 rit 52.0 informa 2015 [Volume tion in 9:52 AM source Fractio data n] of Blood by Automat ed count Platele 268 130 - X_10\\S\\ Normal No Sep 09 ts 400 3 inform2015 [#/volu tion in 9:52 AM me] in source Blood data by Automat ed count Erythro 32.4 27.0 - pg High No Sep 09 cyte 32.0 informa 2015 mean tion in 9:52 AM corpusc source ular data hemoglo bin [Entiti c mass] by Automat ed count Erythro 33.4 32.0 - gm/dL Normal No Aug 18 cyte 37.0 informa 2015 mean tion in 9:52 AM corpusc source ular data hemoglo bin concent ration [Mass/v olume] by Automat ed count Erythro 96.8 80.0 - fl High No Aug 18 cyte 94.0 informa 2015 mean tion in 9:52 AM corpusc source ular data volume [Entiti c volume] by Automat ed count Erythro 14.0 12.0 - % Normal No Aug 18 cyte 15.0 informa 2015 distrib tion in 9:52 AM ution source width data [Ratio] by Automat ed count Platele 7.3 6.2 - fl Normal No Aug 18 t mean 10.6 informa 2015 volume tion in 9:52 AM [Entiti source c data volume] in Blood by Automat ed count Neutrop 64.4 42.0 - % Normal No Aug 18 hils/10 75.0 informa 2015 0 tion in 9:52 AM leukocy source andressa in data Blood by Automat ed count Lymphoc 24.5 20.0 - % Normal No Sep 09 ytes/10 51.0 informa 2016 0 tion in 9:52 AM leukocy source andressa in data Blood by Automat ed count Monocyt 7.1 0.0 - % Normal No Aug 18 es/100 13.0 informa 2015 leukocy tion in 9:52 AM andressa in source Blood data by Automat ed count Eosinop 1.8 0.0 - % Normal No Aug 18 hils/10 6.0 informa 2015 0 tion in 9:52 AM leukocy source andressa in data Blood by Automat ed count Basophi 2.2 0.0 - % High No Aug 18 ls/100 2.0 informa 2016 leukocy tion in 9:52 AM andressa in source Blood data by Automat ed count Neutrop 4.7 1.5 - X_10\\S\\ Normal No Aug 18 hils 7.1 3 inform2015 [#/volu tion in 9:52 AM me] in source Blood data by Automat ed count Monocyt 0.5 0.2 - X_10\\S\\ Normal No Aug 18 es 1.2 3 informa 2015 [#/volu tion in 9:52 AM me] in source Blood data by Automat ed count Eosinop 0.1 0.0 - X_10\\S\\ Normal No Aug 18 hils 0.8 3 informa 2016 [#/volu tion in 9:52 AM me] in source Blood data by Automat ed count Basophi 0.2 0.0 - X_10\\S\\ High No Aug 18 ls 0.1 3 informa 2016 [#/volu tion in 9:52 AM me] in source Blood data by Automat ed count Lymphoc 1.8 0.7 - X_10\\S\\ Normal No Aug 18 ytes 4.3 3 informa 2016 [#/volu tion in 9:52 AM me] in source Blood data by Automat ed count SURGICAL PATH-RESULTS Observa Value Referen Units Interpr Notes Date tion ce etation Range SURGICA TEXT~Na No No No No Oct 22 L me: informa informa informa informa 2014 PATH-RE RACHEL tion in tion in tion in tion in [facility], source source source source ELI~ data data data data Acct: [id number]~ [facility] Departm ent of Patholo gy [address] [place] [id number] ~ Name: RACHEL Nowak.R.N: [id number] Accessi on 764~ ELI Mxion #:~ FINAL SURGICA L PATHOLO GY REPORT~ NAME: MARIEJOEY BEBA CAMPOS N: OPS~ ELI~ M.R.N: [id number] SEX: M PROCEDU RE ~ DATE:~D OB: 957 AGE: 59 Y RECEIVE D 015~ DATE:~P HYSICIA N: OGERARD SANDERSON SIGN OUT DATE: ~RAGHAVENDRA SULLIVAN #: [id number] COPIES TO: OAI SANDERSON~PA THOLOGI ST: FRANKLYN EDWARDS~D IAGNOSI S~Cyst, Right Wrist, Excisio n:~$ GANGLIO N CYST. (727.43 )~TISSU E SUBMITT ED GANGLIO N FROM WRIST, SURGICA L EXCISIO N~ Right~G ROSS DESCRIP TION~A single specime n is receive d in formali n labeled "right wrist ganglio n~cyst" and consist s of a single pink-ta n ovoid tissue fragmen t measuri ng~0.5 x 0.5 x 0.3 cm. The specime n is entirel y submitt ed in ricky Cruz~11/14 kenan FATIMA MD~MICR OSCOPIC DESCRIP TION~Mi croscop ic examina tion was perform ed.~ <Sign Out Dr. Gviens re>~ FRANKLYN EDWARDS D.O., DERMATO PATHOLO GIST~ Page 1 of 1 CORONARY RISK PROFILE Observa Value Referen Units Interpr Notes Date ti ce etation Range Cholest 189 50 - mg/dL Normal No October 09 [place] 200 2014 [Mass/v tion in 2:25 PM olume] source in data Serum or Plasma Triglyc 152 50 - mg/dL High No October 09 eride 150 2014 [Mass/v tion in 2:25 PM olume] source in data Serum or Plasma Cholest 41 35 - 65 mg/dL Normal No October 09 [place] in 2014 HDL tion in 2:25 PM [Mass/v source olume] data in Serum or Plasma Cholest 5 No No No No October 09 [place] in informa informa informa inform 2015 tion in tion in tion in tion in 2:25 PM HDL/Cho source source source source lestero data data data data l.total [Mass ratio] in Serum or Plasma Cholest 30 0 - 30 No Normal No October 09 [place] in informa 2014 VLDL tion in tion in 2:25 PM [Mass/v source source olume] data data in Serum or Plasma by calcula tion Cholest 118 0 - 99 mg/dL High No October 09 [place] in 2014 LDL tion in 2:25 PM [Mass/v source olume] data in Serum or Plasma by Direct assay HEPATIC FUNCT PANEL Observa Value Referen Units Interpr Notes Date tion ce etation Range Protein 7.7 6.4 - gm/dL Normal No October 09 8.2 2014 [Mass/v tion in 2:24 PM olume] source in data Serum or Plasma Albumin 4.2 3.4 - gm/dL Normal No October 09 5.0 2014 [Mass/v tion in 2:24 PM olume] source in data Serum or Plasma by Bromcre maldonado purple (BCP) dye binding method Alkalin 59 50 - U/L Normal No October 09 e 136 2014 phospha tion in 2:24 PM tase source [Enzyma data tic activit y/volum e] in Serum or Plasma Alanine 24 3 - 50 U/L Normal No October 092014 aminotr tion in 2:24 PM ansfera source se data [Enzyma tic activit y/volum e] in Serum or Plasma by With P-5'-P Asparta 18 15 - 37 U/L Normal No October 09 te 2014 aminotr tion in 2:24 PM ansfera source se data [Enzyma tic activit y/volum e] in Serum or Plasma by With P-5'-P Bilirub 0.43 0.0 - mg/dL Normal No October 09 in.tota 1.0 2014 l tion in 2:25 PM [Mass/v source olume] data in Serum or Plasma Bilirub 0.08 0.0 - mg/dL Normal No October 09 in.dire 0.3 2014 [address] tion in 2:25 PM [Mass/v source olume] data in Serum or Plasma Albumin 1.2 No No No No October 09 /Globul informa inform inform inform2014 in tion in tion in tion in tion in 2:24 PM [Mass source source source source ratio] data data data data in Serum or Plasma HGB A1C / GLYCOHEMOGLOBIN Observa Value Referen Units Interpr Notes Date tion ce etation Range Hemoglo 6.0 4.5 - % Normal Notice: October 09 bin 6.2 New 2014 A1c/Hem Glycohe 2:15 PM ogloiron holguin .total n in Method Blood with changed Referen ce Range does notcorr elate to previou s Glycohe moglopamela n method. Estimat ed Average Glucose (eAG) calcula tion added as additio nal informa tion.He moglobi n A1C Referen ce Ranges4 .5 - 6.2% Normal Patient <7% Control led Diabete sConsis tently >8% Reevalu ate Treatme nt Estimat 126 No No No No September 18 ed informa informa informa informa 2014 Average tion in tion in tion in tion in 2:15 PM source source source source Glucose data data data data PSA SCREEN ([employer]IC[employer]) Observa Value Referen Units Interpr Notes Date tion ce etation Range PSA 1.19 0.0 - ng/mL Normal No Aug 08 4.0 inform2014 tion in 3:46 AM source data TSH Observa Value Referen Units Interpr Notes Date tion ce etation Range Thyrotr 2.06 0.36 - mIU/mL Normal No Aug 07 opin 3.74 inform2014 [Units/ tion in 7:23 PM volume] source in data Serum or Plasma by Detecti on limit <= 0.05 mIU/L CORONARY RISK PROFILE Observa Value Referen Units Interpr Notes Date ti ce etation Range Cholest 215 50 - mg/dL High No Aug 07 [place] 200 inform2014 [Mass/v tion in 7:08 PM olume] source in data Serum or Plasma Cholest 159.0 0.0 - mg/dL High No Aug 07 [place] in 130.0 2014 LDL tion in 7:08 PM [Mass/v source olume] data in Serum or Plasma by calcula tion Triglyc 141 50 - mg/dL Normal No Aug 07 eride 150 2014 [Mass/v tion in 7:08 PM olume] source in data Serum or Plasma Cholest 40 35 - 65 mg/dL Normal No Aug 07 [place] in 2014 HDL tion in 7:08 PM [Mass/v source olume] data in Serum or Plasma Cholest 5 No No No No Jul 16 [place] in informa informa informa informa 2015 tion in tion in tion in tion in 7:08 PM HDL/Cho source source source source lestero data data data data l.total [Mass ratio] in Serum or Plasma Cholest 28 0 - 30 No Normal No Aug 07 [place] in informa informa 2014 VLDL tion in tion in 7:08 PM [Mass/v source source olume] data data in Serum or Plasma by calcula tion COMPREHENSIVE METABOLIC PANEL Observa Value Referen Units Interpr Notes Date tion ce etation Range Glucose 140 70 - 99 mg/dL High No Aug 07 informa 2014 [Mass/v tion in 7:08 PM olume] source in data Serum or Plasma Urea 7 7 - 18 mg/dL Normal No Aug 07 nitroge informa 2014 n tion in 7:08 PM [Mass/v source olume] data in Serum or Plasma Creatin 1.1 0.6 - mg/dL Normal No Aug 07 ine 1.3 informa 2014 [Mass/v tion in 7:08 PM olume] source in data Serum or Plasma Sodium 138 136 - mEq/L Normal No Aug 07 [Moles/ 145 informa 2014 volume] tion in 7:08 PM in source Serum data or Plasma Potassi 3.6 3.5 - mEq/L Normal No Aug 07 um 5.1 informa 2014 [Moles/ tion in 7:08 PM volume] source in data Serum or Plasma Chlorid 104 98 - mEq/L Normal No Aug 07 e 107 informa 2014 [Moles/ tion in 7:08 PM volume] source in data Serum or Plasma Carbon 21 22 - 29 mmol/L Low No Aug 07 dioxide informa 2014 , total tion in 7:08 PM source [Moles/ data volume] in Serum or Plasma Calcium 8.4 8.5 - mg/dL Low No Aug 07 10.1 informa 2014 [Mass/v tion in 7:08 PM olume] source in data Serum or Plasma Protein 7.6 6.4 - gm/dL Normal Aug 07 8.2 informa 2014 [Mass/v tion in 7:08 PM olume] source in data Serum or Plasma Albumin 4.0 3.4 - gm/dL Normal Aug 07 5.0 informa 2014 [Mass/v tion in 7:08 PM olume] source in data Serum or Plasma by Bromcre maldonado purple (BCP) dye binding method Alkalin 55 50 - U/L Normal No Aug 07 e 136 informa 2014 phospha tion in 7:08 PM tase source [Enzyma data tic activit y/volum e] in Serum or Plasma Alanine 18 3 - 50 U/L Normal No Aug 07 informa 2015 aminotr tion in 7:08 PM ansfera source se data [Enzyma tic activit y/volum e] in Serum or Plasma by With P-5'-P Asparta 11 15 - 37 U/L Low No Aug 07 te informa 2014 aminotr tion in 7:08 PM ansfera source se data [Enzyma tic activit y/volum e] in Serum or Plasma by With P-5'-P Bilirub 0.49 0.0 - mg/dL Normal No Aug 07 in.tota 1.0 informa 2014 l tion in 7:08 PM [Mass/v source olume] data in Serum or Plasma Creatin 6 No No No No Aug 07 ine/Ure informa informa informa informa 2014 a tion in tion in tion in tion in 7:08 PM nitroge source source source source n [Mass data data data data ratio] in Serum or Plasma Albumin 1.1 No No No No Aug 07 /Globul informa informa informa informa 2014 in tion in tion in tion in tion in 7:08 PM [Mass source source source source ratio] data data data data in Serum or Plasma Glomeru >60.0 No mL/min/ No eGFR Aug 07 lar informa 1.73_m2 informa Interpr 2014 filtrat tion in tion in etation 7:08 PM ion source source : rate/1. data data Disease 73 sq M State Referen predict ce ed Ranges among for non-ivanna eGFR(ca cks by lculate Creatin d)Stage ine-bas eGFR ed formula Descrip (MDRD) tionI/I I >60 Normal/ Mildly reduced kidney functio nIII 30-59 Moderat gianni reduced kidney functio nIV 15-29 Severel y reduced kidney functio nV <15 End-sta ge kidney failure Calcula anh using MDRD formula based on gender, race (* GFR AA is for theAfri can Anne Marie n populat ion), and age. GFR estimat es are unrelia ble inpatie nts with rapidly changin g kidney functio n,recen t dialysi s, extreme sin body size, severe malnutr ition or obesity , loss of limbs, abnorma lmuscle mass, or during pregnan cy. In these patient s, alterna tivedet erminat ions of GFR should be obtaine d. Glomeru >60.0 No mL/min/ No No Aug 07 lar informa 1.73_m2 informa informa 2014 filtrat tion in tion in tion in 7:08 PM ion source source source rate/1. data data data 73 sq M predict ed among blacks by Creatin ine-bas ed formula (MDRD) CBC W/DIFF Observa Value Referen Units Interpr Notes Date tion ce etation Range Leukocy 7.2 3.5 - X_10\\S\\ Normal No Aug 07 andressa 9.6 3 inform2014 [#/volu tion in 6:49 PM me] source correct data ed for nucleat ed erythro cytes in Blood by Automat ed count Erythro 4.79 4.70 - X_10\\S\\ Normal No Aug 07 cytes 6.10 6 inform2014 [#/volu tion in 6:49 PM me] in source Blood data by Automat ed count Hemoglo 15.5 14.0 - gm/dL Normal No Aug 07 bin 18.0 inform2014 [Mass/v tion in 6:49 PM olume] source in data Blood Hematoc 45.9 42.0 - % Normal No Aug 07 rit 52.0 informa 2014 [Volume tion in 6:49 PM source Fractio data n] of Blood by Automat ed count Platele 279 130 - X_10\\S\\ Normal No Aug 07 ts 400 3 inform2014 [#/volu tion in 6:49 PM me] in source Blood data by Automat ed count Erythro 32.3 27.0 - pg High No Aug 07 cyte 32.0 inform2014 mean tion in 6:49 PM corpusc source ular data hemoglo bin [Entiti c mass] by Automat ed count Erythro 33.7 32.0 - gm/dL Normal No Aug 07 cyte 37.0 inform2014 mean tion in 6:49 PM corpusc source ular data hemoglo bin concent ration [Mass/v olume] by Automat ed count Erythro 95.8 80.0 - fl High Aug 07 cyte 94.0 informa 2014 mean tion in 6:49 PM corpusc source ular data volume [Entiti c volume] by Automat ed count Erythro 13.8 12.0 - % Normal No Aug 07 cyte 15.0 inform2014 distrib tion in 6:49 PM ution source width data [Ratio] by Automat ed count Platele 7.0 6.2 - fl Normal No Aug 07 t mean 10.6 informa 2014 volume tion in 6:49 PM [Entiti source c data volume] in Blood by Automat ed count Neutrop 50.0 42.0 - % Normal No Aug 07 hils/10 75.0 informa 2014 0 tion in 6:49 PM leukocy source andressa in data Blood by Automat ed count Lymphoc 40.4 20.0 - % Normal No Aug 07 ytes/10 51.0 informa 2014 0 tion in 6:49 PM leukocy source andressa in data Blood by Automat ed count Monocyt 7.3 0.0 - % Normal No Aug 07 es/100 13.0 informa 2014 leukocy tion in 6:49 PM andressa in source Blood data by Automat ed count Eosinop 1.3 0.0 - % Normal No Aug 07 hils/10 6.0 informa 2014 0 tion in 6:49 PM leukocy source andressa in data Blood by Automat ed count Basophi 1.0 0.0 - % Normal No Aug 07 ls/100 2.0 informa 2014 leukocy tion in 6:49 PM andressa in source Blood data by Automat ed count Neutrop 3.6 1.5 - X_10\\S\\ Normal No Aug 07 hils 7.1 3 2014 [#/volu tion in 6:49 PM me] in source Blood data by Automat ed count Monocyt 0.5 0.2 - X_10\\S\\ Normal No Aug 07 es 1.2 3 2014 [#/volu tion in 6:49 PM me] in source Blood data by Automat ed count Eosinop 0.1 0.0 - X_10\\S\\ Normal No Aug 07 hils 0.8 3 2014 [#/volu tion in 6:49 PM me] in source Blood data by Automat ed count Basophi 0.1 0.0 - X_10\\S\\ Normal No Aug 07 ls 0.1 3 inform2014 [#/volu tion in 6:49 PM me] in source Blood data by Automat ed count Lymphoc 2.9 0.7 - X_10\\S\\ Normal No Aug 07 ytes 4.3 3 inform2014 [#/volu tion in 6:49 PM me] in source Blood data by Automat ed count XR C-SPINE W/OBLS MIN 4 VIEWS Observa Value Referen Units Interpr Notes ti ce etation Range Read By [id number] No No No No May 6 k\\.br\\C informa inform2014 ervical tion in tion in tion in tion in 6:23 PM Spine source source source source - Five data data data data Views\\. br\\Mult iple views of the cervica l spine includi ng oblique views show no\\.br\\ fractur e or mal-ali gnment. Moderat e degener ative arthrit ic changes can\\.br \\be seen. The neural foramin a are normal in caliber on both sides.\\ .br\\IMP RESSION -\\.br\\N ormal views of the cervica l spine, includi ng the oblique views except\\ .br\\for moderat e degener ative arthrit is.\\.br \\Readin g Radiolo gist- WILLIAM KAY\\.b r\\Relea sing Radiolo gist- WILLIAM KAY\\.b r\\Relea sed Date Time- 5 15\\.b r\\Trans criptio nist- WILLIAM KAY\\.b r\\----- ------- ------- ------- ------- ------- ------- ------- ------- ------- ------- ---\\.br \\[id number] ck\\.br\\ ALCOHOL,SERUM Observa Value Referen Units Interpr Notes ti etation Range Alcohol 101 0 - 10 mg/dL High No Feb 252013 tion in 5:09 AM source data COMPREHENSIVE METABOLIC PANEL Observa Value Referen Units Interpr Notes etation Range Glucose 93 70 - 99 mg/dL Normal No Feb 252013 tion in 4:55 AM source data BUN 10 7 - 18 mg/dL Normal No Feb 252013 tion in 4:55 AM source data Creatin 0.9 0.6 - mg/dL Normal No Feb 25 ine 1.3 2013 tion in 12:35 source AM data Sodium 140 136 - mEq/L Normal No Oct 4 145 informa 2013 tion in 4:55 AM source data Potassi 3.7 3.5 - mEq/L Normal No Oct 4 um 5.1 informa 2013 tion in 4:55 AM source data Chlorid 109 98 - mEq/L High No Oct 4 e 107 informa 2013 tion in 4:55 AM source data CO2 26 22 - 29 mmol/L Normal No Oct 4 informa 2013 tion in 4:55 AM source data Calcium 8.3 8.5 - mg/dL Low No Oct 4 10.1 informa 2013 tion in 4:55 AM source data Total 7.2 6.4 - gm/dL Normal No Oct 4 Protein 8.2 informa 2013 tion in 12:35 source AM data Albumin 3.6 3.4 - gm/dL Normal No Oct 4 5.0 informa 2013 tion in 4:55 AM source data Alk 62 50 - U/L Normal No Oct 4 Phos 136 informa 2013 tion in 12:35 source AM data ALT 19 3 - 50 U/L Normal No Oct 4 informa 2013 tion in 12:35 source AM data AST 12 15 - 37 U/L Low No Oct 4 informa 2013 tion in 12:35 source AM data Bilirub 0.18 0.0 - mg/dL Normal No Oct 4 in, 1.0 informa 2013 Total tion in 12:35 source AM data GLOMERU >60.0 No mL/min/ No eGFR Oct 4 LAR informa 1.73_m2 informa Interpr 2014 FILTRAT tion in tion in etation 12:35 ION source source : AM RATE data data Disease State Referen ce Ranges for eGFR(ca lculate d)Stage eGFR Descrip tionI/I I >60 Normal/ Mildly reduced kidney functio nIII 30-59 Moderat gianni reduced kidney functio nIV 15-29 Severel y reduced kidney functio nV <15 End-sta ge kidney failure Calcula anh using MDRD formula based on gender, race (* GFR AA is for theAfri can Anne Marie n populat ion), and age. GFR estimat es are unrelia ble inpatie nts with rapidly changin g kidney functio n,recen t dialysi s, extreme sin body size, severe malnutr ition or obesity , loss of limbs, abnorma lmuscle mass, or during pregnan cy. In these patient s, alterna tivedet erminat ions of GFR should be obtaine d. GLOMERU >60.0 No mL/min/ No No Oct 4 LAR informa 1.73_m2 informa informa 2013 FILTRAT tion in tion in tion in 12:35 ION source source source AM RATE data data data Anne Marie n ALCOHOL,SERUM Observa Value Referen Units Interpr Notes Date tion ce etation Range Alcohol 202 0 - 10 mg/dL High No Oct 4 informa 2013 tion in 12:35 source AM data CBC W/DIFF Observa Value Referen Units Interpr Notes Date tion ce etation Range WBC 9.6 3.5 - X_10\\S\\ Normal No Oct 4 9.6 3 informa 2013 tion in 12:34 source AM data RBC 4.51 4.70 - X_10\\S\\ Low No Oct 4 6.10 6 informa 2013 tion in 12:34 source AM data Hemoglo 14.3 14.0 - gm/dL Normal No Oct 4 bin 18.0 informa 2013 tion in 12:34 source AM data Hematoc 42.5 42.0 - % Normal No Oct 4 rit 52.0 informa 2013 tion in 12:34 source AM data Platele 246 130 - X_10\\S\\ Normal No Oct 4 t 400 3 informa 2013 tion in 12:34 source AM data MCH 31.7 27.0 - pg Normal No Oct 4 32.0 informa 2013 tion in 12:34 source AM data MCHC 33.6 32.0 - gm/dL Normal No Oct 4 37.0 informa 2013 tion in 12:34 source AM data MCV 94.2 80.0 - fl High No Oct 4 94.0 informa 2013 tion in 12:34 source AM data RDW 13.4 12.0 - % Normal No Oct 4 15.0 informa 2013 tion in 12:34 source AM data MPV 6.4 6.2 - fl Normal No Oct 4 10.6 informa 2013 tion in 12:34 source AM data Manual YES No No No No Oct 4 Diff? informa informa informa informa 2013 tion in tion in tion in tion in 12:34 source source source source AM data data data data Neutrop 44.0 42.0 - % Normal No Oct 4 hils % 75.0 informa 2013 tion in 12:34 source AM data Bands 1 No No No No Oct 4 informa informa informa informa 2014 tion in tion in tion in tion in 12:34 source source source source AM data data data data Lymphoc 44.0 20.0 - % Normal No Oct 4 ytes % 51.0 informa 2013 tion in 12:34 source AM data Monocyt 2.0 0.0 - % Normal No Oct 4 es % 13.0 informa 2013 tion in 12:34 source AM data Eosinop 2.0 0.0 - % Normal No Oct 4 hils % 6.0 informa 2013 tion in 12:34 source AM data Neutrop 4.3 1.5 - X_10\\S\\ Normal No Oct 4 hil 7.1 3 inform2013 Count tion in 12:34 source AM data Monocyt 0.2 0.2 - X_10\\S\\ Normal No Oct 4 e Count 1.2 3 inform2013 tion in 12:34 source AM data Eosinop 0.2 0.0 - X_10\\S\\ Normal No Oct 4 hil 0.8 3 informa 2013 Count tion in 12:34 source AM data Lymphoc 4.2 0.7 - X_10\\S\\ Normal No Oct 4 yte 4.3 3 informa 2013 Count tion in 12:34 source AM data Atypica 7 No No No No Oct 4 l informa informa informa informa 2014 Lymphoc tion in tion in tion in tion in 12:34 yte source source source source AM data data data data XR CHEST, 2 VIEWS Observa Value Referen Units Interpr Notes Date tion ce etation Range Read By [id number] No No No No September 5 k\\.br\\P informa informa informa informa 2014 A tion in tion in tion in tion in 4:21 PM Lateral source source source source data data data data Chest\\. br\\PA and lateral views of the chest demonst rate clear lungs. The heart\\. br\\size is normal. The bony thorax is intact. \\.br\\IM PRESSIO N-\\.br\\ No active disease in the chest.\\ .br\\Hayde ding Radiolo gist- WILLIAM GABRIEL KAY\\.b r\\Funmilayoa consuelo Radiolo gist- WILLIAM GABRIEL KAY\\.b r\\Funmilayoa sed Date Time- 4 1621\\.b r\\Trans criptio rodríguezt- WILLIAM GABRIEL KAY\\.b r\\----- ------- ------- ------- ------- ------- ------- ------- ------- ------- ------- ---\\.br \\[id number] ck\\.br\\ BASIC METABOLIC PANEL Observa Value Referen Units Interpr Notes Date tion ce etation Range Glucose 99 70 - 99 mg/dL Normal No September 262013 tion in 4:51 PM source data BUN 12 7 - 18 mg/dL Normal No September 262013 tion in 4:51 PM source data Creatin 0.9 0.6 - mg/dL Normal No September 26 ine 1.3 2013 tion in 4:51 PM source data Sodium 135 136 - mEq/L Low No September 26 145 2013 tion in 4:51 PM source data Potassi 4.2 3.5 - mEq/L Normal No September 26 um 5.1 2013 tion in 4:51 PM source data Chlorid 102 98 - mEq/L Normal No September 26 e 107 2013 tion in 4:51 PM source data CO2 28 22 - 29 mmol/L Normal No September 262013 tion in 4:51 PM source data Calcium 9.1 8.5 - mg/dL Normal No September 26 10.1 2013 tion in 4:51 PM source data BUN/Cre 13 No No No No September 26 at informa informa informa informa 2013 Ratio tion in tion in tion in tion in 4:51 PM source source source source data data data data GLOMERU >60.0 No mL/min/ No eGFR September 26 LAR informa 1.73_m2 informa Interpr 2014 FILTRAT tion in tion in etation 4:51 PM ION source source : RATE data data Disease State Referen ce Ranges for eGFR(ca lculate d)Stage eGFR Descrip tionI/I I >60 Normal/ Mildly reduced kidney functio nIII 30-59 Moderat gianni reduced kidney functio nIV 15-29 Severel y reduced kidney functio nV <15 End-sta ge kidney failure Calcula anh using MDRD formula based on gender, race (* GFR AA is for theAfri can Anne Marie n populat ion), and age. GFR estimat es are unrelia ble inpatie nts with rapidly changin g kidney functio n,recen t dialysi s, extreme sin body size, severe malnutr ition or obesity , loss of limbs, abnorma lmuscle mass, or during pregnan cy. In these patient s, alterna tivedet erminat ions of GFR should be obtaine d. GLOMERU >60.0 No mL/min/ No No September 26 LAR informa 1.73_m2 informa informa 2013 FILTRAT tion in tion in tion in 4:51 PM ION source source source RATE data data data Anne Marie n CBC W/DIFF Observa Value Referen Units Interpr Notes Date tion ce etation Range WBC 9.4 3.5 - X_10\\S\\ Normal No September 26 9.6 3 2013 tion in 4:25 PM source data RBC 4.61 4.70 - X_10\\S\\ Low No September 26 6.10 6 2013 tion in 4:25 PM source data Hemoglo 14.0 14.0 - gm/dL Normal No September 26 bin 18.0 2013 tion in 4:25 PM source data Hematoc 42.4 42.0 - % Normal No September 26 rit 52.0 2013 tion in 4:25 PM source data Platele 446 130 - X_10\\S\\ High No September 26 t 400 3 2013 tion in 4:25 PM source data MCH 30.4 27.0 - pg Normal No September 26 32.0 2013 tion in 4:25 PM source data MCHC 33.1 32.0 - gm/dL Normal No September 26 37.0 2013 tion in 4:25 PM source data MCV 91.9 80.0 - fl Normal No September 26 94.0 2013 tion in 4:25 PM source data RDW 13.7 12.0 - % Normal No September 26 15.0 2013 tion in 4:25 PM source data MPV 6.2 6.2 - fl Normal No September 26 10.6 2013 tion in 4:25 PM source data Neutrop 56.4 42.0 - % Normal No September 26 hils % 75.0 2013 tion in 4:25 PM source data Lymphoc 31.6 20.0 - % Normal No September 26 ytes % 51.0 2013 tion in 4:25 PM source data Monocyt 8.9 0.0 - % Normal No September 26 es % 13.0 2013 tion in 4:25 PM source data Eosinop 1.6 0.0 - % Normal No September 26 hils % 6.0 2013 tion in 4:25 PM source data Basophi 1.5 0.0 - % Normal No September 26 ls % 2.0 2013 tion in 4:25 PM source data Neutrop 5.3 1.5 - X_10\\S\\ Normal No September 26 hil 7.1 3 2013 Count tion in 4:25 PM source data Monocyt 0.8 0.2 - X_10\\S\\ Normal No September 26 e Count 1.2 3 2013 tion in 4:25 PM source data Eosinop 0.1 0.0 - X_10\\S\\ Normal No September 26 hil 0.8 3 2013 Count tion in 4:25 PM source data Basophi 0.1 0.0 - X_10\\S\\ Normal No September 26 l Count 0.1 3 2013 tion in 4:25 PM source data Lymphoc 3.0 0.7 - X_10\\S\\ Normal No September 26 yte 4.3 3 2013 Count tion in 4:25 PM source data XR CHEST, 2 VIEWS Observa Value Referen Units Interpr Notes Date tion ce etation Range Read By [id number] No No No No September 26 ERT informa informa informa inform2013 GABRIEL tion in tion in tion in tion in 4:15 PM source source source source KAY\\.b data data data data r\\PA Lateral Chest\\. br\\PA and lateral views of the chest demonst rate clear lungs. The heart\\. br\\size is normal. The bony thorax is intact. \\.br\\IM PRESSIO N-\\.br\\ No active disease in the chest.\\ .br\\Kechi ding Radiolo gist- WILLIAM KAY\\.b r\\Relea sing Radiolo gist- WILLIAM KAY\\.b r\\Relea sed Date Time- 4 1621\\.b r\\Trans criptio nist- WILLIAM KAY\\.b r\\----- ------- ------- ------- ------- ------- ------- ------- ------- ------- ------- ---\\.br \\[id number] PHILIPPE KAY\\.b r\\ CBC W/DIFF Observa Value Referen Units Interpr Notes Date tion ce etation Range WBC 9.5 3.5 - X_10\\S\\ Normal No Apr 29 9.6 3 inform2013 tion in 7:11 AM source data RBC 4.76 4.70 - X_10\\S\\ Normal No Apr 29 6.10 6 inform2013 tion in 7:11 AM source data Hemoglo 15.1 14.0 - gm/dL Normal No Sep 20 bin 18.0 inform2013 tion in 7:11 AM source data Hematoc 43.9 42.0 - % Normal No Sep 20 rit 52.0 inform2013 tion in 7:11 AM source data Platele 426 130 - X_10\\S\\ High No Aug 29 t 400 3 inform2013 tion in 7:11 AM source data MCH 31.7 27.0 - pg Normal No Aug 29 32.0 inform2013 tion in 7:11 AM source data MCHC 34.4 32.0 - gm/dL Normal No Aug 29 37.0 inform2013 tion in 7:11 AM source data MCV 92.3 80.0 - fl Normal No Aug 29 94.0 inform2013 tion in 7:11 AM source data RDW 13.8 12.0 - % Normal No Aug 29 15.0 inform2013 tion in 7:11 AM source data MPV 6.6 6.2 - fl Normal No Aug 29 10.6 inform2013 tion in 7:11 AM source data Neutrop 56.1 42.0 - % Normal No Apr 29 hils % 75.0 2013 tion in 7:11 AM source data Lymphoc 30.7 20.0 - % Normal No Apr 29 ytes % 51.0 2013 tion in 7:11 AM source data Monocyt 10.2 0.0 - % Normal No Apr 29 es % 13.0 2013 tion in 7:11 AM source data Eosinop 2.1 0.0 - % Normal No Apr 29 hils % 6.0 inform2013 tion in 7:11 AM source data Basophi 0.9 0.0 - % Normal No Apr 29 ls % 2.0 2013 tion in 7:11 AM source data Neutrop 5.4 1.5 - X_10\\S\\ Normal No Apr 29 hil 7.1 3 2013 Count tion in 7:11 AM source data Monocyt 1.0 0.2 - X_10\\S\\ Normal No Apr 29 e Count 1.2 3 2013 tion in 7:11 AM source data Eosinop 0.2 0.0 - X_10\\S\\ Normal No Apr 29 hil 0.8 3 2013 Count tion in 7:11 AM source data Basophi 0.1 0.0 - X_10\\S\\ Normal No Apr 29 l Count 0.1 3 2013 tion in 7:11 AM source data Lymphoc 2.9 0.7 - X_10\\S\\ Normal SLIDE Apr 29 yte 4.3 3 E 2013 Count D, SC 7:11 AM BASIC METABOLIC PANEL Observa Value Referen Units Interpr Notes Date tion ce etation Range Glucose 104 70 - 99 mg/dL High No Apr 29 2013 tion in 6:56 AM source data BUN 19 7 - 18 mg/dL High No Aug 29 inform2013 tion in 6:56 AM source data Creatin 1.2 0.6 - mg/dL Normal No Apr 29 ine 1.3 inform2013 tion in 6:56 AM source data Sodium 137 136 - mEq/L Normal No Aug 29 145 2013 tion in 6:56 AM source data Potassi 4.6 3.5 - mEq/L Normal No Aug 29 um 5.1 inform2013 tion in 6:56 AM source data Chlorid 99 98 - mEq/L Normal No Sep 20 e 107 informa 2013 tion in 6:56 AM source data CO2 29 22 - 29 mmol/L Normal No Sep 20 inform2013 tion in 6:56 AM source data Calcium 9.1 8.5 - mg/dL Normal No Sep 20 10.1 informa 2013 tion in 6:56 AM source data BUN/Cre 16 No No No No Sep 20 at informa informa informa informa 2013 Ratio tion in tion in tion in tion in 6:56 AM source source source source data data data data GLOMERU >60.0 No mL/min/ No eGFR Sep 20 LAR informa 1.73_m2 informa Interpr 2013 FILTRAT tion in ti in etation 6:56 AM ION source source : RATE data data Disease State Referen ce Ranges for eGFR(ca lculate d)Stage eGFR Descrip tionI/I I >60 Normal/ Mildly reduced kidney functio nIII 30-59 Moderat gianni reduced kidney functio nIV 15-29 Severel y reduced kidney functio nV <15 End-sta ge kidney failure Calcula anh using MDRD formula based on gender, race (* GFR AA is for theAfri can Anne Marie n populat ion), and age. GFR estimat es are unrelia ble inpatie nts with rapidly changin g kidney functio n,recen t dialysi s, extreme sin body size, severe malnutr ition or obesity , loss of limbs, abnorma lmuscle mass, or during pregnan cy. In these patient s, alterna tivedet erminat ions of GFR should be obtaine d. GLOMERU >60.0 No mL/min/ No No Sep 20 LAR informa 1.73_m2 informa informa 2013 FILTRAT tion in tion in tion in 6:56 AM ION source source source RATE data data data Anne Marie n CULTURE, STOOL Observa Value Referen Units Interpr Notes Date tion ce etation Range Clinica Specime No No No No September 2 l n: informa informa informa informa 2013 Report STOOLCo tion in tion in tion in tion in 11:13 llected source source source source PM : data data data data 014 19:00St atus: Final Last Updated : 014 23:13CU L RES (Final) Heavy Normal Fecal Charito NotedNe gative for presenc e of Shiga toxin 1Negati ve for the presenc e of Shiga toxin 2Negati ve For Salmone lla, Shigell a, Campylo bacter \\T\\ Yersini a CLOSTRIDIUM DIFFICILE TOXIN A AND B Observa Value Referen Units Interpr Notes Date tion ce etation Range C. NEGATIV NEGATIV No Normal No Apr 29 Diffici E E informa informa 2013 le tion in tion in 3:08 AM Toxin source source data data WBC STOOL Observa Value Referen Units Interpr Notes Date tion ce etation Range Fecal NONE NONE No Normal No Apr 28 Leukocy SEEN SEEN informa informa 2013 andressa tion in tion in 8:47 PM source source data data CBC W/DIFF Observa Value Referen Units Interpr Notes Date tion ce etation Range WBC 10.5 3.5 - X_10\\S\\ High No Apr 28 9.6 3 inform2013 tion in 7:49 AM source data RBC 4.70 4.70 - X_10\\S\\ Normal No Apr 28 6.10 6 inform2013 tion in 7:49 AM source data Hemoglo 14.8 14.0 - gm/dL Normal No Apr 28 bin 18.0 inform2013 tion in 7:49 AM source data Hematoc 44.3 42.0 - % Normal No Apr 28 rit 52.0 inform2013 tion in 7:49 AM source data Platele 384 130 - X_10\\S\\ Normal No Aug 28 t 400 3 inform2013 tion in 7:49 AM source data MCH 31.5 27.0 - pg Normal No Apr 28 32.0 inform2013 tion in 7:49 AM source data MCHC 33.4 32.0 - gm/dL Normal No Apr 28 37.0 informa 2013 tion in 7:49 AM source data MCV 94.3 80.0 - fl High No Apr 28 94.0 inform2013 tion in 7:49 AM source data RDW 14.0 12.0 - % Normal No Apr 28 15.0 inform2013 tion in 7:49 AM source data MPV 6.9 6.2 - fl Normal No Apr 28 10.6 informa 2013 tion in 7:49 AM source data Neutrop 54.5 42.0 - % Normal No Apr 28 hils % 75.0 2013 tion in 7:49 AM source data Lymphoc 34.3 20.0 - % Normal No Apr 28 ytes % 51.0 2013 tion in 7:49 AM source data Monocyt 8.8 0.0 - % Normal No Aug 28 es % 13.0 2013 tion in 7:49 AM source data Eosinop 1.7 0.0 - % Normal No Aug 28 hils % 6.0 2013 tion in 7:49 AM source data Basophi 0.7 0.0 - % Normal No Apr 28 ls % 2.0 2013 tion in 7:49 AM source data Neutrop 5.7 1.5 - X_10\\S\\ Normal No Apr 28 hil 7.1 3 2013 Count tion in 7:49 AM source data Monocyt 0.9 0.2 - X_10\\S\\ Normal No Apr 28 e Count 1.2 3 2013 tion in 7:49 AM source data Eosinop 0.2 0.0 - X_10\\S\\ Normal No Apr 28 hil 0.8 3 2013 Count tion in 7:49 AM source data Basophi 0.1 0.0 - X_10\\S\\ Normal No Apr 28 l Count 0.1 3 2013 tion in 7:49 AM source data Lymphoc 3.6 0.7 - X_10\\S\\ Normal SLIDE Aug 28 yte 4.3 3 E 2013 Count D, MC 7:49 AM BASIC METABOLIC PANEL Observa Value Referen Units Interpr Notes Date tion ce etation Range Glucose 107 70 - 99 mg/dL High No Aug 28 2013 tion in 6:56 AM source data BUN 15 7 - 18 mg/dL Normal No Aug 28 2013 tion in 6:56 AM source data Creatin 1.0 0.6 - mg/dL Normal No Aug 28 ine 1.3 2013 tion in 6:56 AM source data Sodium 136 136 - mEq/L Normal No Sep 19 145 2013 tion in 6:56 AM source data Potassi 4.5 3.5 - mEq/L Normal No Sep 19 um 5.1 2013 tion in 6:56 AM source data Chlorid 99 98 - mEq/L Normal No Sep 19 e 107 informa 2013 tion in 6:56 AM source data CO2 28 22 - 29 mmol/L Normal No Sep 19 inform2013 tion in 6:56 AM source data Calcium 9.3 8.5 - mg/dL Normal No Sep 19 10.1 informa 2013 tion in 6:56 AM source data BUN/Cre 15 No No No No Sep 19 at informa informa informa informa 2013 Ratio tion in tion in tion in tion in 6:56 AM source source source source data data data data GLOMERU >60.0 No mL/min/ No eGFR Sep 19 LAR informa 1.73_m2 informa Interpr 2013 FILTRAT tion in tion in etation 6:56 AM ION source source : RATE data data Disease State Referen ce Ranges for eGFR(ca lculate d)Stage eGFR Descrip tionI/I I >60 Normal/ Mildly reduced kidney functio nIII 30-59 Moderat gianni reduced kidney functio nIV 15-29 Severel y reduced kidney functio nV <15 End-sta ge kidney failure Calcula anh using MDRD formula based on gender, race (* GFR AA is for theAfri can Anne Marie n populat ion), and age. GFR estimat es are unrelia ble inpatie nts with rapidly changin g kidney functio n,recen t dialysi s, extreme sin body size, severe malnutr ition or obesity , loss of limbs, abnorma lmuscle mass, or during pregnan cy. In these patient s, alterna tivedet erminat ions of GFR should be obtaine d. GLOMERU >60.0 No mL/min/ No No Sep 19 LAR informa 1.73_m2 informa informa 2013 FILTRAT tion in tion in tion in 6:56 AM ION source source source RATE data data data Anne Marie n XR CHEST 1 VIEW Observa Value Referen Units Interpr Notes Date tion ce etation Range Read By [id number] No No No No Sep 19 ERT informa informa informa informa 2013 GABRIEL tion in tion in tion in tion in 5:45 AM source source source source KAY\\.b data data data data r\\Geovani ble chest\\. br\\Bord shasta heart. Clearin g of infiltr ate right midlung field .\\.br\\I mpressi on lungs are now clear\\. br\\Read ing Radiolo gist- WILLIAM KAY\\.b r\\Relea sing Radiolo gist- WILLIAM KAY\\.b r\\Relea sed Date Time- 4 1003\\.b r\\Trans criptio nist- WILLIAM KAY\\.b r\\----- ------- ------- ------- ------- ------- ------- ------- ------- ------- ------- ---\\.br \\[id number] PHILIPPE KAY\\.b r\\ BASIC METABOLIC PANEL Observa Value Referen Units Interpr Notes Date tion ce etation Range Glucose 96 70 - 99 mg/dL Normal No Sep 18 inform2013 tion in 7:07 AM source data BUN 13 7 - 18 mg/dL Normal No Sep 18 inform2013 tion in 7:07 AM source data Creatin 1.0 0.6 - mg/dL Normal No Sep 18 ine 1.3 inform2013 tion in 7:07 AM source data Sodium 136 136 - mEq/L Normal No Sep 18 145 2013 tion in 7:07 AM source data Potassi 4.2 3.5 - mEq/L Normal No Sep 18 um 5.1 inform2013 tion in 7:07 AM source data Chlorid 102 98 - mEq/L Normal No Sep 18 e 107 inform2013 tion in 7:07 AM source data CO2 27 22 - 29 mmol/L Normal No Sep 18 inform2013 tion in 7:07 AM source data Calcium 8.7 8.5 - mg/dL Normal No Sep 18 10.1 inform2013 tion in 7:07 AM source data GLOMERU >60.0 No mL/min/ No eGFR Sep 18 LAR informa 1.73_m2 informa Interpr 2013 FILTRAT tion in tion in etation 7:07 AM ION source source : RATE data data Disease State Referen ce Ranges for eGFR(ca lculate d)Stage eGFR Descrip tionI/I I >60 Normal/ Mildly reduced kidney functio nIII 30-59 Moderat gianni reduced kidney functio nIV 15-29 Severel y reduced kidney functio nV <15 End-sta ge kidney failure Calcula anh using MDRD formula based on gender, race (* GFR AA is for theri can Anne Marie n populat ion), and age. GFR estimat es are unrelia ble inpatie nts with rapidly changin g kidney functio n,recen t dialysi s, extreme sin body size, severe malnutr ition or obesity , loss of limbs, abnorma lmuscle mass, or during pregnan cy. In these patient s, alterna tivedet erminat ions of GFR should be obtaine d. GLOMERU >60.0 No mL/min/ No No Sep 18 LAR informa 1.73_m2 informa informa 2013 FILTRAT tion in tion in tion in 7:07 AM ION source source source RATE data data data [facility] Anne Marie n CBC W/DIFF Observa Value Referen Units Interpr Notes Date tion ce etation Range WBC 9.8 3.5 - X_10\\S\\ High No Sep 18 9.6 3 inform2013 tion in 6:17 AM source data RBC 4.49 4.70 - X_10\\S\\ Low No Sep 18 6.10 6 inform2013 tion in 6:17 AM source data Hemoglo 14.1 14.0 - gm/dL Normal No Sep 18 bin 18.0 2013 tion in 6:17 AM source data Hematoc 42.4 42.0 - % Normal No Sep 18 rit 52.0 2013 tion in 6:17 AM source data Platele 330 130 - X_10\\S\\ Normal No Sep 18 t 400 3 2013 tion in 6:17 AM source data MCH 31.4 27.0 - pg Normal No Sep 18 32.0 inform2013 tion in 6:17 AM source data MCHC 33.2 32.0 - gm/dL Normal No Sep 18 37.0 inform2013 tion in 6:17 AM source data MCV 94.5 80.0 - fl High No Sep 18 94.0 inform2013 tion in 6:17 AM source data RDW 13.8 12.0 - % Normal No Apr 27 15.0 inform2013 tion in 6:17 AM source data MPV 7.1 6.2 - fl Normal No Aug 27 10.6 informa 2013 tion in 6:17 AM source data Neutrop 51.5 42.0 - % Normal No Aug 27 hils % 75.0 inform2013 tion in 6:17 AM source data Lymphoc 35.5 20.0 - % Normal No Sep 18 ytes % 51.0 inform2013 tion in 6:17 AM source data Monocyt 10.3 0.0 - % Normal No Sep 18 es % 13.0 inform2013 tion in 6:17 AM source data Eosinop 2.1 0.0 - % Normal No Sep 18 hils % 6.0 inform2013 tion in 6:17 AM source data Basophi 0.6 0.0 - % Normal No Sep 18 ls % 2.0 inform2013 tion in 6:17 AM source data Neutrop 5.0 1.5 - X_10\\S\\ Normal No Sep 18 hil 7.1 3 2013 Count tion in 6:17 AM source data Monocyt 1.0 0.2 - X_10\\S\\ Normal No Sep 18 e Count 1.2 3 2013 tion in 6:17 AM source data Eosinop 0.2 0.0 - X_10\\S\\ Normal No Sep 18 hil 0.8 3 inform2013 Count tion in 6:17 AM source data Basophi 0.1 0.0 - X_10\\S\\ Normal No Aug 27 l Count 0.1 3 inform2013 tion in 6:17 AM source data Lymphoc 3.5 0.7 - X_10\\S\\ Normal No Sep 18 yte 4.3 3 inform2013 Count tion in 6:17 AM source data CBC W/DIFF Observa Value Referen Units Interpr Notes Date tion ce etation Range WBC 8.5 3.5 - X_10\\S\\ Normal No Apr 26 9.6 3 inform2013 tion in 7:44 AM source data RBC 4.31 4.70 - X_10\\S\\ Low No Apr 26 6.10 6 inform2013 tion in 7:44 AM source data Hemoglo 13.5 14.0 - gm/dL Low No Sep 17 bin 18.0 inform2013 tion in 7:44 AM source data Hematoc 40.4 42.0 - % Low No Apr 26 rit 52.0 2013 tion in 7:44 AM source data Platele 307 130 - X_10\\S\\ Normal No Apr 26 t 400 3 2013 tion in 7:44 AM source data MCH 31.3 27.0 - pg Normal No Apr 26 32.0 2013 tion in 7:44 AM source data MCHC 33.4 32.0 - gm/dL Normal No Apr 26 37.0 2013 tion in 7:44 AM source data MCV 93.6 80.0 - fl Normal No Apr 26 94.0 2013 tion in 7:44 AM source data RDW 13.8 12.0 - % Normal No Apr 26 15.0 2013 tion in 7:44 AM source data MPV 7.3 6.2 - fl Normal No Apr 26 10.6 2013 tion in 7:44 AM source data Neutrop 58.7 42.0 - % Normal No Apr 26 hils % 75.0 2013 tion in 7:44 AM source data Lymphoc 27.5 20.0 - % Normal No Apr 26 ytes % 51.0 2013 tion in 7:44 AM source data Monocyt 11.7 0.0 - % Normal No Apr 26 es % 13.0 2013 tion in 7:44 AM source data Eosinop 1.4 0.0 - % Normal No Apr 26 hils % 6.0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 Notes Date tion ce etation Range Influen NEGATIV NEGATIV No Normal No Sep 13 za A E E informa informa 2014 Antigen tion in tion in 5:21 PM source source data data Influen NEGATIV NEGATIV No Normal No Sep 13 za B E E informa informa 2014 Antigen tion in tion in 5:21 PM source source data data CBC W/DIFF Observa Value Referen Units Interpr Notes Date tion ce etation Range WBC 16.6 3.5 - X_10\\S\\ High No Apr 22 9.6 3 informa 2013 tion in 4:49 PM source data RBC 5.02 4.70 - X_10\\S\\ Normal No Apr 22 6.10 6 inform2013 tion in 4:49 PM source data Hemoglo 15.3 14.0 - gm/dL Normal No Apr 22 bin 18.0 informa 2013 tion in 4:49 PM source data Hematoc 47.0 42.0 - % Normal No Apr 22 rit 52.0 informa 2013 tion in 4:49 PM source data Platele 214 130 - X_10\\S\\ Normal No Apr 22 t 400 3 informa 2013 tion in 4:49 PM source data MCH 30.6 27.0 - pg Normal No Apr 22 32.0 informa 2013 tion in 4:49 PM source data MCHC 32.6 32.0 - gm/dL Normal No Apr 22 37.0 informa 2013 tion in 4:49 PM source data MCV 93.7 80.0 - fl Normal No Apr 22 94.0 inform2013 tion in 4:49 PM source data RDW 13.7 12.0 - % Normal No Apr 22 15.0 informa 2013 tion in 4:49 PM source data MPV 7.0 6.2 - fl Normal No Apr 22 10.6 informa 2013 tion in 4:49 PM source data Manual YES No No No No Apr 22 Diff? informa informa informa informa 2014 tion in tion in tion in tion in 4:49 PM source source source source data data data data Neutrop 53.0 42.0 - % Normal No Apr 22 hils % 75.0 inform2013 tion in 4:49 PM source data Bands 34 No No No No Apr 22 informa informa informa informa 2014 tion in tion in tion in tion in 4:49 PM source source source source data data data data Lymphoc 9.0 20.0 - % Low No Apr 22 ytes % 51.0 inform2013 tion in 4:49 PM source data Monocyt 4.0 0.0 - % Normal No Apr 22 es % 13.0 informa 2013 tion in 4:49 PM source data Neutrop 14.4 1.5 - X_10\\S\\ High No Apr 22 hil 7.1 3 informa 2013 Count tion in 4:49 PM source data Monocyt 0.7 0.2 - X_10\\S\\ Normal No Sep 13 e Count 1.2 3 2013 tion in 4:49 PM source data Lymphoc 1.5 0.7 - X_10\\S\\ Normal No Sep 13 yte 4.3 3 2013 Count tion in 4:49 PM source data COMPREHENSIVE METABOLIC PANEL Observa Value Referen Units Interpr Notes Date tion ce etation Range Glucose 105 70 - 99 mg/dL High No Sep 132013 tion in 4:33 PM source data BUN 10 7 - 18 mg/dL Normal No Sep 13 inform2013 tion in 4:33 PM source data Creatin 1.2 0.6 - mg/dL Normal No Sep 13 ine 1.3 2013 tion in 4:33 PM source data Sodium 132 136 - mEq/L Low No Sep 13 145 2013 tion in 4:33 PM source data Potassi 3.9 3.5 - mEq/L Normal No Sep 13 um 5.1 2013 tion in 4:33 PM source data Chlorid 98 98 - mEq/L Normal No Sep 13 e 107 2013 tion in 4:33 PM source data CO2 26 22 - 29 mmol/L Normal No Sep 132013 tion in 4:33 PM source data Calcium 9.0 8.5 - mg/dL Normal No Sep 13 10.1 2013 tion in 4:33 PM source data Total 8.0 6.4 - gm/dL Normal No Sep 13 Protein 8.2 2013 tion in 4:33 PM source data Albumin 3.7 3.4 - gm/dL Normal No Sep 13 5.0 inform2013 tion in 4:33 PM source data Alk 67 50 - U/L Normal No Sep 13 Phos 136 2013 tion in 4:33 PM source data ALT 19 3 - 50 U/L Normal No Sep 132013 tion in 4:33 PM source data AST 10 15 - 37 U/L Low No Sep 132013 tion in 4:33 PM source data Bilirub 0.54 0.0 - mg/dL Normal No Sep 13 in, 1.0 2013 Total tion in 4:33 PM source data BUN/Cre 8 No No No No Sep 13 at informa informa informa informa 2013 Ratio tion in tion in tion in tion in 4:33 PM source source source source data data data data A/G 0.9 No No No No Sep 13 Ratio informa informa informa informa 2014 tion in tion in tion in tion in 4:33 PM source source source source data data data data GLOMERU >60.0 No mL/min/ No eGFR Sep 13 LAR informa 1.73_m2 informa Interpr 2013 FILTRAT tion in tion in etation 4:33 PM ION source source : RATE data data Disease State Referen ce Ranges for eGFR(ca lculate d)Stage eGFR Descrip tionI/I I >60 Normal/ Mildly reduced kidney functio nIII 30-59 Moderat ginani reduced kidney functio nIV 15-29 Severel y reduced kidney functio nV <15 End-sta ge kidney failure Calcula anh using MDRD formula based on gender, race (* GFR AA is for theAfri can Anne Marie n populat ion), and age. GFR estimat es are unrelia ble inpatie nts with rapidly changin g kidney functio n,recen t dialysi s, extreme sin body size, severe malnutr ition or obesity , loss of limbs, abnorma lmuscle mass, or during pregnan cy. In these patient s, alterna tivedet erminat ions of GFR should be obtaine d. GLOMERU >60.0 No mL/min/ No No Sep 13 LAR informa 1.73_m2 informa informa 2013 FILTRAT tion in tion in ti in 4:33 PM ION source source source RATE data data data Anne Marie n XR CHEST 1 VIEW Observa Value Referen Units Interpr Notes Date tion ce etation Range [place] [id number] No No No No Sep 13 ERT informa informa informa informa 2013 GABRIEL tion in tion in tion in tion in 4:07 PM source source source source KAY\\.b data data data data r\\Geovani ble chest\\. br\\Card iomegal y. Patchy hazines s in the right midlung suggest jewell of\\.br\\ infiltr ate. Underly ing lesion not exclude d interst itial change and\\.br \\emphys neha.\\.b r\\Impre ssion patch infiltr ate right midlung field close followu p CT\\.br\\ exclude underly ing lesion recomme nded new since 1010 11\\.br\\ Reading [facility]- WILLIAM KAY\\.b r\\Relea sing [facility]- WILLIAM KAY\\.b r\\Relea sed Date Time- 4 1812\\.b r\\Trans criptio nist- WILLIAM KAY\\.b r\\----- ------- ------- ------- ------- ------- ------- ------- ------- ------- ------- ---\\.br \\[id number] PHILIPPE KAY\\.b r\\ ALCOHOL,SERUM Observa Value Referen Units Interpr Notes Date tion ce etation Range Alcohol 47 0 - 10 mg/dL High No Dec 022012 tion in 2:11 PM source data ALCOHOL,SERUM Observa Value Referen Units Interpr Notes Date tion ce etation Range CALLED ALCOHOL TO MUNIR IN ER @ 0559, RBV DS Alcohol 239 0 - 10 mg/dL High No Dec 022012 tion in 5:59 AM source data CBC W/DIFF Observa Value Referen Units Interpr Notes Date tion ce etation Range WBC 10.2 3.5 - X_10 High No Dec 02 9.6 inform2012 tion in 5:08 AM source data RBC 5.24 4.70 - X_10 Normal No Dec 02 6.10 informa 2012 tion in 5:08 AM source data Hemoglo 17.6 14.0 - gm/dL Normal No Dec 02 bin 18.0 inform2012 tion in 5:08 AM source data Hematoc 50.1 42.0 - % Normal No Dec 02 rit 52.0 inform2012 tion in 5:08 AM source data Platele 177 130 - X_10 Normal No Dec 02 t 400 2012 tion in 5:08 AM source data MCH 33.5 27.0 - pg High No Dec 02 32.0 inform2012 tion in 5:08 AM source data MCHC 35.1 32.0 - gm/dL Normal No Dec 02 37.0 informa 2012 tion in 5:08 AM source data MCV 95.6 80.0 - fl High No Dec 02 94.0 informa 2012 tion in 5:08 AM source data RDW 14.4 12.0 - % Normal No Dec 02 15.0 informa 2012 tion in 5:08 AM source data MPV 6.9 6.2 - fl Normal No Dec 02 10.6 informa 2012 tion in 5:08 AM source data Neutrop 57.1 42.0 - % Normal No Dec 02 hils % 75.0 informa 2012 tion in 5:08 AM source data Lymphoc 32.5 20.0 - % Normal No Dec 02 ytes % 51.0 informa 2012 tion in 5:08 AM source data Monocyt 7.3 0.0 - % Normal Dec 02 es % 13.0 informa 2012 tion in 5:08 AM source data Eosinop 2.5 0.0 - % Normal No Dec 02 hils % 6.0 informa 2012 tion in 5:08 AM source data Basophi 0.6 0.0 - % Normal No Dec 02 ls % 2.0 informa 2012 tion in 5:08 AM source data Neutrop 5.8 1.5 - X_10 Normal No Dec 02 hil 7.1 informa 2012 Count tion in 5:08 AM source data Monocyt 0.8 0.2 - X_10 Normal No Dec 02 e Count 1.2 informa 2012 tion in 5:08 AM source data Eosinop 0.3 0.0 - X_10 Normal No Dec 02 hil 0.8 informa 2012 Count tion in 5:08 AM source data Basophi 0.1 0.0 - X_10 Normal No Dec 02 l Count 0.1 informa 2012 tion in 5:08 AM source data Lymphoc 3.3 0.7 - X_10 Normal No Dec 02 yte 4.3 informa 2012 Count tion in 5:08 AM source data XR SHOULDER COMP MIN 2 VIEWS Observa Value Referen Units Interpr Notes Date tion ce etation Range Read By Right No No No No Dec 02 shoulde informa informa informa informa 2013 r 2 tion in tion in tion in tion in 4:58 AM views\\. 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 No acute fractur e, disloca tion.\\. br\\Impr ession old injury and DJD\\.br \\Ravi werner [facility]- WILLIAM KAY\\.b r\\Relea sing [facility]- WILLIAM KAY\\.b r\\Relea sed Date Time- 3 0858\\.b r\\Trans criptio nist- WILLIAM KAY\\.b r\\----- ------- ------- ------- ------- ------- ------- ------- ------- ------- ------- ---\\.br \\ BASIC METABOLIC PANEL Observa Value Referen Units Interpr Notes Date tion ce etation Range Glucose 140 70 - 99 mg/dL High No Sep 20 inform2012 tion in 6:06 AM source data BUN 11 7 - 18 mg/dL Normal No Sep 20 inform2012 tion in 6:06 AM source data Creatin 1.0 0.6 - mg/dL Normal No Sep 20 ine 1.3 inform2012 tion in 6:06 AM source data Sodium 138 136 - mEq/L Normal No Sep 20 145 inform2012 tion in 6:06 AM source data Potassi 4.1 3.5 - mEq/L Normal No Sep 20 um 5.1 inform2012 tion in 6:06 AM source data Chlorid 105 98 - mEq/L Normal No Sep 20 e 107 inform2012 tion in 6:06 AM source data CO2 30 22 - 29 mmol/L High No Sep 20 inform2012 tion in 6:06 AM source data Calcium 7.9 8.5 - mg/dL Low No Sep 20 10.1 inform2012 tion in 6:06 AM source data BUN/Cre 11 No No No No Sep 20 at informa informa informa informa 2012 Ratio tion in tion in tion in tion in 6:06 AM source source source source data data data data GLOMERU >60.0 No mL/min/ No eGFR Sep 20 LAR informa 1.73_m2 informa Interpr 2012 FILTRAT tion in tion in etation 6:06 AM ION source source : RATE data data Disease State Referen ce Ranges for eGFR(ca lculate d)Stage eGFR Descrip tionI/I I >60 Normal/ Mildly reduced kidney functio nIII 30-59 Moderat gianni reduced kidney functio nIV 15-29 Severel y reduced kidney functio nV <15 End-sta ge kidney failure Calcula anh using MDRD formula based on gender, race (* GFR AA is for theAfri can Anne Marie n populat ion), and age. GFR estimat es are unrelia ble inpatie nts with rapidly changin g kidney functio n,recen t dialysi s, extreme sin body size, severe malnutr ition or obesity , loss of limbs, abnorma lmuscle mass, or during pregnan cy. In these patient s, alterna tivedet erminat ions of GFR should be obtaine d. GLOMERU >60.0 No mL/min/ No No Sep 20 LAR informa 1.73_m2 informa informa 2012 FILTRAT tion in tion in tion in 6:06 AM ION source source source RATE data data data Anne Marie n VANCOMYCIN TROUGH Observa Value Referen Units Interpr Notes Date tion ce etation Range Vancomy 7.3 10.0 - mcg/mL Low No Sep 20 priscilla 20.0 informa 2012 Trough tion in 6:01 AM source data CBC W/DIFF Observa Value Referen Units Interpr Notes Date tion ce etation Range WBC 7.1 3.5 - X_10 Normal No Sep 20 9.6 informa 2012 tion in 5:38 AM source data RBC 3.87 4.70 - X_10 Low No Aug 29 6.10 informa 2012 tion in 5:38 AM source data Hemoglo 12.4 14.0 - gm/dL Low No Sep 20 bin 18.0 informa 2012 tion in 5:38 AM source data Hematoc 37.8 42.0 - % Low No Sep 20 rit 52.0 informa 2012 tion in 5:38 AM source data Platele 252 130 - X_10 Normal No Sep 20 t 400 informa 2012 tion in 5:38 AM source data MCH 32.1 27.0 - pg High No Aug 29 32.0 informa 2012 tion in 5:38 AM source data MCHC 32.9 32.0 - gm/dL Normal No Apr 29 37.0 informa 2012 tion in 5:38 AM source data MCV 97.7 80.0 - fl High No Apr 29 94.0 informa 2012 tion in 5:38 AM source data RDW 13.5 12.0 - % Normal No Apr 29 15.0 informa 2012 tion in 5:38 AM source data MPV 7.1 6.2 - fl Normal No Apr 29 10.6 informa 2012 tion in 5:38 AM source data Neutrop 56.0 42.0 - % Normal No Apr 29 hils % 75.0 informa 2012 tion in 5:38 AM source data Lymphoc 22.2 20.0 - % Normal No Apr 29 ytes % 51.0 informa 2012 tion in 5:38 AM source data Monocyt 14.5 0.0 - % High No Apr 29 es % 13.0 informa 2012 tion in 5:38 AM source data Eosinop 6.5 0.0 - % High No Apr 29 hils % 6.0 informa 2012 tion in 5:38 AM source data Basophi 0.8 0.0 - % Normal No Apr 29 ls % 2.0 informa 2012 tion in 5:38 AM source data Neutrop 4.0 1.5 - X_10 Normal No Apr 29 hil 7.1 informa 2012 Count tion in 5:38 AM source data Monocyt 1.0 0.2 - X_10 Normal No Apr 29 e Count 1.2 informa 2012 tion in 5:38 AM source data Eosinop 0.5 0.0 - X_10 Normal No Apr 29 hil 0.8 informa 2012 Count tion in 5:38 AM source data Basophi 0.1 0.0 - X_10 Normal No Apr 29 l Count 0.1 informa 2012 tion in 5:38 AM source data Lymphoc 1.6 0.7 - X_10 Normal No Apr 29 yte 4.3 informa 2012 Count tion in 5:38 AM source data BASIC METABOLIC PANEL Observa Value Referen Units Interpr Notes Date tion ce etation Range Glucose 132 70 - 99 mg/dL High No Apr 28 informa 2012 tion in 7:01 AM source data BUN 14 7 - 18 mg/dL Normal No Sep 19 inform2012 tion in 7:01 AM source data Creatin 1.0 0.6 - mg/dL Normal No Sep 19 ine 1.3 inform2012 tion in 7:01 AM source data Sodium 129 136 - mEq/L Low No Sep 19 145 informa 2012 tion in 7:01 AM source data Potassi 3.6 3.5 - mEq/L Normal No Sep 19 um 5.1 informa 2012 tion in 7:01 AM source data Chlorid 96 98 - mEq/L Low No Sep 19 e 107 informa 2012 tion in 7:01 AM source data CO2 24 22 - 29 mmol/L Normal No Sep 19 inform2012 tion in 7:01 AM source data Calcium 7.8 8.5 - mg/dL Low No Sep 19 10.1 inform2012 tion in 7:01 AM source data BUN/Cre 14 No No No No Sep 19 at informa informa informa informa 2012 Ratio tion in tion in tion in tion in 7:01 AM source source source source data data data data GLOMERU >60.0 No mL/min/ No eGFR Sep 19 LAR informa 1.73_m2 informa Interpr 2012 FILTRAT tion in tion in etation 7:01 AM ION source source : RATE data data Disease State Referen ce Ranges for eGFR(ca lculate d)Stage eGFR Descrip tionI/I I >60 Normal/ Mildly reduced kidney functio nIII 30-59 Moderat gianni reduced kidney functio nIV 15-29 Severel y reduced kidney functio nV <15 End-sta ge kidney failure Calcula anh using MDRD formula based on gender, race (* GFR AA is for theAfri can Anne Marie n populat ion), and age. GFR estimat es are unrelia ble inpatie nts with rapidly changin g kidney functio n,recen t dialysi s, extreme sin body size, severe malnutr ition or obesity , loss of limbs, abnorma lmuscle mass, or during pregnan cy. In these patient s, alterna tivedet erminat ions of GFR should be obtaine d. GLOMERU >60.0 No mL/min/ No No Sep 19 LAR informa 1.73_m2 informa informa 2013 FILTRAT tion in tion in tion in 7:01 AM ION source source source RATE data data data Anne Marie n CBC W/DIFF Observa Value Referen Units Interpr Notes Date tion ce etation Range WBC 14.4 3.5 - X_10 High No Apr 28 9.6 informa 2012 tion in 5:55 AM source data RBC 4.14 4.70 - X_10 Low No Apr 28 6.10 informa 2012 tion in 5:55 AM source data Hemoglo 13.3 14.0 - gm/dL Low No Apr 28 bin 18.0 informa 2012 tion in 5:55 AM source data Hematoc 40.2 42.0 - % Low No Apr 28 rit 52.0 informa 2012 tion in 5:55 AM source data Platele 268 130 - X_10 Normal No Apr 28 t 400 informa 2012 tion in 5:55 AM source data MCH 32.1 27.0 - pg High No Apr 28 32.0 informa 2012 tion in 5:55 AM source data MCHC 33.1 32.0 - gm/dL Normal No Apr 28 37.0 informa 2012 tion in 5:55 AM source data MCV 97.0 80.0 - fl High No Apr 28 94.0 informa 2012 tion in 5:55 AM source data RDW 13.3 12.0 - % Normal No Apr 28 15.0 informa 2012 tion in 5:55 AM source data MPV 7.5 6.2 - fl Normal No Apr 28 10.6 informa 2012 tion in 5:55 AM source data Neutrop 76.6 42.0 - % High No Apr 28 hils % 75.0 informa 2012 tion in 5:55 AM source data Lymphoc 12.8 20.0 - % Low No Apr 28 ytes % 51.0 informa 2012 tion in 5:55 AM source data Monocyt 9.2 0.0 - % Normal No Apr 28 es % 13.0 informa 2012 tion in 5:55 AM source data Eosinop 0.9 0.0 - % Normal No Apr 28 hils % 6.0 informa 2012 tion in 5:55 AM source data Basophi 0.5 0.0 - % Normal No Apr 28 ls % 2.0 informa 2012 tion in 5:55 AM source data Neutrop 11.0 1.5 - X_10 High No Aug 28 hil 7.1 informa 2012 Count tion in 5:55 AM source data Monocyt 1.3 0.2 - X_10 High No Aug 28 e Count 1.2 informa 2012 tion in 5:55 AM source data Eosinop 0.1 0.0 - X_10 Normal No Apr 28 hil 0.8 informa 2012 Count tion in 5:55 AM source data Basophi 0.1 0.0 - X_10 Normal No Aug 28 l Count 0.1 informa 2012 tion in 5:55 AM source data Lymphoc 1.8 0.7 - X_10 Normal No Sep 19 yte 4.3 informa 2012 Count tion in 5:55 AM source data CULTURE, ANAEROBIC Observa Value Referen Units Interpr Notes Date tion ce etation Range Clinica Specime No No No No September 2 l n/Sourc informa informa informa informa 2012 Report e: tion in tion in tion in tion in 3:51 PM OTHER-S source source source source PECIFY/ data data data data backCol lected: 20:58St atus: Final Last Updated : 15:51CU L RES (Final) No Anaerob ic Bacteri a Isolate d in 24 hrsNo Anaerob ic Bacteri a Isolate d in 48 hrsNo Anaerob ic Bacteri a Isolate d in 3 DaysNo Anaerob ic Bacteri a Isolate d in 4 days CULTURE, ROUTINE Observa Value Referen Units Interpr Notes Date ti ce etation Range Clinica Specime No No No No September 2 l n/Sourc informa informa informa informa 2012 Report e: tion in tion in tion in tion in 3:12 PM OTHER-S source source source source PECIFY/ data data data data backCol lected: 20:58St atus: Final Last Updated : 15:12CU L RES (Final) No Growth After 24 HoursRa re Normal Skin charito also notedIS O1 (Final) Rare GrowthG amanda Negativ e Bacilli Antibio tics are listed in order of cost effecti veness with leastex pensive first and most expensi ve last, if given in the average recomme ndeddos e.Panto ea agglome rans (Entero bacter) ISO2 (Final) Rare GrowthG amanda Negativ e Bacilli Identif ication And Suscept ibility To FollowA ntibiot ics are listed in order of cost effecti veness with leastex pensive first and most expensi ve last, if given in the average recomme ndeddos e.Steno trophom onas maltoph angeles (Xantho monas)I SOLATE 1 ISOLATE 2Pantoe a Stenotr ophomon asagglo merans maltoph angeles(En terobac ter) (Xantho monas)- ------- ------- --- ------- ------- ----VLADIMIR (mcg/ml )Amikac in (AK) <=8 SAmpici llin (AM) 16 ICefazo luisana (CFZ) 4 RCefepi me (CPM) <=1 SCeftri axone (CAX) <=2 SErtape nem (ETP) <=0.5 SGentam icin (GM) <=2 SLevofl oxacin (LV) <=1 SMerope nem (MEM) <=1 SPip/Ta zo (PI/T) 16/4 STetrac ycline (TE) <=2 STobram ycin (TO) <=2 STrimet hoprim/ Sulfa (T/<=0. 5/9.5 SS)Kirb y BauerLE VOFLOXA PRISCILLA (LV) SMINOCY SALAZAR (MN) STRIMET H/SULFA (T/S) RAntibi otic Summary Grid:AK AM CFZ CPM CAX ETP GM LV MEM PI/TTEP antoea S I R S S S S S S SSagglo merans( Enterob acter)S tenotro phomona s Smaltop hilia(X anthomo radha)TO T/S MNPanto ea S Sagglom erans(E nteroba cter)St enotrop homonas R Smaltop hilia(X anthomo radha) STAIN, GRAM Observa Value Referen Units Interpr Notes Date tion ce etation Range Clinica Specime No No No No Apr 28 l n/Sourc informa informa informa informa 2013 Report e: tion in tion in tion in tion in 7:35 PM OTHER-S source source source source PECIFY/ data data data data backCol lected: 20:58St atus: Final Last Updated : 19:35GR AM (Final) Gram Positiv e Cocci Seen Moderat e Gram Positiv e Diploco cci Seen Few,WBC -TRACE. CULTURE, BLOOD Observa Value Referen Units Interpr Notes Date tion ce etation Range Clinica Specime No No No No September 2 l n: informa informa informa informa 2012 Report BLOODCo tion in tion in tion in tion in 3:24 PM llected source source source source : data data data data 16:50St atus: Final Last Updated : 15:18CU L RES (Final) Culture In Progres sNo Growth After 24 HoursNo Growth After 48 HoursNo Growth After 3 DaysNo Growth After 4 DaysNo Growth After 5 Days CULTURE, ROUTINE Observa Value Referen Units Interpr Notes Date ti ce etation Range Clinica Specime No No No No September 2 l n/Sourc informa informa informa informa 2012 Report e: tion in tion in tion in tion in 3:12 PM OTHER-S source source source source PECIFY/ data data data data BACK.Co llected : 16:50St atus: Final Last Updated : 15:12CU L RES (Final) Rare Normal Skin charito notedRa re Normal Skin charito also notedIS O1 (Final) Rare GrowthG amanda Negativ e Bacilli Antibio tics are listed in order of cost effecti veness with leastex pensive first and most expensi ve last, if given in the average recomme ndeddos e.Panto ea agglome rans (Entero bacter) ISO2 (Final) Rare GrowthG amanda Negativ e Bacilli Identif ication And Suscept ibility To FollowA ntibiot ics are listed in order of cost effecti veness with leastex pensive first and most expensi ve last, if given in the average recomme ndeddos e.Steno trophom onas maltoph angeles (Xantho monas)I SOLATE 1 ISOLATE 2Pantoe a Stenotr ophomon asagglo merans maltoph angeles(En terobac ter) (Xantho monas)- ------- ------- --- ------- ------- ----VLADIMIR (mcg/ml )Amikac in (AK) <=8 SAmpici llin (AM) 16 ICefazo luisana (CFZ) 16 RCefepi me (CPM) <=1 SCeftri axone (CAX) <=2 SErtape nem (ETP) <=0.5 SGentam icin (GM) <=2 SLevofl oxacin (LV) <=1 SMerope nem (MEM) <=1 SPip/Ta zo (PI/T) 16/4 STetrac ycline (TE) <=2 STobram ycin (TO) <=2 STrimet hoprim/ Sulfa (T/<=0. 5/9.5 SS)Kirb y BauerLE VOFLOXA PRISCILLA (LV) SMINOCY SALAZAR (MN) STRIMET H/SULFA (T/S) RAntibi otic Summary Grid:AK AM CFZ CPM CAX ETP GM LV MEM PI/TTEP antoea S I R S S S S S S SSagglo merans( Enterob acter)S tenotro phomona s Smaltop hilia(X anthomo radha)TO T/S MNPanto ea S Sagglom erans(E nteroba cter)St enotrop homonas R Smaltop hilia(X anthomo radha) CBC W/DIFF Observa Value Referen Units Interpr Notes Date tion ce etation Range WBC 18.2 3.5 - X_10 High No Sep 18 9.6 inform2012 tion in 5:26 PM source data RBC 5.03 4.70 - X_10 Normal No Sep 18 6.10 inform2012 tion in 5:26 PM source data Hemoglo 16.2 14.0 - gm/dL Normal No Sep 18 bin 18.0 inform2012 tion in 5:26 PM source data Hematoc 48.3 42.0 - % Normal No Sep 18 rit 52.0 informa 2012 tion in 5:26 PM source data Platele 303 130 - X_10 Normal No Apr 27 t 400 informa 2012 tion in 5:26 PM source data MCH 32.2 27.0 - pg High No Apr 27 32.0 informa 2012 tion in 5:26 PM source data MCHC 33.6 32.0 - gm/dL Normal No Apr 27 37.0 informa 2012 tion in 5:26 PM source data MCV 96.0 80.0 - fl High No Apr 27 94.0 informa 2012 tion in 5:26 PM source data RDW 13.5 12.0 - % Normal No Apr 27 15.0 informa 2012 tion in 5:26 PM source data MPV 6.9 6.2 - fl Normal No Apr 27 10.6 informa 2012 tion in 5:26 PM source data Manual YES No No No No Sep 18 Diff? informa informa informa informa 2013 tion in tion in tion in tion in 5:26 PM source source source source data data data data Neutrop 71.0 42.0 - % Normal No Apr 27 hils % 75.0 informa 2012 tion in 5:26 PM source data Bands 7 No No No No Apr informa informa informa informa 2013 tion in tion in tion in tion in 5:26 PM source source source source data data data data Lymphoc 9.0 20.0 - % Low No Apr 27 ytes % 51.0 inform2012 tion in 5:26 PM source data Monocyt 13.0 0.0 - % Normal No Apr 27 es % 13.0 inform2012 tion in 5:26 PM source data Eosinop 0.0 0.0 - % Normal No Apr 27 hils % 6.0 informa 2012 tion in 5:26 PM source data Basophi 0.0 0.0 - % Normal No Apr 27 ls % 2.0 informa 2012 tion in 5:26 PM source data Neutrop 14.2 1.5 - X_10 High No Apr 27 hil 7.1 informa 2012 Count tion in 5:26 PM source data Monocyt 2.4 0.2 - X_10 High No Apr 27 e Count 1.2 inform2012 tion in 5:26 PM source data Eosinop 0.0 0.0 - X_10 Normal No Sep 18 hil 0.8 inform2012 Count tion in 5:26 PM source data Basophi 0.0 0.0 - X_10 Normal No Sep 18 l Count 0.1 inform2012 tion in 5:26 PM source data Lymphoc 1.6 0.7 - X_10 Normal No Sep 18 yte 4.3 inform2012 Count tion in 5:26 PM source data COMPREHENSIVE METABOLIC PANEL Observa Value Referen Units Interpr Notes Date tion ce etation Range Glucose 123 70 - 99 mg/dL High No Sep 18 inform2012 tion in 5:11 PM source data BUN 13 7 - 18 mg/dL Normal No Sep 18 inform2012 tion in 5:11 PM source data Creatin 1.3 0.6 - mg/dL Normal No Sep 18 ine 1.3 inform2012 tion in 5:11 PM source data Sodium 125 136 - mEq/L Low No Sep 18 145 inform2012 tion in 5:11 PM source data Potassi 4.1 3.5 - mEq/L Normal No Sep 18 um 5.1 inform2012 tion in 5:11 PM source data Chlorid 92 98 - mEq/L Low No Sep 18 e 107 inform2012 tion in 5:11 PM source data CO2 24 22 - 29 mmol/L Normal No Sep 182012 tion in 5:11 PM source data Calcium 9.1 8.5 - mg/dL Normal No Sep 18 10.1 inform2012 tion in 5:11 PM source data Total 8.2 6.4 - gm/dL Normal No Sep 18 Protein 8.2 2012 tion in 5:11 PM source data Albumin 2.8 3.4 - gm/dL Low No Sep 18 5.0 inform2012 tion in 5:11 PM source data Alk 87 50 - U/L Normal No Sep 18 Phos 136 inform2012 tion in 5:11 PM source data ALT 26 30 - 65 U/L Low No Sep 182012 tion in 5:11 PM source data AST 11 15 - 37 U/L Low No Sep 18 inform2012 tion in 5:11 PM source data Bilirub 1.31 0.0 - mg/dL High No Sep 18 in, 1.0 inform2012 Total tion in 5:11 PM source data BUN/Cre 10 No No No No Sep 18 at informa informa informa informa 2013 Ratio tion in tion in tion in tion in 5:11 PM source source source source data data data data A/G 0.5 No No No No Sep 18 Ratio informa informa informa informa 2013 tion in tion in tion in tion in 5:11 PM source source source source data data data data GLOMERU >60.0 No mL/min/ No eGFR Sep 18 LAR informa 1.73_m2 informa Interpr 2013 FILTRAT tion in tion in etation 5:11 PM ION source source : RATE data data Disease State Referen ce Ranges for eGFR(ca lculate d)Stage eGFR Descrip tionI/I I >60 Normal/ Mildly reduced kidney functio nIII 30-59 Moderat gianni reduced kidney functio nIV 15-29 Severel y reduced kidney functio nV <15 End-sta ge kidney failure Calcula anh using MDRD formula based on gender, race (* GFR AA is for theAfri can Anne Marie n populat ion), and age. GFR estimat es are unrelia ble inpatie nts with rapidly changin g kidney functio n,recen t dialysi s, extreme sin body size, severe malnutr ition or obesity , loss of limbs, abnorma lmuscle mass, or during pregnan cy. In these patient s, alterna tivedet erminat ions of GFR should be obtaine d. GLOMERU >60.0 No mL/min/ No No Sep 18 LAR informa 1.73_m2 informa informa 2012 FILTRAT tion in tion in tion in 5:11 PM ION source source source RATE data data data [place] n CT HEAD W/O CONTRST Observa Value Referen Units Interpr Notes Date tion ce etation Range Read By CT Scan No No No No Jun of informa informa informa informa 2012 Head tion in tion in tion in tion in 2:35 AM Without source source source source data data data data Contras t -The ventric les sulci and cistern s are promine nt consist ent withatr ophy. Decreas ed attenua tion is present in the periven tricula r whitema tter consist ent with chronic small vessel ischemi c changes . No masseff ect, midline shift or hemorrh age is seen. No space occupyi ng lesionc an be detecte d.IMPRE SSION -Atroph y. Nothing acute. Follow up suggest ed if there is clinica lconcer n for acute infarct or prompt MRI may be helpful .Ravi werner Radiolo igor- WILLIAM Cobb easing Radiolo igor- WILLIAM Cobb eased Date Time- 2 1413Tra nscript ionist- WILLIAM KAY--- ------- ------- ------- ------- ------- ------- ------- ------- ------- ------- -----
--- OUTSIDE RECORDS SUMMARY | 2016-09-22 03:04 | External Medical Summary Rpt ---
[...] 2015 identif tion in tion in in [id number] 10:30 ied in source source source 0 [...] AT 5 tion in tion in in [id number] 10:05 ied in DAYS source source source [...] 5 tion in tion in tion in [id number] 10:00 ied in DAYS source source source [...] 75 sq M d by LMF at [facility] on ed .THE among eGFR IS [...] CELLS ELI~ data data data data Acct: [id number] 708~AS5 RBC LEUKORE D [id number] p.Trans fus 6 15:12 TYPE AND SCREEN Observa Value Referen Units Interpr Notes Date ti ce etation Range TYPE TEXT~Na No No No No October 07 AND me: informa informa informa informa 2016 SCREEN BEAUPAR tion in tion in tion in tion in 12:20 LANT, source source source source PM ELI~ data data data data Acct: [id number] 708~ABO A 6 13:21 cmc~RH( D) TYPING [...] tion in 4:55 AM leukocy source source andressa in data [...] 20.0 - mm/L No No October 01 carolien 26.0 informa informa 2016 [Moles/ tion in [...] ......2 .0-3.0P REVENTI ON OF RECURRE NT [place]..... ....... ....... ...2.5- 3.5ATRI AL FIBRILL ATIONPR [...] l placeme nt of endotra cheal tube, [place]-Ga nz cathete r, and mediast inal/ch est [...] CELLS ELI~ data data data data Acct: [id number] 708~BJ KO-REDU C AS3 [id number] p.Trans fus 6 07:54 SINGLE DONOR PLATELETS Observa Value Referen Units Interpr Notes Date ti ce etation Range SINGLE TEXT~Na No No No No October 01 DONOR me: informa informa informa informa 2016 PLATELE BEAUPAR tion in tion in tion in tion in 2:09 AM TS LANT, source source source source ELI~ data data data data Acct: [id number] 708~PHE R LEUKORE D C [id number] release d 6 11:26 MCT~PHE R LEUKORE D A [id number] release d 11:26 MCT~SIN GLE DONOR PLT [id number] p.Trans fus 11:54~P HER LEUKORE D C [id number] p.Trans fus 11:54 MCT~PHE R LEUKORE D A [id number] p.Trans fus 12:48 TYPE AND SCREEN Observa Value Referen Units Interpr Notes Date ti ce etation Range TYPE TEXT~Na No No No No October 01 AND me: informa informa informa informa 2016 SCREEN BEAUPAR tion in tion in tion in tion in 2:09 AM LANT, source source source source ELI~ data data data data Acct: [id number] 708~ABO A 03:37 bns~RH( D) TYPING POS [...] (aPTT) in HEPARIN Blood LEVELS [facility] XIMATEL assay Y 0.3 TO 0.7 [...] ......2 .0-3.0P REVENTI ON OF RECURRE NT [place]..... ....... ....... ...2.5- 3.5ATRI AL FIBRILL ATIONPR [...] FDA approve d test for monitor ing fci glucose control in individ uals with diabete [...] * Final Report \\.br \\\\.br\\D ictated : AKL MARTINO M.D. 016 6:57 am\\.br\\ \\.br\\Tr anscrib [...] ION-\\.b r\\No active disease in the chest.\\ .br\\[place] Radiolo gist- WILLIAM RIOS RAHUL\\.b r\\Relea [...] PM [Mass/v TO DR rivero] [facility] Serum AT or 2202 Plasma [id number] 6 RVB AHN OTE - Referen ce [...] in tion in tion in tion in [facility], source source source source ELI~ data data data data Acct: [id number] 937~ [facility] Departm ent of Patholo gy [address] [place] [id number] ~ Name: RACHEL Nowak.R.N: [id number] Accessi on 764~ ELI Mixon #:~ FINAL SURGICA L PATHOLO GY REPORT~ NAME: MARIEJOEY BEBA CAMPOS N: OPS~ ELI~ M.R.N: [id number] SEX: M PROCEDU RE ~ DATE:~D OB: 957 AGE: 59 Y RECEIVE D 015~ DATE:~P HYSICIA N: OGERARD SANDERSON SIGN OUT DATE: ~RAGHAVENDRA SULLIVAN #: [id number] COPIES TO: OAI SANDERSON~PA THOLOGI ST: [...] tion was perform ed.~ <Sign Out Dr. Givens re>~ FRANKYLN EDWARDS D.O., DERMATO PATHOLO GIST~ Page 1 [...] 5 No No No No October 09 mairmar in informa informa informa inform 2015 tion [...] N-\\.br\\ No active disease in the chest.\\ .br\\[place] Radiolo gist- WILLIAM KAY\\.b r\\Relea sing [...] source source source RATE data data data [facility] Anne Marie n CBC W/DIFF Observa Value [...] Interpr Notes Date tion ce etation Range [place] SEE No No No Test September 23 [...] st Perform ed by:Maria M crowder [employer].[address] [place] [facility] [place] [address] ROTAVIRUS Observa Value Referen Units Interpr [...] probabi lity is high.Te st Perform ed by:[address], [place] [address]Py borator y Directo r: Maicol Ruvalcaba ll, [...] or pleural collect ion.\\.b r\\Readi ng Radiolo rust- WILLIAM KAY\\.b r\\Relea sing Radiolo rust- WILLIAM KAY\\.b r\\Relea sed Date Time- 4 7668\\.b r\\Trans criptio [facility]- [...] h mg/dL 100 - 190Test Perform ed by:[address] [id number] borator y Directo r: Maicol osborne III, [...] old injury and DJD\\.br \\Ravi werner Radiolo rust- WILLIAM KAY\\.b r\\Relea sing Radiolo rust- WILLIAM KAY\\.b r\\Relea sed Date Time- 3 [...] (* GFR AA is for theAfri can Ann Emarie n populat ion), and age. GFR estimat [...]
--- OUTSIDE RECORDS SUMMARY | 2016-09-22 03:26 | External Medical Summary Rpt ---
Author Author , Organization [employer] Address Unknown Phone Unavailable Care Team Providers Care Van Helper Name Role Phone AHMAD MUH, AHMAD MUH [...] [facility] Unavailable Unavailable SERVICE, [facility] Unavailable Unavailable SERVICE, [facility] KAY JR [facility], [...] Unavailable Unavailable INC, [facility] Unavailable Unavailable HOSPITAL [facility], Unavailable Unavailable [facility] ISAI REEVES APRN FAMILY Unavailable Unavailable CLINIC, ISAI REEVES APRN [facility] GUNNER VINNIE, GUNNER Unavailable Unavailable VINNIE [facility] Unavailable Unavailable [facility], [facility] KHATER FAR, KHATER Unavailable Unavailable [facility] Un[facility], [facility] BARBARA JR DWI, BARBARA Unavailable Unavailable JR DWI THOMAS AHM, THOMAS AHM Unavailable Unavailable [facility]OM[facility] A[facility], THOMAS AHM Unavailable Unavailable [facility], Unavailable Unavailable [facility], Unavailable Unavailable [facility] Unavailable Unavailable CORPORATION, [facility] Unavailable Unavailable CORPORATION, [facility] Unavailable Unavailable [facility], [facility] Un[facility]available [facility], [facility] Unavailable Unavailable DEPT\EMS, [facility], Unavailable Unavailable [facility], [facility] PETTEY JAM, PETTEY Unavailable Unavailable [facility] Unavailable Unavailable CENTER, [facility] Unavailable Unavailable EQUIP, [facility] Unavailable Unavailable [facility], [facility] YATES GAR, YATES Unavailable Unavailable GAR [...] Unavailable Purpose Continuity of Care Document - 07-23-2011 through 2016 Problems Code Diagnosis DOS Provider Status 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 04-10-2016 [facility] REGION [id number] OTHER 04-10-2016 [facility] DEGENERATIO N AT C5-C6 LEVEL Z720 TOBACCO USE 04-10-2016 [facility] [id number] OTHER 04-09-2016 [facility]ANS LAR FX LOW GROUP RT RADIUS INIT CLOS [id number] DSPL FX 04-09-2016 [facility] RT WRST IMAGING ASS SUB ENC FX ROUTINE I10 ESSENTIAL 03-30-2016 [facility] HYPERTENSIO INC N 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 UNS 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[facility] TIS RIGHT IMAGING ASS HAND V30749 PAIN IN 03-30-2016 [facility] RIGHT [facility]ICAL SHOULDER IMAGING ASS [id number] PAIN IN 03-30-2016 [facility] RIGHT WRIST MEDICAL IMAGING ASS V89514 PAIN IN 03-30-2016 [facility] UNSPECIFIED MEDICAL HIP IMAGING ASS Y54046 PAIN IN 03-30-2016 [facility] RIGHT MEDICAL FOREARM IMAGING ASS L34128 PAIN IN 03-30-2016 [facility] RIGHT HAND MEDICAL IMAGING ASS [id number] UNS INJURY 03-30-2016 [facility] RT SHOULDER MEDICAL UPPER ARM IMAGING ASS INITIAL ENCNTR [id number] FX UNS 03-30-2016 [facility] CARPAL [facility]ONE [facility], RT WRIST PLLC INITIAL ENC CLOS FX [id number] DSPL FX 03-30-2016 [facility] RT WRIST IMAGING ASS INIT ENC CLOS FX M542 CERVICALGIA 03-19-2016 [facility] M545 LOW BACK 02-18-2016 [facility] PAIN [facility] M5022 OT CERV 02-08-2016 [facility] DISC MEDICAL DISPLACEMEN IMAGING ASS T MID-CERVICA L REGION M5032 OT CERV 02-08-2016 [facility] DISC MEDICAL DEGENERATIO IMAGING ASS N MID-CERVICA L REGION M5124 OTH 02-08-2016 [facility] INTERVERTEB MEDICAL RAL DISC IMAGING ASS DISPLACEMEN T THOR REGION M5134 OTH 02-08-2016 [facility] INTERVERTEB MEDICAL RAL DISC IMAGING ASS DEGEN THORACIC REGION M546 PAIN IN 02-08-2016 [facility] THORACIC MEDICAL SPINE IMAGING ASS M549 DORSALGIA 02-08-2016 [facility]PECIF[facility] INC I209 ANGINA 01-15-2016 [facility] PECTORIS PHYSICIANS UNSPECIFIED GROUP V98254 ASHD [place] 01-15-2016 [facility] COR [facility] W/UNS INC ANGINA PECT[place] R9439 ABNORMAL 01-15-2016 [facility] RESULT [facility] CARDIOVASCU GROUP LR FUNCTION STUDY 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 [place]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[facility] 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 E039 HYPOTHYROID 12-28-2015 [facility] IS [facility] UNSPECIFIED INC R079 CHEST PAIN 12-28-2015 [facility] UNSPECIFIED MEDICAL IMAGING ASS R0602 SHORTNESS 10-29-2015 [facility] R5383 OTHER 10-29-2015 [facility] D45790 PAIN IN 10-22-2015 [facility] LEFT [facility]YSICIANS, SHOULDER PLLC R0789 OTHER CHEST 10-22-2015 [facility] PAIN MEDICAL IMAGING ASS U82502H PAIN D/T 10-22-2015 [facility] P IMPL & GRAFTS INITIAL G8918 OTHER ACUTE 10-18-2015 [facility] POSTPROCEDU [facility] P RAL PAIN G8928 OTHER 10-18-2015 [facility] CHRONIC [facility], POSTPROCEDU PLLC RAL PAIN J80 ACUTE 10-18-2015 [facility] RESPIRATORY AMBULANCE DISTRESS SERVICE SYNDROME J90 PLEURAL 10-18-2015 [facility] MEDICAL NOT IMAGING ASS ELSEWHERE CLASSIFIED J9811 ATELECTASIS 10-18-2015 [facility] J9690 RESP FAIL 10-15-2015 [facility] UNS UNS RELIGIOUS WHETHER HOSP W/HYPOXIA/H YPERCAPNIA R410 DISORIENTAT 10-15-2015 [facility] ION RELIGIOUS UNSPECIFIED HOSP R5381 OTHER 10-15-2015 [facility] MALAISE RELIGIOUS HOSP E34066 ELEVATED 10-13-2015 [facility] WHITE BLOOD RELIGIOUS CELL COUNT HOSP UNSPECIFIED I509 HEART 10-13-2015 [facility] FAILURE RELIGIOUS UNSPECIFIED HOSP J9600 ACUTE 10-13-2015 [facility] RESPIRATORY RELIGIOUS FAIL UNS HOSP HYPOXIA/HYP ERCAPNIA I214 NON-ST 10-12-2015 [facility] ELEVATION RELIGIOUS MYOCARDIAL HOSP INFARCTION R4182 ALTERED 10-12-2015 [facility] MENTAL RELIGIOUS STATUS HOSP UNSPECIFIED D649 ANEMIA 10-11-2015 [place] UNSPECIFIED RELIGIOUS HOSP E876 HYPOKALEMIA 10-11-2015 [place] [facility] 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 J9601 ACUTE 10-10-2015 [facility] RESPIRATORY RELIGIOUS FAILURE HOSP WITH HYPOXIA R9431 ABNORMAL 10-10-2015 [facility] ELECTROCARD RELIGIOUS IOGRAM HOSP E870 HYPEROSMOLA 10-09-2015 [facility] LITY AND RELIGIOUS HYPERNATREM HOSP [place] I40198 ACUTE 10-09-2015 [facility] POSTPROCEDU RELIGIOUS RAL HOSP RESPIRATORY FAILURE I999 UNSPECIFIED 10-08-2015 [facility] DISORDER RELIGIOUS OF HOSP CIRCULATORY SYSTEM E785 HYPERLIPIDE 10-03-2015 [facility] KAREN RELIGIOUS UNSPECIFIED HOSP I213 ST 10-02-2015 [place] [facility] RELIGIOUS MYOCARDIAL HOSP INFARCTION UNS SITE V62115 ENCOUNTER 10-02-2015 [facility] FOR RELIGIOUS PREPROCEDUR HOSP AL CARIOVASCUL AR EXAM I222 SUBSEQUENT 10-01-2015 [facility] NON-ST CORPORATION ELEVATION MYOCARDIAL INFARCT J309 ALLERGIC 09-25-2015 ISAI REEVES RHINITIS 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 UNSPECIFIED CLINIC N401 BENIGN 09-25-2015 ISAI REEVES PROSTATIC 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 HYPERPLASIA CLINIC LW URINARY TRACT SX 2724 OTHER AND 06-19-2014 [facility] UNSPECIFIED HYPERLIPIDE KAREN 4019 UNSPECIFIED 06-19-2014 [facility] ESSENTIAL HYPERTENSIO N 6079 UNSPECIFIED 06-19-2014 [facility] DISORDER OF PENIS 7242 LUMBAGO 06-19-2014 [facility] 43240 PAIN IN 06-06-2014 [facility] JOINT, MEDICAL MULTIPLE SITES 7231 CERVICALGIA 05-30-2014 [place] A R H 4619 ACUTE 02-23-2014 [facility] SINUSITIS, UNSPECIFIED 481 PNEUMOCOCCA 09-26-2013 [place] [facility] PNEUMONIA A R H 2875 UNSPECIFIED 09-20-2013 [facility] HE[facility] THROMBOCYTO [place] PENIA 98937 OTHER 09-20-2013 [facility] CHRONIC COMP HEALTH PAIN [place] 20017 OBSTRUCTIVE 09-16-2013 [facility] CHRONIC COMP BRONCHITIS SPECIALTY [place] 52654 DIARRHEA 09-14-2013 [email or web address] HE[facility] [place] F10.10 ALCOHOL ABUSE, UNCOMPLICAT ED Allergies, Adverse Reactions, Alerts Clinical Alert Notifications Alert Member has >/= 3 hosp admit & >/= 1 ED visit in 365 days Results Labs Lab Lab Date Result Refere Interp Status Commen Order Detail nces retati t Range on ALCOHOL,SERUM (02-25-2014 04:45) Alcohol 101 0-10 complet 014 mg/dL ed 04:45 CBC W/DIFF (02-24-2014 23:53) Neutrop 4.3 X 1.5-7.1 complet hil 014 10\S\3 ed Count 23:53 Monocyt 0.2 X 0.2-1.2 complet e Count 014 10\S\3 ed 23:53 Eosinop 0.2 X 0.0-0.8 complet hil 014 10\S\3 ed Count 23:53 Lymphoc 4.2 X 0.7-4.3 complet yte 014 10\S\3 ed Count 23:53 Atypica 02-24- 7 complet l 014 ed Lymphoc 23:53 yte Neutrop 44.0 % 42.0-75 complet hils % 014 .0 ed 23:53 Eosinop 02-24- 2.0 % 0.0-6.0 complet hils % 014 ed 23:53 WBC 9.6 X 3.5-9.6 complet 014 10\S\3 ed 23:53 Bands 1 complet 014 ed 23:53 Lymphoc 44.0 % 20.0-51 complet ytes % 014 .0 ed 23:53 Monocyt 2 2.0 % 0.0-13. complet es % 014 0 ed 23:53 RBC 4.51 X 4.70-6. complet 014 10\S\6 10 ed 23:53 Hemoglo 14.3 14.0-18 complet bin 014 gm/dL .0 ed 23:53 MCHC 33.6 32.0-37 complet 014 gm/dL .0 ed 23:53 MCV 94.2 fl 80.0-94 complet 014 .0 ed 23:53 RDW 13.4 % 12.0-15 complet 014 .0 ed 23:53 MPV 6.4 fl 6.2-10. complet 014 6 ed 23:53 Manual YES complet Diff? 014 ed 23:53 Hematoc 42.5 % 42.0-52 complet rit 014 .0 ed 23:53 Platele 246 X 130-400 complet t 014 10\S\3 ed 23:53 MCH 31.7 pg 27.0-32 complet 014 .0 ed 23:53 ALCOHOL,SERUM (02-24-2014 23:53) Alcohol 202 0-10 complet 014 mg/dL ed 23:53 COMPREHENSIVE METABOLIC PANEL (02-24-2014 23:53) GLOMERU >60.0 [...] 136-145 complet 014 mEq/L ed 23:53 Potassi 3.7 3.5-5.1 complet um 014 mEq/L ed 23:53 Chlorid 109 98-107 complet e 014 mEq/L ed 23:53 CO2 26 22-29 complet 014 mmol/L ed 23:53 Calcium 8.3 8.5-10. complet 014 mg/dL 1 ed 23:53 Total 7.2 6.4-8.2 complet Protein 014 gm/dL ed 23:53 Glucose 02-24- 93 70-99 complet 014 mg/dL ed 23:53 BUN 02-24-2 10 7-18 complet 014 mg/dL ed 23:53 Albumin 02-24- 3.6 3.4-5.0 complet 014 gm/dL ed 23:53 ALT 02-24-2 19 U/L 3-50 complet 014 ed 23:53 AST 02-24- 12 U/L 15-37 complet 014 ed 23:53 Bilirub 0.18 0.0-1.0 complet in, 014 mg/dL ed Total 23:53 Alk 02-24-2 62 U/L 50-136 complet Phos 014 ed 23:53 BASIC METABOLIC PANEL (09-26-2013 16:20) Glucose 05-2 99 70-99 Normal complet 014 mg/dL ed 16:20 BUN 05-2 12 7-18 Normal complet 014 mg/dL ed 16:20 Creatin -05-2 0.9 0.6-1.3 Normal complet ine 014 mg/dL ed 16:20 Sodium 09-26-2 135 136-145 Below complet 014 mEq/L low ed 16:20 normal Potassi 05-05-2 4.2 3.5-5.1 Normal complet um 014 mEq/L ed 16:20 Chlorid 102 98-107 Normal complet e 014 mEq/L ed 16:20 CO2 28 22-29 Normal complet 014 mmol/L ed 16:20 Calcium 9.1 8.5-10. Normal complet 014 mg/dL 1 [...] n BASIC METABOLIC PANEL (09-20-2013 05:45) Glucose 104 70-99 Above complet 014 mg/dL high ed 05:45 normal BUN 19 7-18 Above complet 014 mg/dL high ed 05:45 normal Creatin 1.2 0.6-1.3 Normal complet ine 014 mg/dL ed 05:45 Sodium 137 136-145 Normal complet 014 mEq/L ed 05:45 Potassi 4.6 3.5-5.1 Normal complet um 014 mEq/L ed 05:45 Chlorid 99 98-107 Normal complet e 014 mEq/L ed 05:45 CO2 29 22-29 Normal complet 014 mmol/L ed 05:45 Calcium 9.1 8.5-10. Normal complet 014 mg/dL 1 ed 05:45 BUN/Cre 16 complet at 014 ed Ratio 05:45 GLOMERU >60.0 complet LAR 014 mL/min/ [...] Normal complet 014 .0 ed 05:45 MPV --2 6.6 fl 6.2-10. Normal complet 014 6 ed 05:45 Neutrop -29-2 56.1 % 42.0-75 Normal complet hils % 014 .0 ed 05:45 Lymphoc -29-2 30.7 % 20.0-51 Normal complet ytes % 014 .0 ed 05:45 Monocyt 09-20-2 10.2 % 0.0-13. Normal complet es % [...] 10\S\3 ed Count 05:45 Comment: SLIDE REVIEWED, [place] WBC STOOL (09-19-2013 19:00) Fecal NONE NONE Normal complet Leukocy 014 SEEN SEEN ed andressa 19:00 CLOSTRIDIUM DIFFICILE TOXIN A AND B (09-19-2013 19:00) C. NEGATIV NEGATIV Normal complet Diffici 014 E E ed le 19:00 Toxin CULTURE, STOOL (09-19-2013 19:00) Clinica Specime complet l 014 n: ed Report 19:00 STOOL Clinica Collect complet l 014 ed: ed Report 19:00 014 19:00 Clinica Status: complet l 014 Final ed Report 19:00 Last Updated : 05/02/2 014 23:13 Clinica CUL RES complet l [...] Shigell a, Campylo bacter \E\T\E\ Yersini a BASIC METABOLIC PANEL (09-19-2013 05:56) Glucose 107 [...] e Count 014 10\S\3 ed 05:56 Eosinop 0.2 X 0.0-0.8 Normal complet hil 014 10\S\3 ed Count 05:56 Basophi 0.1 X 0.0-0.1 Normal complet l [...] Marie n BASIC METABOLIC PANEL (09-17-2013 05:40) Glucose 105 70-99 Above complet 014 mg/dL high ed 05:40 normal BUN 13 7-18 Normal complet 014 mg/dL ed 05:40 Creatin 0.9 0.6-1.3 Normal complet ine 014 mg/dL ed 05:40 Sodium 136 136-145 Normal complet 014 mEq/L ed 05:40 Potassi 4.1 3.5-5.1 Normal complet um 014 mEq/L ed 05:40 Chlorid 103 98-107 Normal complet e 014 [...] ION RATE Anne Marie n CBC W/DIFF (09-17-2013 05:40) Lymphoc 04-26-2 27.5 % 20.0-51 Normal complet ytes % 014 .0 ed 05:40 Monocyt -26-2 11.7 % 0.0-13. Normal complet es % 014 0 ed 05:40 Eosinop -26-2 1.4 % 0.0-6.0 Normal complet hils % 014 ed 05:40 Basophi 04-26-2 0.7 % 0.0-2.0 Normal complet ls % 014 ed 05:40 Neutrop -26-2 5.0 X 1.5-7.1 Normal complet hil 014 10\S\3 ed Count 05:40 Monocyt 04-26-2 1.0 X 0.2-1.2 Normal complet e Count 014 10\S\3 ed 05:40 Eosinop --2 0.1 X 0.0-0.8 Normal complet hil 014 10\S\3 ed Count 05:40 Basophi 09-17-2 0.1 X 0.0-0.1 Normal complet l Count 014 10\S\3 ed 05:40 Lymphoc 09-17-2 2.3 X 0.7-4.3 Normal complet yte 014 10\S\3 ed Count 05:40 WBC 09-17-2 8.5 X 3.5-9.6 Normal complet 014 10\S\3 ed 05:40 RBC 09-17-2 4.31 X 4.70-6. Below complet 014 10\S\6 10 low ed 05:40 normal Hemoglo 09-17-2 13.5 14.0-18 Below complet bin 014 gm/dL .0 low ed 05:40 normal Hematoc 09-17-2 40.4 % 42.0-52 Below complet rit 014 .0 low ed 05:40 normal Platele 09-17-2 307 X 130-400 Normal complet t 014 10\S\3 ed 05:40 MCH --2 31.3 pg 27.0-32 Normal complet 014 .0 ed 05:40 MCHC 09-17-2 33.4 32.0-37 Normal complet 014 gm/dL .0 ed 05:40 MCV 09-17-2 93.6 fl 80.0-94 Normal complet 014 .0 ed 05:40 RDW 04-26-2 13.8 % 12.0-15 Normal complet 014 .0 ed 05:40 MPV 7.3 fl 6.2-10. Normal complet 014 6 ed 05:40 Neutrop 58.7 % 42.0-75 Normal complet hils % 014 .0 ed 05:40 OCCULT BLOOD, SINGLE SPECIMEN (09-16-2013 16:00) Occult NEGATIV NEGATIV Normal complet Blood 014 E E ed 16:00 ROTAVIRUS (09-16-2013 16:00) Rotavir NEGATIV complet us 014 E ed 16:00 NORWALK-LIKE VIRUS,EIA (09-16-2013 16:00) [place] SEE complet -like 014 COMMENT ed Ag 16:00 S 014 09:45 AM Comment: Test Result Flag Unit RefValue Comment: ------- Comment: Norovirus Comment: Norovirus Antigen NOT DETECTED Comment: A negative result does not exclude norovirus Comment: infection. Comment: Comment: Test Performed by: Comment: [facility] Comment: [id number] Comment: ANASTASIYA Vang [id number] VANCOMYCIN TROUGH (09-16-2013 11:50) Vancomy 5.5 10.0-20 Below complet priscilla 014 mcg/mL .0 low ed Trough 11:50 normal BASIC METABOLIC PANEL (09-16-2013 05:30) GLOMERU >60.0 complet LAR 014 mL/min/ ed FILTRAT 05:30 1.73 m2 ION RATE Anne Marie n Glucose 116 70-99 Above complet 014 mg/dL high ed 05:30 normal BUN 10 7-18 Normal complet 014 mg/dL ed 05:30 Creatin 1.0 0.6-1.3 Normal complet ine 014 mg/dL ed 05:30 Sodium 04-25-2 137 136-145 Normal complet 014 mEq/L ed 05:30 Potassi 3.7 3.5-5.1 Normal complet um 014 mEq/L ed 05:30 Chlorid 102 98-107 Normal complet e 014 mEq/L ed 05:30 CO2 27 22-29 Normal complet 014 mmol/L ed 05:30 Calcium 8.3 8.5-10. Below complet 014 mg/dL 1 low ed 05:30 normal BUN/Cre 10 complet at 014 ed Ratio 05:30 GLOMERU >60.0 complet LAR 014 mL/min/ ed [...] Comment: determinations of GFR should be obtained. CBC W/DIFF (09-16-2013 05:30) WBC 7.0 X 3.5-9.6 Normal complet 014 10\S\3 ed 05:30 RBC 4.40 X 4.70-6. Below complet 014 10\S\6 10 low ed 05:30 normal Hemoglo 13.7 14.0-18 Below complet bin 014 gm/dL .0 low ed 05:30 normal Hematoc 41.2 % 42.0-52 Below complet rit 014 .0 low ed 05:30 normal Platele 263 X 130-400 Normal complet t 014 10\S\3 ed 05:30 MCH 31.1 pg 27.0-32 Normal complet 014 .0 ed 05:30 MCHC 04-25-2 33.2 32.0-37 Normal complet 014 gm/dL .0 ed 05:30 MCV 93.6 fl 80.0-94 Normal complet 014 .0 ed 05:30 RDW 13.9 % 12.0-15 Normal complet 014 .0 ed 05:30 MPV 7.2 fl 6.2-10. Normal complet 014 6 ed 05:30 Neutrop 59.5 % 42.0-75 Normal complet hils % 014 .0 ed 05:30 Lymphoc 27.0 % 20.0-51 Normal complet ytes % 014 .0 ed 05:30 Monocyt 12.2 % 0.0-13. Normal complet es % 014 0 ed 05:30 Eosinop 0.8 % 0.0-6.0 Normal complet hils % 014 ed 05:30 Basophi 0.5 % 0.0-2.0 Normal complet ls % 014 ed 05:30 Neutrop 4.2 X 1.5-7.1 Normal complet hil 014 10\S\3 ed Count 05:30 Monocyt 0.9 X 0.2-1.2 Normal complet e Count 014 10\S\3 ed 05:30 Eosinop 0.1 X 0.0-0.8 Normal complet hil 014 10\S\3 ed Count 05:30 Basophi 0.0 X 0.0-0.1 Normal complet l Count 014 10\S\3 ed 05:30 Lymphoc 1.9 X 0.7-4.3 Normal complet yte 014 10\S\3 ed Count 05:30 HEPARIN-PF4 AB (HIT) (09-15-2013 12:41) Heparin SEE [...] high. Comment: Comment: Test Performed by: Comment: [facility] Comment: [address], [place] [address] Comment: Plumbing Foreman: Alberto Cook III, M.D. BASIC METABOLIC PANEL (09-15-2013 05:30) BUN/Cre -24-2 17 complet at 014 ed Ratio 05:30 GLOMERU 04-24-2 >60.0 complet LAR 014 mL/min/ ed FILTRAT [...] determinations of GFR should be obtained. GLOMERU 04-24-2 >60.0 complet LAR 014 mL/min/ ed FILTRAT 05:30 1.73 m2 ION RATE Anne Marie n Glucose 04-24-2 118 70-99 Above complet 014 mg/dL high ed 05:30 normal BUN 04-24-2 10 7-18 Normal complet 014 mg/dL ed 05:30 Creatin 04-24-2 0.6 0.6-1.3 Normal complet ine 014 mg/dL ed 05:30 Sodium 04-24-2 133 136-145 Below complet 014 mEq/L low ed 05:30 normal Potassi 04-24-2 4.8 3.5-5.1 Normal complet um 014 mEq/L ed 05:30 Chlorid 100 98-107 Normal complet e 014 mEq/L ed 05:30 CO2 20 22-29 Below complet 014 mmol/L low ed 05:30 normal Calcium 8.3 8.5-10. Below complet 014 mg/dL 1 low ed 05:30 normal CBC W/DIFF (09-15-2013 05:30) MPV 7.7 fl 6.2-10. Normal complet 014 6 ed 05:30 MCV 97.2 fl 80.0-94 Above complet 014 .0 high ed 05:30 normal RDW 17.9 % 12.0-15 Above complet 014 .0 high ed 05:30 normal Manual YES complet Diff? 014 ed 05:30 Neutrop 69.0 % 42.0-75 Normal complet hils % 014 .0 ed 05:30 Bands 10 complet 014 ed 05:30 Lymphoc 16.0 % 20.0-51 Below complet ytes % 014 .0 low ed 05:30 normal Monocyt 5.0 % 0.0-13. Normal complet es % 014 0 ed 05:30 Neutrop 2 9.0 X 1.5-7.1 Above complet hil 014 10\S\3 high ed Count 05:30 normal WBC 11.4 X 3.5-9.6 Above complet 014 10\S\3 high ed 05:30 normal RBC 2 4.61 X 4.70-6. Below complet 014 10\S\6 10 low ed 05:30 normal Hemoglo 09-15-2 14.6 14.0-18 Normal complet bin 014 gm/dL .0 ed 05:30 Hematoc 09-15-2 44.8 % 42.0-52 Normal complet rit 014 .0 ed 05:30 Platele 09-15-2 63 X 130-400 Below complet t 014 10\S\3 low ed 05:30 normal MCH 2 31.8 pg 27.0-32 Normal complet 014 .0 ed 05:30 MCHC 09-15-2 32.7 32.0-37 Normal complet 014 gm/dL .0 ed 05:30 Monocyt 0.6 X 0.2-1.2 Normal complet e Count 014 10\S\3 ed 05:30 Lymphoc 1.8 X 0.7-4.3 Normal complet yte 014 10\S\3 ed Count 05:30 STAIN, GRAM (09-14-2013 21:04) Clinica Status: complet l 014 Final ed Report 21:04 Last Updated : 014 00:07 Clinica GRAM complet l 014 (Final) ed Report 21:04 Clinica >10 complet l 014 WBC/LPF ed Report 21:04 <25 EPI/LPF Gram Positiv e Cocci Seen Few Gram Positiv e Clinica Bacilli complet l 014 Seen ed Report 21:04 Clinica Specime complet l 014 n/Sourc ed Report 21:04 e: OTHER-S PECIFY/ sputum Clinica Collect complet l 014 ed: ed Report 21:04 014 21:04 CULTURE, SPUTUM (09-14-2013 21:04) Clinica CUL RES complet l 014 ed Report 21:04 (Final) Clin[facility] Rare complet l 014 Normal ed Report 21:04 Upper Respira tory Cassi Noted Clinica Specime complet l 014 n: ed Report 21:04 SPUTUM Clinica Collect complet l 014 ed: ed Report 21:04 014 21:04 Clinica Status: complet l 014 Final ed Report 21:04 Last Updated : 014 02:33 STREPTOCOCCUS PNEUMONIAE AG,URINE (09-14-2013 12:39) Strepto Positiv Negativ Abnorma complet coccus 014 e e l ed Pneumon 12:39 iae Urinary Antigen [facility] AG (09-14-2013 12:39) Legione Negativ Negativ Normal complet lla 014 e e ed Urinary 12:39 Antigen ALPHA 1 ANTITRYPSIN TOT (09-14-2013 10:30) Alpha-1 SEE complet -Antitr 014 COMMENT ed ypsin 10:30 S 014 12:52 PM Comment: Test Result Flag Unit RefValue Comment: ------- Comment: [id number], S 297 h mg/dL 100 - 190 Comment: Comment: Test Performed by: Comment: [facility] Comment: [address] [place] [address] Comment: Plumbing Foreman: Alberto Cook III, M.D. CULTURE, ROUTINE (09-14-2013 06:00) Clin[facility] Specime complet l 014 n/Sourc ed Report 06:00 e: OTHER-S PECIFY/ nasal Clin[facility] Collect complet l 014 ed: ed Report 06:00 014 06:00 Clinica Status: complet l 014 Final ed Report 06:00 Last Updated : 014 07:25 Clinica CUL RES complet l 014 ed Report 06:00 (Final) [facility] Growth ed Report 06:00 After 24 Hours Clinica Rare complet l 014 Normal ed Report 06:00 Skin cassi noted CBC W/DIFF (09-14-2013 05:30) Monocyt 1.4 X 0.2-1.2 Above complet e Count 014 10\S\3 high ed 05:30 normal Eosinop 0.0 X 0.0-0.8 Normal complet hil 014 10\S\3 ed Count 05:30 Basophi 0.1 X 0.0-0.1 Normal complet l Count 014 10\S\3 ed 05:30 Lymphoc 2.0 X 0.7-4.3 Normal complet yte 014 10\S\3 ed Count 05:30 Eosinop 0.1 % 0.0-6.0 Normal complet hils % 014 ed 05:30 Basophi 0.4 % 0.0-2.0 Normal complet ls % 014 ed 05:30 Neutrop 09-14-2 13.2 X 1.5-7.1 Above complet hil 014 10\S\3 high ed Count 05:30 normal MCV 93.9 fl 80.0-94 Normal complet 014 .0 ed 05:30 RDW 09-14-2 14.0 % 12.0-15 Normal complet 014 .0 ed 05:30 MPV 7.5 fl 6.2-10. Normal complet 014 6 ed 05:30 Neutrop 09-14- 79.2 % 42.0-75 Above complet hils % 014 .0 high ed 05:30 normal Lymphoc 09-14-2 11.9 % 20.0-51 Below complet ytes % 014 .0 low ed 05:30 normal Monocyt 8.4 % 0.0-13. Normal complet es % 014 0 ed 05:30 WBC 09-14- 16.7 X 3.5-9.6 Above complet 014 10\S\3 high ed 05:30 normal RBC 4.74 X 4.70-6. Normal complet 014 10\S\6 10 ed 05:30 Hemoglo 09-14-2 14.7 14.0-18 Normal complet bin 014 gm/dL .0 ed 05:30 Hematoc 09-14-2 44.5 % 42.0-52 Normal complet rit 014 .0 ed 05:30 Platele 198 X 130-400 Normal complet t 014 10\S\3 ed 05:30 MCH 09-14- 31.0 pg 27.0-32 Normal complet 014 .0 ed 05:30 MCHC 09-14- 33.0 32.0-37 Normal complet 014 gm/dL .0 ed 05:30 CULTURE, BLOOD (09-13-2013 18:23) [facility] No complet l 014 Growth ed Report 18:23 After 4 Days [facility] Collect complet l 014 ed: ed Report 18:23 014 18:23 [facility] Status: complet l 014 Final ed Report 18:23 Last Updated : 014 20:24 [facility] CUL RES complet l 014 ed Report 18:23 (Final) [facility] Culture complet l 014 In ed Report 18:23 Progres s [facility] No complet l 014 Growth ed Report 18:23 After 24 Hours [facility] No complet l 014 Growth ed Report 18:23 After 48 Hours [facility] No complet l 014 Growth ed Report 18:23 After 3 Days [facility] Specime complet l 014 n: ed Report 18:23 BLOOD [facility] No complet l 014 Growth ed Report 18:23 After 5 Days CULTURE, BLOOD (09-13-2013 18:03) [facility] No complet l 014 Growth ed Report 18:03 After 5 Days [facility] Specime complet l 014 n: ed Report 18:03 BLOOD [facility] Collect complet l 014 ed: ed Report 18:03 014 18:03 [facility] Status: complet l 014 Final ed Report 18:03 Last Updated : 014 20:24 [facility] CUL RES complet l 014 ed Report 18:03 (Final) [facility] Culture complet l 014 In ed Report 18:03 Progres s [facility] No complet l 014 Growth ed Report 18:03 After 24 Hours [facility] No complet l 014 Growth ed Report 18:03 After 48 Hours [facility] No complet l 014 Growth ed Report 18:03 After 3 Days [facility] No complet l 014 Growth ed Report 18:03 After 4 Days CBC W/DIFF (09-13-2013 16:17) Lymphoc 9.0 % 20.0-51 Below complet ytes % 014 .0 low ed 16:17 normal Monocyt 4.0 % 0.0-13. Normal complet es % 014 0 ed 16:17 Neutrop 14.4 X 1.5-7.1 Above complet hil 014 10\S\3 high ed Count 16:17 normal Monocyt 0.7 X 0.2-1.2 Normal complet e Count 014 10\S\3 ed 16:17 Lymphoc 1.5 X 0.7-4.3 Normal complet yte 014 10\S\3 ed Count 16:17 WBC 16.6 X 3.5-9.6 Above complet 014 10\S\3 high ed 16:17 normal RBC 5.02 X 4.70-6. Normal complet 014 10\S\6 10 ed 16:17 Hemoglo 15.3 14.0-18 Normal complet bin 014 gm/dL .0 ed 16:17 Hematoc 47.0 % 42.0-52 Normal complet rit 014 .0 ed 16:17 Platele 214 X 130-400 Normal complet t 014 10\S\3 ed 16:17 MCH 30.6 pg 27.0-32 Normal complet 014 .0 ed 16:17 MCHC 32.6 32.0-37 Normal complet 014 gm/dL .0 ed 16:17 MCV 93.7 fl 80.0-94 Normal complet 014 .0 ed 16:17 RDW 13.7 % 12.0-15 Normal complet 014 .0 ed 16:17 MPV 7.0 fl 6.2-10. Normal complet 014 6 ed 16:17 Manual YES complet Diff? 014 ed 16:17 Neutrop 53.0 % 42.0-75 Normal complet hils % 014 .0 ed 16:17 Bands 34 complet 014 ed 16:17 ALCOHOL,SERUM (12-02-2012 13:25) Alcohol 47 0-10 Above complet 013 mg/dL high ed 13:25 normal CBC W/DIFF (12-02-2012 05:04) WBC 10.2 X 3.5-9.6 Above complet 013 10 high ed 05:04 normal Hemoglo 17.6 14.0-18 Normal complet bin 013 gm/dL .0 ed 05:04 RBC 5.24 X 4.70-6. Normal complet 013 10 10 ed 05:04 Hematoc 50.1 % 42.0-52 Normal complet rit 013 .0 ed 05:04 Platele 11-2 177 X 130-400 Normal complet t 013 10 ed 05:04 MCH 12-02-2 33.5 pg 27.0-32 Above complet 013 .0 high ed 05:04 normal MCHC 12-02-2 35.1 32.0-37 Normal complet 013 gm/dL .0 ed 05:04 MCV 12-02-2 95.6 fl 80.0-94 Above complet 013 .0 high ed 05:04 normal RDW 2 14.4 % 12.0-15 Normal complet 013 .0 ed 05:04 MPV 12-02-2 6.9 fl 6.2-10. Normal complet 013 6 ed 05:04 Neutrop 12-02-2 57.1 % 42.0-75 Normal complet hils % 013 .0 ed 05:04 Lymphoc 12-02-2 32.5 % 20.0-51 Normal complet ytes % 013 .0 ed 05:04 Monocyt 12-02-2 7.3 % 0.0-13. Normal complet es % 013 0 ed 05:04 Eosinop --2 2.5 % 0.0-6.0 Normal complet hils % 013 ed 05:04 Basophi 12-02-2 0.6 % 0.0-2.0 Normal complet ls % 013 ed 05:04 Neutrop 12-02-2 5.8 X 1.5-7.1 Normal complet hil 013 10 ed Count 05:04 Monocyt -11-2 0.8 X 0.2-1.2 Normal complet e Count 013 10 ed 05:04 Eosinop -11-2 0.3 X 0.0-0.8 Normal complet hil 013 10 ed Count 05:04 Basophi 11-2 0.1 X 0.0-0.1 Normal complet l Count 013 10 ed 05:04 Lymphoc 11-2 3.3 X 0.7-4.3 Normal complet yte 013 10 ed Count 05:04 ALCOHOL,SERUM (12-02-2012 05:04) Comment: CALLED ALCOHOL TO MUNIR IN ER @ 0559, RBV Comment: DS Alcohol 239 0-10 Above complet 013 mg/dL high ed 05:04 normal CBC W/DIFF (09-20-2012 05:14) WBC 7.1 X 3.5-9.6 Normal complet 013 10 ed 05:14 RBC 2 3.87 X 4.70-6. Below complet 013 10 10 low ed 05:14 normal Hemoglo 2 12.4 14.0-18 Below complet bin 013 gm/dL .0 low ed 05:14 normal Hematoc 2 37.8 % 42.0-52 Below complet rit 013 .0 low ed 05:14 normal Platele 2 252 X 130-400 Normal complet t 013 10 ed 05:14 MCH 32.1 pg 27.0-32 Above complet 013 .0 high ed 05:14 normal MCHC 32.9 32.0-37 Normal complet 013 gm/dL .0 ed 05:14 MCV 97.7 fl 80.0-94 Above complet 013 .0 high ed 05:14 normal RDW 2 13.5 % 12.0-15 Normal complet 013 .0 ed 05:14 MPV 2 7.1 fl 6.2-10. Normal complet 013 6 ed 05:14 Neutrop 2 56.0 % 42.0-75 Normal complet hils % 013 .0 ed 05:14 Lymphoc 09-20-2 22.2 % 20.0-51 Normal complet ytes % 013 .0 ed 05:14 Monocyt 09-20-2 14.5 % 0.0-13. Above complet es % 013 0 high ed 05:14 normal Basophi 09-20-2 0.8 % 0.0-2.0 Normal complet ls % 013 ed 05:14 Neutrop 09-20-2 4.0 X 1.5-7.1 Normal complet hil 013 10 ed Count 05:14 Monocyt 09-20-2 1.0 X 0.2-1.2 Normal complet e Count 013 10 ed 05:14 Eosinop 09-20-2 0.5 X 0.0-0.8 Normal complet hil 013 10 ed Count 05:14 Basophi 09-20-2 0.1 X 0.0-0.1 Normal complet l Count 013 10 ed 05:14 Lymphoc 09-20-2 1.6 X 0.7-4.3 Normal complet yte 013 10 ed Count 05:14 Eosinop 6.5 % 0.0-6.0 Above complet hils % 013 high ed 05:14 normal VANCOMYCIN TROUGH (09-20-2012 05:14) Vancomy 7.3 10.0-20 Below complet priscilla 013 mcg/mL .0 low ed Trough 05:14 normal BASIC METABOLIC PANEL (09-20-2012 05:14) Glucose 140 70-99 Above complet 013 mg/dL high ed 05:14 normal BUN 2 11 7-18 Normal complet 013 mg/dL ed 05:14 Creatin 2 1.0 0.6-1.3 Normal complet ine 013 mg/dL ed 05:14 Sodium 138 136-145 Normal complet 013 mEq/L ed 05:14 Potassi 4.1 3.5-5.1 Normal complet um 013 mEq/L ed 05:14 Chlorid 105 98-107 Normal complet e 013 mEq/L ed 05:14 CO2 30 22-29 Above complet 013 mmol/L high ed 05:14 normal Calcium 7.9 8.5-10. Below complet 013 mg/dL 1 low ed 05:14 normal BUN/Cre 11 complet at 013 ed Ratio 05:14 GLOMERU >60.0 complet LAR 013 mL/min/ ed [...] determinations of GFR should be obtained. GLOMERU 04-29-2 >60.0 complet LAR 013 mL/min/ ed FILTRAT 05:14 1.73 m2 ION RATE Anne Marie n CBC W/DIFF (09-19-2012 05:41) WBC 09-19-2 14.4 X 3.5-9.6 Above complet 013 10 high ed 05:41 normal RBC 4.14 X 4.70-6. Below complet 013 10 10 low ed 05:41 normal Hemoglo 2 13.3 14.0-18 Below complet bin 013 gm/dL .0 low ed 05:41 normal Hematoc 2 40.2 % 42.0-52 Below complet rit 013 .0 low ed 05:41 normal Platele 268 X 130-400 Normal complet t 013 10 ed 05:41 MCH 2 32.1 pg 27.0-32 Above complet 013 .0 high ed 05:41 normal MCHC 33.1 32.0-37 Normal complet 013 gm/dL .0 ed 05:41 MCV 97.0 fl 80.0-94 Above complet 013 .0 high ed 05:41 normal RDW 2 13.3 % 12.0-15 Normal complet 013 .0 ed 05:41 MPV 2 7.5 fl 6.2-10. Normal complet 013 6 ed 05:41 Neutrop 09-19-2 76.6 % 42.0-75 Above complet hils % 013 .0 high ed 05:41 normal Lymphoc 2 12.8 % 20.0-51 Below complet ytes % 013 .0 low ed 05:41 normal Monocyt 2 9.2 % 0.0-13. Normal complet es % 013 0 ed 05:41 Eosinop 09-19-2 0.9 % 0.0-6.0 Normal complet hils % 013 ed 05:41 Basophi 09-19-2 0.5 % 0.0-2.0 Normal complet ls % 013 ed 05:41 Neutrop 09-19-2 11.0 X 1.5-7.1 Above complet hil 013 10 high ed Count 05:41 normal Monocyt 2 1.3 X 0.2-1.2 Above complet e Count 013 10 high ed 05:41 normal Eosinop 04-28-2 0.1 X 0.0-0.8 Normal complet hil 013 10 ed Count 05:41 Basophi 09-19-2 0.1 X 0.0-0.1 Normal complet l Count 013 10 ed 05:41 Lymphoc 2 1.8 X 0.7-4.3 Normal complet yte 013 10 ed Count 05:41 BASIC METABOLIC PANEL (09-19-2012 05:41) BUN 09-19-2 14 7-18 Normal complet 013 mg/dL ed 05:41 Creatin 2 1.0 0.6-1.3 Normal complet ine 013 mg/dL ed 05:41 Sodium 129 136-145 Below complet 013 mEq/L low ed 05:41 normal Potassi 2 3.6 3.5-5.1 Normal complet um 013 mEq/L ed 05:41 Chlorid 96 98-107 Below complet e 013 mEq/L low ed 05:41 normal CO2 24 22-29 Normal complet 013 mmol/L ed 05:41 Calcium 7.8 8.5-10. Below complet 013 mg/dL 1 low ed 05:41 normal BUN/Cre 14 complet at 013 ed Ratio 05:41 GLOMERU >60.0 complet LAR 013 mL/min/ ed [...] determinations of GFR should be obtained. GLOMERU 2 >60.0 complet LAR 013 mL/min/ ed FILTRAT 05:41 1.73 m2 ION RATE Anne Marie n Glucose 04-28-2 132 70-99 Above complet 013 mg/dL high ed 05:41 normal STAIN, GRAM (09-18-2012 20:58) [facility] Specime complet l 013 n/Sourc ed Report 20:58 e: OTHER-S PECIFY/ back [facility] Collect complet l 013 ed: ed Report 20:58 013 20:58 Clin[facility] Status: complet l 013 Final ed Report 20:58 Last Updated : 013 19:35 [facility] GRAM complet l 013 (Final) ed Report 20:58 [facility] Gram complet l 013 Positiv ed Report 20:58 e Cocci Seen Moderat e Gram Positiv e Diploco cci Seen Few [facility] ,WBC- complet l 013 ed Report 20:58 [facility] TRACE. complet l 013 ed Report 20:58 CULTURE, ANAEROBIC (09-18-2012 20:58) [facility] Collect complet l 013 ed: ed Report 20:58 013 20:58 Clin[facility] Status: complet l 013 Final ed Report 20:58 Last Updated : 013 15:51 [facility] CUL RES complet l 013 ed Report 20:58 (Final) [facility] No complet l 013 Anaerob ed Report 20:58 ic Bacteri a Isolate d in 24 hrs Clin[facility] No complet l 013 Anaerob ed Report 20:58 ic Bacteri a Isolate d in 48 hrs Clin[facility] No complet l 013 Anaerob ed Report 20:58 ic Bacteri a Isolate d in 3 Days Clinica No complet l 013 Anaerob ed Report 20:58 ic Bacteri a Isolate d in 4 days [facility] Specime complet l 013 n/Sourc ed Report 20:58 e: OTHER-S PECIFY/ back COMPREHENSIVE METABOLIC PANEL (09-18-2012 16:50) BUN 13 7-18 Normal complet 013 mg/dL ed 16:50 Creatin 1.3 0.6-1.3 Normal complet ine 013 mg/dL ed 16:50 Glucose 123 70-99 Above complet 013 mg/dL high ed 16:50 normal Sodium 125 136-145 Below complet 013 mEq/L low ed 16:50 normal Potassi 2 4.1 3.5-5.1 Normal complet um 013 mEq/L ed 16:50 Chlorid 92 98-107 Below complet e 013 mEq/L low ed 16:50 normal CO2 24 22-29 Normal complet 013 mmol/L ed 16:50 Calcium 9.1 8.5-10. Normal complet 013 mg/dL 1 ed 16:50 Total 8.2 6.4-8.2 Normal complet Protein 013 gm/dL ed 16:50 Albumin 2.8 3.4-5.0 Below complet 013 gm/dL low ed 16:50 normal Alk 87 U/L 50-136 Normal complet Phos 013 ed 16:50 ALT 26 U/L 30-65 Below complet 013 low ed 16:50 normal AST 11 U/L 15-37 Below complet 013 low ed 16:50 normal Bilirub 1.31 0.0-1.0 Above complet in, 013 mg/dL high ed Total 16:50 normal BUN/Cre 10 complet at 013 ed Ratio 16:50 A/G 0.5 complet Ratio 013 ed 16:50 GLOMERU 2 >60.0 complet LAR 013 mL/min/ [...] determinations of GFR should be obtained. GLOMERU 09-18-2 >60.0 complet LAR 013 mL/min/ ed FILTRAT 16:50 1.73 m2 ION RATE Anne Marie n CBC W/DIFF (09-18-2012 16:50) Eosinop 09-18-2 0.0 X 0.0-0.8 Normal complet hil 013 10 ed Count 16:50 Basophi 09-18-2 0.0 X 0.0-0.1 Normal complet l Count 013 10 ed 16:50 Lymphoc 09-18-2 1.6 X 0.7-4.3 Normal complet yte 013 10 ed Count 16:50 Basophi 09-18-2 0.0 % 0.0-2.0 Normal complet ls % 013 ed 16:50 Neutrop 09-18-2 14.2 X 1.5-7.1 Above complet hil 013 10 high ed Count 16:50 normal Monocyt 09-18-2 2.4 X 0.2-1.2 Above complet e Count 013 10 high ed 16:50 normal WBC 09-18-2 18.2 X 3.5-9.6 Above complet 013 10 high ed 16:50 normal RBC 09-18-2 5.03 X 4.70-6. Normal complet 013 10 10 ed 16:50 Hemoglo 09-18-2 16.2 14.0-18 Normal complet bin 013 gm/dL .0 ed 16:50 Hematoc 09-18-2 48.3 % 42.0-52 Normal complet rit 013 .0 ed 16:50 Platele 09-18-2 303 X 130-400 Normal complet t 013 10 ed 16:50 MCH 09-18-2 32.2 pg 27.0-32 Above complet 013 .0 high ed 16:50 normal MCHC 09-18-2 33.6 32.0-37 Normal complet 013 gm/dL .0 ed 16:50 MCV 09-18-2 96.0 fl 80.0-94 Above complet 013 .0 high ed 16:50 normal RDW 09-18-2 13.5 % 12.0-15 Normal complet 013 .0 ed 16:50 MPV 09-18-2 6.9 fl 6.2-10. Normal complet 013 6 ed 16:50 Manual 09-18-2 YES complet Diff? 013 ed 16:50 Neutrop 71.0 % 42.0-75 Normal complet hils % 013 .0 ed 16:50 Bands 7 complet 013 ed 16:50 Lymphoc 9.0 % 20.0-51 Below complet ytes % 013 .0 low ed 16:50 normal Monocyt 13.0 % 0.0-13. Normal complet es % 013 0 ed 16:50 Eosinop 0.0 % 0.0-6.0 Normal complet hils % 013 ed 16:50 CULTURE, BLOOD (09-18-2012 16:50) [facility] Specime complet l 013 n: ed Report 16:50 BLOOD CULTURE, BLOOD (09-18-2012 16:50) [facility] Status: complet l 013 Final ed Report 16:50 Last Updated : 013 15:18 Clin[facility] Specime complet l 013 n: ed Report 16:50 BLOOD [facility] Collect complet l 013 ed: ed Report 16:50 013 16:50 Clinica CUL RES complet l 013 ed Report 16:50 (Final) [facility] Culture complet l 013 In ed Report 16:50 Progres s [facility] No complet l 013 Growth ed Report 16:50 After 24 Hours Clinica No complet l 013 Growth ed Report 16:50 After 48 Hours Clinica No complet l 013 Growth ed Report 16:50 After 3 Days Clinica No complet l 013 Growth ed Report 16:50 After 4 Days Clinica No complet l 013 Growth ed Report 16:50 After 5 Days Procedures Procedure DOS Code Location Performer Comment APPLICATI 69866 [facility] PETTEY ON CAST 6 PHYSICIAN SARMAD ELBOW S GROUP FINGER SHORT ARM RADEX 58684 [facility] RO[facility] ALL WRIST 6 MEDICAL COMPLETE IMAGING MINIMUM 3 ASS VIEWS CAST Q4010 [facility] PETTEY SUPPLIES 6 PHYSICIAN JAM SHORT ARM S GROUP CAST ADULT FIBERGLAS S APPLICATI 88372 NUSRAT SILVERIO ON SHORT 6 [facility] ARM INC INC SPLINT FOREARM-H AND STATIC RADEX 35173 EDDIE ROACH ALL HAND 6 MEDICAL MINIMUM 3 IMAGING VIEWS ASS RADEX 25294 EDDIE ROACH ALL FOREARM 2 6 MEDICAL VIEWS IMAGING ASS RADEX 68623 EDDIE ROACH ALL WRIST 6 MEDICAL COMPLETE IMAGING MINIMUM 3 ASS VIEWS RADEX 68330 EDDIE ROACH ALL SHOULDER 6 MEDICAL COMPLETE IMAGING MINIMUM 2 ASS VIEWS RADEX HIP 21168 EDDIE ROACH ALL 6 MEDICAL UNILATERA IMAGING L WITH ASS PELVIS 2-3 VIEWS DRUG TST G0477 NUSRAT SILVERIO PRESUMP;C 6 [facility] PBL BEING INC INC READ DC OPT OBV ONLY PHYSICAL 16204 NUSRAT SILVERIO THERAPY 6 [facility] EVALUATIO INC INC N E-STIM G0283 NUSRAT SILVERIO 1/> AREAS 6 [facility] OTH THAN INC INC WND CARE PART TX PLAN APPLICATI 82396 NUSRAT SILVERIO ON 6 [facility] MODALITY INC INC 1/> AREAS HOT/COLD PACKS APPL 14824 NUSRAT SILVERIO MODALITY 6 [facility] 1/> AREAS INC INC ULTRASOUN D EA 15 MIN MRI 47620 EDDIE ROACH ALL SPINAL 6 MEDICAL CANAL IMAGING CERVICAL ASS W/O CONTRAST MATRL MRI 49666 EDDIE ROACH ALL SPINAL 6 MEDICAL CANAL IMAGING THORACIC ASS W/O CONTRAST MATRL 3D 75303 EDDIE ROACH ALL RENDERING 6 MEDICAL W/INTERP IMAGING & ASS POSTPROCE SS SUPERVISI ON DRUG TST G0477 NUSRAT SILVERIO PRESUMP;C 6 [facility] PBL BEING INC INC READ DC OPT OBV ONLY INJECTION J1644 NUSRAT SILVERIO HEPARIN 6 [facility] SODIUM INC INC PER 1000 UNITS LOCM Q9967 NUSRAT SILVERIO 300-399 6 [facility] MG/ML INC INC IODINE CONCENTRA TION PER ML CATHETER C1725 NUSRAT SILVERIO TRANSLUMI 6 [facility] NAL INC INC ANGIOPLAS TY NON-LASER GUIDE C1769 NUSRAT SILVERIO WIRE 6 [facility] INC INC CATH PLMT 67578 [facility] AYESHA Stephenson HRT & 6 PHYSICIAN MAT ARTS S GROUP W/NJX & ANGIO IMG S&I CATH PLMT 43998 NUSRAT SILVERIO L 6 [facility] HRT/ARTS/ INC INC GRFTS WNJX & ANGIO IMG S&I BRNCDILAT 40304 NUSRAT JIMENEZ JR RSPSE 6 [facility] PRE&POST- P BRNCDILAT ADMN PRESSURIZ 98678 NUSRAT SILVERIO ED/NONPRE 6 [facility] SSURIZED INC INC INHALATIO N TREATMENT GAS 12207 NUSRAT JIMENEZ JR DILUT/WAS 6 [facility] ER VOL W/WO P DISTRIB VENT&[place] [address] NUSRAT JIMENEZ JR DIFFUSING 6 [facility] [place] [address] NUSRAT SILVERIO FREE 6 [facility] [address] NUSRAT SILVERIO THYROID 6 [facility] STIMULATI INC INC NG HORMONE TSH INJECTION J2785 NUSRAT SILVERIO 6 [facility] REGADENOS INC INC ON 0.1 MG CV STRS 84458 [facility] SOPHIE BARBER TST 6 PHYSICIAN XERS&/OR S GROUP RX CONT ECG W/O I&R CV STRS 51126 NUSRAT SILVERIO TST 6 [facility] XERS&/OR INC INC RX CONT ECG TRCG ONLY TECHNETIU A9500 NUSRAT Nowak TC-99M 6 [facility] SESTAMIBI INC INC DX PER STUDY DOSE ECHO 91022 NUSRAT SILVERIO TTHRC R-T 6 [facility] 2D INC INC W/WOM-MOD E COMPL SPEC&COLR D MYOCARDIA 44701 NUSRAT Stephenson SPECT 6 [facility] MULTIPLE INC INC STUDIES BLOOD 79728 NUSRAT SILVERIO COUNT 6 [facility] COMPLETE INC INC AUTO&AUTO DIFRNTL WBC BASIC 52145 NUSRAT SILVERIO METABOLIC 6 [facility] PANEL INC INC CALCIUM TOTAL HEPATIC 26610 NUSRAT SILVERIO FUNCTION 6 [facility] PANEL INC INC RADIOLOGI 81041 NUSRAT SILVERIO C EXAM 6 [facility] CHEST 2 INC INC VIEWS FRONTAL&L ATERAL ECG 80881 NUSRAT SILVERIO ROUTINE 6 [facility] ECG INC INC W/LEAST 12 LDS TRCG ONLY W/O I&R COMPREHEN 04314 SANDI JUNIOR SIVE 6 [facility] METABOLIC CENTER CENTER PANEL COLLECTIO 23038 YUNGDOMITILASHEMAR BARRAGANJAYLENE N VENOUS 6 [facility] BLOOD [facility] VENIPUNCT URE RADIOLOGI 85890 LAISHASHEMAR SANDI C EXAM 6 [facility] CHEST 2 CENTER CENTER VIEWS FRONTAL&L ATERAL BLOOD 65993 SANDI JUNIOR COUNT 6 [facility] COMPLETE CENTER CENTER [facility] G0463 SANDI JUNIOR OUTPATIEN 6 [facility] CENTER VISIT ASSESS & MGMT PT BLOOD 66033 NUSRAT SILVERIO COUNT 6 [facility] COMPLETE INC INC AUTO&[place] [address] NUSRAT SILVERIO TROPONIN 6 [facility] QUANTITAT INC INC DEBBIE ECG 78994 NUSRAT JIMENEZ JR ROUTINE 6 [facility] W/LEAST P 12 LDS I&R ONLY RADIOLOGI 42296 EDDIE MANSFIELD C EXAM 6 [facility]ICAL [facility] CHEST 2 IMAGING VIEWS ASS FRONTAL&L ATERAL INJECTION J2405 NUSRAT SILVERIO 6 [facility] ONDANSETR INC INC ON HCL PER 1 MG THERAPEUT 10693 NUSRAT SILVERIO IC 6 [facility] INJECTION INC INC IV PUSH EACH NEW DRUG CREATINE 32094 NUSRAT SILVERIO KINASE MB 6 [facility] FRACTION INC INC ONLY COLLECTIO 84795 NUSRAT SILVERIO N VENOUS 6 [facility] BLOOD INC INC VENIPUNCT URE COMPREHEN 75517 NUSRAT SILVERIO SIVE 6 [facility] METABOLIC INC INC PANEL THER 74020 NUSRAT SILVERIO PROPH/DX 6 [facility] NJX IV INC INC PUSH SINGLE/1S T SBST/DRUG CREATINE 68018 NUSRAT SILVERIO KINASE 6 [facility] TOTAL INC INC ECG 93606 NUSRAT SILVERIO ROUTINE 6 [facility] ECG INC INC W/LEAST 12 LDS TRCG ONLY W/O I&R ECG 96722 UNSRAT NUSRAT ROUTINE 6 [facility] ECG INC INC W/LEAST 12 LDS TRCG ONLY W/O I&R COMPREHEN 64197 NUSRAT SILVERIO SIVE 6 [facility] METABOLIC INC INC PANEL COLLECTIO 89636 NUSRAT SILVERIO N VENOUS 6 [facility] BLOOD INC INC VENIPUNCT URE GROUND A0425 [facility] MILEAGE 6 AMBULANCE AMBULANCE PER SERVICE SERVICE STATUTE MILE LOCM Q9967 NUSRAT SILVERIO 300-399 6 [facility] MG/ML INC INC IODINE CONCENTRA TION PER ML AMB A0427 [facility] SERVICE 6 AMBULANCE AMBULANCE ALS SERVICE SERVICE EMERGENCY TRANSPORT LEVEL 1 ECG 48237 NUSRAT OCHOA ROUTINE 6 [facility] W/LEAST P 12 LDS I&R ONLY CT THORAX 66005 [facility] ROACH ALL 6 MEDICAL W/[place] [address] NUSRAT SILVERIO TROPONIN 6 [facility] QUANTITAT INC INC DEBBIE BLOOD 39588 NUSRAT SILVERIO COUNT 6 [facility] COMPLETE INC INC AUTO&AUTO DIFRNTL WBC SBSQ 25390 [facility] 6 CARE/DAY RELIGIOUS 25 HOSP MINUTES WALKER E0135 SANDI JUNIOR FOLDING 6 MEDICAL MEDICAL ADJUSTABL EQUIP EQUIP E OR FIXED HEIGHT COMMODE E0163 SANDI JUNIOR CHAIR 6 MEDICAL MEDICAL MOBILE OR EQUIP EQUIP STATIONAR Y W/FIXED [facility] 96149 SANDI ATTUM ABD DISCHARGE 6 DAY RELIGIOUS [facility]NAG[facility]EN [facility]OSP T 30 MIN/< SBSQ 02154 [place] [address] MYRNA CARE/DAY RELIGIOUS 25 HOSP MINUTES SBSQ 13684 [facility] 6 CARE/DAY 25 MINUTES RADIOLOGI 59018 SANDI Young 6 GAR EXAMINATI RADIOLOGY ON CHEST PLLC [place] FRONTAL SBSQ 99856 [facility] 6 MALHAB CARE/DAY RELIGIOUS NIS 35 HOSP MINUTES CRITICAL 33056 [facility] 6 MALHAB ILL/INJUR RELIGIOUS NIS ED HOSP PATIENT INIT 30-74 MIN SBSQ 32662 [facility] 6 CARE/DAY RELIGIOUS 25 HOSP MINUTES CRITICAL 85628 [facility] 6 MALHAB ILL/INJUR RELIGIOUS NIS ED HOSP PATIENT INIT 30-74 MIN SBSQ 54552 [facility] 6 CARE/DAY RELIGIOUS 25 HOSP MINUTES [facility]ITICAL 08254 [facility] 6 MALHAB ILL/INJUR RELIGIOUS NIS ED HOSP PATIENT INIT 30-74 MIN SBSQ 46943 [facility] 6 CARE/DAY 25 MINUTES RADIOLOGI 41763 SANDI Young 6 GAR EXAMINATI RADIOLOGY ON CHEST PLLC [place] FRONTAL ECG 64482 SANDI DING ROUTINE 6 JEIMY ECG RELIGIOUS W/LEAST HOSP 12 LDS I&R ONLY RADIOLOGI 92970 SANDI Young 6 GAR EXAMINATI RADIOLOGY ON CHEST PLLC [place] FRONTAL SBSQ 31794 [facility] 6 CARE/DAY RELIGIOUS 25 HOSP MINUTES CRITICAL 59206 [facility] 6 MALHAB ILL/INJUR RELIGIOUS NIS ED HOSP PATIENT INIT 30-74 MIN SBSQ 72383 [facility] 6 CARE/DAY RELIGIOUS 25 HOSP MINUTES RADIOLOGI 73102 SANDI Young 6 GAR EXAMINATI RADIOLOGY ON CHEST PLLC [place]ONTAL CRITICAL 48301 [facility] 6 MALHAB ILL/INJUR RELIGIOUS NIS ED HOSP PATIENT INIT 30-74 MIN CRITICAL 12791 YUNGSEHMAR SALAZAR [facility] CARE 6 ILL/INJUR RELIGIOUS ED HOSP PATIENT INIT 30-74 MIN RADIOLOGI 94672 SANDI Young 6 DEN EXAMINATI RADIOLOGY ON CHEST PLLC [place] FRONTAL SBSQ 14026 [facility] 6 CARE/DAY 25 MINUTES SBSQ 73196 [facility] 6 MEDICAL MAR CARE/DAY CENTER 25 INC MINUTES RADIOLOGI 53541 SANDI Young 6 EXAMINATI RADIOLOGY ON CHEST PLLC [place] FRONTAL SBSQ 26186 [facility] 6 CARE/DAY 35 MINUTES CRITICAL 72131 YUNGSHEMAR MARTIN [facility] CARE 6 ILL/INJUR RELIGIOUS ED HOSP PATIENT INIT 30-74 MIN RADIOLOGI 54328 SANDI Young 6 VINNIE EXAMINATI RADIOLOGY ON CHEST PLLC [place] FRONTAL SBSQ 07458 [facility] 6 CARE/DAY RELIGIOUS 25 HOSP MINUTES SBSQ 72784 [facility] 6 CARE/DAY RELIGIOUS 25 HOSP MINUTES RADIOLOGI 13766 SANDI Young 6 VINNIE EXAMINATI RADIOLOGY ON CHEST PLLC [place] FRONTAL RADIOLOGI 34359 SANDI Young 6 VINNIE EXAMINATI RADIOLOGY ON CHEST PLLC [place] FRONTAL SBSQ 46894 [facility] 6 CARE/DAY RELIGIOUS 25 HOSP MINUTES ECG 52198 SANDI SMITH ROUTINE 6 DEN ECG RELIGIOUS W/LEAST HOSP 12 LDS I&R ONLY SBSQ 17450 [facility] 6 CARE/DAY RELIGIOUS 25 HOSP MINUTES RADIOLOGI 59393 SANDI Young 6 GAR EXAMINATI RADIOLOGY ON CHEST PLLC [place] FRONTAL ECHO 45123 [facility] TTHRC R-T 6 2D RELIGIOUS W/WOM-MOD HOSP E COMPL SPEC&COLR D ECG 82798 SANDI DING ROUTINE 6 JEIMY ECG RELIGIOUS W/LEAST HOSP 12 LDS I&R ONLY INSJ 92385 SANDI LANEUM ABD INTRA-AOR 6 T BALO RELIGIOUS ASSIST HOSP DEV VIA FEM ART OPEN ANES 56392 SANDI SAMUEL DIRECT 6 CABG RELIGIOUS W/PUMP HOSP OXYGENATO R CORONARY 29227 SANDI LANEUM ABD ARTERY 6 BYP RELIGIOUS W/VEIN & HOSP ARTERY GRAFT 1 VEIN CABG 94491 SANDI HAN ABD W/ARTERIA 6 L GRAFT RELIGIOUS SINGLE HOSP ARTERIAL GRAFT INSERTION 03590 SANDI COELHO MUH 6 INTRA-AOR RELIGIOUS TIC HOSP [place] ASSIST DEV PERQ ROTARY A0436 MED-TRANS MED-TRANS WING AIR 6 MILEAGE CORPORATI CORPORATI PER ON ON STATUTE MILE GROUND A0425 NEON NEON MILEAGE 6 VOLUNTEER VOLUNTEER PER FIRE FIRE STATUTE DEPT\EMS DEPT\EMS MILE AMB A0427 NEON NEON SERVICE 6 VOLUNTEER VOLUNTEER ALS FIRE FIRE EMERGENCY DEPT\EMS DEPT\EMS TRANSPORT LEVEL 1 AMB A0431 MED-TRANS MED-TRANS SERVICE 6 CONVNTION CORPORATI CORPORATI AIR SRVC ON ON TRANSPORT [address] C[address] PLMT 71880 SANDI COELHO MUH L HRT & 6 ARTS RELIGIOUS W/NJX & HOSP ANGIO IMG S&I RADIOLOGI 23442 RAHUL KAY JR C 6 PHILIP PHILIP EXAMINATI ON CHEST S[place] FRONTAL ECG 70621 [facility] INC GHARAD ROUTINE 6 MEDICAL CORRINA ECG ASSOCIATE W/LEAST S 12 LDS I&R ONLY KNEE L1810 [facility] HOME [facility] HOME ORTHOSIS 5 MEDICAL MEDICAL ELASTIC JOINTS PREFAB CUSTOM FIT RADEX 73231 RAHUL KAY JR SPINE 5 PHILIP PHILIP CERVICAL 4 OR 5 VIEWS THERAPEUT 16758 [facility] IC 4 PROPHYLAC TIC/DX INJECTION SUBQ/IM INJECTION J0696 [facility] 4 CEFTRIAXO NE SODIUM PER 250 MG RADIOLOGI 12085 [facility] C EXAM 4 G A R H G A R H CHEST 2 VIEWS FRONTAL&L ATERAL BASIC 84553 [facility] METABOLIC 4 G A R H G A R H PANEL CALCIUM TOTAL BLOOD 25580 [facility] COUNT 4 G A R H G A R H COMPLETE AUTO&AUTO DIFRNTL [facility] 09208 [facility] DISCHARGE 4 COMP DAY HEALTH MANAGEMEN SANDY T 30 MIN/< SBSQ 21329 [facility] 4 COMP CARE/DAY HEALTH 25 SANDY MINUTES SBSQ [address]8542 [place] [address] COMP MAT CARE/DAY HEALTH 25 SANDY MINUTES SBSQ 00450 [place] [address] COMP MAT CARE/DAY HEALTH 25 SANDY MINUTES SBSQ 86950 [place] [address] COMP CARE/DAY SPECIALTY 25 SERV MINUTES SBSQ 27532 [facility] 4 COMP CARE/DAY HEALTH 25 SANDY MINUTES INITIAL 31181 [place] [address] COMP CARE/DAY SPECIALTY 50 SERV MINUTES INITIAL 55020 [place] [address] COMP FAR CARE/DAY HEALTH 70 SANDY MINUTES Encounters Encounter Start End Date Code Location Performer Type Date OFFICE 28462 [facility] PHI OUTPATIEN 6 6 MEDICAL T NEW 30 SERV MINUTES FOUNDATIO N OFFICE 11139 [facility] PETTEY OUTPATIEN 6 6 PHYSICIAN SARMAD Mixon NEW 20 S GROUP [facility] NUSRAT - 6 6 [facility] 6 6 [facility] EMERGENCY [id number] RUBY MOHAN 6 6 PHYSICIAN VLADIMIR BROWN [facility]URGE NT SEVERITY HOSPITAL NUSRAT [facility] OTHER 6 6 [facility] NUSRAT - 6 6 [facility] - 6 6 [facility] NUSRAT [facility] OTHER 6 6 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 T VISIT [facility]IGH/URGE NT SEVERITY EMERGENCY 21632 RUBY WOOTEN DEPT 6 6 PHYSICIAN U HUONG VISIT S, PLLC HIGH SEVERITY& THREAT FUN HOSPITAL NUSRAT - 6 6 [facility] OUTPATIEN [facility] T EMERGENCY [id number] NUSRAT [address] 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
--- OUTSIDE RECORDS SUMMARY | 2016-09-22 03:26 | External Medical Summary Rpt ---
Author Author , Organization [employer] Address Unknown Phone Unavailable Care Team Providers Care Bilingual Account Manager Name Role Phone AHMAD MUH, AHMAD MUH [...] [facility] Unavailable Unavailable SERVICE, [facility]available [facility]available SERVICE, [facility] KAY JR PHILIP, KAY JR [...] Unavailable Unavailable INC, [facility] Unavailable [facility]available HOSPITAL P, [facility], Unavailable Unavailable [facility] ISAI REEVES APRN FAMILY Unavailable Unavailable CLINIC, ISAI REEVES APRN [facility] GUNNER VINNIE, GUNNER Unavailable Unavailable VIN[facility]IE [facility] Un[facility] Un[facility], [facility] KHATER FAR, KHATER Unavailable Unavailable [facility] BARBARA JR DWI, BARBARA Unavailable Unavailable JR DWI THOMAS AHM, THOMAS AHM Unavailable Unavailable THOMAS AHM, THOMAS AHM Unavailable Unavailable [facility], Unavailable Unavailable [facility], Unavailable [...] PLLC PETTEY JAM, PETTEY Unavailable Unavailable [facility] Unavailable Unavailable [facility], [facility] Unavailable Unavailable EQUIP, [facility] Unavailable Unavailable HOSP, [facility] YATES GAR, YATES Unavailable Unavailable GAR [...] Diagnosis DOS Provider Status 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 04-10-2016 [facility] REGION [id number] OTHER 04-10-2016 [facility] DEGENERATIO N AT C5-C6 LEVEL Z720 TOBACCO USE 04-10-2016 [facility] [id number] OTHER 04-09-2016 [facility] EXTRAARTICU PHYSICIANS LAR FX LOW GROUP RT RADIUS INIT CLOS [id number] DSPL FX 04-09-2016 [facility] RT WRST IMAGING ASS SUB ENC FX ROUTINE I10 ESSENTIAL 03-30-2016 [facility] HYPERTENSIO INC N J449 CHRONIC 03-30-2016 [facility] PULMONARY INC DISEASE UNS A07321 PRIMARY 03-30-2016 [facility] T[facility] RIGHT IMAGING ASS HAND P28512 PAIN IN 03-30-2016 [facility] SHOULDER IMAGING ASS C83497 PAIN IN 03-30-2016 [facility] [place] RIGHT WRIST MEDICAL IMAGING ASS U62626 PAIN IN 03-30-2016 [facility] UNSPECIFIED MEDICAL HIP IMAGING ASS B01937 PAIN IN 03-30-2016 [facility] [place] RIGHT MEDICAL FOREARM IMAGING ASS X04435 PAIN IN 03-30-2016 [facility] [place] RIGHT HAND [facility]ICAL IM[facility] P0062NF UNS INJURY 03-30-2016 [facility] [place] RT SHOULDER MEDICAL UPPER ARM IMAGING ASS INITIAL ENCNTR [id number] FX UNS 03-30-2016 [facility] CARPAL BONE PHYSICIANS, RT WRIST PLLC INITIAL ENC CLOS FX X81401S DSPL FX 03-30-2016 [facility] RT WRIST IMAGING ASS INIT ENC CLOS FX M542 CERVICALGIA 03-19-2016 [facility] M545 LOW BACK 02-18-2016 [facility]IN [facility] M5022 OT CERV 02-08-2016 [facility] DISC MEDICAL DISPLACEMEN IMAGING ASS T MID-CERVICA L REGION M5032 OT CERV 02-08-2016 [facility] [place] DIS[facility]ICAL DEGENERATIO IMAGING ASS N MID-CERVICA L REGION M5124 OTH 02-08-2016 [facility] [place] INTERVERTEB MEDICAL RAL DISC IMAGING ASS DISPLACEMEN T THOR REGION M5134 OTH 02-08-2016 [facility] [place] INTERVERTEB MEDICAL RAL DISC IMAGING ASS DEGEN THORACIC REGION M546 PAIN IN 02-08-2016 [facility] THORACIC [facility]ICAL SPINE IMAGING ASS M549 DORSALGIA 02-08-2016 [facility] I209 ANGINA 01-15-2016 [facility] PECTORIS PHYSICIANS UNSPECIFIED GROUP [id number] ASHD [place] APACHE 01-15-2016 [facility] W/UNS INC ANGINA PECTORIS R9439 ABNORMAL 01-15-2016 [facility] RESULT [facility] PHYSICIANS CARDIOVASCU GROUP LR FUNCTION STUDY 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 ASHD [place]ESCALERO APACHE 01-04-2016 [facility]ONARY [facility] P ANGINA PECTORIS E039 HYPOTHYROID 12-28-2015 [facility] UNSPECIFIED INC R079 CHEST PAIN 12-28-2015 [facility] [place] UNSPECIFIED [facility]ICAL IMAGING ASS R0602 SHORTNESS 10-29-2015 [facility] R5383 OTHER 10-29-2015 [facility] B18507 PAIN IN 10-22-2015 [facility] LEFT PHYSICIANS, SHOULDER PLLC R0789 OTHER CHEST 10-22-2015 [facility] [place] PAIN MEDICAL IMAGING ASS [id number] PAIN D/T 10-22-2015 [facility] P IMPL & GRAFTS INITIAL G8918 OTHER ACUTE 10-18-2015 [facility] POSTPROCEDU [facility] P RAL PAIN G8928 OTHER 10-18-2015 [facility] CHRONIC PHYSICIANS, POSTPROCEDU PLLC RAL PAIN J80 ACUTE 10-18-2015 [facility] RESPIRATORY AMBULANCE DISTRESS SERVICE SYNDROME J90 PLEURAL 10-18-2015 [facility] NOT IMAGING ASS ELSEWHERE CLASSIFIED J9811 ATELECTASIS 10-18-2015 [facility] J9690 RESP FAIL 10-15-2015 [facility] UNS UNS [facility] WHETHER HOSP W/HYPOXIA/H YPERCAPNIA R410 DISORIENTAT 10-15-2015 [facility] ION [facility] UNSPECIFIED HOSP R5381 OTHER 10-15-2015 [facility] MALAISE [facility] W30460 ELEVATED 10-13-2015 [facility] WHITE BLOOD [facility] CELL COUNT HOSP UNSPECIFIED I509 HEART 10-13-2015 [facility] FAILURE [facility] UNSPECIFIED HOSP J9600 ACUTE 10-13-2015 [facility] RESPIRATORY [facility] FAIL UNS HOSP HYPOXIA/HYP ERCAPNIA I214 NON-ST 10-12-2015 [facility] ELEVATION [facility] MYOCARDIAL HOSP INFARCTION R4182 ALTERED 10-12-2015 [facility] MENTAL [facility] STATUS HOSP UNSPECIFIED D649 ANEMIA 10-11-2015 [place] UNSPECIFIED [facility]ISM HOSP E876 HYPOKALEMIA 10-11-2015 [place] [facility] 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 THOMAS 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 J9601 ACUTE 10-10-2015 [facility] RESPIRATORY [facility] FAILURE HOSP WITH HYPOXIA R9431 ABNORMAL 10-10-2015 [facility] ELECTROCARD [facility] IOGRAM HOSP E870 HYPEROSMOLA 10-09-2015 [facility] LITY AND [facility] HYPERNATREM HOSP IA A30404 ACUTE 10-09-2015 [facility] POSTPROCEDU [facility] RAL HOSP RESPIRATORY FAILURE I999 UNSPECIFIED 10-08-2015 [facility] DISORDER [facility] OF HOSP CIRCULATORY SYSTEM E785 HYPERLIPIDE 10-03-2015 [facility] KAREN [facility] UNSPECIFIED HOSP I213 ST 10-02-2015 [place] [facility] MYOCARDIAL HOSP INFARCTION UNS SITE L27800 ENCOUNTER 10-02-2015 [facility] FOR [facility] PREPROCEDUR HOSP AL CARIOVASCUL AR EXAM I222 SUBSEQUENT 10-01-2015 [facility] ELEVATION MYOCARDIAL INFARCT J309 ALLERGIC 09-25-2015 ISAI REEVES RHINITIS SAMPLE HAND FAMILY UNSPECIFIED CLINIC N401 BENIGN 09-25-2015 ISAI REEVES PROSTATIC SAMPLE HAND FAMILY HYPERPLASIA CLINIC LW URINARY TRACT SX 2724 OTHER AND 06-19-2014 [facility] UNSPECIFIED HYPERLIPIDE KAREN 4019 UNSPECIFIED 06-19-2014 [facility] ESSENTIAL HYPERTENSIO N 6079 UNSPECIFIED 06-19-2014 [facility] DISORDER OF PENIS 7242 LUMBAGO 06-19-2014 [facility] 48139 PAIN IN 06-06-2014 [facility] JOINT, MEDICAL MULTIPLE SITES 7231 CERVICALGIA 05-30-2014 [place] A R H 4619 ACUTE 02-23-2014 [facility] SINUSITIS, UNSPECIFIED 481 PNEUMOCOCCA 09-26-2013 [place] [facility] PNEUMONIA A R H 2875 UNSPECIFIED 09-20-2013 [facility] [employer] [facility] THROMBOCYTO SANDY PENIA 11405 OTHER 09-20-2013 [facility] CHRONIC COMP HEALTH PAIN SANDY 46469 OBSTRUCTIVE 09-16-2013 [facility] CHRONIC COMP BRONCHITIS SPECIALTY WITH SERV EXACERBATIO N 98943 DIARRHEA 09-14-2013 [employer] HEALTH SANDY F10.10 ALCOHOL ABUSE, UNCOMPLICAT ED [...] 10\S\3 ed Count 05:45 Comment: [place] WBC STOOL (09-19-2013 19:00) Fecal NONE NONE [...] E ed 16:00 NORWALK-LIKE VIRUS,EIA (09-16-2013 16:00) [place] SEE complet -like 014 COMMENT ed Ag 16:00 S 014 09:45 AM Comment: Test Result Flag Unit RefValue Comment: ------- Comment: Norovirus Comment: Norovirus Antigen NOT DETECTED Comment: A negative result does not exclude norovirus Comment: infection. Comment: Comment: Test Performed by: Comment: [employer] Comment: [address] Comment: ANASTASIYA Vang [id number] VANCOMYCIN TROUGH (09-16-2013 11:50) Vancomy 5.5 10.0-20 [...] high. Comment: Comment: Test Performed by: Comment: [facility] Comment: [address], [place] [address] Comment: Machine Coil Assembler: Alberto Cook III, M.D. BASIC METABOLIC PANEL [...] Result Flag Unit RefValue Comment: ------- Comment: Fvjkv-4-Jzaeafyxnps, S 297 h mg/dL 100 - 190 Comment: Comment: Test Performed by: Comment: [facility] Comment: [address] [place] [address] Comment: Machine Coil Assembler: Alberto Cook III, M.D. CULTURE, ROUTINE (09-14-2013 06:00) [facility] Specime complet l 014 n/Sourc ed Report 06:00 e: OTHER-S PECIFY/ nasal Clinica Collect complet l 014 ed: ed Report 06:00 014 06:00 Clinica Status: complet l 014 Final ed Report 06:00 Last Updated : 014 07:25 Clinica CUL RES complet l 014 ed Report 06:00 (Final) [facility] l 014 Growth ed Report [...] complet l 014 ed Report 18:23 (Final) [facility] Culture complet l 014 In ed Report 18:23 Progres s [facility] No complet l 014 Growth ed Report 18:23 After 24 Hours Clinica No complet l 014 Growth ed Report 18:23 After 48 Hours [facility] No complet l 014 Growth ed Report 18:23 After 3 Days [facility] Specime complet l 014 n: ed Report 18:23 BLOOD [facility] No complet l 014 Growth ed Report 18:23 After 5 Days CULTURE, BLOOD (09-13-2013 18:03) [facility] No complet l 014 Growth ed Report 18:03 After 5 Days [facility] Specime complet l 014 n: ed Report 18:03 BLOOD [facility] Collect complet l 014 ed: ed Report 18:03 014 18:03 [facility] Status: complet l 014 Final ed Report 18:03 Last Updated : 014 20:24 [facility] CUL RES complet l 014 ed Report 18:03 (Final) [facility] Culture complet l 014 In ed Report 18:03 Progres s [facility] No complet l 014 Growth ed Report 18:03 After 24 Hours [facility] No complet l 014 Growth ed Report 18:03 After 48 Hours [facility] No complet l 014 Growth ed Report 18:03 After 3 Days [facility] No complet l 014 Growth ed Report [...] Report 16:50 BLOOD CULTURE, BLOOD (09-18-2012 16:50) [facility] Status: complet l 013 Final ed Report 16:50 Last Updated : 013 15:18 [facility]ica Specime complet l 013 n: ed Report 16:50 BLOOD [facility] Collect complet l 013 ed: ed Report 16:50 013 16:50 [facility]ica CUL RES complet l 013 ed Report 16:50 (Final) [facility] Culture complet l 013 In ed Report 16:50 Progres s [facility] No complet l 013 Growth ed Report [...] Procedure DOS Code Location Performer Comment APPLICATI 90809 [facility] PETTEY ON CAST 6 PHYSICIAN SARMAD ELBOW S GROUP FINGER SHORT ARM RADEX 12016 [facility] [place] WRIST 6 MEDICAL COMPLETE IMAGING MINIMUM 3 ASS VIEWS CAST Q4010 [facility] PETTEY SUPPLIES 6 PHYSICIAN JAM SHORT ARM S GROUP CAST ADULT FIBERGLAS S APPLICATI 20580 [facility] S[facility] ON SHORT 6 [facility] ARM INC INC SPLINT FOREARM-H AND STATIC RADEX 36274 EDDIE ROACH ALL HAND 6 MEDICAL MINIMUM 3 IMAGING VIEWS ASS RADEX 77879 [facility] RO[facility] ALL FOREARM 2 6 MEDICAL VIEWS IMAGING ASS RADEX 56692 EDD[facility] ROACH ALL WRIST 6 MEDICAL COMPLETE IMAGING MINIMUM 3 ASS VIEWS RADEX 18765 EDDIE ROACH ALL SHOULDER 6 MEDICAL COMPLETE IMAGING MINIMUM 2 ASS VIEWS RADEX HIP 13766 EDDIE ROACH ALL 6 MEDICAL UNILATERA IMAGING L WITH ASS PELVIS 2-3 VIEWS DRUG TST G0477 [facility] PRESUMP;C 6 [facility] PBL BEING INC INC READ DC OPT OBV ONLY PHYSICAL 60553 [facility] S[facility] THERAPY 6 [facility] EVALUATIO INC INC N E-STIM G0283 [facility] S[facility] 1/> AREAS 6 [facility] OTH THAN INC INC WND CARE PART TX PLAN APPLICATI 67330 NUSRAT SILVERIO ON 6 [facility] MODALITY INC INC 1/> AREAS HOT/COLD PACKS APPL 59038 [facility] SILVER[facility] MODALITY 6 [facility]OS[facility] 1/> AREAS INC INC ULTRASOUN D EA 15 MIN MRI 97448 EDDIE ROACH ALL SPINAL 6 MEDICAL CANAL IMAGING CERVICAL ASS W/O CONTRAST MATRL MRI 62788 EDDIE ROACH ALL SPINAL 6 MEDICAL CANAL IMAGING THORACIC ASS W/O CONTRAST MATRL 3D 44301 EDDIE ROACH ALL RENDERING 6 MEDICAL W/INTERP [...] HOSP MEM HOSP INC INC CATH PLMT 26761 [facility] AYESHA Stephenson HRT & 6 PHYSICIAN MAT ARTS S GROUP W/NJX & ANGIO IMG S&I CATH PLMT 25911 [facility] L 6 [facility] HRT/ARTS/ INC INC GRFTS WNJX & ANGIO IMG S&I BRNCDILAT 37398 N[facility]AT JIMENEZ JR RSPSE 6 [facility] PRE&POST- P BRNCDILAT ADMN PRESSURIZ 57857 N[facility] SILVERIO ED/NONPRE 6 [facility] SSURIZED INC INC INHALATIO N TREATMENT GAS 64360 NUSRAT JIMENEZ JR DILUT/WAS 6 [facility] W/[place]RI[place] [address] NUSRAT JIMENEZ JR DIFFUSING 6 [facility] [address] NUSRAT SILVERIO FREE 6 [facility] [place] [address] N[facility] SILVERIO THYROID 6 [facility] STIMULATI INC INC NG HORMONE TSH INJECTION J2785 N[facility] SILVERIO 6 [facility] REGADENOS INC INC ON 0.1 MG CV STRS 35032 [facility] SOPHIE BARBER TST 6 PHYSICIAN XERS&/OR S GROUP RX CONT ECG W/O I&R CV STRS 65938 [facility] SILVERIO TST 6 [facility] XERS&/OR INC INC RX CONT ECG TRCG ONLY TECHNETIU A9500 N[facility]AT Nowak TC-99M 6 [facility] SESTAMIBI INC INC DX PER STUDY DOSE ECHO 65011 N[facility] SILVERIO TTHRC R-T 6 [facility] 2D INC INC W/WOM-MOD E COMPL SPEC&COLR D MYOCARDIA 55758 N[facility]AT Stephenson SPECT 6 [facility] MULTIPLE INC INC STUDIES BLOOD 93421 NUSRAT SILVERIO COUNT 6 [facility] COMPLETE INC INC AUTO&AUTO DIFRNTL WBC BASIC 26079 N[facility]AT SILVERIO METABOLIC 6 [facility] PANEL INC INC CALCIUM TOTAL HEPATIC 59662 NUSRAT SILVERIO FUNCTION 6 [facility] PANEL INC INC RADIOLOGI 69170 NUSRAT SILVERIO C EXAM 6 [facility] CHEST 2 INC INC VIEWS FRONTAL&L ATERAL ECG 65488 N[facility]AT SILVERIO ROUTINE 6 [facility] ECG INC INC W/LEAST 12 LDS TRCG ONLY W/O I&R COMPREHEN 05944 [facility] JUNIOR SIVE 6 [facility] CENTER PANEL COLLECTIO 84811 YUNGDOMITILASHEMAR BARRAGANJAYLENE N VENOUS 6 [facility] BLOOD CL[place]IL[place] CENTER VENIPUNCT URE RADIOLOGI 73516 LAISHASHEMAR SANDI C EXAM 6 [facility] CHEST 2 CENTER CENTER VIEWS FRONTAL&L ATERAL BLOOD 30559 [facility] JUNIOR COUNT 6 [facility] COMPLETE [facility] CENTER [facility] G0463 [facility] JUNIOR OUTPATIEN 6 [facility] C[facility] VISIT ASSESS & MGMT PT BLOOD 19950 NUSRAT SILVERIO COUNT 6 [facility] COMPLETE INC INC AUTO&[place] [address] NUSRAT SILVERIO TROPONIN 6 [facility] QUANTITAT INC INC EDBBIE ECG 29530 NUSRAT JIMENEZ JR ROUTINE 6 [facility] W/LEAST P 12 LDS I&R ONLY RADIOLOGI 49705 EDDIE MANSFIELD C EXAM 6 MEDICAL [facility] CHEST 2 IMAGING VIEWS ASS FRONTAL&L ATERAL INJECTION J2405 NUSRAT SILVERIO 6 [facility]OS[facility] ONDANSETR INC INC ON HCL PER 1 MG THERAPEUT 70542 NUSRAT SILVERIO IC 6 [facility] INJECTION INC INC IV PUSH EACH NEW DRUG CREATINE 17334 NUSRAT SILVERIO KINASE MB 6 [facility] FRACTION INC INC ONLY COLLECTIO 77553 NUSRAT SILVERIO N VENOUS 6 [facility]OS[facility] BLOOD INC INC VENIPUNCT URE COMPREHEN 01983 NUSRAT SILVERIO SIVE 6 [facility] METABOLIC INC INC PANEL THER 81990 NUSRAT SILVERIO PROPH/DX 6 [facility] NJX IV INC INC PUSH SINGLE/1S T SBST/DRUG CREATINE 87511 N[facility]AT SILVERIO KINASE 6 [facility] TOTAL INC INC ECG 92143 NUSRAT SILVERIO ROUTINE 6 [facility] ECG INC INC W/LEAST 12 LDS TRCG ONLY W/O I&R ECG 54547 NUSRAT NUSRAT ROUTINE 6 [facility] ECG INC INC W/LEAST 12 LDS TRCG ONLY W/O I&R COMPREHEN 13734 NUSRAT SILVERIO SIVE 6 [facility] METABOLIC INC INC PANEL COLLECTIO 77911 N[facility]RAT SILVERIO N VENOUS 6 [facility] BLOOD INC INC VENIPUNCT URE GROUND A0425 [facility] MILEAGE 6 AMBULANCE AMBULANCE PER SERVICE SERVICE STATUTE MILE LOCM Q9967 NUSRAT SILVERIO 300-399 6 [facility] MG/ML INC INC IODINE CONCENTRA TION PER ML AMB A0427 [facility] SERVICE 6 AMBULANCE AMBULANCE ALS SERVICE SERVICE EMERGENCY TRANSPORT LEVEL 1 ECG 34377 NUSRAT OCHOA ROUTINE 6 [facility] W/LEAST P 12 LDS I&R ONLY CT THORAX 37934 [place] [facility] ALL 6 MEDICAL W/[place] [address] NUSRAT SILVERIO TROPONIN 6 [facility] HOS[facility] QUANTITAT INC INC DEBBIE BLOOD 70300 NUSRAT SILVERIO COUNT 6 [facility] COMPLETE INC INC AUTO&AUTO DIFRNTL WBC SBSQ 48323 [facility] 6 CARE/DAY HINDUISM 25 HOSP MINUTES WALKER E0135 S[facility]I JUNIOR FOLDING 6 MEDICAL MEDICAL ADJUSTABL EQUIP EQUIP E OR FIXED HEIGHT COMMODE E0163 S[facility] JUNIOR CHAIR 6 MEDICAL MEDICAL MOBILE OR EQUIP EQUIP STATIONAR Y W/FIXED [facility] 60266 SANDI ATTUM ABD DISCHARGE 6 DAY [facility] MANAGEMEN HOSP T 30 MIN/< SBSQ 82038 [place] [address] MYRNA CARE/DAY [facility] 25 HOSP MINUTES SBSQ 20705 [facility] 6 CARE/DAY 25 MINUTES RADIOLOGI 22357 SANDI Young 6 GAR EXAMINATI RADIOLOGY ON CHEST PLLC [place] FRONTAL SBSQ 53541 [facility] 6 MALHAB CARE/DAY [facility] NIS 35 HOSP MINUTES CRITICAL 03465 [facility] 6 MALHAB ILL/INJUR HINDUISM NIS ED HOSP PATIENT INIT 30-74 MIN SBSQ 09197 [facility] 6 CARE/DAY HINDUISM 25 HOSP MINUTES CRITICAL 24509 [facility] 6 MALHAB ILL/INJUR HINDUISM NIS ED HOSP PATIENT INIT 30-74 MIN SBSQ 63028 [facility] 6 CARE/DAY HINDUISM 25 HOSP MINUTES CRITICAL 72635 [facility] 6 MALHAB ILL/INJUR HINDUISM NIS ED HOSP PATIENT INIT 30-74 MIN SBSQ 41126 [facility] 6 CARE/DAY 25 MINUTES RADIOLOGI 87903 SANDI Young 6 GAR EXAMINATI RADIOLOGY ON CHEST PLLC [place] FRONTAL ECG 71061 SANDI DING ROUTINE 6 JEIMY ECG HINDUISM W/LEAST HOSP 12 LDS I&R ONLY RADIOLOGI 92765 SANDI Young 6 GAR EXAMINATI RADIOLOGY ON CHEST PLLC [place] FRONTAL SBSQ 68166 [facility] 6 CARE/DAY [facility]UISM 25 HOSP MINUTES [facility] MALHAB ILL/INJUR HINDUISM NIS ED HOSP PATIENT INIT 30-74 MIN SBSQ 73734 [facility] 6 CARE/DAY HINDUISM 25 HOSP MINUTES RADIOLOGI 27162 SANDI Young 6 GAR EXAMINATI RADIOLOGY ON CHEST PLLC [place] FRONTAL CRITICAL 60429 [facility] 6 MALHAB ILL/INJUR HINDUISM NIS ED HOSP PATIENT INIT 30-74 MIN CRITICAL 93228 YUNGSHEMAR SALAZAR [facility] CARE 6 ILL/INJUR HINDUISM ED HOSP PATIENT INIT 30-74 MIN RADIOLOGI 97539 SANDI Young 6 DEN EXAMINATI RADIOLOGY ON CHEST PLLC S[place] FRONTAL SBSQ 60645 [facility] 6 CARE/DAY 25 MINUTES SBSQ 11332 [facility] 6 MEDICAL MAR CARE/DAY CENTER 25 INC MINUTES RADIOLOGI 02985 SANDI Young 6 EXAMINATI RADIOLOGY ON CHEST PLLC S[place] FRONTAL SBSQ 32728 [facility] 6 CARE/DAY 35 MINUTES CRITICAL 40097 YUNGSHEMAR MARTIN [facility] CARE 6 ILL/INJUR HINDUISM ED HOSP PATIENT INIT 30-74 MIN RADIOLOGI 66661 SANDI Young 6 VINNIE EXAMINATI RADIOLOGY ON CHEST PLLC [place] FRONTAL SBSQ 22857 [facility] 6 CARE/DAY HINDUISM 25 HOSP MINUTES SBSQ 01199 [facility] 6 CARE/DAY HINDUISM 25 HOSP MINUTES RADIOLOGI 03820 SANDI Young 6 VINNIE EXAMINATI RADIOLOGY ON CHEST PLLC [place] FRONTAL RADIOLOGI 29543 SANDI Young 6 VINNIE EXAMINATI RADIOLOGY ON CHEST PLLC [place] FRONTAL SBSQ 69203 [facility] 6 CARE/DAY HINDUISM 25 HOSP MINUTES ECG 50015 SANDI SMITH ROUTINE 6 DEN ECG HINDUISM W/LEAST HOSP 12 LDS I&R ONLY SBSQ 87664 [facility] 6 CARE/DAY HINDUISM 25 HOSP MINUTES RADIOLOGI 94790 SANDI Young 6 GAR EXAMINATI RADIOLOGY ON CHEST PLLC [place] FRONTAL ECHO 13939 [facility] TTHRC R-T 6 2D [facility] W/WOM-MOD HOSP E COMPL SPEC&COLR D ECG 74021 SANDI DING ROUTINE 6 JEIMY ECG HINDUISM W/LEAST HOSP 12 LDS I&R ONLY INSJ 97159 SANDI LANEUM ABD INTRA-AOR 6 T BALO [facility] ASSIST HOSP DEV VIA FEM ART OPEN ANES 56088 SANDI SAMUEL DIRECT 6 CABG [facility] W/PUMP HOSP OXYGENATO R CORONARY 13598 SANDI LANEUM ABD ARTERY 6 BYP [facility] W/VEIN & HOSP ARTERY GRAFT 1 VEIN CABG 59079 SANDI HAN ABD W/ARTERIA 6 L GRAFT [facility] SINGLE HOSP ARTERIAL GRAFT INSERTION 81267 SANDI COELHO MUH 6 INTRA-AOR [facility] TIC [facility] DEV PERQ ROTARY [...] ON ON TRANSPORT [address]MT 57731 SANDI COELHO MUH L HRT & 6 ARTS [facility]UISM W/NJX & HOSP ANGIO IMG S&I RADIOLOGI 41511 RAHUL KAY JR C 6 PHILIP PHILIP EXAMINATI ON CHEST SINGLE VIEW FRONTAL ECG 01480 [facility] GHARAD ROUTINE 6 MEDICAL CORRINA ECG ASSOCIATE W/LEAST S 12 LDS I&R ONLY KNEE [id number] [facility] ORTHOSIS 5 MEDICAL MEDICAL ELASTIC JOINTS PREFAB CUSTOM FIT RADEX 09355 RAHUL KAY JR SPINE 5 PHILIP PHILIP CERVICAL 4 OR 5 VIEWS THERAPEUT 44795 [facility] IC 4 PROPHYLAC TIC/DX INJECTION SUBQ/IM INJECTION J0696 [facility] 4 CEFTRIAXO NE SODIUM PER 250 MG RADIOLOGI 66969 [facility] C EXAM 4 G A R H G A R H CHEST 2 VIEWS FRONTAL&L ATERAL BASIC 99295 [facility] METABOLIC 4 G A R H G A R H PANEL CALCIUM TOTAL BLOOD 21769 [facility] COUNT 4 G A R H G A R H COMPLETE AUTO&AUTO DIFRNTL [facility] 21405 [facility] DISCHARGE 4 COMP DAY HEALTH MANAGEMEN SANDY T 30 MIN/< SBSQ 37044 [facility] 4 COMP CARE/DAY HEALTH 25 SANDY MINUTES SBSQ 72767 [place] [address] COMP MAT CARE/DAY HEALTH 25 SANDY MINUTES SBSQ 84788 [place] [address] COMP MAT CARE/DAY HEALTH 25 SANDY MINUTES SBSQ [address]4084 [place] [address] COMP CARE/DAY SPECIALTY 25 SERV MINUTES SBSQ 84874 [facility] 4 COMP CARE/DAY HEALTH 25 SANDY MINUTES INITIAL 05137 [place] [address] COMP CARE/DAY SPECIALTY 50 SERV MINUTES INITIAL 56658 [place] [address] COMP FAR CARE/DAY HEALTH 70 SANDY MINUTES Encounters Encounter Start End Date Code Location Performer Type Date OFFICE 43211 [place] [facility] PHI OUTPATIEN 6 6 MEDICAL T NEW 30 SERV MINUTES FOUNDATIO N OFFICE 11239 [facility] PETTEY OUTPATIEN 6 6 PHYSICIAN S[place]AD [place] NEW 20 [facility] NUSRAT - 6 6 [facility] 6 6 [facility] EMERGENCY 72781 RUBY MOHAN 6 6 PHYSICIAN VLADIMIR [facility]GE [facility] NUSRAT [facility] OTHER 6 6 [facility] NUS[facility] - 6 6 [facility] N[facility] - 6 6 [facility] OTHER 6 6 [facility] NUSRAT - 6 6 [facility] N[facility]AT - 6 6 [facility] [facility] NUSRAT - 6 6 [facility] NUS[facility]AT [facility] 6 6 [facility] - [facility] T OFFICE [id number] ISAI BARBOSA OUTPATIEN 6 6 [facility] T VISIT FAMILY 15 CLINIC MINUTES HOSPITAL NUSRAT [facility] 6 6 [facility] OUTPATIEN [facility] T EMERGENCY [id number] NUSRAT [address] [facility] VISIT HIGH/URGE NT SEVERITY EMERGENCY [id number] RUBY WOOTEN DEPT 6 6 PHYSICIAN U HUONG VISIT S, [facility] HIGH SEVERITY& THREAT FUN HOSPITAL NUSRAT - 6 6 [facility] OUTPATIEN [facility] T EMERGENCY 46876 NUSRAT [address] [facility] T VISIT MODERATE SEVERITY EMERGENCY 08374 RUBY LUNDBERG DEPT 6 6 PHYSICIAN FOR VISIT S, PLLC HIGH SEVERITY& THREAT FUNCJ OFFICE [id number] ISAI BARBOSA OUTPATIEN 6 6 [facility] T VISIT FAMILY 15 CLINIC MINUTES OFFICE 99992 [facility] G A R H OUTPATI[facility] T OFFICE [id number] [facility] 4 4 T VISIT 15 MINUTES OFFICE 06974 [facility] 4 4 T VISIT 15 MINUTES OFFICE [id number] [facility] 4 4 T V[facility]IT 15 [facility]ES [facility] 4 4 G A R H OUTPATIEN T
--- OUTSIDE RECORDS SUMMARY | 2016-09-22 03:29 | External Medical Summary Rpt ---
Author Author , Organization [employer] Address Unknown Phone Unavailable Care Team Providers Care Service Attendant Cafeteria Name Role Phone AHMAD MUH, AHMAD MUH [...] [facility] Unavailable Unavailable SERVICE, [facility] Unavailable Unavailable SERVICE, [facility] KAY JR PHILIP, RAHUL JR [...] INC, [facility] Unavailable Unavailable HOSPITAL P, [facility], Unavailable Unavailable [facility] ISAI REEVES APRN FAMILY Unavailable Unavailable CLINIC, ISAI REEVES APRN [facility] GUNNER VINNIE, GUNNER Unavailable Unavailable VINNIE [facility] Un[facility] Unavailable [facility], [facility] KHATER FAR, KHATER Unavailable Unavailable [facility] BARBARA JR DWI, BARBARA Unavailable Unavailable JR DWI THOMAS AHM, THOMAS AHM Unavailable Unavailable THOMAS AHM, THOMAS AHM Unavailable Unavailable [facility], Unavailable Unavailable [facility], Unavailable [...] PLLC PETTEY JAM, PETTEY Unavailable Unavailable J[facility] Unavailable Unavailable CENTER, [facility] Unavailable Unavailable EQUIP, [facility] Unavailable Unavailable HOSP, [facility] YATES GAR, YATES Unavailable Unavailable GAR [...] Diagnosis DOS Provider Status 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 04-10-2016 [facility] REGION [id number] OTHER 04-10-2016 [facility] DISC [facility] DEGENERATIO N AT C5-C6 LEVEL Z720 TOBACCO USE 04-10-2016 [facility] [id number] OTHER 04-09-2016 [facility] EXTRA[facility] PHYS[facility]IANS LAR FX LOW GROUP RT RADIUS INIT CLOS [id number] DSPL FX 04-09-2016 [facility] RT WRST IMAGING ASS SUB ENC FX ROUTINE I10 ESSENTIAL 03-30-2016 [facility] HYPERTENSIO INC N J449 CHRONIC 03-30-2016 [facility] PULMONARY INC DISEASE UNS 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 PRIMARY 03-30-2016 [facility] OSTE[facility] TIS RIGHT IMAGING ASS HAND [id number] PAIN IN 03-30-2016 [facility] [place] RIGHT MEDICAL SHOULDER IMAGING ASS T78784 PAIN IN 03-30-2016 [facility] [place] RIGHT WRIST MEDICAL IMAGING ASS O07866 PAIN IN 03-30-2016 [facility] UNSPECIFIED MEDICAL HIP IMAGING ASS M61327 PAIN IN 03-30-2016 [facility] [place] RIGHT MEDICAL FOREARM IMAGING ASS A18356 PAIN IN 03-30-2016 [facility] [place] RIGHT HAND MEDICAL IMAGING ASS [id number] UNS INJURY 03-30-2016 [facility] RT SHOULDER MEDICAL UPPER ARM IMAGING ASS INITIAL ENCNTR S71948V FX UNS 03-30-2016 [facility] CARPAL [facility]ONE PHYSICIANS, RT WRIST PLLC INITIAL ENC CLOS FX [id number] DSPL FX 03-30-2016 [facility] RT WRIST IMAGING ASS INIT ENC CLOS FX M542 CERVICALGIA 03-19-2016 [facility] M545 LOW BACK 02-18-2016 [facility] PAIN [facility] M5022 OT CERV 02-08-2016 [facility] DISC MEDICAL DISPLACEMEN IMAGING ASS T MID-CERVICA L REGION M5032 OT CERV 02-08-2016 [facility] [place] DISC MEDICAL DEGENERATIO IMAGING ASS N MID-CERVICA L REGION M5124 OT 02-08-2016 [facility] [place] INTERVERTEB MEDICAL RAL DISC IMAGING ASS DISPLACEMEN T THOR REGION M5134 OTH 02-08-2016 [facility] [place] INTERVERTEB MEDICAL RAL DISC IMAGING ASS DEGEN THORACIC REGION M546 PAIN IN 02-08-2016 [facility] THORACIC MEDICAL SPINE IMAGING ASS M549 DORSALGIA 02-08-2016 [facility] UNSPECIFIED MEM [facility] INC I209 ANGINA 01-15-2016 [facility] PECTORIS PHYSICIANS UNSPECIFIED GROUP S66263 [facility] [place] 01-15-2016 [facility] COR [facility] W/UNS INC ANGINA PECTORIS R9439 ABNORMAL 01-15-2016 [facility] RESULT [facility] PH[facility]ANS CARDIOVASCU GROUP LR FUNCTION STUDY 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 [facility] [place] 01-04-2016 [facility] ARTERY W/O HOSPITAL P ANGINA PECTORIS E039 HYPOTHYROID 12-28-2015 [facility] IS [facility] UNSPECIFIED INC R079 CHEST PAIN 12-28-2015 [facility] [place] UNSPECIFIED MEDICAL IMAGING ASS R0602 SHORTNESS 10-29-2015 [facility] R5383 OTHER 10-29-2015 [facility] U78415 PAIN IN 10-22-2015 [facility] LEFT PHYSICIANS, SHOULDER PLLC R0789 OTHER CHEST 10-22-2015 [facility] [place] PAIN MEDICAL IMAGING ASS C88170V PAIN D/T 10-22-2015 [facility] P IMPL & GRAFTS INITIAL G8918 OTHER ACUTE 10-18-2015 [facility] POSTPROCEDU [facility] P RAL PAIN G8928 OTHER 10-18-2015 [facility] CHRONIC PHYSICIANS, POSTPROCEDU PLLC RAL PAIN J80 ACUTE 10-18-2015 [facility] RESPIRATORY AMBULANCE DISTRESS SERVICE SYNDROME J90 PLEURAL 10-18-2015 [facility] [place] EFFUSION MEDICAL NOT IMAGING ASS ELSEWHERE CLASSIFIED J9811 ATELECTASIS 10-18-2015 [facility] J9690 RESP FAIL 10-15-2015 [facility] UNS UNS [facility] WHETHER HOSP W/HYPOXIA/H YPERCAPNIA R410 DISORIENTAT 10-15-2015 [facility] ION [facility] UNSPECIFIED HOSP R5381 OTHER 10-15-2015 [facility] MALAISE [facility]OS[facility] D31485 ELEVATED 10-13-2015 [facility] WHITE BLOOD [facility] CELL COUNT HOSP UNSPECIFIED 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 [facility] UNSPECIFIED HOSP J9600 ACUTE 10-13-2015 [facility] RESPIRATORY [facility] FAIL UNS HOSP HYPOXIA/HYP ERCAPNIA I214 NON-ST 10-12-2015 [facility] ELEVATION [facility] MYOCARDIAL HOSP INFARCTION R4182 ALTERED 10-12-2015 [facility] MENTAL [facility] STATUS HOSP UNSPECIFIED D649 ANEMIA 10-11-2015 [facility] UNSPECIFIED [facility] HOSP E876 HYPOKALEMIA 10-11-2015 PIKDOMITILAILLE [facility] HOSP S08913 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 THOMAS 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 J9601 ACUTE 10-10-2015 [facility] RESPIRATORY [facility] FAILURE HOSP WITH HYPOXIA R9431 ABNORMAL 10-10-2015 [facility] ELECTROCARD [facility] IOGRAM HOSP E870 HYPEROSMOLA 10-09-2015 [facility] LITY AND [facility] HYPERNATREM HOSP [place] X82126 ACUTE 10-09-2015 [facility] POSTPROCEDU [facility] RAL HOSP RESPIRATORY FAILURE I999 UNSPECIFIED 10-08-2015 [facility] DISORDER [facility] OF HOSP CIRCULATORY SYSTEM E785 HYPERLIPIDE 10-03-2015 [facility] KAREN [facility] UNSPECIFIED HOSP I213 ST 10-02-2015 YUNGEVSHEMAR ELEVATION [facility] MYOCARDIAL HOSP INFARCTION UNS SITE K13970 ENCOUNTER 10-02-2015 [facility] FOR [facility] PREPROCEDUR HOSP AL CARIOVASCUL AR EXAM I222 SUBSEQUENT 10-01-2015 [facility] NON-ST [facility]POR[facility] ELEVATION MYOCARDIAL INFARCT J309 ALLERGIC 09-25-2015 ISAI REEVES RHINITIS [facility]ORTS MEDICINE PHYSICIAN FAMILY UNSPECIFIED CLINIC N401 BENIGN 09-25-2015 ISAI REEVES PROSTATIC SPORTS MEDICINE PHYSICIAN FAMILY HYPERPLASIA CLINIC LW URINARY TRACT SX 2724 OTHER AND 06-19-2014 [facility] UNSPECIFIED HYPERLIPIDE KAREN 4019 UNSPECIFIED 06-19-2014 SOPHIE ALLEN ESSENTIAL HYPERTENSIO N 6079 UNSPECIFIED 06-19-2014 SOPHIE ALLEN DISORDER OF PENIS 7242 LUMBAGO 06-19-2014 SOPHIE ALLEN 59005 PAIN IN 06-06-2014 [facility] JOINT, MEDICAL MULTIPLE SITES 7231 CERVICALGIA 05-30-2014 [facility]ILBURG A R H 4619 ACUTE 02-23-2014 SOPHIE ALLEN SINUSITIS, UNSPECIFIED 481 PNEUMOCOCCA 09-26-2013 CRISPIN Stephenson PNEUMONIA A R H 2875 UNSPECIFIED 09-20-2013 [facility] THROMBOCYTO SANDY PENIA 96855 OTHER 09-20-2013 [facility] CHRONIC COMP HEALTH PAIN SANDY 35259 OBSTRUCTIVE 09-16-2013 [facility] CHRONIC COMP BRONCHITIS SPECIALTY WITH SERV EXACERBATIO N 42662 DIARRHEA 09-14-2013 [facility] S[facility]Y Procedures Procedure DOS Code Location Performer Comment CAST Q4010 [facility] PETTE SUPPLIES 6 PHYSICIAN SARMAD SHORT ARM S GROUP CAST ADULT FIBERGLAS S RADEX 66375 [facility] [place] WRIST 6 MEDICAL COMPLETE IMAGING MINIMUM 3 ASS VIEWS APPLICATI 41216 [facility] PETTE ON CAST 6 PHYSICIAN SARMAD ELBOW S GROUP FINGER SHORT ARM RADEX 59971 [place] [place] [facility] FOREARM 2 6 MEDICAL VIEWS IMAGING ASS RADEX 75896 [place] [facility] WRIST 6 MEDICAL COMPLETE IMAGING MINIMUM 3 ASS VIEWS APPLICATI 71465 [facility] SILVERIO ON SHORT 6 [facility]OS[facility] ARM INC INC SPLINT FOREARM-H AND STATIC RADEX 02029 [place] [facility] HAND 6 MEDICAL MINIMUM 3 IMAGING VIEWS ASS RADEX 51183 [place] [place] [facility] SHOULDER 6 MEDICAL COMPLETE IMAGING MINIMUM 2 ASS VIEWS RADEX HIP 06349 [place] [facility] ALL 6 MEDICAL UNILATERA IMAGING L WITH ASS PELVIS 2-3 VIEWS DRUG TST G0477 [facility] SILVERIO PRESUMP;C 6 MEM [facility]OS[facility] PBL BEING INC INC READ DC OPT OBV ONLY PHYSICAL 95301 [facility] SILVREIO THERAPY 6 [facility]OS[facility] EVALUATIO INC INC N E-STIM G0283 [facility] SILVERIO 1/> AREAS 6 [facility]OS[facility] OTH THAN INC INC WND CARE PART TX PLAN APPLICATI 03939 [facility] SILVERIO ON 6 [facility]OS[facility] MODALITY INC INC 1/> AREAS HOT/COLD PACKS APPL 18337 [facility] SILVERIO MODALITY 6 [facility]OSP 1/> AREAS INC INC ULTRASOUN D EA 15 MIN MRI 77868 EDDIE ROACH ALL SPINAL 6 MEDICAL CANAL IMAGING THORACIC ASS W/O CONTRAST MATRL MRI 01323 EDDIE ROACH ALL SPINAL 6 MEDICAL CANAL IMAGING CERVICAL ASS W/O CONTRAST MATRL 3D 98057 EDDIE ROACH ALL RENDERING 6 MEDICAL W/INTERP IMAGING & ASS POSTPROCE SS SUPERVISI ON DRUG TST G0477 [facility] SILVER[facility] PRESUMP;C 6 [facility] MEM HOSP PBL BEING INC INC READ DC OPT OBV ONLY INJECTION J1644 [facility] SILVERIO HEPARIN 6 [facility] SODIUM INC INC PER 1000 UNITS LOC Q9967 NUSRAT SILVERIO 300-399 6 [facility] MG/ML INC INC IODINE CONCENTRA TION PER ML CATH PLMO 59397 N[facility] SILVERIO L 6 [facility] HRT/ARTS/ INC INC GRFTS WNJX & ANGIO IMG S&I CATH PLMO 06035 [facility] L HRT & 6 PHYSICIAN MAT ARTS S GROUP W/NJX & ANGIO IMG S&I CATHETER C1725 N[facility]AT SILVERIO TRANSLUMI 6 [facility] NAL INC INC ANGIOPLAS TY NON-LASER GUIDE C1769 N[facility] SILVERIO WIRE 6 [facility] INC INC PRESSURIZ 78533 N[facility]AT SILVERIO ED/NONPRE 6 [facility] SSURIZED INC INC INHALATIO N TREATMENT BRNCDILAT 55960 N[facility]AT JIMENEZ JR RSPSE 6 [facility] PRE&[place] [address] NUSRAT JIMENEZ JR DIFFUSING 6 [facility] P GAS 05698 NUSRAT JIMENEZ JR DILUT/WAS 6 [facility] VOL W/WO P DISTRIB VENT&V HEPATIC 36703 N[facility]AT SILVERIO FUNCTION 6 [facility] PANEL INC INC BLOOD 06336 N[facility] SILVERIO COUNT 6 [facility] COMPLETE INC INC AUTO&AUTO DIFRNTL WBC RADIOLOGI 44633 N[facility]RAT NUSRAT C EXAM 6 [facility] CHEST 2 INC INC VIEWS FRONTAL&[place] [address] NUSRAT SILVERIO FREE 6 [facility] [place] [address] NUSRAT SILVERIO THYROID 6 [facility] STIMULATI INC INC NG HORMONE TSH INJECTION J2785 N[facility] SILVERIO 6 MEM HOS[facility] REGADENOS INC INC ON 0.1 MG TECHNETIU A9500 NUSRAT Nowak TC-99M 6 [facility] SESTAMIBI INC INC DX PER STUDY DOSE CV STRS 26989 [facility] TST 6 PHYSICIAN XERS&/OR S GROUP RX CONT ECG W/O I&R CV STRS 50293 N[facility] SILVERIO TST 6 [facility] XERS&/OR INC INC RX CONT ECG TRCG ONLY MYOCARDIA 15395 N[facility]AT SILVERIO L SPECT 6 [facility] MULTIPLE INC INC STUDIES ECHO 44392 NUSRAT SILVERIO TTHRC R-T 6 [facility] 2D INC INC W/WOM-MOD E COMPL SPEC&COLR D BASIC 67025 NUSRAT SILVERIO METABOLIC 6 [facility] PANEL INC INC CALCIUM TOTAL ECG 92947 NUSRAT SILVERIO ROUTINE 6 [facility] ECG INC INC W/LEAST 12 LDS TRCG ONLY W/O I&R COMPREHEN 03194 S[facility] JUNIRO SIVE 6 [facility] METABOLIC CENTER CENTER PANEL RADIOLOGI 12326 SANDI JUNIOR C EXAM 6 [facility] CHEST 2 CENTER CENTER VIEWS FRONTAL&L ATERAL BLOOD 62817 SANDI JUNIOR COUNT 6 [facility] COMPLETE [facility] AUTOMATED COLLECTIO 87742 SANDI JUNIOR N VENOUS 6 [facility] BLOOD [facility] G0463 S[facility]I JUNIOR OUTPATIEN 6 [facility] T CLIN CENTER CENTER VISIT ASSESS & MGMT PT INJECTION J2405 NUSRAT SILVERIO [address] [facility] ONDANSETR INC INC ON HCL PER 1 MG THERAPEUT 06662 NUSRAT SILVERIO IC [address] [facility] INJECTION INC INC IV PUSH EACH NEW DRUG COLLECTIO 24089 NUSRAT SILVERIO N VENOUS 6 [facility] [place]LOOD [place] [address] NUSRAT SILVERIO TROPONIN 6 [facility] QUANTITAT INC INC DEBBIE BLOOD 83563 NUSRAT SILVERIO COUNT 6 [facility] COMPLETE INC INC AUTO&AUTO DIFRNTL WBC RADIOLOGI 56532 [facility] C EXAM 6 MEDICAL [facility] CHEST 2 IMAGING VIEWS ASS FRONTAL&L ATERAL ECG 99139 NUSRAT JIMENEZ JR ROUTINE [address] [facility] W/LEAST P 12 LDS I&R ONLY CREATINE 76519 NUSRAT SILVERIO KINASE MB [address] [facility] FRACTION INC INC ONLY COMPREHEN 59620 NUSRAT SILVERIO SIVE [address] [facility] METABOLIC INC INC PANEL THER 11815 NUSRAT SILVERIO PROPH/DX 6 [facility] NJX IV INC INC PUSH SINGLE/1S T SBST/DRUG CREATINE 23185 NUSRAT SILVERIO KINASE 6 [facility] TOTAL INC INC ECG 25316 NUSRAT SILVERIO ROUTINE 6 [facility] ECG INC INC W/LEAST 12 LDS TRCG ONLY W/O I&R ECG 34879 NUSRAT SILVERIO ROUTINE 6 [facility] ECG INC INC W/LEAST 12 LDS TRCG ONLY W/O I&R COMPREHEN 58456 NUSRAT SILVERIO SIVE 6 [facility] METABOLIC INC INC PANEL ECG 62607 NUSRAT OCHOA ROUTINE 6 [facility] W/LEAST P 12 LDS I&R ONLY BLOOD 91481 NUSRAT SILVERIO COUNT 6 [facility] COMPLETE INC INC AUTO&[place] [address] NUSRAT SILVERIO TROPONIN [address] [facility] QUANTITAT INC INC DEBBIE COLLECTIO 79844 N[facility]AT SILVERIO N VENOUS 6 [facility]OS[facility] BLOOD INC INC VENIPUNCT URE LOCM Q9967 NUSRAT SIVLERIO 300-399 6 [facility] MG/ML INC INC IODINE CONCENTRA TION PER ML GROUND A0425 [facility] MILEAGE 6 AMBULANCE AMBULANCE PER SERVICE SERVICE STATUTE MILE CT THORAX 21735 [place] [facility] 6 MEDICAL W/CONTRAS IMAGING T ASS MATERIAL AMB A0427 [facility] SERVICE 6 AMBULANCE AMBULANCE ALS SERVICE SERVICE EMERGENCY TRANSPORT LEVEL 1 SBS 84772 [facility] 6 CARE/DAY [facility] 25 HOSP MINUTES HOSPITAL 86638 SANDI ATTUM ABD DISCHARGE 6 DAY [facility] MANAGEMEN HOSP T 30 MIN/< WALKER E0135 S[facility]I JUNIOR FOLDING 6 MEDICAL MEDICAL ADJUSTABL EQUIP EQUIP E OR FIXED HEIGHT COMMODE E0163 S[facility]I JUNIOR CHAIR 6 MEDICAL MEDICAL MOBILE OR EQUIP EQUIP STATIONAR Y W/FIXED ARMS [facility] 15399 [facility] 6 MYRNA CARE/DAY RASTAF[facility]I 25 HOSP MINUTES SBSQ 43936 [place] [address] CARE/DAY 25 MINUTES RADIOLOGI 73395 SANDI Morelos GAR EXAMINATI RADIOLOGY ON CHEST [facility] 52683 [facility] 6 MALHAB CARE/DAY RASTAFARI NIS 35 HOSP MINUTES SBSQ 30646 [facility] 6 CARE/DAY RASTAFARI 25 HOSP MINUTES CRITICAL 86374 [facility] 6 MALHAB ILL/INJUR [facility]I NIS ED HOSP PATIENT INIT 30-74 MIN CRITICAL 62211 [facility] 6 MALHAB ILL/INJUR RASTAFARI NIS ED HOSP PATIENT INIT 30-74 MIN SBSQ 64468 [facility] 6 CARE/DAY RASTAFARI 25 HOSP MINUTES SBSQ 59749 [facility] 6 CARE/DAY 25 MINUTES CRITICAL 81777 [facility] 6 MALHAB ILL/INJUR RASTAFARI NIS ED HOSP PATIENT INIT 30-74 MIN RADIOLOGI 99487 SANDI Young 6 GAR EXAMINATI RADIOLOGY ON CHEST PLLC [place] FRONTAL ECG 04002 SANDI DING ROUTINE 6 JEIMY ECG [facility]I W/LEAST HOSP 12 LDS I&R ONLY RADIOLOGI 57068 SANDI Young 6 GAR EXAMINATI RADIOLOGY ON CHEST PLLC [place] FRONTAL SBSQ 67502 [facility] 6 CARE/DAY RASTAFARI 25 HOSP MINUTES CRITICAL 04665 [facility] 6 MALHAB ILL/INJUR RASTAFARI NIS ED HOSP PATIENT INIT 30-74 MIN CRITICAL 59149 [facility] 6 MALHAB ILL/INJUR RASTAFARI NIS ED HOSP PATIENT INIT 30-74 MIN SBSQ 59072 [facility] 6 CARE/DAY RASTAFARI 25 HOSP MINUTES RADIOLOGI 49947 SANDI Young 6 GAR EXAMINATI RADIOLOGY ON CHEST PLLC [place]ONT[place] RADIOLOGI 09783 SANDI Young 6 DEN EXAMINATI RADIOLOGY ON CHEST PLLC [place] FRONTAL SBSQ 60177 [facility] 6 CARE/DAY 25 MINUTES CRITICAL 31550 [facility] ERU CARE 6 ILL/INJUR RASTAFARI ED HOSP PATIENT INIT 30-74 MIN CRITICAL 28464 [facility] ILL/INJUR RASTAFARI ED HOSP PATIENT INIT 30-74 MIN SBSQ 20265 [place] [address] MEDICAL MAR CARE/DAY CENTER 25 INC MINUTES RADIOLOGI 56372 SANDI Young 6 EXAMINATI RADIOLOGY ON CHEST PLLC [place] FRONTAL SBSQ 83015 [facility] 6 CARE/DAY 35 MINUTES RADIOLOGI 27925 SANDI Young 6 VINNIE EXAMINATI RADIOLOGY ON CHEST PLLC [place] FRONTAL SBSQ 38628 [facility] 6 CARE/DAY RASTAFARI 25 HOSP MINUTES SBSQ 82349 [facility] 6 CARE/DAY RASTAFARI 25 HOSP MINUTES RADIOLOGI 44088 YUNGJAYLENE Young 6 VINNIE EXAMINATI RADIOLOGY ON CHEST PLLC [place] FRONTAL RADIOLOGI 00127 LAISHASHEMAR Young 6 VINNIE EXAMINATI RADIOLOGY ON CHEST PLLC [place] FRONT[place] ECG 71179 YUNGJAYLENE SMITH ROUTINE 6 DEN ECG [facility]I W/LEAST HOSP 12 LDS I&R ONLY SBSQ 98919 [facility] 6 CARE/DAY RASTAFARI 25 HOSP MINUTES SBSQ 39823 [facility] 6 CARE/DAY RASTAFARI 25 HOSP MINUTES INSJ 02453 YUNGJAYLENE LANEUM ABD INTRA-AOR 6 T BALO [facility] ASSIST HOSP DEV VIA FEM ART OPEN RADIOLOGI 10523 SANDI Young 6 GAR EXAMINATI RADIOLOGY ON CHEST PLLC [place] FRONTAL ECHO 31473 [facility]MAR [facility] TTHRC R-T 6 2D [facility] W/WOM-MOD HOSP E COMPL SPEC&COLR D ECG 82657 SANDI DING ROUTINE 6 JEIMY ECG [facility]I W/LEAST HOSP 12 LDS I&R ONLY CORONARY 55402 YUNGJAYLENE LANEUM ABD ARTERY 6 BYP [facility] W/VEIN & HOSP ARTERY GRAFT 1 VEIN CABG 26630 YUNGJAYLENE LANEUM ABD W/ARTERIA 6 L GRAFT [facility]I SINGLE HOSP ARTERIAL GRAFT ANES 45424 YUNGJAYLENE SAMUEL DIRECT 6 CABG [facility] W/PUMP HOSP OXYGENATO R AMB A0431 [facility] SERVICE 6 CONVNTION CORPORATI CORPORATI AIR SRVC ON ON TRANSPORT [address] INSERTION 02086 [facility] 6 INTRA-AOR [facility] TIC HOSP BALLOON ASSIST DEV PERQ ECG [address] [facility] INC GHARAD ROUTINE 6 MEDICAL CORRINA ECG ASSOCIATE W/LEAST S 12 LDS I&R ONLY CATH PLMT 81852 SANDI COELHO MUH L HRT & 6 ARTS [facility] W/NJX & HOSP ANGIO IMG S&I GROUND A0425 NEON NEON MILEAGE 6 VOLUNTEER VOLUNTEER PER FIRE FIRE STATUTE DEPT\EMS DEPT\EMS MILE ROTARY A0436 [facility] WING AIR 6 MILEAGE CORPORATI CORPORATI PER ON ON STATUTE MILE RADIOLOGI 59610 RAHUL KAY JR C 6 PHILIP PHILIP EXAMINATI ON CHEST [place] FRONTAL AMB A0427 NEON NEON SERVICE 6 VOLUNTEER VOLUNTEER ALS FIRE FIRE EMERGENCY DEPT\EMS DEPT\EMS TRANSPORT LEVEL 1 KNEE L1810 [facility] HOME ORTHOSIS 5 MEDICAL MEDICAL ELASTIC JOINTS PREFAB CUSTOM FIT RADEX 70415 RAHUL KAY JR SPINE 5 PHILIP PHILIP CERVICAL 4 OR 5 VIEWS THERAPEUT 78609 [facility] [facility] IC 4 PROPHYLAC TIC/DX INJECTION SUBQ/IM INJECTION J0696 [facility] 4 CEFTRIAXO NE SODIUM PER 250 MG BASIC 46506 [facility] METABOLIC 4 G A R H G A R H PANEL CALCIUM TOTAL BLOOD 34565 [facility] COUNT 4 G A R H G A R H COMPLETE AUTO&AUTO DIFRNTL WBC RADIOLOGI 42596 [facility] [facility] C EXAM 4 G A R H G A R H CHEST 2 VIEWS FRONTAL&L [facility] 89273 [facility] DISCHARGE 4 COMP DAY HEALTH MANAGEMEN SANDY T 30 MIN/< SBSQ 78551 [facility] 4 COMP CARE/DAY HEALTH 25 SANDY MINUTES SBSQ [address]239 [place] [address] COMP MAT CARE/DAY HEALTH 25 SANDY MINUTES SBSQ [address]1587 [place] [address] COMP MAT CARE/DAY HEALTH 25 SANDY MINUTES SBSQ [address]3538 [place] [address] COMP CARE/DAY SPECIALTY 25 SERV MINUTES SBSQ 61122 [facility] 4 COMP CARE/DAY HEALTH 25 SANDY MINUTES INITIAL [address]6983 [place] [address] COMP CARE/DAY SPECIALTY 50 SERV MINUTES INITIAL 51363 [facility] 4 COMP BANNER CARE/DAY HEALTH 70 SANDY MINUTES Encounters Encounter Start End Date Code Location Performer Type Date OFFICE [address] [place] KATHY PHI OUTPATIEN 6 6 MEDICAL T NEW 30 SERV MINUTES [facility] NUSRAT - 6 6 [facility] OFFICE 66259 [facility] PETTEJelani OUTPATIEN 6 6 PHYSICIAN SARMAD T NEW 20 S GROUP MINUTES EMERGENCY 69093 RUBY MOHAN 6 6 PHYSICIAN VLADIMIR DEPARTMEN S, PLLC T VISIT HIGH/URGE NT SEVERITY [facility]OSPITAL NUSRAT - 6 6 [facility] 6 6 [facility] NUS[facility] - 6 6 [facility] 6 6 [facility] OTHER 6 6 [facility] - 6 6 [facility] 6 6 [facility] 6 6 [facility] 40227 ISAI REEVES CHELSEY OUTPATIEN 6 6 [facility] MEDICINE PHYSICIAN T VISIT FAMILY 15 CLINIC MINUTES HOSPITAL SANDI - 6 6 MEDICAL OUTPATIEN [facility] NUSRAT - 6 6 [facility] OUTPATIEN [facility] EMERGENCY 75829 RUBY WOOTEN DEPT 6 6 PHYSICIAN Jimmie BORJA VISIT S, PLLC HIGH SEVERITY& THREAT FUNCJ EMERGENCY 94131 NUSRAT 6 6 [facility] HIGH/URGE NT SEVERITY EMERGENCY 37246 NUSRAT 6 6 [facility] DEPARTMEN INC T VISIT MODERATE SEVERITY HOSPITAL NUSRAT - 6 6 [facility] OUTPATIEN INC T EMERGENCY 62315 RUBY LUNDBERG DEPT 6 6 PHYSICIAN FOR VISIT S, PLLC HIGH SEVERITY& THREAT FUNCJ OFFICE 55625 ISAI REEVES CHELSEY OUTPATIEN 6 6 SPORTS MEDICINE PHYSICIAN T VISIT FAMILY 15 CLINIC MINUTES OFFICE 78373 [facility] OUTPATIEN 5 5 T VISIT 15 MINUTES [facility] - 5 5 G A R H OUTPATIEN T OFFICE 62669 [facility] OUTPATIEN 4 4 T VISIT 15 MINUTES OFFICE 72907 [facility] OUTPATIEN 4 4 T VISIT 15 MINUTES OFFICE 27851 [facility] OUT[facility] 4 4 T VISIT 15 MINUTES [facility] - 4 4 G A R H OUTPATIEN T
--- OUTSIDE RECORDS SUMMARY | 2016-09-22 03:29 | External Medical Summary Rpt ---
Demographics Preferred Language Grenadian Marital Status Unknown Shinto Affiliation Unknown Race Unknown Ethnic Group Unknown Author Author , Organization [employer] Address Unknown Phone Unavailable Purpose Continuity of Care Document - through 2016 Immunization No patient found.
--- OUTSIDE RECORDS SUMMARY | 2016-09-22 03:29 | External Medical Summary Rpt ---
Demographics Preferred Language Malian Marital Status Unknown Yarsanism Affiliation Unknown Race Unknown Ethnic Group Unknown Author Author , Organization [employer] Address Unknown Phone Unavailable Purpose Continuity of Care Document - through 2016 Immunization No patient found.
--- OUTSIDE RECORDS SUMMARY | 2016-09-22 03:29 | External Medical Summary Rpt ---
Author Author , Organization [employer] Address Unknown Phone Unavailable Care Team Providers Care Box Nailer Name Role Phone AHMAD MUH, AHMAD MUH [...] BREEDING [facility] Unavailable Unavailable SERVICE, [facility] Unavailable Unavailable SERVICE, [facility] KAY JR PHILIP, RAHUL [...] Unavailable Unavailable INC, [facility] Unavailable Unavailable HOSPITAL P, [facility], Unavailable Unavailable [facility] ISAI REEVES APRN FAMILY Unavailable Unavailable CLINIC, ISAI REEVES APRN [facility] GUNNER VINNIE, GUNNER Unavailable Unavailable [facility], [facility] KHATER FAR, KHATER Unavailable Unavailable [facility] BARBARA JR DWI, BARBARA Unavailable Unavailable JR DWI THOMAS AHM, THOMAS AHM Unavailable Unavailable THOMAS AHM, THOMAS AHM Unavailable Unavailable [facility], Unavailable Unavailable [facility], Unavailable [...] PLLC PETTEY JAM, PETTEY Unavailable Unavailable JAM [facility] Unavailable Unavailable CENTER, [facility] Unavailable Unavailable EQUIP, [facility] Unavailable [facility], [facility] YATES GAR, YATES Unavailable Unavailable GAR [...] Diagnosis DOS Provider Status 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 04-10-2016 [facility] REGION 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-C6 LEVEL Z720 TOBACCO USE 04-10-2016 [facility] [id number] OTHER 04-09-2016 [facility] LAR FX LOW GROUP RT RADIUS INIT CLOS [id number] DSPL FX 04-09-2016 [facility] RT WRST IMAGING ASS SUB ENC FX ROUTINE I10 ESSENTIAL 03-30-2016 [facility] HYPERTENSIO INC N J449 CHRONIC 03-30-2016 [facility] PULMONARY INC DISEASE UNS [id number] PRIMARY 03-30-2016 [facility] RIGHT IMAGING ASS HAND S80063 PAIN IN 03-30-2016 [place] RIGHT MEDICAL SHOULDER IMAGING ASS R84402 PAIN IN 03-30-2016 [place] RIGHT WRIST MEDICAL IMAGING ASS R32053 PAIN IN 03-30-2016 [place] UNSPECIFIED MEDICAL HIP IMAGING ASS P12011 PAIN IN 03-30-2016 [place] RIGHT MEDICAL FOREARM IMAGING ASS D12413 PAIN IN 03-30-2016 [place] RIGHT HAND MEDICAL IMAGING ASS P8283TP UNS INJURY 03-30-2016 [place] RT SHOULDER MEDICAL UPPER ARM IMAGING ASS INITIAL ENCNTR [id number] FX UNS 03-30-2016 [facility]PAL [facility]ONE [facility], RT WRIST PLLC INITIAL ENC CLOS FX L10198E DSPL FX 03-30-2016 [facility] RT WRIST IMAGING ASS INIT ENC CLOS FX M542 CERVICALGIA 03-19-2016 [facility] M545 LOW BACK 02-18-2016 [facility] M5022 OT CERV 02-08-2016 [place] DISC MEDICAL DISPLACEMEN IMAGING ASS T MID-CERVICA L REGION M5032 OT CERV 02-08-2016 [place] DIS[facility]ICAL DEGENERATIO IMAGING ASS N MID-CERVICA L REGION M5124 OT 02-08-2016 [place] INTERVERTEB MEDICAL RAL DISC IMAGING ASS DISPLACEMEN T THOR REGION M5134 OTH 02-08-2016 [place] INTERVERTEB MEDICAL RAL DISC IMAGING ASS DEGEN THORACIC REGION M546 PAIN IN 02-08-2016 [place] TH[facility]ACIC [facility]ICAL SPINE IMAGING ASS M549 DORSALGIA 02-08-2016 [facility]PEC[facility] INC I209 ANGINA 01-15-2016 [facility] P[facility]IS PHYS[facility]IANS UNSPECIFIED GROUP K48896 ASHD SQUAXIN 01-15-2016 [facility] W/UNS INC ANGINA PECTORIS R9439 ABNORMAL 01-15-2016 [facility] RESULT [facility] CARDIOVASCU GROUP LR FUNCTION STUDY 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 ASHD SQUAXIN 01-04-2016 [facility] CORONARY [facility] ARTERY W/O HOSPITAL P ANGINA PECTORIS E039 HYPOTHYROID 12-28-2015 [facility] IS [facility] UNSPECIFIED INC R079 CHEST PAIN 12-28-2015 [place] UNSPECIFIED [facility]ICAL IMAGING ASS R0602 SHORTNESS 10-29-2015 [facility] R5383 OTHER 10-29-2015 [facility] Z38300 PAIN IN 10-22-2015 [facility] LEFT PHYSICIANS, SHOULDER PLLC R0789 OTHER CHEST 10-22-2015 [place] PAIN MEDICAL IMAGING ASS G03401I PAIN D/T 10-22-2015 [facility] P IMPL & GRAFTS INITIAL G8918 OTHER ACUTE 10-18-2015 [facility] POSTPROCEDU [facility] P RAL PAIN G8928 OTHER 10-18-2015 [facility] CHRONIC PHYSICIANS, POSTPROCEDU PLLC RAL PAIN J80 ACUTE 10-18-2015 [facility] RESPIRATORY AMBULANCE DISTRESS SERVICE SYNDROME J90 PLEURAL 10-18-2015 [place] EFFUSION [facility]ICAL NOT IMAGING ASS ELSEWHERE CLASSIFIED J9811 ATELECTASIS 10-18-2015 [facility] J9690 RESP FAIL 10-15-2015 [facility] UNS UNS [facility] WHETHER HOSP W/HYPOXIA/H YPERCAPNIA R410 DISORIENTAT 10-15-2015 [facility] ION [facility] UNSPECIFIED HOSP R5381 OTHER 10-15-2015 [facility] MALAISE [facility] HOSP D65846 ELEVATED 10-13-2015 [facility] WHITE BLOOD CONFUCIANISM CELL COUNT HOSP UNSPECIFIED 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 [facility]ISM UNSPECIFIED HOSP J9600 ACUTE 10-13-2015 [facility] RESPIRATORY CONFUCIANISM FAIL UNS HOSP HYPOXIA/HYP ERCAPNIA I214 NON-ST 10-12-2015 [facility] ELEVATION [facility] MYOCARDIAL HOSP INFARCTION R4182 ALTERED 10-12-2015 [facility] MENTAL [facility] STATUS HOSP UNSPECIFIED D649 ANEMIA 10-11-2015 [facility] UNSPECIFIED CONFUCIANISM HOSP E876 HYPOKALEMIA 10-11-2015 [facility] 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 THOMAS 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 J9601 ACUTE 10-10-2015 [facility] RESPIRATORY CONFUCIANISM FAILURE HOSP WITH HYPOXIA R9431 ABNORMAL 10-10-2015 [facility] ELECTROCARD CONFUCIANISM IOGRAM HOSP 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 [place] S68367 ACUTE 10-09-2015 [facility] POSTPROCEDU CON[facility]ISM RAL HOSP RESPIRATORY FAILURE I999 UNSPECIFIED 10-08-2015 [facility] DISORDER CONFUCIANISM OF HOSP CIRCULATORY SYSTEM E785 HYPERLIPIDE 10-03-2015 [facility] KAREN [facility] UNSPECIFIED HOSP I213 ST 10-02-2015 YUNGE[facility]HEMAR ELEVATION CONFUCIANISM MYOCARDIAL HOSP INFARCTION UNS SITE L82137 ENCOUNTER 10-02-2015 [facility] FOR [facility] PREPROCEDUR HOSP AL CARIOVASCUL AR EXAM I222 SUBSEQUENT 10-01-2015 [facility] NON-ST [facility] ELEVATION MYOCARDIAL INFARCT J309 ALLERGIC 09-25-2015 ISAI REEVES RHINITIS FACE WORKER FAMILY UNSPECIFIED CLINIC N401 BENIGN 09-25-2015 ISAI REEVES PROSTATIC FACE WORKER FAMILY HYPERPLASIA CLINIC LW URINARY TRACT SX 2724 OTHER AND 06-19-2014 [facility] UNSPECIFIED HYPERLIPIDE KAREN 4019 UNSPECIFIED 06-19-2014 SOPHIE ALLEN ESSENTIAL HYPERTENSIO N 6079 UNSPECIFIED 06-19-2014 SOPHIE ALLEN DISORDER OF PENIS 7242 LUMBAGO 06-19-2014 [facility] ALLEN 00816 PAIN IN 06-06-2014 [facility] JOINT, MEDICAL MULTIPLE SITES 7231 CERVICALGIA 05-30-2014 [facility]IL[facility]G A R H 4619 ACUTE 02-23-2014 SOPHIE ALLEN SINUSITIS, UNSPECIFIED 481 PNEUMOCOCCA 09-26-2013 CRISPIN Stephenson PNEUMONIA A R H 2875 UNSPECIFIED 09-20-2013 [place] [employer] HEALTH THROMBOCYTO SANDY PENIA 95912 OTHER 09-20-2013 [place] CHRONIC COMP HEALTH PAIN SANDY 73341 OBSTRUCTIVE 09-16-2013 [place] CHRONIC COMP BRONCHITIS SPECIALTY WITH SERV EXACERBATIO N 22225 DIARRHEA 09-14-2013 [employer] HEALTH SANDY Procedures Procedure DOS Code Location Performer Comment CAST Q4010 [facility] PETTE SUPPLIES 6 PHYSICIAN SARMAD SHORT ARM S GROUP CAST ADULT FIBERGLAS S RADEX 07220 [place] ROACH ALL WRIST 6 MEDICAL COMPLETE IMAGING MINIMUM 3 ASS VIEWS APPLICATI 15956 [facility] PETTE ON CAST 6 PHYSICIAN SARMAD ELBOW S GROUP FINGER SHORT ARM RADEX 15596 [place] ROACH ALL FOREARM 2 6 MEDICAL VIEWS IMAGING ASS RADEX 55995 [place] ROACH ALL WRIST 6 MEDICAL COMPLETE IMAGING MINIMUM 3 ASS VIEWS APPLICATI 61946 [facility] SILVERIO ON SHORT 6 [facility]OS[facility] ARM INC INC SPLINT FOREARM-H AND STATIC RADEX 63520 [place] RO[facility] ALL HAND 6 MEDICAL MINIMUM 3 IMAGING VIEWS ASS RADEX 05263 [place] ROACH ALL SHOULDER 6 MEDICAL COMPLETE IMAGING MINIMUM 2 ASS VIEWS RADEX HIP 88661 [place] ROACH ALL 6 MEDICAL UNILATERA IMAGING L WITH ASS PELVIS 2-3 VIEWS DRUG TST G0477 [facility] SILVERIO PRESUMP;C 6 [facility] PBL BEING INC INC READ DC OPT OBV ONLY PHYSICAL 42023 [facility] SILVERIO THERAPY 6 [facility] EVALUATIO INC INC N E-STIM G0283 [facility] SILVERIO 1/> AREAS 6 [facility]OS[facility] OTH THAN INC INC WND CARE PART TX PLAN APPLICATI 29862 N[facility] SILVERIO ON 6 [facility] MODALITY INC INC 1/> AREAS HOT/COLD PACKS APPL 12786 [facility] SILVERIO MODALITY 6 [facility] 1/> AREAS INC INC ULTRASOUN D EA 15 MIN MRI 15407 EDDIE ROACH ALL SPINAL 6 MEDICAL CANAL IMAGING THORACIC ASS W/O CONTRAST MATRL MRI 15004 EDDIE ROACH ALL SPINAL 6 MEDICAL CANAL IMAGING CERVICAL ASS W/O CONTRAST MATRL 3D 64631 EDDIE ROACH ALL RENDERING 6 MEDICAL W/INTERP IMAGING & ASS POSTPROCE SS SUPERVISI ON DRUG TST G0477 [facility] SILVERIO PRESUMP;C 6 [facility]OS[facility] PBL BEING INC INC READ DC OPT OBV ONLY INJECTION J1644 [facility] SILVERIO HEPARIN 6 [facility] SODIUM INC INC PER 1000 UNITS LOC Q9967 N[facility]AT SILVERIO [phone] [facility] MG/ML INC INC IODINE CONCENTRA TION PER ML CATH PLKY 22329 N[facility] SILVERIO L 6 [facility] HRT/ARTS/ INC INC GRFTS WNJX & ANGIO IMG S&I CATH PLKY 96472 [facility] L HRT & 6 PHYSICIAN MAT ARTS S GROUP W/NJX & ANGIO IMG S&I CATHETER C1725 N[facility]AT SILVERIO TRANSLUMI 6 [facility] NAL INC INC ANGIOPLAS TY NON-LASER GUIDE C1769 N[facility] SILVERIO WIRE 6 [facility] INC INC PRESSURIZ 83336 N[facility]AT SILVERIO ED/NONPRE 6 [facility] SSURIZED INC INC INHALATIO N TREATMENT BRNCDILAT 02343 N[facility]AT JIMENEZ JR RSPSE 6 [facility] PRE&[place] [address] NUSRAT JIMENEZ JR DIFFUSING 6 [facility] P GAS 10689 NUSRAT JIMENEZ JR DILUT/WAS 6 [facility] VOL W/WO P DISTRIB VENT&V HEPATIC 21467 N[facility]AT SILVERIO FUNCTION 6 [facility] PANEL INC INC BLOOD 16889 N[facility]AT SILVERIO COUNT 6 [facility] COMPLETE INC INC AUTO&AUTO DIFRNTL WBC RADIOLOGI 86873 N[facility]RAT NUSRAT C EXAM 6 [facility] CHEST 2 INC INC VIEWS FRONTAL&[place] [address] NUSRAT SILVERIO FREE 6 [facility] [place] [address] NUSRAT SILVERIO THYROID 6 [facility] STIMULATI INC INC NG HORMONE TSH INJECTION J2785 N[facility]AT SILVERIO 6 [facility] H[facility] REGADENOS INC INC ON 0.1 MG TECHNETIU A9500 N[facility]RAT Nowak TC-99M 6 [facility] SESTAMIBI INC INC DX PER STUDY DOSE CV STRS 78999 [facility] TST 6 PHYSICIAN XERS&/OR S GROUP RX CONT ECG W/O I&R CV STRS 93566 N[facility] SILVERIO TST 6 [facility] XERS&/OR INC INC RX CONT ECG TRCG ONLY MYOCARDIA 21812 N[facility]AT SILVERIO L SPECT 6 [facility] MULTIPLE INC INC STUDIES ECHO 72720 NUSRAT SILVERIO TTHRC R-T 6 [facility] 2D INC INC W/WOM-MOD E COMPL SPEC&COLR D BASIC 62348 NUSRAT SILVERIO METABOLIC 6 [facility]OS[facility] PANEL INC INC CALCIUM TOTAL ECG 60950 N[facility]AT SILVERIO ROUTINE 6 [facility] HOSP ECG INC INC W/LEAST 12 LDS TRCG ONLY W/O I&R COMPREHEN 88445 S[facility] JUNIOR SIVE 6 [facility] METABOLIC CENTER CENTER PANEL RADIOLOGI 37847 SANDI JUNIOR C EXAM 6 MEDICAL [facility] CHEST 2 CENTER CENTER VIEWS FRONTAL&L ATERAL BLOOD 28766 S[facility]I JUNIOR COUNT 6 [facility] COMPLETE [place] [facility] AUTOMATED COLLECTIO 82347 SANDI JUNIOR N VENOUS 6 [facility] BLOOD [place] [facility] G[facility] JUNIOR OUTPATIEN 6 [facility] T CLIN CENTER CENTER VISIT ASSESS & MGMT PT INJECTION J2405 NUSRAT SILVERIO 6 [facility] HOSP ONDANSETR INC INC ON HCL PER 1 MG THERAPEUT 90212 NUSRAT SILVERIO IC 6 [facility] HOSP INJECTION INC INC IV PUSH EACH NEW DRUG COLLECTIO 11711 NUSRAT SILVERIO N VENOUS 6 [facility] HOSP [place] [address] NUSRAT SILVERIO TROPONIN 6 [facility] HOSP QUANTITAT INC INC DEBBIE BLOOD 08107 NUSRAT SILVERIO COUNT 6 [facility]OS[facility] COMPLETE INC INC AUTO&AUTO DIFRNTL WBC RADIOLOGI 18724 [facility] C EXAM 6 MEDICAL [facility] CHEST 2 IMAGING VIEWS ASS FRONTAL&L ATERAL ECG 18065 NUSRAT JIMENEZ JR ROUTINE 6 [facility] W/LEAST P 12 LDS I&R ONLY CREATINE 80814 NUSRAT SILVERIO KINASE MB 6 [facility] HOSP FRACTION INC INC ONLY COMPREHEN 35744 NUSRAT SILVERIO SIVE 6 [facility] HOSP METABOLIC INC INC PANEL THER 98589 NUSRAT SILVERIO PROPH/DX 6 [facility]OS[facility] NJX IV INC INC PUSH SINGLE/1S T SBST/DRUG CREATINE 01706 NUSRAT SILVERIO KINASE 6 [facility]OS[facility] TOTAL INC INC ECG 95253 NUSRAT SILVERIO ROUTINE 6 [facility]OS[facility] ECG INC INC W/LEAST 12 LDS TRCG ONLY W/O I&R ECG 82071 NUSRAT SILVERIO ROUTINE 6 [facility]OS[facility] ECG INC INC W/LEAST 12 LDS TRCG ONLY W/O I&R COMPREHEN 30892 NUSRAT SILVERIO SIVE 6 [facility] HOSP METABOLIC INC INC PANEL ECG 90253 NUSRAT OCHOA ROUTINE 6 [facility] W/LEAST P 12 LDS I&R ONLY BLOOD 21754 NUSRAT SILVERIO COUNT 6 [facility] COMPLETE INC INC AUTO&[place] [address] NUSRAT SILVERIO TROPONIN 6 [facility] HOSP QUANTITAT INC INC DEBBIE COLLECTIO 35395 NUSRAT SILVERIO N VENOUS 6 [facility] BLOOD INC INC VENIPUNCT URE LOCM Q9967 NUSRAT SILVERIO [phone] 6 [facility] MG/ML INC INC IODINE CONCENTRA TION PER ML GROUND A0425 [facility] MILEAGE 6 AMBULANCE AMBULANCE PER SERVICE SERVICE STATUTE MILE CT THORAX 26327 [place] [facility] ALL 6 MEDICAL W/CONTRAS IMAGING T ASS MATERIAL AMB A0427 [facility] SERVICE 6 AMBULANCE AMBULANCE ALS SERVICE SERVICE EMERGENCY TRANSPORT LEVEL 1 SBS 88378 [facility] 6 CARE/DAY CONFUCIANISM 25 HOSP MINUTES HOSPITAL 07871 SANDI ATTUM ABD DISCHARGE 6 DAY CONFUCIANISM MANAGEMEN HOSP T 30 MIN/< WALKER E0135 S[facility]I JUNIOR FOLDING 6 MEDICAL MEDICAL ADJUSTABL EQUIP EQUIP E OR FIXED HEIGHT COMMODE E0163 S[facility]I JUNIOR CHAIR 6 MEDICAL MEDICAL MOBILE OR EQUIP EQUIP STATIONAR Y W/FIXED ARMS [facility] 88760 [facility] 6 MYRNA CARE/DAY CONFUCIANISM 25 HOSP MINUTES SBSQ 67054 [place] [address] CARE/DAY 25 MINUTES RADIOLOGI 21686 SANDI Morelos GAR EXAMINATI RADIOLOGY ON CHEST [facility] 20885 [facility] 6 MALHAB CARE/DAY CONFUCIANISM NIS 35 HOSP MINUTES SBSQ 80503 [facility] 6 CARE/DAY CONFUCIANISM 25 HOSP MINUTES CRITICAL 08194 [facility] 6 MALHAB ILL/INJUR CONFUCIANISM NIS ED HOSP PATIENT INIT 30-74 MIN CRITICAL 88613 [facility] CARE 6 MALHAB ILL/INJUR CONFUCIANISM NIS ED HOSP PATIENT INIT 30-74 MIN SBSQ 51644 [facility] 6 CARE/DAY CONFUCIANISM 25 HOSP MINUTES SBSQ 24802 [facility] 6 CARE/DAY 25 MINUTES CRITICAL 06742 [facility] 6 MALHAB ILL/INJUR CONFUCIANISM NIS ED HOSP PATIENT INIT 30-74 MIN RADIOLOGI 63061 ASNDI Young 6 GAR EXAMINATI RADIOLOGY ON CHEST PLLC SINGLE VIEW FRONTAL ECG 39743 SANDI DING ROUTINE 6 JEIMY ECG CONFUCIANISM W/LEAST HOSP 12 LDS I&R ONLY RADIOLOGI 04027 SANDI Young 6 GAR EXAMINATI RADIOLOGY ON CHEST PLLC SINGLE VIEW FRONTAL SBSQ 34914 [facility] 6 CARE/DAY CONFUCIANISM 25 HOSP MINUTES CRITICAL 11015 [facility] 6 MALHAB ILL/INJUR CONFUCIANISM NIS ED HOSP PATIENT INIT 30-74 MIN CRITICAL 54776 [facility] 6 MALHAB ILL/INJUR CONFUCIANISM NIS ED HOSP PATIENT INIT 30-74 MIN SBSQ 48890 [facility] 6 CARE/DAY CONFUCIANISM 25 HOSP MINUTES RADIOLOGI 85698 SANDI Young 6 GAR EXAMINATI RADIOLOGY ON CHEST PLLC SINGLE VIEW FRONTAL RADIOLOGI 70640 SANDI Young 6 DEN EXAMINATI RADIOLOGY ON CHEST PLLC SINGLE VIEW FRONTAL SBSQ 06600 [facility] 6 CARE/DAY 25 MINUTES CRITICAL 83313 [facility] ERU CARE 6 ILL/INJUR CONFUCIANISM ED HOSP PATIENT INIT 30-74 MIN CRITICAL 51631 [facility] 6 ILL/INJUR CONFUCIANISM ED HOSP PATIENT INIT 30-74 MIN SBSQ 88526 [place] [address] MEDICAL MAR CARE/DAY CENTER 25 INC MINUTES RADIOLOGI 85586 SANDI Young 6 EXAMINATI RADIOLOGY ON CHEST PLLC SING[place]IEW FRONTAL SBSQ 96489 [facility] 6 CARE/DAY 35 MINUTES RADIOLOGI 95626 SANDI Young 6 VINNIE EXAMINATI RADIOLOGY ON CHEST PLLC SING[place]IEW FRONTAL SBSQ 55953 [facility] 6 CARE/DAY CONFUCIANISM 25 HOSP MINUTES SBSQ 08551 [facility]ARE/DAY CONFUCIANISM 25 HOSP MINUTES RADIOLOGI 97605 YUNGJAYLENE Young 6 VINNIE EXAMINATI RADIOLOGY ON CHEST PLLC SING[place]IEW FRONTAL RADIOLOGI 76044 LAISHASHEMAR Young 6 VINNIE EXAMINATI RADIOLOGY ON CHEST PLLC SING[place] FRONTAL ECG 95202 YUNGJAYLENE SMITH ROUTINE 6 DEN ECG CONFUCIANISM W/LEAST HOSP 12 LDS I&R ONLY SBSQ 53594 [facility] 6 CARE/DAY CONFUCIANISM 25 HOSP MINUTES SBSQ 17792 [facility] 6 CARE/DAY CONFUCIANISM 25 HOSP MINUTES INSJ 55221 YUNGJAYLENE LANEUM ABD INTRA-AOR 6 T BALO CONFUCIANISM ASSIST HOSP DEV VIA FEM ART OPEN RADIOLOGI 09695 SANDI Young 6 GAR EXAMINATI RADIOLOGY ON CHEST PLLC [place] FRONTAL ECHO 80814 [facility] TTHRC R-T 6 2D CONFUCIANISM W/WOM-MOD HOSP E COMPL SPEC&COLR D ECG 60044 SANDI DING ROUTINE 6 JEIMY ECG CONFUCIANISM W/LEAST HOSP 12 LDS I&R ONLY CORONARY 94912 YUNGJAYLENE LANEUM ABD ARTERY 6 BYP CONFUCIANISM W/VEIN & HOSP ARTERY GRAFT 1 VEIN CABG 56159 YUNGJAYLENE LANEUM ABD W/ARTERIA 6 L GRAFT CONFUCIANISM SINGLE HOSP ARTERIAL GRAFT ANES 33529 YUNGJAYLENE SAMUEL DIRECT 6 CABG CONFUCIANISM W/PUMP HOSP OXYGENATO R AMB A0431 [facility] SERVICE 6 CONVNTION CORPORATI CORPORATI AIR SRVC ON ON TRANSPORT [address] INSERTION 58107 [facility] 6 INTRA-AOR CONFUCIANISM TIC HOSP BALLOON ASSIST DEV PERQ ECG 79906 [facility] INC GHARAD ROUTINE 6 MEDICAL CORRINA ECG ASSOCIATE W/LEAST S 12 LDS I&R ONLY CATH PLMT 31422 SANDI COELHO MUH L HRT & 6 ARTS CONFUCIANISM W/NJX & HOSP ANGIO IMG S&I GROUND A0425 NEON NEON MILEAGE 6 VOLUNTEER VOLUNTEER PER FIRE FIRE STATUTE DEPT\EMS DEPT\EMS MILE ROTARY A0436 MED-[facility] MED-TRANS WING AIR 6 MILEAGE CORPORATI CORPORATI PER ON ON STATUTE MILE RADIOLOGI 68221 RAHUL KAY JR C 6 PHILIP PHILIP EXAMINATI ON CHEST SINGLE VIEW FRONTAL AMB A0427 NEON NEON SERVICE 6 VOLUNTEER VOLUNTEER ALS FIRE FIRE EMERGENCY DEPT\EMS DEPT\EMS TRANSPORT LEVEL 1 KNEE L1810 [facility] HOME ORTHOSIS 5 MEDICAL MEDICAL ELASTIC JOINTS PREFAB CUSTOM FIT RADEX 74897 RAHUL KAY JR SPINE 5 PHILIP PHILIP CERVICAL 4 OR 5 VIEWS THERAPEUT 23138 [facility] HEA IC 4 PROPHYLAC TIC/DX INJECTION SUBQ/IM INJECTION J0696 [facility] 4 CEFTRIAXO NE SODIUM PER 250 MG BASIC 47463 [facility] METABOLIC 4 G A R H G A R H PANEL CALCIUM TOTAL BLOOD 13088 [facility] COUNT 4 G A R H G A R H COMPLETE AUTO&AUTO DIFRNTL WBC RADIOLOGI 61794 [facility] C EXAM 4 G A R H G A R H CHEST 2 VIEWS FRONTAL&L [facility] 07262 [facility] DISCHARGE 4 COMP DAY HEALTH MANAGEMEN SANDY T 30 MIN/< SBSQ 25427 [facility] 4 COMP CARE/DAY HEALTH 25 SANDY MINUTES SBSQ 83505 [place] [address] COMP MAT CARE/DAY HEALTH 25 SANDY MINUTES SBSQ 38621 [place] [address] COMP MAT CARE/DAY HEALTH 25 SANDY MINUTES SBSQ [address]8849 [place] [address] COMP CARE/DAY SPECIALTY 25 SERV MINUTES SBSQ 48543 [facility] 4 COMP CARE/DAY HEALTH 25 SANDY MINUTES INITIAL [address] [place] [address] COMP CARE/DAY SPECIALTY 50 SERV MINUTES INITIAL 58483 [facility] 4 COMP [facility] CARE/DAY HEALTH 70 SANDY MINUTES Encounters Encounter Start End Date Code Location Performer Type Date OFFICE 17077 [place] [facility] OUTPATIEN 6 6 MEDICAL T NEW [facility] 26248 [facility] PETTEJelani OUTPATIEN 6 6 PHYSICIAN SARMAD T NEW 20 S GROUP MINUTES EMERGENCY 68141 RUBY MOHAN 6 6 PHYSICIAN VLADIMIR DEPARTMEN S, PLLC T VISIT HIGH/URGE NT SEVERITY [facility] N[facility]ART - 6 6 [facility] OTHER 6 6 [facility] NUSRAT - 6 6 [facility] 6 6 [facility] NUS[facility] OTHER 6 6 [facility] NUSRAT - 6 6 [facility] 6 6 [facility] 6 [facility] 21675 ISAI REEVES CHELSEY OUTPATIEN 6 6 FACE WORKER T VISIT FAMILY 15 CLINIC MINUTES HOSPITAL SANDI - 6 6 MEDICAL OUTPATIEN [facility] NUSRAT - 6 6 [facility] EMERGENCY 99570 RUBY WOOTEN DEPT 6 6 PHYSICIAN Jimmie BORJA VISIT S, PLLC HIGH SEVERITY& THREAT FUNCJ EMERGENCY 70692 [facility] 6 [facility]/URGE NT SEVERITY EMERGENCY 70432 NUSRAT 6 6 [facility] DEPARTMEN INC T VISIT MODERATE SEVERITY [facility]OSPITAL NUSRAT - 6 6 [facility] OUTPATIEN INC T EMERGENCY 21311 RUBY LUNDBERG DEPT 6 6 PHYSICIAN FOR VISIT S, PLLC HIGH SEVERITY& THREAT FUNCJ OFFICE 05685 ISAI REEVES CHELSEY OUTPATIEN 6 6 FACE WORKER T VISIT FAMILY 15 CLINIC MINUTES OFFICE 01460 [facility] OUT[facility] 5 5 T VISIT 15 MINUTES [facility] - 5 5 G A R H OUTPATIEN T OFFICE 27022 [facility] OUT[facility] 4 4 T VISIT 15 MINUTES OFFICE 41327 [facility] OUT[facility] 4 4 T VISIT 15 MINUTES OFFICE 88524 [facility] 4 4 T VISIT 15 MINUTES [facility] - 4 4 G A R H OUTPATIEN T
--- OUTSIDE RECORDS SUMMARY | 2016-09-22 03:44 | External Medical Summary Rpt ---
Author Author , Organization [employer] Address Unknown Phone Unavailable Care Team Providers Care Bag Adjuster Name Role Phone AHMAD MUH, AHMAD MUH Unavailable Unavailable ALAM MARIA M, ALAM MARIA M Unavailable Unavailable NANI MYRNA, Unavailable Unavailable NANI MYRNA ATTUM ABD, ATTUM ABD Unavailable Unavailable REEVES CHELSEY, REEVES CHELSEY Unavailable Unavailable BATDORF, BATDORF Unavailable Unavailable BEINEKE HUONG, BEINEKE Unavailable Unavailable HUONG BESSON TAM, BESSON Unavailable Unavailable TAM TIMUR JEIMY, TIMUR Unavailable Unavailable JEIMY ROACH ALL, ROCAH ALL Unavailable Unavailable SHERWIN MALHAB NIS, SHERWIN Unavailable Unavailable [facility] N[facility], Unavailable Unavailable [facility] Unavailable Unavailable SERVICE, [facility] Unavailable Unavailable SERVICE, [facility] KAY JR PHILIP, KAY JR [...] Unavailable Unavailable INC, [facility] Unavailable Unavailable HOSPITAL P, [facility], Unavailable Unavailable [facility] ISAI REEVES APRN FAMILY Unavailable Unavailable CLINIC, [facility] REEVES APRN [facility] GUNNER VINNIE, GUNNER Unavailable Unavailable V[facility] Un[facility] Un[facility], [facility] KHATER FAR, KHATER Unavailable Unavailable [facility] Un[facility] BARBARA JR DWI, BARBARA Unavailable Unavailable JR DWI THOMAS AHM, THOMAS AHM Unavailable Unavailable THOMAS AHM, THOMAS AHM Unavailable Unavailable [facility], Unavailable Unavailable [facility], Unavailable Unavailable [...] PLL[facility] PETTEY JAM, PETTEY Unavailable Unavailable [facility] Unavailable Unavailable CENTER, [facility] Unavailable Unavailable EQUIP, [facility] Unavailable Unavailable HOSP, [facility] YATES GAR, YATES Unavailable Unavailable GAR [...] Diagnosis DOS Provider Status 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 04-10-2016 [facility] REGION [id number] OTHER 04-10-2016 [facility] DEGENERATIO N AT C5-C6 LEVEL Z720 TOBACCO USE 04-10-2016 [facility] [id number] OTHER 04-09-2016 [facility] EXTRAARTICU PHYSICIANS LAR FX LOW GROUP RT RADIUS INIT CLOS [id number] DSPL FX 04-09-2016 [facility] RT WRST IMAGING ASS SUB ENC FX ROUTINE I10 ESSENTIAL 03-30-2016 [facility] HYPERTENSIO INC N J449 CHRONIC 03-30-2016 [facility] PULMONARY INC DISEASE UNS 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 ASS HAND V61695 PAIN IN 03-30-2016 [place] RIGHT MEDICAL SHOULDER IMAGING ASS D83953 PAIN IN 03-30-2016 [place] RIGHT WRIST MEDICAL IMAGING ASS K16222 PAIN IN 03-30-2016 [place] UNSPECIFIED MEDICAL HIP IMAGING ASS P07600 PAIN IN 03-30-2016 [place] RIGHT MEDICAL FOREARM IMAGING ASS L67789 PAIN IN 03-30-2016 [place] RIGHT HAND MEDICAL IMAGING ASS K8003HO UNS INJURY 03-30-2016 [place] RT SHOULDER MEDICAL UPPER ARM IMAGING ASS INITIAL ENCNTR [id number] FX UNS 03-30-2016 [facility] CAR[facility]AL [facility]ONE PHYSICIANS, RT WRIST PLLC INITIAL ENC CLOS FX [id number] DSPL FX 03-30-2016 [facility] RT WRIST IMAGING ASS INIT ENC CLOS FX M542 CERVICALGIA 03-19-2016 [facility] M545 LOW BACK 02-18-2016 [facility]IN [facility] M5022 OT CERV 02-08-2016 [place] DISC MEDICAL DISPLACEMEN IMAGING ASS T MID-CERVICA L REGION M5032 OT CERV 02-08-2016 [place] DISC MEDICAL DEGENERATIO IMAGING ASS N MID-CERVICA L REGION M5124 OTH 02-08-2016 [place] INTERVERTEB MEDICAL RAL DISC IMAGING ASS DISPLACEMEN T THOR REGION M5134 OTH 02-08-2016 [place] INTERVERTEB MEDICAL RAL DISC IMAGING ASS DEGEN THORACIC REGION M546 PAIN IN 02-08-2016 [place] THORACIC MEDICAL SPINE IMAGING ASS M549 DORSALGIA 02-08-2016 [facility]PEC[facility] I209 ANGINA 01-15-2016 [facility] PECTORIS PHYSICIANS UNSPECIFIED GROUP C20448 ASHD TORRES MARTINEZ 01-15-2016 [facility] W/UNS INC ANGINA PECTORIS R9439 ABNORMAL 01-15-2016 [facility] RESULT [facility] CARDIOVASCU GROUP LR FUNCTION STUDY 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 ASHD TORRES MARTINEZ 01-04-2016 [facility]ONARY [facility] ARTERY W/O HOSPITAL P ANGINA PECTORIS E039 HYPOTHYROID 12-28-2015 [facility] IS [facility] UNSPECIFIED INC R079 CHEST PAIN 12-28-2015 [place] UNSPECIFIED [facility]ICAL IMAGING ASS R0602 SHORTNESS 10-29-2015 [facility] R5383 OTHER 10-29-2015 [facility] X93837 PAIN IN 10-22-2015 [facility] LEFT PHYSICIANS, SHOULDER PLLC R0789 OTHER CHEST 10-22-2015 [place] PAIN MEDICAL IMAGING ASS [id number] PAIN D/T 10-22-2015 [facility] P IMPL & GRAFTS INITIAL G8918 OTHER ACUTE 10-18-2015 [facility] POSTPROCEDU [facility] P RAL PAIN G8928 OTHER 10-18-2015 [facility] CHRONIC PHYSICIANS, POSTPROCEDU PLLC RAL PAIN J80 ACUTE 10-18-2015 [facility] DISTRESS SERVICE SYNDROME J90 PLEURAL 10-18-2015 [facility] MEDICAL NOT IMAGING ASS ELSEWHERE CLASSIFIED J9811 ATELECTASIS 10-18-2015 [place] [facility] J9690 RESP FAIL 10-15-2015 [facility] UNS UNS [facility] WHETHER HOSP W/HYPOXIA/H YPERCAPNIA R410 DISORIENTAT 10-15-2015 [facility] ION [facility] UNSPECIFIED HOSP R5381 OTHER 10-15-2015 [facility] MALAISE [facility] R08806 ELEVATED 10-13-2015 [facility] WHITE BLOOD [facility] CELL COUNT HOSP UNSPECIFIED I509 HEART 10-13-2015 [facility] FAILURE [facility] UNSPECIFIED HOSP J9600 ACUTE 10-13-2015 [facility] RESPIRATORY [facility] FAIL UNS HOSP HYPOXIA/HYP ERCAPNIA I214 NON-ST 10-12-2015 [facility] ELEVATION [facility] MYOCARDIAL HOSP INFARCTION R4182 ALTERED 10-12-2015 [facility] MENTAL [facility] STATUS HOS[facility] UNSPECIFIED D649 ANEMIA 10-11-2015 [facility] UNSPECIFIED [facility] HOSP E876 HYPOKALEMIA 10-11-2015 [place] [facility] 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 J9601 ACUTE 10-10-2015 [facility] RESPIRATORY [facility] FAILURE HOSP WITH HYPOXIA R9431 ABNORMAL 10-10-2015 [facility] ELECTROCARD [facility] IOGRAM HOSP E870 HYPEROSMOLA 10-09-2015 [facility] LITY AND [place] HYPERNATREM [place]P [place] U53688 ACUTE 10-09-2015 [facility] POSTPROCEDU [facility] RAL HOSP RESPIRATORY FAILURE I999 UNSPECIFIED 10-08-2015 [facility] DISORDER [facility] OF HOSP CIRCULATORY SYSTEM E785 HYPERLIPIDE 10-03-2015 [facility] KAREN [facility] UNSPECIFIED HOSP I213 ST 10-02-2015 [facility] ELEVATION [facility] MYOCARDIAL HOSP INFARCTION UNS SITE C12764 ENCOUNTER 10-02-2015 [facility] FOR [facility] PREPROCEDUR HOSP AL CARIOVASCUL AR EXAM I222 SUBSEQUENT 10-01-2015 [facility] ELEVATION MYOCARDIAL INFARCT J309 ALLERGIC 09-25-2015 ISAI REEVES RHINITIS REAL ESTATE MANAGEMENT SPECIALIST FAMILY UNSPECIFIED CLINIC N401 BENIGN 09-25-2015 ISAI REEVES PROSTATIC REAL ESTATE MANAGEMENT SPECIALIST FAMILY HYPERPLASIA CLINIC LW URINARY TRACT SX 2724 OTHER AND 06-19-2014 [facility] UNSPECIFIED HYPERLIPIDE KAREN 4019 UNSPECIFIED 06-19-2014 [facility] ESSENTIAL HYPERTENSIO N 6079 UNSPECIFIED 06-19-2014 [facility] DISORDER OF PENIS 7242 LUMBAGO 06-19-2014 [facility] 70546 PAIN IN 06-06-2014 [facility] JOINT, MEDICAL MULTIPLE SITES 7231 CERVICALGIA 05-30-2014 [place] A R H 4619 ACUTE 02-23-2014 [facility] SINUSITIS, UNSPECIFIED 481 PNEUMOCOCCA 09-26-2013 [place] [facility] PNEUMONIA A R H 2875 UNSPECIFIED 09-20-2013 [facility] THROMBOCYTO S[facility]Y PENIA 93136 OTHER 09-20-2013 [facility] HEALTH PAIN SANDY 04970 OBSTRUCTIVE 09-16-2013 [facility] CH[facility] COMP BRONCHITIS SPECIALTY WITH SERV [place]ACERBATIO N 33619 DIARRHEA 09-14-2013 [facility] SANDY F10.10 ALCOHOL ABUSE, UNCOMPLICAT ED [...] 3.5-9.6 complet 014 10\S\3 ed 23:53 Bands 02-24-2 1 complet 014 ed 23:53 Lymphoc 44.0 % 20.0-51 complet ytes % 014 .0 ed 23:53 Monocyt 02-24-2 2.0 % 0.0-13. complet es % 014 [...] complet ine 014 mg/dL ed 23:53 Sodium 140 136-145 complet 014 mEq/L ed 23:53 [...] 3.4-5.0 complet 014 gm/dL ed 23:53 ALT 02-24- 19 U/L 3-50 complet 014 ed 23:53 [...] 10\S\3 ed Count 05:45 Comment: SLIDE REVIEWED, IN WBC STOOL (09-19-2013 19:00) Fecal NONE NONE [...] ytes % 014 .0 ed 05:40 Monocyt --2 11.7 % 0.0-13. Normal complet es % 014 0 ed 05:40 Eosinop --2 1.4 % 0.0-6.0 Normal complet hils % 014 ed 05:40 Basophi --2 0.7 % 0.0-2.0 Normal complet ls % 014 ed 05:40 Neutrop --2 5.0 X 1.5-7.1 Normal complet hil 014 10\S\3 ed Count 05:40 Monocyt 09-17-2 1.0 X 0.2-1.2 Normal complet e Count [...] Normal complet 014 .0 ed 05:40 RDW 13.8 % 12.0-15 Normal complet 014 [...] E ed 16:00 [place]-LIKE VIRUS,EIA (09-16-2013 16:00) [place] SEE complet -like 014 COMMENT ed Ag 16:00 S 014 09:45 AM Comment: Test Result Flag Unit RefValue Comment: ------- Comment: Norovirus Comment: Norovirus Antigen NOT DETECTED Comment: A negative result does not exclude norovirus Comment: infection. Comment: Comment: Test Performed by: Comment: [employer] Comment: [address] Comment: ANASTASIYA Vang [id number] VANCOMYCIN TROUGH (09-16-2013 11:50) Vancomy 5.5 10.0-20 [...] high. Comment: Comment: Test Performed by: Comment: [facility] Comment: [address] [facility], [place] [address] Comment: Cook Starch: Alberto Cook III, M.D. BASIC METABOLIC PANEL (09-15-2013 05:30) BUN/Cre 24-2 17 complet at 014 ed Ratio 05:30 GLOMERU -24-2 >60.0 complet LAR 014 mL/min/ [...] determinations of GFR should be obtained. GLOMERU -24-2 >60.0 complet LAR 014 mL/min/ ed FILTRAT 05:30 1.73 m2 ION RATE Anne Marie n Glucose -24-2 118 70-99 Above complet 014 mg/dL high [...] Result Flag Unit RefValue Comment: ------- Comment: Jiwqw-3-Eohxgvrbcsn, S 297 h mg/dL 100 - 190 Comment: Comment: Test Performed by: Comment: [facility] Comment: [address] [place] [address] Comment: Cook Starch: Alberto Cook III, M.D. CULTURE, ROUTINE (09-14-2013 06:00) [facility] Specime complet l 014 n/Sourc ed Report 06:00 e: OTHER-S PECIFY/ nasal Clinica Collect complet l 014 ed: ed Report 06:00 014 06:00 Clinica Status: complet l 014 Final ed Report 06:00 Last Updated : 014 07:25 [facility]ica CUL RES complet l 014 ed Report 06:00 (Final) [facility] No complet l 014 Growth [...] Normal complet 014 .0 ed 05:30 RDW 14.0 % 12.0-15 Normal complet 014 .0 ed 05:30 MPV 7.5 fl 6.2-10. Normal complet 014 6 ed 05:30 Neutrop 79.2 % 42.0-75 Above complet hils % 014 .0 high ed 05:30 normal Lymphoc 09-14- 11.9 % 20.0-51 Below complet ytes % 014 .0 low ed 05:30 normal Monocyt 8.4 % 0.0-13. Normal complet es % 014 0 ed 05:30 WBC 16.7 X 3.5-9.6 Above complet 014 10\S\3 high ed 05:30 normal RBC 4.74 X 4.70-6. Normal complet 014 10\S\6 10 ed 05:30 Hemoglo 14.7 14.0-18 Normal complet bin 014 gm/dL .0 ed 05:30 Hematoc 09-14- 44.5 % 42.0-52 Normal complet rit 014 .0 ed 05:30 Platele 198 X 130-400 Normal complet t 014 10\S\3 ed 05:30 MCH 31.0 pg 27.0-32 Normal complet 014 .0 ed 05:30 MCHC 33.0 32.0-37 Normal complet 014 gm/dL .0 ed 05:30 CULTURE, BLOOD (09-13-2013 18:23) Clin[facility] No complet l 014 Growth ed Report 18:23 After 4 Days Clinica Collect complet l 014 ed: ed Report 18:23 014 18:23 Clinica Status: complet l 014 Final ed Report 18:23 Last Updated : 014 20:24 [facility] CUL RES complet l 014 ed Report 18:23 (Final) [facility] Culture complet l 014 In ed Report 18:23 Progres s [facility] No complet l 014 Growth ed Report 18:23 After 24 Hours Clinica No complet l 014 Growth ed Report 18:23 After 48 Hours Clinica No complet l 014 Growth ed Report 18:23 After 3 Days Clin[facility] Specime complet l 014 n: ed Report 18:23 BLOOD [facility] No complet l 014 Growth ed Report 18:23 After 5 Days CULTURE, BLOOD (09-13-2013 18:03) [facility] No complet l 014 Growth ed Report 18:03 After 5 Days [facility] Specime complet l 014 n: ed Report 18:03 BLOOD [facility] Collect complet l 014 ed: ed Report 18:03 014 18:03 [facility] Status: complet l 014 Final ed Report 18:03 Last Updated : 014 20:24 [facility] CUL RES complet l 014 ed Report 18:03 (Final) [facility] Culture complet l 014 In ed Report 18:03 Progres s [facility] No complet l 014 Growth ed Report 18:03 After 24 Hours [facility] No complet l 014 Growth ed Report 18:03 After 48 Hours [facility] No complet l 014 Growth ed Report 18:03 After 3 Days [facility] No complet l 014 Growth [...] 013 .0 high ed 05:04 normal RDW 12-02-2 14.4 % 12.0-15 Normal complet 013 .0 ed 05:04 MPV 12-02-2 6.9 fl 6.2-10. Normal complet 013 6 ed 05:04 Neutrop 12-02-2 57.1 % 42.0-75 Normal complet hils % 013 .0 ed 05:04 Lymphoc 12-02-2 32.5 % 20.0-51 Normal complet ytes % 013 .0 ed 05:04 Monocyt 12-02-2 7.3 % 0.0-13. Normal complet es % 013 0 ed 05:04 Eosinop -11-2 2.5 % 0.0-6.0 Normal complet hils % 013 ed 05:04 Basophi 11-2 0.6 % 0.0-2.0 Normal complet ls % [...] 05:04 normal CBC W/DIFF (09-20-2012 05:14) WBC 2 7.1 X 3.5-9.6 Normal complet 013 10 ed 05:14 RBC 2 3.87 X 4.70-6. Below complet 013 10 10 low ed 05:14 normal Hemoglo 09-20-2 12.4 14.0-18 Below complet bin 013 gm/dL .0 low ed 05:14 normal Hematoc 2 37.8 % 42.0-52 Below complet rit 013 .0 low ed 05:14 normal Platele 2 252 X 130-400 Normal complet t 013 10 ed 05:14 MCH 2 32.1 pg 27.0-32 Above complet 013 .0 high ed 05:14 normal MCHC 2 32.9 32.0-37 Normal complet 013 gm/dL .0 [...] yte 013 10 ed Count 05:14 Eosinop 2 6.5 % 0.0-6.0 Above complet hils % [...] mg/dL 1 low ed 05:14 normal BUN/Cre 2 11 complet at 013 ed Ratio 05:14 GLOMERU 2 >60.0 complet LAR 013 mL/min/ [...] 013 10 high ed 05:41 normal RBC 2 4.14 X 4.70-6. Below complet 013 10 [...] complet 013 gm/dL .0 ed 05:41 MCV 2 97.0 fl 80.0-94 Above complet 013 .0 [...] hil 013 10 ed Count 05:41 Basophi 2 0.1 X 0.0-0.1 Normal complet l Count 013 10 ed 05:41 Lymphoc 2 1.8 X 0.7-4.3 Normal complet yte 013 10 ed Count 05:41 BASIC METABOLIC PANEL (09-19-2012 05:41) BUN 2 14 7-18 Normal complet 013 mg/dL ed [...] 013 mEq/L low ed 16:50 normal Potassi 4.1 3.5-5.1 Normal complet um 013 [...] 0.5 complet Ratio 013 ed 16:50 GLOMERU >60.0 complet LAR 013 mL/min/ ed [...] Normal complet 013 .0 ed 16:50 MPV 27-2 6.9 fl 6.2-10. Normal complet 013 6 ed 16:50 Manual 27-2 YES complet Diff? 013 ed 16:50 Neutrop [...] 013 ed 16:50 CULTURE, BLOOD (09-18-2012 16:50) [facility] Specime complet l 013 n: ed Report 16:50 BLOOD CULTURE, BLOOD (09-18-2012 16:50) [facility] Status: complet l 013 Final ed Report 16:50 Last Updated : 013 15:18 [facility] Specime complet l 013 n: ed Report 16:50 BLOOD [facility] Collect complet l 013 ed: ed Report 16:50 013 16:50 [facility] CUL RES complet l 013 ed Report 16:50 (Final) [facility] Culture complet l 013 In ed Report 16:50 Progres s [facility] No complet l 013 Growth [...] Procedure DOS Code Location Performer Comment RADEX 12029 [place] [facility] ALL WRIST 6 MEDICAL COMPLETE IMAGING MINIMUM 3 ASS VIEWS CAST Q4010 [facility] PETTEY SUPPLIES 6 PHYSICIAN JAM SHORT ARM S GROUP CAST ADULT FIBERGLAS S APPLICATI 97259 [facility] PETTEY ON CAST 6 PHYSICIAN JAM ELBOW S GROUP FINGER SHORT ARM RADEX 00156 [place] [facility] FOREARM 2 6 MEDICAL VIEWS IMAGING ASS RADEX 60151 [place] [facility] ALL WRIST 6 MEDICAL COMPLETE IMAGING MINIMUM 3 ASS VIEWS RADEX 26012 [facility]ACH ALL SHOULDER 6 MEDICAL COMPLETE IMAGING MINIMUM 2 ASS VIEWS RADEX HIP 66776 [facility] RO[facility] ALL 6 MEDICAL UNILATERA IMAGING L WITH ASS PELVIS 2-3 VIEWS APPLICATI 53640 [facility] SILVERIO ON SHORT 6 [facility] ARM INC INC SPLINT FOREARM-H AND STATIC RADEX 67991 [facility] ROACH ALL HAND 6 MEDICAL MINIMUM 3 IMAGING VIEWS ASS DRUG TST G0477 [facility] PRESUMP;C 6 [facility] PBL BEING INC INC READ DC OPT OBV ONLY E-STIM G0283 [facility] 1/> AREAS 6 [facility] OTH THAN INC INC WND CARE PART TX PLAN PHYSICAL 14176 [facility] THERAPY 6 [facility] EVALUATIO INC INC N APPLICATI 29690 [facility] SILVER[facility] ON 6 [facility] MODALITY INC INC 1/> AREAS HOT/COLD PACKS APPL 59161 [facility] MODALITY 6 [facility] 1/> AREAS INC INC ULTRASOUN D EA 15 MIN MRI 73586 [facility] ROACH ALL SPINAL 6 MEDICAL CANAL IMAGING THORACIC ASS W/O CONTRAST MATRL MRI 09421 [facility] ROACH ALL SPINAL 6 MEDICAL CANAL IMAGING CERVICAL ASS W/O CONTRAST MATRL 3D 80519 [place] [facility] ALL RENDERING 6 MEDICAL W/INTERP IMAGING & ASS POSTPROCE SS SUPERVISI ON DRUG TST G0477 [facility] PRESUMP;C 6 [facility] PBL BEING INC INC READ DC OPT OBV ONLY INJECTION J1644 [facility] HEPARIN 6 [facility] SODIUM INC INC PER 1000 UNITS CATH PLIN 30846 [facility] SILVER[facility] L 6 [facility] HRT/ARTS/ INC INC GRFTS WNJX & ANGIO IMG S&I LOCM Q9967 [facility]IL[facility] 300-399 6 [facility] MG/ML INC INC IODINE CONCENTRA TION PER ML CATH PLIN 64049 [facility] AYESHA Stephenson HRT & 6 PHYSICIAN MAT ARTS S GROUP W/NJX & ANGIO IMG S&I CATHETER C1725 [facility] SILVERIO TRANSLUMI 6 [facility] NAL INC INC ANGIOPLAS TY NON-LASER GUIDE C1769 [facility] SILVERIO WIRE 6 [facility] INC INC PRESSURIZ 34590 [facility] SILVERIO ED/NONPRE 6 [facility] HOSP SSURIZED INC INC INHALATIO N TREATMENT GAS 13299 NUSRAT JIMENEZ JR DILUT/WAS 6 [facility] VOL W/WO P DISTRIB VENT&[place] [address] NUSRAT JIMENEZ JR DIFFUSING 6 [facility] P BRNCDILAT 55291 NUSRAT JIMENEZ JR RSPSE 6 [facility] PRE&POST- P BRNCDILAT ADMN BLOOD 89190 N[facility] SILVERIO COUNT 6 [facility]OS[facility] COMPLETE INC INC AUTO&AUTO DIFRNTL WBC INJECTION J2785 N[facility]RAT SILVERIO 6 [facility] HOSP REGADENOS INC INC ON 0.1 MG ECHO 46555 N[facility] SILVERIO TTHRC R-T 6 [facility] 2D INC INC W/WOM-MOD E COMPL SPEC&[place] [address] NUSRAT SILVERIO FREE 6 [facility] [place] [address] NUSRAT SILVERIO THYROID 6 [facility] STIMULATI INC INC NG HORMONE TSH CV STRS 95289 [facility] SOPHIE BARBER TST 6 PHYSICIAN XERS&/OR S GROUP RX CONT ECG W/O I&R CV STRS 96249 [facility] SILVERIO TST 6 [facility] XERS&/OR INC INC RX CONT ECG TRCG ONLY TECHNETIU A9500 NUSRAT Nowak TC-99M 6 [facility] HOSP SESTAMIBI INC INC DX PER STUDY DOSE RADIOLOGI 20869 N[facility]AT Young EXAM 6 [facility]OS[facility] CHEST 2 INC INC VIEWS FRONTAL&L ATERAL MYOCARDIA 47174 [facility] Stephenson SPECT 6 [facility]OS[facility] MULTIPLE INC INC STUDIES HEPATIC 92498 N[facility] SILVERIO FUNCTION 6 [facility] PANEL INC INC BASIC 74868 N[facility] SILVERIO METABOLIC 6 [facility] PANEL INC INC CALCIUM TOTAL ECG 74123 N[facility] SILVERIO ROUTINE 6 [facility] ECG INC INC W/LEAST 12 LDS TRCG ONLY W/O I&R RADIOLOGI 04169 [facility] JUNIOR C EXAM 6 MEDICAL MEDICAL CHEST 2 CENTER CENTER VIEWS FRONTAL&L ATERAL COLLECTIO 30076 [facility] JUNIOR N VENOUS 6 [facility] BLOOD MART CENTER VENIPUNCT URE BLOOD 26394 S[facility] JUNIOR COUNT 6 [facility] COMPLETE MART CENTER AUTOMATED COMPREHEN 45782 S[facility] JUNIOR SIVE 6 [facility] METABOLIC MART CENTER PANEL HOSPITAL G0463 SANDI JUNIOR OUTPATIEN 6 [facility] T CLIN MART CENTER VISIT ASSESS & MGMT PT CREATINE 14198 NUSRAT SILVERIO KINASE MB 6 [facility]OS[facility] FRACTION INC INC ONLY INJECTION J2405 N[facility]RAT SILVERIO 6 [facility] HOSP ONDANSETR INC INC ON HCL PER 1 MG COMPREHEN 11460 N[facility]AT SILVERIO SIVE 6 [facility]OS[facility] METABOLIC INC INC PANEL THERAPEUT 85759 N[facility]RAT SILVERIO IC 6 [facility]OS[facility] INJECTION INC INC IV PUSH EACH NEW DRUG BLOOD 20881 N[facility]AT SILVERIO COUNT 6 [facility]OS[facility] COMPLETE INC INC AUTO&AUTO DIFRNTL WBC COLLECTIO 55831 NUSRAT SILVERIO N VENOUS 6 [facility] BLOOD INC INC VENIPUNCT URE CREATINE 72380 NUSRAT SILVERIO KINASE 6 [facility] TOTAL INC INC ECG 27304 NUSRAT JIMENEZ JR ROUTINE 6 [facility] W/LEAST P 12 LDS I&[place] [address] NUSRAT SILVERIO TROPONIN 6 [facility] QUANTITAT INC INC DEBBIE ECG 34013 N[facility] SILVERIO ROUTINE 6 [facility] ECG INC INC W/LEAST 12 LDS TRCG ONLY W/O I&R RADIOLOGI 50451 EDDIE MANSFIELD C EXAM 6 MEDICAL HUONG CHEST 2 IMAGING VIEWS ASS FRONTAL&L ATERAL THER 19060 N[facility] SILVERIO PROPH/DX 6 [facility] NJX IV INC INC PUSH SINGLE/1S T SBST/DRUG ECG 57995 [facility] SILVERIO ROUTINE 6 [facility] ECG INC INC W/LEAST 12 LDS TRCG ONLY W/O I&[place] [address] NUSRAT SILVERIO TROPONIN 6 [facility] QUANTITAT INC INC DEBBIE ECG 25414 NUSRAT OCHOA ROUTINE 6 [facility] W/LEAST P 12 LDS I&R ONLY LOCM Q9967 NUSRAT SILVERIO [phone] [facility] MG/ML INC INC IODINE CONCENTRA TION PER ML COLLECTIO 51667 NUSRAT SILVERIO N VENOUS 6 [facility] BLOOD INC INC VENIPUNCT URE BLOOD 36270 NUSRAT SILVERIO COUNT 6 [facility] COMPLETE INC INC AUTO&AUTO DIFRNTL WBC COMPREHEN 80370 NUSRAT SILVERIO SIVE 6 [facility] METABOLIC INC INC PANEL GROUND A0425 [facility] MILEAGE 6 AMBULANCE AMBULANCE PER SERVICE SERVICE STATUTE MILE CT THORAX [address] [place] [facility] ALL 6 MEDICAL W/CONTRAS IMAGING T ASS MATERIAL AMB A0427 [facility] SERVICE 6 AMBULANCE AMBULANCE ALS SERVICE SERVICE EMERGENCY TRANSPORT LEVEL 1 [facility] [address] [facility] 6 CARE/DAY [facility]IAN 25 HOSP MINUTES WALKER E0135 SANDI JUNIOR FOLDING 6 MEDICAL MEDICAL ADJUSTABL EQUIP EQUIP E OR FIXED HEIGHT COMMODE E0163 SANDI JUNIOR CHAIR 6 MEDICAL MEDICAL MOBILE OR EQUIP EQUIP STATIONAR Y W/FIXED [facility] 42179 SANDI ATTUM ABD DISCHARGE 6 DAY [facility] T 30 MIN/< SBSQ 43632 [facility] 6 MYRNA CARE/DAY RASTAFARIAN 25 HOSP MINUTES SBS 43576 [facility] 6 CARE/DAY 25 MINUTES RADIOLOGI 44208 SANDI Young 6 GAR EXAMINATI RADIOLOGY ON CHEST PLLC SINGLE VIEW FRONTAL SBSQ 88679 [facility] 6 MALHAB CARE/DAY RASTAF[facility]IAN NIS 35 HOSP MINUTES SBSQ 36948 [facility] 6 CARE/DAY RASTAFARIAN 25 HOSP MINUTES CRITICAL 70251 [facility] 6 MALHAB ILL/INJUR [facility] NIS ED HOSP PATIENT INIT 30-74 MIN [facility]23 [facility] ILL/INJUR [facility] NIS ED HOSP PATIENT INIT 30-74 MIN SBSQ 57060 [facility] 6 CARE/DAY RASTAFARIAN 25 HOSP MINUTES SBSQ 53150 [facility] 6 CARE/DAY 25 MINUTES CR[facility]ICAL 23343 [facility] MALHAB ILL/INJUR [facility]STAFARIAN NIS ED HOSP PATIENT INIT 30-74 MIN RADIOLOGI 34461 SANDI Young 6 GAR EXAMINATI RADIOLOGY ON CHEST PLLC SINGLE VIEW FRONTAL ECG 00825 SANDI DING ROUTINE 6 JEIMY ECG RASTAFARIAN W/LEAST HOSP 12 LDS I&R ONLY RADIOLOGI 98488 SANDI Young 6 GAR EXAMINATI RADIOLOGY ON CHEST PLLC SINGLE VIEW FRONTAL SBSQ 50667 [facility] 6 CARE/DAY RASTAFARIAN 25 HOSP MINUTES CRITICAL 14331 [facility] 6 MALHAB ILL/INJUR [facility]STAFARIAN NIS ED HOSP PATIENT INIT 30-74 MIN CRITICAL 80944 [facility] 6 MALHAB ILL/INJUR [facility]IAN NIS ED HOSP PATIENT INIT 30-74 MIN SBSQ 65914 [facility] 6 CARE/DAY RASTAFARIAN 25 HOSP MINUTES RADIOLOGI 44970 SANDI Young 6 GAR EXAMINATI RADIOLOGY ON CHEST PLLC SINGLE VIEW FRONTAL RADIOLOGI 43384 SANDI Young 6 DEN EXAMINATI RADIOLOGY ON CHEST PLLC SINGLE VIEW FRONTAL SBSQ 24559 [facility] 6 CARE/DAY 25 MINUTES CRITICAL 41133 [facility] ILL/INJUR [facility] ED HOSP PATIENT INIT 30-74 MIN CRITICAL 93099 SANDI [facility] 6 ILL/INJUR RASTAFARIAN ED HOSP PATIENT INIT 30-74 MIN SBSQ 83810 [place] [address] [facility]ICAL MAR CARE/DAY CENTER 25 INC MINUTES RADIOLOGI 90728 SANDI STACY C 6 EXAMINATI RADIOLOGY ON CHEST PLLC S[place] FRONTAL SBSQ 11173 [facility] 6 CARE/DAY 35 MINUTES RADIOLOGI 54315 SANDI MARTINO C 6 VINNIE EXAMINATI RADIOLOGY ON CHEST PLLC SINGLE VIEW FRONTAL SBSQ 70465 [facility] 6 CARE/DAY RASTAFARIAN 25 HOSP MINUTES SBSQ 81087 [facility] 6 CARE/DAY RASTAFARIAN 25 HOSP MINUTES RADIOLOGI 33172 SANDI Young 6 VINNIE EXAMINATI RADIOLOGY ON CHEST PLLC [place] FRONTAL RADIOLOGI 03489 SANDI MARTINO C 6 VINNIE EXAMINATI RADIOLOGY ON CHEST PLLC SINGLE VIEW FRONTAL SBSQ 17513 [facility] 6 CARE/DAY RASTAFARIAN 25 HOSP MINUTES ECG 84036 SANDI SMITH ROUTINE 6 DEN ECG [facility]IAN W/LEAST HOSP 12 LDS I&R ONLY ECHO 49505 [facility] 6 2D RA[facility]IAN W/WOM-MOD HOSP E COMPL SPEC&COLR D ECG 30157 SANDI IDNG ROUTINE 6 JEIMY ECG [facility]AFARIAN W/LEAST HOSP 12 LDS I&R ONLY ANES 71172 SANDI SAMUEL DIRECT 6 CABG RASTAFARIAN W/PUMP HOSP OXYGENATO R CORONARY 39471 SANDI ATTUM ABD ARTERY 6 BYP RASTAFARIAN W/VEIN & HOSP ARTERY GRAFT 1 VEIN CABG 17854 SANDI ATTUM ABD W/ARTERIA 6 L GRAFT [facility]IAN SINGLE HOSP ARTERIAL GRAFT SBSQ 34716 [facility] 6 CARE/DAY RASTAFARIAN 25 HOSP MINUTES RADIOLOGI 70645 SANDI MILAN Young 6 GAR EXAMINATI RADIOLOGY ON CHEST PLLC S[place] FRONTAL INSJ 19989 SANDI ATTUM ABD INTRA-AOR 6 T BALO [facility] DEV VIA FEM ART OPEN CATH PLMT 79089 [facility] & 6 ARTS RASTAFARIAN W/NJX & HOSP ANGIO IMG S&I RADIOLOGI 94663 RAHUL KAY JR C 6 PHILIP PHILIP EXAMINATI ON CHEST SINGLE VIEW FRONTAL ROTARY A0436 MED-TRANS MED-TRANS WING AIR 6 MILEAGE CORPORATI CORPORATI PER ON ON STATUTE MILE GROUND A0425 NEON NEON MILEAGE 6 VOLUNTEER VOLUNTEER PER FIRE FIRE STATUTE DEPT\EMS DEPT\EMS MILE AMB A0427 NEON NEON SERVICE 6 VOLUNTEER VOLUNTEER ALS FIRE FIRE EMERGENCY DEPT\EMS DEPT\EMS TRANSPORT LEVEL 1 INSERTION 16043 [facility] 6 INTRA-AOR [facility] TIC HOSP [place] ASSIST DEV PERQ AMB A0431 MED-TRANS MED-TRANS SERVICE 6 CONVNTION CORPORATI CORPORATI AIR SRVC ON ON TRANSPORT [address] ECG 16345 [facility] GHARAD ROUTINE 6 MEDICAL CORRINA ECG ASSOCIATE W/LEAST S 12 LDS I&R ONLY KNEE L1810 [facility] ORTHOSIS 5 MEDICAL MEDICAL ELASTIC JOINTS PREFAB CUSTOM FIT RADEX 13946 RAHUL KAY JR SPINE 5 PHILIP PHILIP CERVICAL 4 OR 5 VIEWS THERAPEUT 76551 [facility] 4 PROPHYLAC TIC/DX INJECTION SUBQ/IM INJECTION J0696 [facility] 4 CEFTRIAXO NE SODIUM PER 250 MG BASIC 19344 [facility] [place] METABOLIC 4 G A R H G A R H PANEL CALCIUM TOTAL RADIOLOGI 02389 D[facility] ORTIZ C EXAM 4 G A R H G A R H CHEST 2 VIEWS FRONTAL&L ATERAL BLOOD 39326 DIANA ORTIZ COUNT 4 G A R H G A R H COMPLETE AUTO&AUTO DIFRNTL [facility] 52796 [facility] DISCHARGE 4 COMP DAY HEALTH MANAGEMEN SANDY T 30 MIN/< SBSQ 77550 [facility] 4 COMP CARE/DAY HEALTH 25 SANDY MINUTES SBSQ 35416 [place] [address] COMP MAT CARE/DAY HEALTH 25 SANDY MINUTES SBSQ 57172 [facility] 4 COMP MAT CARE/DAY HEALTH 25 SANDY MINUTES SBSQ 58998 [facility] 4 COMP CARE/DAY SPECIALTY 25 SERV MINUTES SBSQ 17724 [facility] 4 COMP CARE/DAY HEALTH 25 SANDY MINUTES INITIAL 29544 [place] [address] COMP CARE/DAY SPECIALTY 50 SERV MINUTES INITIAL 14376 [facility] 4 COMP FAR CARE/DAY HEALTH 70 SANDY MINUTES Encounters Encounter Start End Date Code Location Performer Type Date OFFICE [address] [place] KATHY PHI OUTPATIEN 6 6 MEDICAL T NEW 30 SERV MINUTES [facility]ATIST. [facility] N[facility] - 6 6 [facility] OFF[facility] 19420 [facility] PETTEY OUTPATIEN 6 6 PHYSICIAN SARMAD T NEW 20 S GROUP [facility] NUSRAT [facility] 6 6 [facility] EMER[facility]ENC[facility] 60394 RUBY MOHAN 6 6 PHYSICIAN VLADIMIR DEPARTDANIEL S, PLLC T VISIT HIGH/URGE NT SEVERITY HOSPITAL NUSRAT [facility] OTHER 6 6 [facility] NUSR[facility] - 6 6 [facility] NUSRAT [facility] 6 6 [facility] NUSRAT [facility] OTHER 6 6 [facility] NUSR[facility] - 6 6 [facility] NUSR[facility] 6 6 [facility] - 6 6 [facility]US[facility] - 6 6 [facility] [place] - 6 6 [facility] OUTPATIEN MART T OFFICE 08249 ISAI FOXS OUTPATIEN 6 6 [employer] 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 HIGH SEVERITY& THREAT [facility] NUSRAT - 6 6 [facility] OUTPATIEN [facility] T EMERGENCY 88398 NUSRAT 6 6 [facility] T VISIT HIGH/URGE NT SEVERITY EMERGENCY 26174 RUBY LUNDBERG DEPT 6 6 PHYSICIAN FOR VISIT S, [facility] HIGH SEVERITY& THREAT FUNJ EMERGENCY 21996 NUSRAT 6 6 [facility] T VISIT MODERATE SEVERITY HOSPITAL NUSRAT - 6 6 [facility] OUTPATIEN [facility] T OFFICE 38777 ISAI BARBOSA OUTPATIEN 6 6 [employer] [facility] SPECIALIST T VISIT FAMILY 15 CLINIC MINUTES OFFICE 50751 [facility] 5 5 T VISIT 15 MINUTES [facility] [place] 5 5 G A [facility] H OUTPATI[facility] T OFFICE 70303 [facility] 4 4 T VISIT 15 MINUTES OFFICE 45119 [facility] 4 4 T VISIT 15 MINUTES OFFICE 77599 [facility] 4 4 T VISIT 15 MINUTES [facility] 4 4 G A R H OUTPATIEN T
--- OUTSIDE RECORDS SUMMARY | 2016-09-22 03:44 | External Medical Summary Rpt ---
Author Author , Organization [employer] Address Unknown Phone Unavailable Care Team Providers Care Industrial Production Manager Name Role Phone AHMAD MUH, AHMAD [...] [facility] KAY JR PHILIP, KAY JR [...] Unavailable Unavailable INC, [facility] Unavailable Unavailable HOSPITAL P, [facility] Unavailable Unavailable [facility] ISAI REEVES APRN FAMILY Unavailable Unavailable CLINIC, ISAI REEVES APRN [facility] GUNNER VINNIE, GUNNER Unavailable Unavailable [facility], [facility] KHATER FAR, KHATER Unavailable Unavailable [facility] BARBARA JR DWI, BARBARA Unavailable Unavailable JR DWI THOMAS AHM, THOMAS AHM Unavailable Unavailable THOMAS AHM, THOMAS AHM Unavailable Unavailable [facility], Unavailable Unavailable [facility] [...] PLLC PETTEY JAM, PETTEY Unavailable Unavailable J[facility] Unavailable Unavailable CENTER, [facility] Unavailable Unavailable EQUIP, [facility], [facility] YATES GAR, YATES Unavailable Unavailable GAR [...] [facility] REGION [id number] OTHER 04-10-2016 [facility] DEGENERATIO N AT C5-C6 LEVEL Z720 TOBACCO USE 04-10-2016 [facility] [id number] OTHER 04-09-2016 [facility] EXTRAARTICU PHYSICIANS LAR FX LOW GROUP RT RADIUS INIT CLOS [id number] DSPL FX 04-09-2016 [facility] RT WRST IMAGING ASS SUB ENC FX ROUTINE I10 ESSENTIAL 03-30-2016 [facility] HYPERTENSIO INC N 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 CHRONIC 03-30-2016 [facility] PULMONARY INC DISEASE UNS 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 [place] OSTEOAR[facility] TIS RIGHT IMAGING ASS HAND Z42311 PAIN IN 03-30-2016 [place] RIGHT MEDICAL SHOULDER IMAGING ASS D82962 PAIN IN 03-30-2016 [place] RIGHT WRIST MEDICAL IMAGING ASS U95930 PAIN IN 03-30-2016 [facility] UNSPECIFIED MEDICAL HIP IMAGING ASS A49165 PAIN IN 03-30-2016 [place] RIGHT MEDICAL FOREARM IMAGING ASS B16988 PAIN IN 03-30-2016 [place] RIGHT HAND [facility]ICAL IM[facility] Y8791ES UNS INJURY 03-30-2016 [place] RT SHOULDER MEDICAL UPPER ARM IMAGING ASS INITIAL ENCNTR M94647G FX UNS 03-30-2016 [facility] CARPAL BONE PHYSICIANS, RT WRIST PLLC INITIAL ENC CLOS FX [id number] DSPL FX 03-30-2016 [facility] RT WRIST IMAGING ASS INIT ENC CLOS FX M542 CERVICALGIA 03-19-2016 [facility] M545 LOW BACK 02-18-2016 [facility] PAIN [facility] M5022 OT CERV 02-08-2016 [place] DISC MEDICAL DISPLACEMEN IMAGING ASS T [facility]-CERV[place] L REGION M5032 OT CERV 02-08-2016 [place] DISC MEDICAL DEGENERATIO IMAGING ASS N [facility]ERV[facility] REGION M5124 OTH 02-08-2016 [place] INTERVERTEB MEDICAL RAL DISC IMAGING ASS DISPLACEMEN T THOR REGION M5134 OTH 02-08-2016 [place] INTER[facility]TE[facility]ICAL RAL DISC IMAGING ASS DEGEN THORACIC REGION M546 PAIN IN 02-08-2016 [place] THORACIC [facility] SPINE IMAGING ASS M549 DORSALGIA 02-08-2016 [facility] I209 ANGINA 01-15-2016 [facility] PECTORIS PHYSICIANS UNSPECIFIED GROUP I04851 [place] 01-15-2016 [facility] W/UNS INC ANGINA PECTORIS R9439 ABNORMAL 01-15-2016 [facility] RESULT [facility] CARDIOVASCU GROUP LR FUNCTION STUDY 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 [place] 01-04-2016 [facility] 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 ANGINA PECTORIS E039 HYPOTHYROID 12-28-2015 [facility] IS [facility] UNSPECIFIED INC R079 CHEST PAIN 12-28-2015 [place] UNSPECIFIED [facility] IMAGING ASS R0602 SHORTNESS 10-29-2015 [facility] R5383 OTHER 10-29-2015 [facility] F36837 PAIN IN 10-22-2015 [facility] LEFT PHYSICIANS, SHOULDER PLLC R0789 OTHER CHEST 10-22-2015 [place] PAIN MEDICAL IMAGING ASS U92141S PAIN D/T 10-22-2015 [facility] P IMPL & GRAFTS INITIAL G8918 OTHER ACUTE 10-18-2015 [facility] POSTPROCEDU [facility] P RAL PAIN G8928 OTHER 10-18-2015 [facility] CHRONIC PHYSICIANS, POSTPROCEDU PLLC RAL PAIN J80 ACUTE 10-18-2015 [facility] RESPIRATORY AMBULANCE DISTRESS SERVICE SYNDROME J90 PLEURAL 10-18-2015 [facility] MEDICAL NOT IMAGING ASS ELSEWHERE CLASSIFIED J9811 ATELECTASIS 10-18-2015 [facility] J9690 RESP FAIL 10-15-2015 [facility] UNS UNS [facility] WHETHER HOSP W/HYPOXIA/H YPERCAPNIA R410 DISORIENTAT 10-15-2015 [facility] ION [facility] UNSPECIFIED HOSP R5381 OTHER 10-15-2015 [facility] MALAISE [facility] H[facility]P I26543 ELEVATED 10-13-2015 [facility] WHITE BLOOD [facility] CELL COUNT HOSP UNSPECIFIED I509 HEART 10-13-2015 [facility] FAILURE [facility] UNSPECIFIED HOSP J9600 ACUTE 10-13-2015 [facility] RESPIRATORY [facility] FAIL UNS HOSP HYPOXIA/HYP ERCAPNIA I214 NON-ST 10-12-2015 [facility] ELEVATION [facility] MYOCARDIAL HOSP INFARCTION R4182 ALTERED 10-12-2015 [facility] MENTAL [facility] STATUS HOSP UNSPECIFIED D649 ANEMIA 10-11-2015 [facility] UNSPECIFIED [facility] HOSP E876 HYPOKALEMIA 10-11-2015 [place] [facility] 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 THOMAS 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 J9601 ACUTE 10-10-2015 [facility] RESPIRATORY [facility] FAILURE HOSP WITH HYPOXIA R9431 ABNORMAL 10-10-2015 [facility] ELECTROCARD [facility] IOGRAM HOSP E870 HYPEROSMOLA 10-09-2015 [facility] LITY [place] H38340 ACUTE 10-09-2015 [facility] POSTPROCEDU [facility] RAL HOSP RESPIRATORY FAILURE I999 UNSPECIFIED 10-08-2015 [facility] DISORDER [facility] OF HOSP CIRCULATORY SYSTEM E785 HYPERLIPIDE 10-03-2015 [facility] KAREN [facility] UNSPECIFIED HOSP I213 ST 10-02-2015 [facility] MYOCARDIAL HOSP INFARCTION UNS SITE C28384 ENCOUNTER 10-02-2015 [facility] FOR [facility] PREPROCEDUR HOSP AL CARIOVASCUL AR EXAM I222 SUBSEQUENT 10-01-2015 [facility] ELEVATION MYOCARDIAL INFARCT J309 ALLERGIC 09-25-2015 ISAI REEVES 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 UNSPECIFIED CLINIC N401 BENIGN 09-25-2015 ISAI REEVES PROSTATIC 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 HYPERPLASIA CLINIC LW URINARY TRACT SX 2724 OTHER AND 06-19-2014 [facility] UNSPECIFIED HYPERLIPIDE KAREN 4019 UNSPECIFIED 06-19-2014 [facility] ESSENTIAL HYPERTENSIO N 6079 UNSPECIFIED 06-19-2014 [facility] DISORDER OF PENIS 7242 LUMBAGO 06-19-2014 [facility] 52479 PAIN IN 06-06-2014 [facility] JOINT, MEDICAL MULTIPLE SITES 7231 CERVICALGIA 05-30-2014 [place] A R H 4619 ACUTE 02-23-2014 [facility] SINUSITIS, UNSPECIFIED 481 PNEUMOCOCCA 09-26-2013 [place] [facility] PNEUMONIA A R H 2875 UNSPECIFIED 09-20-2013 [employer] HEALTH THROMBOCYTO [place] PENIA 74451 OTHER 09-20-2013 [place] [facility] HEALTH PAIN [place] 70413 OBSTRUCTIVE 09-16-2013 [place] CHRON[facility] COMP BRONCHITIS SPECIALTY WITH SERV EXACERBATIO N 92971 DIARRHEA 09-14-2013 [employer] HEALTH [place] F10.10 ALCOHOL ABUSE, UNCOMPLICAT ED [...] 10\S\3 ed Count 05:45 Comment: SLIDE REVIEWED, CT WBC STOOL (09-19-2013 19:00) Fecal NONE NONE [...] E ed 16:00 [place]WALK-LIKE VIRUS,EIA (09-16-2013 16:00) [place] SEE complet -like 014 COMMENT ed Ag 16:00 S 014 09:45 AM Comment: Test Result Flag Unit RefValue Comment: ------- Comment: Norovirus Comment: Norovirus Antigen NOT DETECTED Comment: A negative result does not exclude norovirus Comment: infection. Comment: Comment: Test Performed by: Comment: [employer] Comment: [address] Comment: ANASTASIYA Vang [id number] VANCOMYCIN TROUGH (09-16-2013 11:50) [place] 5.5 10.0-20 [...] high. Comment: Comment: Test Performed by: Comment: [facility] Comment: [address] [facility], [place] [address] Comment: Hand Ii Thermal Cutter: Alberto Cook III, M.D. BASIC METABOLIC PANEL [...] Result Flag Unit RefValue Comment: ------- Comment: Zudhw-4-Zbdgqwzlulp, S 297 h mg/dL 100 - 190 Comment: Comment: Test Performed by: Comment: [facility] Comment: [address] [place] [address] Comment: Hand Ii Thermal Cutter: Alberto Cook III, M.D. CULTURE, ROUTINE (09-14-2013 06:00) [facility] Specime complet l 014 n/Sourc ed Report 06:00 e: OTHER-S PECIFY/ nasal Clinica Collect complet l 014 ed: ed Report 06:00 014 06:00 Clinica Status: complet l 014 Final ed Report 06:00 Last Updated : 014 07:25 Clinica CUL RES complet l 014 ed Report 06:00 (Final) [facility] Growth ed [...] complet l 014 ed Report 18:23 (Final) [facility] Culture complet l 014 In ed Report 18:23 Progres s [facility] No complet l 014 Growth ed Report 18:23 After 24 Hours Clinica No complet l 014 Growth ed Report 18:23 After 48 Hours Clinica No complet l 014 Growth ed Report 18:23 After 3 Days Clinica Specime complet l 014 n: ed Report 18:23 BLOOD [facility] No complet l 014 Growth ed Report 18:23 After 5 Days CULTURE, BLOOD (09-13-2013 18:03) Clinica No complet l 014 Growth ed Report 18:03 After 5 Days Clinica Specime complet l 014 n: ed Report 18:03 BLOOD [facility] Collect complet l 014 ed: ed Report 18:03 014 18:03 [facility] Status: complet l 014 Final ed Report 18:03 Last Updated : 014 20:24 Clinica CUL RES complet l 014 ed Report 18:03 (Final) [facility] Culture complet l 014 In ed Report 18:03 Progres s [facility] No complet l 014 Growth ed Report 18:03 After 24 Hours [facility] No complet l 014 Growth ed Report 18:03 After 48 Hours [facility] No complet l 014 Growth ed Report 18:03 After 3 Days [facility] No complet l 014 Growth ed [...] 013 ed 16:50 CULTURE, BLOOD (09-18-2012 16:50) [facility] Specime complet l 013 n: ed Report 16:50 BLOOD CULTURE, BLOOD (09-18-2012 16:50) [facility] Status: complet l 013 Final ed Report 16:50 Last Updated : 013 15:18 Clinica Specime complet l 013 n: ed Report 16:50 BLOOD [facility] Collect complet l 013 ed: ed Report 16:50 013 16:50 Clinica CUL RES complet l 013 ed Report 16:50 (Final) [facility] Culture complet l 013 In ed Report 16:50 Progres s [facility] No complet l 013 Growth ed [...] Procedure DOS Code Location Performer Comment RADEX 15066 [place] [facility] ALL WRIST 6 MEDICAL COMPLETE IMAGING MINIMUM 3 ASS VIEWS CAST Q4010 [facility] PETTEY SUPPLIES 6 PHYSICIAN JAM SHORT ARM S GROUP CAST ADULT FIBERGLAS S APPLICATI 50790 [facility] PET[facility] ON CAST 6 PHYSICIAN JAM ELBOW S GROUP FINGER SHORT ARM RADEX 47994 [place] [facility] FOREARM 2 6 MEDICAL VIEWS IMAGING ASS RADEX 02931 [place] [facility] ALL WRIST 6 MEDICAL COMPLETE IMAGING MINIMUM 3 ASS VIEWS RADEX 13681 [facility] ALL SHOULDER 6 MEDICAL COMPLETE IMAGING MINIMUM 2 ASS VIEWS RADEX HIP 89521 [facility] ALL 6 MEDICAL UNILATERA IMAGING L WITH ASS PELVIS 2-3 VIEWS APPLICATI 04747 [facility] ON SHORT 6 [facility] ARM INC INC SPLINT FOREARM-H AND STATIC RADEX 93531 [facility] ROACH ALL HAND 6 MEDICAL MINIMUM 3 IMAGING VIEWS ASS DRUG TST G0477 [facility] PRESUMP;C 6 [facility]OS[facility] PBL BEING INC INC READ DC OPT OBV ONLY E-STIM G0283 [facility] 1/> AREAS 6 [facility] OTH THAN INC INC WND CARE PART TX PLAN PHYSICAL 13588 [facility] THERAPY 6 [facility]OSP EVALUATIO INC INC N APPLICATI 44015 [facility] SILVER[facility] ON 6 [facility] MODALITY INC INC 1/> AREAS HOT/COLD PACKS APPL 26024 [facility] MODALITY 6 [facility] 1/> AREAS INC INC ULTRASOUN D EA 15 MIN MRI 40829 [facility] ALL SPINAL 6 MEDICAL CANAL IMAGING THORACIC ASS W/O CONTRAST MATRL MRI 93961 [facility] ROACH ALL SPINAL 6 MEDICAL CANAL IMAGING CERVICAL ASS W/O CONTRAST MATRL 3D 07679 [place] [facility] ALL RENDERING 6 MEDICAL W/INTERP IMAGING & ASS POSTPROCE SS SUPERVISI ON DRUG TST G0477 [facility] PRESUMP;C 6 MEM [facility] MEM HOSP PBL BEING INC INC READ DC OPT OBV ONLY INJECTION J1644 [facility] HEPARIN 6 [facility]OS[facility] SODIUM INC INC PER 1000 UNITS CATH PLAZ 96741 [facility] SILVER[facility] L 6 [facility] HRT/ARTS/ INC INC GRFTS WNJX & ANGIO IMG S&I LOCM Q9967 [facility] 300-399 6 [facility] MG/ML INC INC IODINE CONCENTRA TION PER ML CATH PLAZ 21698 [facility] AYESHA Stephenson HRT & 6 PHYSICIAN MAT ARTS S GROUP W/NJX & ANGIO IMG S&I CATHETER C1725 [facility] S[facility] TRANSLUMI 6 [facility] NAL INC INC ANGIOPLAS TY NON-LASER GUIDE C1769 [facility] SILVERIO WIRE 6 [facility] INC INC PRESSURIZ 49917 [facility] SILVERIO ED/NONPRE 6 [facility]OS[facility] SSURIZED INC INC INHALATIO N TREATMENT GAS 67691 [facility] JIMENEZ JR DILUT/WAS 6 [facility] DISTRI[place] [address] N[facility]ART JIMENEZ JR DIFFUSING 6 [facility] P BRNCDILAT 59119 NUSRAT JIMENEZ JR RSPSE 6 [facility] PRE&POST- P BRNCDILAT ADMN BLOOD 49008 N[facility] SILVERIO COUNT 6 [facility] COMPLETE INC INC AUTO&AUTO DIFRNTL WBC INJECTION J2785 NUSRAT SILVERIO 6 [facility] HOSP REGADENOS INC INC ON 0.1 MG ECHO 14553 [facility] SILVERIO TTHRC R-T 6 [facility] HOSP 2D INC INC W/WOM-MOD E COMPL SPEC&[place] [address] N[facility]AT SILVERIO FREE 6 [facility] [place] [address] N[facility] SILVERIO THYROID 6 [facility] STIMULATI INC INC NG HORMONE TSH CV STRS 71484 [facility] SOPHIE BARBER TST 6 PHYSICIAN XERS&/OR S GROUP RX CONT ECG W/O I&R CV STRS 18990 [facility] SILVERIO TST 6 [facility] XERS&/OR INC INC RX CONT ECG TRCG ONLY TECHNETIU A9500 N[facility]AT Nowak TC-99M 6 [facility] HOSP SESTAMIBI INC INC DX PER STUDY DOSE RADIOLOGI 31699 [facility] Young EXAM 6 [facility]OS[facility] CHEST 2 INC INC VIEWS FRONTAL&L ATERAL MYOCARDIA 99416 [facility] Stephenson SPECT 6 [facility] MULTIPLE INC INC STUDIES HEPATIC 09489 N[facility] SILVERIO FUNCTION 6 [facility] PANEL INC INC BASIC 51973 N[facility] SILVERIO METABOLIC 6 [facility] PANEL INC INC CALCIUM TOTAL ECG 29344 [facility] SILVERIO ROUTINE 6 [facility] ECG INC INC W/LEAST 12 LDS TRCG ONLY W/O I&R RADIOLOGI 00345 [facility] JUNIOR C EXAM 6 MEDICAL MEDICAL CHEST 2 CENTER CENTER VIEWS FRONTAL&L ATERAL COLLECTIO 47728 [facility] JUNIOR N VENOUS 6 [facility] BLOOD [facility] VENIPUNCT URE BLOOD 02037 [facility] JUNIOR COUNT 6 [facility] COMPLETE [facility] AUTOMATED COMPREHEN 69397 [facility] JUNIOR SIVE 6 [facility] METABOLIC [facility] PANEL [facility]OSP[facility] G0463 S[facility] JUNIOR OUTPATIEN 6 [facility] T CLIN [facility] VISIT ASSESS & MGMT PT CREATINE 68848 N[facility]AT SILVERIO KINASE MB 6 [facility]OS[facility] FRACTION INC INC ONLY INJECTION J2405 N[facility]RAT SILVERIO 6 [facility] MEM HOS[facility] ONDANSETR INC INC ON HCL PER 1 MG COMPREHEN 36652 N[facility]AT SILVERIO SIVE 6 [facility] METABOLIC INC INC PANEL THERAPEUT 18797 N[facility]RAT SILVERIO IC 6 [facility]OS[facility] INJECTION INC INC IV PUSH EACH NEW DRUG BLOOD 71693 N[facility]AT SILVERIO COUNT 6 [facility]OS[facility] COMPLETE INC INC AUTO&AUTO DIFRNTL WBC COLLECTIO 34548 N[facility]AT SILVERIO N VENOUS 6 [facility]OSP BLOOD INC INC VENIPUNCT URE CREATINE 62296 N[facility]AT SILVERIO KINASE 6 [facility]OS[facility] TOTAL INC INC ECG 17460 NUSRAT JIMENEZ JR ROUTINE 6 [facility] W/LEAST P 12 LDS I&[place] [address] NUSRAT SILVERIO TROPONIN 6 [facility]OS[facility] QUANTITAT INC INC DEBBIE ECG 84887 N[facility] SILVERIO ROUTINE 6 [facility] ECG INC INC W/LEAST 12 LDS TRCG ONLY W/O I&R RADIOLOGI 36514 EDDIE MANSFIELD C EXAM 6 MEDICAL HUONG CHEST 2 IMAGING VIEWS ASS FRONTAL&L ATERAL THER 61523 N[facility] SILVERIO PROPH/DX 6 [facility] NJX IV INC INC PUSH SINGLE/1S T SBST/DRUG ECG 76390 NUSRAT SILVERIO ROUTINE 6 [facility] ECG INC INC W/LEAST 12 LDS TRCG ONLY W/O I&[place] [address] NUSRAT SILVERIO TROPONIN 6 [facility] H[facility] QUANTITAT INC INC DEBBIE ECG 04476 NUSRAT OCHOA ROUTINE 6 [facility] W/LEAST P 12 LDS I&R ONLY LOCM Q9967 NUSRAT SILVERIO 300-399 6 [facility] MG/ML INC INC IODINE CONCENTRA TION PER ML COLLECTIO 28118 NUSRAT SILVERIO N VENOUS 6 [facility]OSP BLOOD INC INC VENIPUNCT URE BLOOD 68735 NUSRAT SILVERIO COUNT 6 [facility] H[facility] COMPLETE INC INC AUTO&AUTO DIFRNTL WBC COMPREHEN 62117 NUSRAT SILVERIO SIVE 6 [facility] METABOLIC INC INC PANEL GROUND A0425 [facility] MILEAGE 6 AMBULANCE AMBULANCE PER SERVICE SERVICE STATUTE MILE CT THORAX 93153 [place] [facility] ALL 6 MEDICAL W/CONTRAS IMAGING T ASS MATERIAL AMB A0427 [facility] SERVICE 6 AMBULANCE AMBULANCE ALS SERVICE SERVICE EMERGENCY TRANSPORT LEVEL 1 [facility] 77963 [facility] 6 CARE/DAY YARSANI 25 HOSP MINUTES WALKER E0135 S[facility] JUNIOR FOLDING 6 MEDICAL MEDICAL ADJUSTABL EQUIP EQUIP E OR FIXED HEIGHT COMMODE E0163 S[facility]I JUNIOR CHAIR 6 MEDICAL MEDICAL MOBILE OR EQUIP EQUIP STATIONAR Y W/FIXED [facility] 93492 SANDI ATTUM ABD DISCHARGE 6 DAY [facility] T 30 MIN/< SBSQ 24252 [facility] 6 MYRNA CARE/DAY YARSANI 25 HOSP MINUTES SBS 77846 [facility] 6 CARE/DAY 25 MINUTES RADIOLOGI 06240 SANDI Young 6 GAR EXAMINATI RADIOLOGY ON CHEST PLLC [place] FRONTAL SBSQ 08097 [facility] 6 MALHAB CARE/DAY YARSANI NIS 35 HOSP MINUTES SBSQ 25047 [facility] 6 CARE/DAY YARSANI 25 HOSP MINUTES CRITICAL 56297 [facility] 6 MALHAB ILL/INJUR YARSANI NIS ED HOSP PATIENT INIT 30-74 MIN CRITICAL 74987 [facility] 6 MALHAB ILL/INJUR YARSANI NIS ED HOSP PATIENT INIT 30-74 MIN SBSQ 97881 [facility] 6 CARE/DAY YARSANI 25 HOSP MINUTES SBSQ 87536 [facility] 6 CARE/DAY 25 MINUTES CRITICAL 83434 [facility] 6 MALHAB ILL/INJUR YARSANI NIS ED HOSP PATIENT INIT 30-74 MIN RADIOLOGI 75017 SANDI Young 6 GAR EXAMINATI RADIOLOGY ON CHEST PLLC [place] FRONTAL ECG 89982 SANDI DING ROUTINE 6 JEIMY ECG YARSANI W/LEAST HOSP 12 LDS I&R ONLY RADIOLOGI 02988 SANDI Young 6 GAR EXAMINATI RADIOLOGY ON CHEST PLLC [place] FRONTAL SBSQ 81212 [facility] 6 CARE/DAY YARSANI 25 HOSP MINUTES CRITICAL 57303 [facility] 6 MALHAB ILL/INJUR YARSANI NIS ED HOSP PATIENT INIT 30-74 MIN CRITICAL 79650 [facility] 6 MALHAB ILL/INJUR YARSANI NIS ED HOSP PATIENT INIT 30-74 MIN SBSQ 70411 [facility] 6 CARE/DAY YARSANI 25 HOSP MINUTES RADIOLOGI 77034 SANDI Young 6 GAR EXAMINATI RADIOLOGY ON CHEST PLLC [place] FRONTAL RADIOLOGI 87336 SANDI Young 6 DEN EXAMINATI RADIOLOGY ON CHEST PLLC [place] FRONTAL SBSQ 22628 [facility] 6 CARE/DAY 25 MINUTES CRITICAL 06982 [facility] ILL/INJUR YARSANI ED HOSP PATIENT INIT 30-74 MIN CRITICAL 91378 [facility] 6 ILL/INJUR YARSANI ED HOSP PATIENT INIT 30-74 MIN SBSQ 80727 [place] [address] MEDICAL MAR CARE/DAY CENTER 25 INC MINUTES RADIOLOGI 02600 SANDI STACY C 6 EXAMINATI RADIOLOGY ON CHEST PLLC [place] FRONTAL SBSQ 92005 [facility] 6 CARE/DAY 35 MINUTES RADIOLOGI 22087 SANDI MARTINO C 6 VINNIE EXAMINATI RADIOLOGY ON CHEST PLLC [place] FRONTAL SBSQ 16714 [facility] 6 CARE/DAY YARSANI 25 HOSP MINUTES SBSQ 39589 [facility] 6 CARE/DAY YARSANI 25 HOSP MINUTES RADIOLOGI 35741 SANDI Young 6 VINNIE EXAMINATI RADIOLOGY ON CHEST PLLC [place]AL RADIOLOGI 05600 SANDI MARTINO C 6 VINNIE EXAMINATI RADIOLOGY ON CHEST PLLC [place] FRONTAL SBSQ 59892 [facility] 6 CARE/DAY YARSANI 25 HOSP MINUTES ECG 41687 SANDI SMITH ROUTINE 6 DEN ECG YARSANI W/LEAST HOSP 12 LDS I&R ONLY ECHO 04837 [facility] 6 2D Y[facility]ANI W/WOM-MOD HOSP E COMPL SPEC&COLR D ECG 34855 SANDI DING ROUTINE 6 JEIMY ECG YARSANI W/LEAST HOSP 12 LDS I&R ONLY ANES 44167 SANDI SAMUEL DIRECT 6 CABG Y[facility]ANI W/PUMP HOSP OXYGENATO R CORONARY 16013 SANDI ATTUM ABD ARTERY 6 BYP Y[facility] W/VEIN & HOSP ARTERY GRAFT 1 VEIN CABG 34203 SANDI ATTUM ABD W/ARTERIA 6 L GRAFT Y[facility]ANI SINGLE HOSP ARTERIAL GRAFT SBSQ 95257 SANDI [facility] 6 CARE/DAY YARSANI 25 HOSP MINUTES RADIOLOGI 84934 SANDI MILAN Young 6 GAR EXAMINATI RADIOLOGY ON CHEST PLLC SINGLE VIEW FRONTAL INSJ 45009 SANDI ATTUM ABD INTRA-AOR 6 T BALO [facility] ASSIST HOSP DEV VIA FEM ART OPEN CATH PLMT 13993 [facility] L HRT & 6 ARTS YARSANI W/NJX & HOSP ANGIO IMG S&I RADIOLOGI 48471 RAHUL KAY JR C 6 PHILIP PHILIP EXAMINATI ON CHEST SINGLE VIEW FRONTAL ROTARY A0436 MED-TRANS MED-TRANS WING AIR 6 MILEAGE CORPORATI CORPORATI PER ON ON STATUTE MILE GROUND A0425 NEON NEON MILEAGE 6 VOLUNTEER VOLUNTEER PER FIRE FIRE STATUTE DEPT\EMS DEPT\EMS MILE AMB A0427 NEON NEON SERVICE 6 VOLUNTEER VOLUNTEER ALS FIRE FIRE EMERGENCY DEPT\EMS DEPT\EMS TRANSPORT LEVEL 1 INSERTION 61668 SANDI [facility] 6 INTRA-AOR YARSANI TIC HOS[facility] [place] ASSIST DEV PERQ AMB A0431 MED-TRANS MED-TRANS SERVICE 6 CONVNTION CORPORATI CORPORATI AIR SRVC ON ON TRANSPORT [address] ECG 83052 [facility] GHARAD ROUTINE 6 MEDICAL CORRINA ECG ASSOCIATE W/LEAST S 12 LDS I&R ONLY KNEE L1810 [facility] HOME [facility] HOME ORTHOSIS 5 MEDICAL MEDICAL ELASTIC JOINTS PREFAB CUSTOM FIT RADEX 40149 RAHUL KAY JR SPINE 5 PHILIP PHILIP CERVICAL 4 OR 5 VIEWS THERAPEUT 57546 [facility] IC 4 PROPHYLAC TIC/DX INJECTION SUBQ/IM INJECTION J0696 [facility] 4 CEFTRIAXO NE SODIUM PER 250 MG BASIC 98301 [facility] [place] METABOLIC 4 G A R H G A R H PANEL CALCIUM TOTAL RADIOLOGI 28926 [facility] ORTIZ C EXAM 4 G A R H G A R H CHEST 2 VIEWS FRONTAL&L ATERAL BLOOD 79741 [facility] ORTIZ COUNT 4 G A R H G A R H COMPLETE AUTO&AUTO DIFRNTL [facility] 96948 [facility] DISCHARGE 4 COMP DAY HEALTH MANAGEMEN SANDY T 30 MIN/< SBSQ 34677 [facility] 4 COMP CARE/DAY HEALTH 25 SANDY MINUTES SBSQ 22581 [place] [address] COMP MAT CARE/DAY HEALTH 25 SANDY MINUTES SBSQ 26544 [facility] 4 COMP MAT CARE/DAY HEALTH 25 SANDY MINUTES SBSQ 29982 [facility] 4 COMP CARE/DAY SPECIALTY 25 SERV MINUTES SBSQ 78998 [facility] 4 COMP CARE/DAY HEALTH 25 SANDY MINUTES INITIAL [address] [place] [address] COMP CARE/DAY SPECIALTY 50 SERV [address] IN[address] [facility] 4 COMP FAR CARE/DAY HEALTH 70 SANDY MINUTES Encounters Encounter Start End Date Code Location Performer Type Date OFFICE 35553 [place] [facility] OUTPATIEN 6 6 MEDICAL T NEW 30 SERV [facility] 88117 [facility] PETTEY [facility]PATIEN 6 6 PHYSICIAN SARMAD T NEW 20 S [facility] NUSRAT - 6 6 [facility] 90919 RUBY MOHAN 6 6 PHYSICIAN VLADIMIR [facility] T VISIT HIGH/URGE NT SEVERITY [facility] NUSRAT - OTHER 6 6 [facility] 6 [facility] 6 6 [facility] NUS[facility] OTHER 6 6 [facility] 6 6 [facility] OUTPATIEN INC T [facility] NUSRAT [facility] 6 6 [facility] OUTPATIEN INC T [facility]OSPITAL NUSRAT - 6 6 [facility]EN [facility] T HOSPITAL NUSRAT [facility] 6 6 [facility] OUTPATIEN INC T [facility] [place] - 6 6 [facility] OUTPATIEN [place] T OFFICE [id number] ISAI FOXS OUTPATIEN 6 6 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 FAMILY 15 CLINIC MINUTES EMERGENCY 93501 RUBY WOOTEN DEPT 6 6 PHYSICIAN U HUONG VISIT S, [facility] HIGH SEVERITY& THREAT [facility] NUSRAT - 6 6 [facility] OUTPATIEN [facility] T EMERGENCY 78895 N[facility]AT 6 [facility] HIGH/URGE NT SEVERITY EMERGENCY 74360 RUBY LUNDBERG DEPT 6 6 PHYSICIAN FOR VISIT S, [facility] H[facility] SEVERITY& THREAT FUNJ EMERGENCY 60190 NUSRAT 6 [facility] T VISIT MODERATE SEVERITY [facility] - 6 6 [facility] T OFFICE 92108 ISAI BARBOSA OUTPATIEN 6 

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
--- OUTSIDE RECORDS SUMMARY | 2016-09-22 03:48 | External Medical Summary Rpt ---
Demographics Preferred Language Guinean Marital Status Unknown Catholic Affiliation Unknown Race Unknown Ethnic Group Unknown Author Author , Organization [employer] Address Unknown Phone Unavailable Purpose Continuity of Care Document - through 2016 Immunization No patient found.
--- OUTSIDE RECORDS SUMMARY | 2016-09-22 03:48 | External Medical Summary Rpt ---
Demographics Preferred Language Ugandan Marital Status Unknown Voodoo Affiliation Unknown Race Unknown Ethnic Group Unknown Author Author , Organization [employer] Address Unknown Phone Unavailable Purpose Continuity of Care Document - through 2016 Immunization No patient found.
--- OUTSIDE RECORDS SUMMARY | 2016-09-22 03:55 | External Medical Summary Rpt ---
[...] 2015 identif tion in tion in in [id number] 10:30 ied in source source source 0 [...] AT 5 tion in tion in in [id number] 10:05 ied in DAYS source source source [...] 5 tion in tion in tion in [id number] 10:00 ied in DAYS source source source [...] 75 sq M d by LMF at [facility] on ed .THE among eGFR IS [...] CELLS ELI~ data data data data Acct: [id number] 708~AS5 RBC LEUKORE D [id number] p.Trans fus 6 15:12 TYPE AND SCREEN Observa Value Referen Units Interpr Notes Date ti ce etation Range TYPE TEXT~Na No No No No October 07 AND me: informa informa informa informa 2016 SCREEN BEAUPAR tion in tion in tion in tion in 12:20 LANT, source source source source PM ELI~ data data data data Acct: [id number] 708~ABO A 6 13:21 cmc~RH( D) TYPING [...] ......2 .0-3.0P REVENTI ON OF RECURRE NT MO..... ....... ....... ...2.5- 3.5ATRI AL FIBRILL ATIONPR [...] l placeme nt of endotra cheal tube, [place] nz cathete r, and mediast inal/ch est [...] CELLS ELI~ data data data data Acct: [id number] 708~BJ KO-REDU C AS3 [id number] p.Trans fus 6 07:54 SINGLE DONOR PLATELETS Observa Value Referen Units Interpr Notes Date ti ce etation Range SINGLE TEXT~Na No No No No October 01 DONOR me: informa informa informa informa 2016 PLATELE BEAUPAR tion in tion in tion in tion in 2:09 AM TS LANT, source source source source ELI~ data data data data Acct: [id number] 708~PHE R LEUKORE D C [id number] release d 6 11:26 MCT~PHE R LEUKORE D A [id number] release d 11:26 MCT~SIN GLE DONOR PLT [id number] p.Trans fus 11:54~P HER LEUKORE D C [id number] p.Trans fus 11:54 MCT~PHE R LEUKORE D A [id number] p.Trans fus 12:48 TYPE AND SCREEN Observa Value Referen Units Interpr Notes Date ti ce etation Range TYPE TEXT~Na No No No No October 01 AND me: informa informa informa informa 2016 SCREEN BEAUPAR tion in tion in tion in tion in 2:09 AM LANT, source source source source ELI~ data data data data Acct: [id number] 708~ABO A 03:37 bns~RH( D) TYPING POS [...] (aPTT) in [place] Blood LEVELS [facility] assay Y 0.3 TO 0.7 [...] ......2 .0-3.0P REVENTI ON OF RECURRE NT MO..... ....... ....... ...2.5- 3.5ATRI AL FIBRILL ATIONPR [...] FDA approve d test for monitor ing half-way glucose control in individ uals with diabete [...] ION-\\.b r\\No active disease in the chest.\\ .br\\[place] [facility] gist- WILLIAM RIOS RAHUL\\.b r\\Relea [...] PM [Mass/v TO DR rivero] TIFFANIE in [facility] Serum AT or 2202 Plasma [id number] 6 RVB AHN OTE - Referen ce [...] in tion in tion in tion in [facility], source source source source EIL~ data data data data Acct: [id number] 937~ [facility] Departm ent of Patholo gy [address] [place] [id number] ~ Name: RACHEL Nowak.R.N: [id number] Accessi on 764~ ELI Mixon #:~ FINAL SURGICA L PATHOLO GY REPORT~ NAME: MARIEJOEY BEBA CAMPOS N: OPS~ ELI~ M.R.N: [id number] SEX: M PROCEDU RE ~ DATE:~D OB: 957 AGE: 59 Y RECEIVE D 015~ DATE:~P HYSICIA N: OGERARD SANDERSON SIGN OUT DATE: ~RAGHAVENDRA SULLIVAN #: [id number] COPIES TO: OAI SANDERSON~PA THOLOGI ST: [...] perform ed.~ <Sign Out Dr. Givens re>~ FRANKLYN EDWARDS D.O., DERMATO PATHOLO GIST~ [...] N-\\.br\\ No active disease in the chest.\\ .br\\[place] [facility] gist- WILLIAM KAY\\.b r\\Relea sing [...] source source source RATE data data data [facility] Anne Marie n CBC W/DIFF Observa Value [...] Interpr Notes Date tion ce etation Range [place] SEE No No No Test September 23 [...] st Perform ed by:Maria M crowder Diagnos [employer].578 [address] [facility] [place] [address] ROTAVIRUS Observa Value Referen Units Interpr [...] probabi lity is high.Te st Perform ed by:[address], [place] [address]Yi borator y Directo r: Maicol Ruvalcaba ll, [...] sed Date Time- 4 1630\\.b r\\Trans criptio [facility]- WILLIAM KAY\\.b r\\----- ------- ------- ------- ------- [...] or pleural collect ion.\\.b r\\Readi ng Radiolo [facility]- WILLIAM KAY\\.b r\\Relea sing [facility]- WILLIAM KAY\\.b r\\Relea sed Date Time- 4 1258\\.b r\\Trans criptio [facility]- WILLIAM KAY\\.b r\\----- ------- ------- ------- ------- [...] h mg/dL 100 - 190Test Perform ed by:[address] [id number] borator y Directo r: Maicol osborne III, [...] source source KAY\\.b data data data data r\\Gevoani ble chest\\. br\\Card iomegal y. Patchy hazines [...] old injury and DJD\\.br \\Ravi werner [facility]iol[facility]- WILLIAM KAY\\.b r\\Relea sing [facility]- WILLIAM KAY\\.b r\\Relea sed Date Time- 3 [...]
--- OUTSIDE RECORDS SUMMARY | 2016-09-22 03:55 | External Medical Summary Rpt ---
[...] 2015 identif tion in tion in in [id number] 10:30 ied in source source source 0 [...] AT 5 tion in tion in in [id number] 10:05 ied in DAYS source source source [...] 5 tion in tion in tion in [id number] 10:00 ied in DAYS source source source [...] tion in 3:49 AM leukocy source source nadressa in data data Blood by [employer] ed [...] CELLS ELI~ data data data data Acct: [id number] 708~AS5 RBC LEUKORE D [id number] p.Trans fus 6 15:12 TYPE AND SCREEN Observa Value Referen Units Interpr Notes Date ti ce etation Range TYPE TEXT~Na No No No No October 07 AND me: informa informa informa informa 2016 SCREEN BEAUPAR tion in tion in tion in tion in 12:20 LANT, source source source source PM ELI~ data data data data Acct: [id number] 708~ABO A 6 13:21 cmc~RH( D) TYPING [...] ......2 .0-3.0P REVENTI ON OF RECURRE NT DC..... ....... ....... ...2.5- 3.5ATRI AL FIBRILL ATIONPR [...] l placeme nt of endotra cheal tube, [place] nz cathete r, and mediast inal/ch est [...] CELLS ELI~ data data data data Acct: [id number] 708~BJ KO-REDU C AS3 [id number] p.Trans fus 6 07:54 SINGLE DONOR PLATELETS Observa Value Referen Units Interpr Notes Date ti ce etation Range SINGLE TEXT~Na No No No No October 01 DONOR me: informa informa informa informa 2016 PLATELE BEAUPAR tion in tion in tion in tion in 2:09 AM TS LANT, source source source source ELI~ data data data data Acct: [id number] 708~PHE R LEUKORE D C [id number] release d 6 11:26 MCT~PHE R LEUKORE D A [id number] release d 11:26 MCT~SIN GLE DONOR PLT [id number] p.Trans fus 11:54~P HER LEUKORE D C [id number] p.Trans fus 11:54 MCT~PHE R LEUKORE D A [id number] p.Trans fus 12:48 TYPE AND SCREEN Observa Value Referen Units Interpr Notes Date ti ce etation Range TYPE TEXT~Na No No No No October 01 AND me: informa informa informa informa 2016 SCREEN BEAUPAR tion in tion in tion in tion in 2:09 AM LANT, source source source source ELI~ data data data data Acct: [id number] 708~ABO A 03:37 bns~RH( D) TYPING POS [...] (aPTT) in [place] Blood LEVELS by [facility] XIMATEL assay Y 0.3 TO 0.7 [...] ......2 .0-3.0P REVENTI ON OF RECURRE NT DC..... ....... ....... ...2.5- 3.5ATRI AL FIBRILL ATIONPR [...] FDA approve d test for monitor ing residential glucose control in individ uals with diabete [...] ION-\\.b r\\No active disease in the chest.\\ .br\\[place] [facility]iol[facility] gist- WILLIAM RIOS RAHUL\\.b r\\Relea [...] PM [Mass/v TO DR rivero] TIFFANIE in [facility] Serum AT or 2202 Plasma [id number] 6 RVB AHN OTE - Referen ce [...] in tion in tion in tion in [facility], source source source source ELI~ data data data data Acct: [id number] 937~ [facility] Departm ent of Patholo gy [address] [place] [id number] ~ Name: RACHEL Nowak.R.N: [id number] Accessi on 764~ ELI Mixon #:~ FINAL SURGICA L PATHOLO GY REPORT~ NAME: MARIEJOEY BEBA CAMPOS N: OPS~ ELI~ M.R.N: [id number] SEX: M PROCEDU RE ~ DATE:~D OB: 957 AGE: 59 Y RECEIVE D 015~ DATE:~P HYSICIA N: OGERARD SANDERSON SIGN OUT DATE: ~RAGHAVENDRA SULLIVAN #: [id number] 937 COPIES TO: OAI SANDERSON~PA THOLOGI ST: [...] N-\\.br\\ No active disease in the chest.\\ .br\\[place] [facility]iol[facility] gist- WILLIAM KAY\\.b r\\Relea sing [...] source source source RATE data data data [facility] Anne Marie n CBC W/DIFF Observa Value [...] Interpr Notes Date tion ce etation Range [place] SEE No No No Test September 23 [...] st Perform ed by:Maria M crowder [employer]os [email or web address].578 5 [place] [address] ROTAVIRUS Observa Value Referen Units Interpr [...] probabi lity is high.Te st Perform ed by:[address], [place] [address]Ge borator y Directo r: Maicol Ruvalcaba ll, [...] sed Date Time- 4 1630\\.b r\\Trans criptio [facility]- WILLIAM KAY\\.b r\\----- ------- [...] or pleural collect ion.\\.b r\\Readi ng Radiolo [facility]- WILLIAM KAY\\.b r\\Relea sing Radiolo [facility]- WILLIAM KAY\\.b r\\Relea sed Date Time- 4 2358\\.b r\\Trans criptio [facility]- WILLIAM KAY\\.b r\\----- ------- [...] h mg/dL 100 - 190Test Perform ed by:[address] [id number] borator y Directo r: Maicol osborne III, [...] old injury and DJD\\.br \\Ravi werner Radiolo [facility]- WILLIAM KAY\\.b r\\Relea sing Radiolo [facility]- WILLIAM KAY\\.b r\\Relea sed Date Time- [...]
[2016-09-23] MEDS ORDERED: TAMSULOSIN HYD0.4 MG PO (16:34)
[2016-09-23] MEDS ORDERED: K-DUR 20MEQ TA20 MEQ PO (16:34)
[2016-09-23] MEDS ORDERED: ADULT LOW DOSE81 MG PO (16:35)
[2016-09-23] MEDS ORDERED: AMIODARONE HYD200 MG PO (16:35)
[2016-09-23] MEDS ORDERED: SINGULAIR 10 MG10 MG PO (16:35)
[2016-09-23] MEDS ORDERED: PAROXETINE30 MG PO (16:35)
[2016-09-23] MEDS ORDERED: HYDROXYZINE HCL25 M1 PO (16:36)
[2016-09-23] MEDS ORDERED: SIMVASTATIN40 MG PO (16:36)
[2016-09-23] MEDS ORDERED: GABAPENTIN800 MG PO (16:36)
[2016-09-23] MEDS ORDERED: MINOCYCLINE 10100 MG PO (16:37)
== END 2016-09-21 11:25 | disposition home or self-care (01) ==
LOC: ER 23:51 → 2ND 09-21 01:49 → ER 09-21 01:49 → 2ND 09-21 02:13
PROVIDERS: Emergency Medicine
DX: R07.9 Chest pain, unspecified (principal); I10 Essential (primary) hypertension; J44.9 Chronic obstructive pulmonary disease, unspecified; Z79.899 Other long term (current) drug therapy; Z95.1 Presence of aortocoronary bypass graft; Z72.0 Tobacco use; F10.129 Alcohol abuse with intoxication, unspecified; Y90.8 Blood alcohol level of 240 mg/100 ml or more
CPT/HCPCS: G0378